=== PATIENT | female | born 1955 | race Caucasian/White ===

== ENCOUNTER 2020-07-16 08:19 | Emergency (ER) | payer MEDICARE, SELFPAY ==
--- NOTE | ~2020-07-16 | US_ITS ---
EXAMINATION: US DIAGNOSTIC ULTRASOUND BREAST, LEFT CLINICAL INFORMATION: 65-year-old female presents to ER with firm mass left breast. No recent breast imaging, last mammogram suspected over 10 years ago. COMPARISON: None. TECHNIQUE: Ultrasound of the left breast is targeted to the area of clinical concern. Patient is able to point to the area of concern at time of imaging. Exam performed at the hospital and reviewed remotely on PACS. Grayscale imaging and color Doppler are performed. FINDINGS: There is a heterogeneous irregular and macrolobulated mass 8:00 position 7 cm from nipple measuring approximately 5.0 x 4.0 x 4.5 cm. There is scattered internal color flow. There is no posterior increased or decreased through transmission of sound. There are several satellite hypoechoic lesions in this quadrant, largest 1.3 x 1.0 cm. These also shows scattered internal color flow vascularity. There is likely skin thickening, 5.5 mm in diameter. Results called and discussed with Ada Anthony NP in the emergency department at 12:17 hours. US/US breast LT limited IMPRESSION: Large irregular mass with scattered internal color flow vascularity 8:00 position 7 cm from nipple measuring 5 x 4 cm. Several adjacent smaller satellite foci, largest 1.3 cm. Differential considerations include malignancy as well as abscess. ASSESSMENT: BI-RADS 4: Suspicious RECOMMENDATION: 1. Surgical Consult. 2. Diagnostic mammography.
[2020-07-16 08:29] VITALS: BP 176/86; PULSE 100; RESP 16; TEMP 36.2; O2SAT 97; BMI 40.2
--- NOTE | 2020-07-16 08:40 | ED_ITS ---
HPI - Skin/Abscess/Foreign Bdy General Chief complaint: Skin/Abscess/Foreign Body Stated complaint: left breast pain Time Seen by Provider: 07/16/20 08:31 Source: patient Mode of arrival: ambulatory Limitations: no limitations History of Present Illness HPI narrative: 65-year-old female with a past medical history of cerebral aneurysm status post repair here with complaints of left breast lump x1 month. Patient tells me she noticed a bump underneath her left breast about 1 month ago but over the last 2 weeks he has had increasing redness, swelling and pain to the left breast. No fevers, chills. Patient tells me she delayed coming and due to not having insurance or a primary care doctor. She was also worried about her COVID-19 exposure and so delayed care further. Last mammogram >10 yrs ago. MD complaint: abscess/boil Related Data Previous Rx's Medication Instructions Recorded doxycycline monohydrate 100 mg PO BID #14 cap 07/16/20 Allergies Allergy/AdvReac Type Severity Reaction Status Date / Time codeine [CODEINE] Allergy Unknown STOMACH Verified 07/16/20 08:44 UPSET Review of Systems Review of Systems: Yes all other systems are reviewed and are negative Constitutional: Constitutional: Reports no additional constitutional complaints, Denies body ache(s), Denies chills, Denies fever(s), Denies headache(s) and Denies weakness Eyes: Eyes: Reports no additional eye complaints and Denies change in vision ENT: Reports system reviewed and no additional complaints, except as documented, Denies dizziness, Denies headache(s), Denies nasal congestion, Denies nasal discharge and Denies neck pain Cardiovascular: Cardiovascular: Reports no additional cardiovascular complaints, Denies chest pain, Denies leg edema and Denies dyspnea Respiratory: Respiratory: Reports no additional respiratory complaints, Denies cough and Denies dyspnea Gastrointestinal: Gastrointestinal: Reports no additional gastrointestinal complaints, Denies abdominal pain, Denies diarrhea, Denies nausea and Denies vomiting Genitourinary: Genitourinary: Reports no additional female genitourinary complaints and Denies urinary incontinence Musculoskeletal: Musculoskeletal: Reports no additional musculoskeletal complaints, Denies back pain, Denies arthralgias, Denies joint swelling, Denies neck pain, Denies numbness and Denies tingling Integumentary/Breasts: Skin/Breast: Reports system reviewed and no additional complaints, except as docu, Reports swelling, Reports erythema and Denies rash Neurologic: Reports system reviewed and no additional complaints, except as documented, Denies Abnormal speech present, Denies dizziness, Denies headache(s), Denies numbness, Denies tingling and Denies weakness PMFSH Past Medical History Attestation statement: The following information was validated with the patient. Source: old records reviewed and nursing notes reviewed Medical History (Updated 07/16/20 @ 13:04 by Ada Anthony NP) Cerebral aneurysm Pneumonia Social History Social History Alcohol intake: current Alcohol intake frequency: a few times a week Smoking Status: Current every day smoker Physical Exam Vital Signs: Vital Signs: Last Vital Signs Temp 97.2 F 07/16/20 08:29 Pulse 92 07/16/20 13:49 Resp 14 07/16/20 13:49 BP 172/82 H 07/16/20 13:49 Pulse Ox 94 07/16/20 09:39 Body Mass Index 40.2 Const: General: cooperative, healthy appearing, comfortable and no acute distress Orientation/consciousness: patient oriented x3 Limitations: no limitations HENMT: Head: Yes normal to inspection Ears: hearing grossly normal bilaterally General nose exam: Normal external nose present Face and sinus: Yes normal facial exam Mouth: Normal oral and palatal mucosa present Throat: Yes posterior oropharynx normal Eyes: General: appearance normal, both eyes and all related structures Pupils: Equal, round and reactive pupils present Neck: Neck: Yes normal visual inspection Chest: Chest palpation & inspection: normal inspection of the chest Resp: Effort & Inspection: normal respiratory effort Auscultation: clear to auscultation bilaterally Cardio: Rate: regular rate Rhythm: regular rhythm Peripheral pulses: Peripheral pulses 2+ throughout GI: Inspection: Yes normal to inspection Palpation (GI): Soft to palpation and nontender Auscultation: normal bowel sounds Back/Spine/Pelvis: Thoracic/Lumbar Spine: thoracic and lumbar spine normal to inspection Skin: Other: There is a firm indurated area underneath the skin length approximately 9 cm x 5 centimetres. There is erythema which extends across the breast with swelling and tenderness. No nipple discharge Neuro: General: patient oriented x3, no focal motor deficits and normal sensation to monofilament Cranial nerves: Yes Equal, round and reactive pupils present Cognition (Neuro): normal cognition Speech: No Abnormal speech present Gait exam (Neuro): Normal gait present Motor exam (neuro): 5/5 motor strength present throughout Extrem: General: Yes normal to inspection, Yes no pedal edema and Yes no calf tenderness Course Course Course Narrative: 65yo female here with left breast swelling, erythema, bump x 1 month, worsening in last 2 weeks. Will need labs including blood cultures, lactic acid, US to eval, COVID screen. At this time is infection is suspected. Antibiotics ordered. 1205-Delay in US report. Call out to radiology to discuss. 1220-Spoke to Dr Nagy from radiology. 5cm mass malignancy vs abscess. Call out to surgery to discuss. 1300-discussed patient with Dr. Javed. The patient will need a biopsy to further evaluate underlying cause. Discussed with radiology team. This will not be able to be scheduled today. Discussed again with Dr. Javed and he is willing to see the patient outpatient in order this as an outpatient test. Spent 20 minutes with the patient and her daughter discussing the results of the ultrasound. We discussed that at this time we do not know if it is infection or underlying malignancy. We discussed that the patient will need further test to evaluate this. It was recommended that she call Dr. Javed office today to schedule an appointment to have a biopsy done. She does not have insurance. Our employment evaluator/case manager Bessie was involved. The patient was provided with information to establish health insurance as well as contact information for our financial team. She plans to meet with them today. As we are unclear if this is an abscess or malignancy we will treat with oral antibiotics for presumed infection until cleared by surgery. Reviewed worrisome signs and symptoms and when to return to the emergency department. Comfortable discharge home. MDM - Skin/Abscess/Foreign Bdy MDM Narrative Medical decision making narrative: abscess, cellulitis, malignancy Medical Records Attestation: I reviewed the patient's medical records. Lab Data Attestation: I reviewed the patient's lab results. Result diagrams: 07/16/20 08:56 07/16/20 08:56 Labs: Lab Results 07/16/20 07/16/20 07/16/20 Range/Units 08:56 08:56 08:56 WBC 5.2 (4.8-10.8) X10*3/uL RBC 4.69 (4.20-5.50) X10*6/uL Hgb 16.1 H (12.0-16.0) g/dl Hct 48.7 H (37-47) % MCV 103.8 H (80-98) fL MCH 34.3 H (27.0-33.0) pg MCHC 33.1 (31.0-35.0) g/dl RDW 12.3 (11.0-16.0) % Plt Count 157 L (160-400) X10*3/uL MPV 10.2 (9.4-12.3) fL Immature Gran % (Auto) 0.2 (0.0-0.4) % Neut % (Auto) 51.1 (45-73) % Lymph % (Auto) 33.8 (20-40) % Woodruff % (Auto) 11.8 H (2-11) % Eos % (Auto) 2.5 (0-4) % Baso % (Auto) 0.6 (0-2) % Lymph # (Auto) 1.7 (1.2-4.9) X10*3/uL Woodruff # (Auto) 0.6 (0.1-1.2) X10*3/uL Eos # (Auto) 0.1 (0.0-0.4) X10*3/uL Baso # (Auto) 0.0 (0.0-0.2) X10*3/uL Abs Immat Gran (auto) 0.01 (0.00-0.03) X10*3/uL Absolute Neuts (auto) 2.6 (2.0-8.3) X10*3/uL Absolute Nucleated RBC 0.000 (0.0-0.012) X10*3/uL Nucleated RBC % (auto) 0.0 (0.0-0.2) /100WBC Hold Blue Top SEE NOTE Sodium 144 (135-145) mmol/L Potassium 4.2 (3.3-5.1) mmol/L Chloride 107 (96-108) mmol/L Carbon Dioxide 26 (22-29) mmol/L Anion Gap 15 (12-20) BUN 11 (9-16) mg/dL Creatinine 0.74 (0.5-1.4) mg/dL Estim Creat Clear Calc 86.9 Estimated GFR > 60 Random Glucose 133 H (60-115) mg/dL Lactic Acid (0.5-2.0) mmol/L Calcium 9.1 (8.4-10.2) mg/dL COVID-19 (MICHAEL) (Negative) COVID-19 Clin Com 07/16/20 07/16/20 Range/Units 08:56 08:56 WBC (4.8-10.8) X10*3/uL RBC (4.20-5.50) X10*6/uL Hgb (12.0-16.0) g/dl Hct (37-47) % MCV (80-98) fL MCH (27.0-33.0) pg MCHC (31.0-35.0) g/dl RDW (11.0-16.0) % Plt Count (160-400) X10*3/uL MPV (9.4-12.3) fL Immature Gran % (Auto) (0.0-0.4) % Neut % (Auto) (45-73) % Lymph % (Auto) (20-40) % Woodruff % (Auto) (2-11) % Eos % (Auto) (0-4) % Baso % (Auto) (0-2) % Lymph # (Auto) (1.2-4.9) X10*3/uL Woodruff # (Auto) (0.1-1.2) X10*3/uL Eos # (Auto) (0.0-0.4) X10*3/uL Baso # (Auto) (0.0-0.2) X10*3/uL Abs Immat Gran (auto) (0.00-0.03) X10*3/uL Absolute Neuts (auto) (2.0-8.3) X10*3/uL Absolute Nucleated RBC (0.0-0.012) X10*3/uL Nucleated RBC % (auto) (0.0-0.2) /100WBC Hold Blue Top Sodium (135-145) mmol/L Potassium (3.3-5.1) mmol/L Chloride (96-108) mmol/L Carbon Dioxide (22-29) mmol/L Anion Gap (12-20) BUN (9-16) mg/dL Creatinine (0.5-1.4) mg/dL Estim Creat Clear Calc Estimated GFR Random Glucose (60-115) mg/dL Lactic Acid 1.9 (0.5-2.0) mmol/L Calcium (8.4-10.2) mg/dL COVID-19 (MICHAEL) Negative (Negative) COVID-19 Clin Com See Note Imaging Data Breast US: Attestation: I personally reviewed and interpreted this imaging study as follows: Radiologist's impression: IMPRESSION: Large irregular mass with scattered internal color flow vascularity 8:00 position 7 cm from nipple measuring 5 x 4 cm. Several adjacent smaller satellite foci, largest 1.3 cm. Differential considerations include malignancy as well as abscess. Discharge Plan Discharge Clinical Impression: Abnormal ultrasound, Breast pain, left Patient Disposition: Home, Self-Care Instructions: Breast Mass (ED) Additional Instructions: Your ultrasound shows a large mass in the left breast. We are unsure if this is a collection of fluid called an abscess or if this is underlying malignancy. I have spoken to our surgeon here. He recommended that you follow-up with him in the office for a biopsy of this. Call his office today to make an magnus ointment. Continue antibiotics. Warm compresses. Prescriptions: New doxycycline monohydrate 100 mg capsule 100 mg PO BID Qty: 14 RF: 0 Referrals: Rosales Javed MD [Physician] - 2 days Interventions: ED Discharge Assessment Last Done: 07/16/20 13:49 Discharge Date/Time: 07/16/20 13:40
[2020-07-16 09:05] LABS: MANUAL DIFF FLAG NO
[2020-07-16 09:16] LABS: Basophils Percent Auto 0.6 % (0-2); Eosinophils Absolute Auto 0.1 X10*3/uL (0.0-0.4); Eosinophils Percent Auto 2.5 % (0-4); Hematocrit 48.7 % (37-47); Hemoglobin 16.1 g/dl (12.0-16.0); Imm Gran Abs Auto 0.01 X10*3/uL (0.00-0.03); Imm Gran Pct Auto 0.2 % (0.0-0.4); Lymphocytes Absolute Auto 1.7 X10*3/uL (1.2-4.9); Lymphocytes Percent Auto 33.8 % (20-40); Mean Corpuscular HGB Conc 33.1 g/dl (31.0-35.0); Mean Corpuscular Hemoglobin 34.3 pg (27.0-33.0); Mean Corpuscular Volume 103.8 fL (80-98); Mean Platelet Volume 10.2 fL (9.4-12.3); Monocytes Absolute Auto 0.6 X10*3/uL (0.1-1.2); Monocytes Percent Auto 11.8 % (2-11); Neutrophils Absolute Auto 2.6 X10*3/uL (2.0-8.3); Neutrophils Percent Auto 51.1 % (45-73); Platelet Count 157 X10*3/uL (160-400); Red Blood Count 4.69 X10*6/uL (4.20-5.50); Red Cell Distribution Width 12.3 % (11.0-16.0); White Blood Count 5.2 X10*3/uL (4.8-10.8)
[2020-07-16 09:25] LABS: COVID-19 Test Negative (Negative)
[2020-07-16 09:26] LABS: Lactic Acid 1.9 mmol/L (0.5-2.0)
[2020-07-16 09:29] LABS: Anion Gap 15 (12-20); Blood Urea Nitrogen 11 mg/dL (9-16); Calcium 9.1 mg/dL (8.4-10.2); Carbon Dioxide 26 mmol/L (22-29); Chloride 107 mmol/L (96-108); Creatinine Clr Calc Pharmacy 86.9; Estimated Glomerular Filt Rate > 60; Glucose Random 133 mg/dL (60-115); Potassium 4.2 mmol/L (3.3-5.1); Sodium 144 mmol/L (135-145)
[2020-07-16] MEDS: Piperacillin Sodium/Tazobactam 3.375 GM in 0.9 % Sodium Chloride 50 ML IV (09:34)
[2020-07-16 09:39] VITALS: BP 156/75; PULSE 93; RESP 16; O2SAT 94
--- NOTE | 2020-07-16 09:54 | PC.NURSE ---
bedside ultra sound being done at this time. abx infusing at this time.
--- NOTE | 2020-07-16 10:04 | MHC.CM.ED ---
Received notification from [facility] in Registration that patient is requesting a HCP. Met with patient. HCP completed,signed and witnessed.Original given to patient. Copy placed in chart. Patient is listed as self pay. Patient states she has no insurance. Info on financial counseling provided to patient. No additional needs anticipated at this time. Continue to monitor for d/c needs.
[2020-07-16 13:49] VITALS: BP 172/82; PULSE 92; RESP 14
== END 2020-07-16 13:40 | disposition home or self-care (01) ==
PROVIDERS: Nurse Practitioner Family; Emergency Provider Emergency Medicine
DX: N64.4 Mastodynia (principal); R92.8 Other abnormal and inconclusive findings on diagnostic imaging of breast; Z20.822 Contact with and (suspected) exposure to COVID-19; F17.200 Nicotine dependence, unspecified, uncomplicated; Z71.6 Tobacco abuse counseling
CPT/HCPCS: 36415; 76642; 80048; 83605; 85025; 87040; 87635; 96360; 96365; 96375; 99284; J2543

== ENCOUNTER → 2020-07-23 08:59 | Outpatient (BNVA) | payer MEDICARE, MEDICAID, SELFPAY | PROVIDERS: Visit Provider Surgery | DX: N63.20 Unspecified lump in the left breast, unspecified quadrant (principal) | CPT/HCPCS: 99202 ==

== ENCOUNTER 2020-07-25 09:42 | Outpatient (REF) | payer MEDICARE, MEDICAID, SELFPAY ==
--- NOTE | ~2020-07-25 | MM_ITS ---
PROCEDURE: US GUIDED BREAST BIOPSY, LEFT CLINICAL INFORMATION: Lump COMPARISON: Ultrasound of July 16, 2020 PROCEDURAL DETAILS: The details of the procedure, as well as the risks, benefits, and alternatives to the procedure were explained to the patient in detail and all of her questions were answered, after which written informed consent was obtained. Site and side were confirmed. Prior to the procedure, sonography revealed a solid suspicious vascular mass measuring approximately 4.9 x 4.0 x 4.5 cm in size. There is skin thickening present and question appearance of inflammatory breast cancer.. A time-out was performed, the lesion intended for biopsy was targeted, and the skin of the left breast was then prepped and draped in the usual sterile fashion. Using sonographic guidance, sterile technique, and 1% lidocaine without epinephrine for local anesthesia, multiple automated core biopsies were obtained through the targeted area with a 14G spring loaded Achieve core biopsy device. There was real-time confirmation of appropriate needle passage. Sampling was documented. At the completion of tissue sampling, a single butterfly metallic clip was deposited at the biopsy site. There was no evidence of immediate complication. SPECIMEN: An appropriate sample was obtained. DIGITAL POST-PROCEDURE MAMMOGRAPHY: Breast density: The tissue contains scattered areas of fibroglandular density. BI-RADS version 5, category B. There is an approximately 4.9 x 4.8 cm mass about the deep inferior medial aspect of the left breast. There are some calcifications noted within the mass. There are also noted to be 2 ill-defined densities more anterior to the larger mass as well as numerous calcifications about the inferior medial aspect of the left breast. Marking clip is seen to lie within the main targeted mass. There is skin thickening present. The postprocedure 2-view direct digital mammogram reveals satisfactory positioning of the biopsy clip. The patient tolerated the procedure well and, after assuring adequate hemostasis, was discharged in good condition after reviewing postbiopsy breast care instructions. Final pathology results are pending. MM/MM diagnostic mammo unilat LT IMPRESSION: 1. No immediate complication from ultrasound-guided percutaneous biopsy left breast. 2. Ultrasound was used to localize and guide marker clip placement. 3. The 2-view direct digital postprocedure mammogram reveals satisfactory positioning of the biopsy clip. 4. Final pathology results are pending. A separate report with final recommendations will be issued once these results are made available.
== END 2020-07-25 09:43 | disposition home or self-care (01) ==
LOC: HO.MAMMO 09:42
PROVIDERS: Visit Provider Surgery
DX: N63.24 Unspecified lump in the left breast, lower inner quadrant (principal)
CPT/HCPCS: 19083; 77065; 88305; 88342; 88360

== ENCOUNTER → 2020-07-30 09:45 | Outpatient (BNVA) | payer MEDICARE, MEDICAID, SELFPAY | PROVIDERS: Visit Provider Surgery | DX: C50.312 Malignant neoplasm of lower-inner quadrant of left female breast (principal) | CPT/HCPCS: 99212 ==

== ENCOUNTER → 2020-08-05 10:14 | Outpatient (BNV) | payer MEDICARE, MEDICAID, SELFPAY | PROVIDERS: Referring Provider Surgery; Visit Provider Internal Medicine Medical Oncology | DX: C50.912 Malignant neoplasm of unspecified site of left female breast (principal) | CPT/HCPCS: 99204; 99213; 99214 ==

== ENCOUNTER 2020-08-13 10:05 | Outpatient (REF) | payer MEDICARE, MEDICAID, SELFPAY ==
--- NOTE | ~2020-08-13 | PE_ITS ---
EXAMINATION: WHOLE BODY PET/CT IMAGING CLINICAL INFORMATION: Breast cancer staging. COMPARISON: No pertinent studies to compare. TECHNIQUE: 19 mCi F-18 deoxyglucose. Imaging from the base of the skull to the thighs. Dedicated coincidence imaging. FINDINGS: In the neck, there is uptake in the left arch of C1, 6.6 g/mL. There is bony lucency here. Otherwise, the neck uptake is unremarkable. In the thoracic inlet, intense uptake in the left thyroid gland which is enlarged. Limited resolution on the CT portion of the exam. This could represent a lymph node in the region but this may well represent fibroid, 6.8 SUVmax. There is an enlarged left axillary node, uptake 5.9 SUVmax. Although there is some preservation of fatty hilum, a malignant deposit needs to be considered. Other smaller nonpathologic nodes more medial show some minimal uptake of uncertain etiology. Imaging in the lung urrutia does not demonstrate a suspicious focus of activity. Activity in the medial right breast, which is the assumed breast tumor, 12.7 SUVmax. In the abdomen and pelvis, normal low-level activity within the liver and spleen. Normal low-level activity within the visualized bowel. Normal renal and bladder activity is seen. PET/PET CT fusion skull to thigh IMPRESSION: Intense activity in the medial left breast lesion assumed to be the primary tumor. There is also an enlarged left axillary node showing increased activity and metastatic disease needs to be suspected though this could be reactive. Otherwise, uptake in the region of the left thyroid gland, which is enlarged. This could represent uptake within a thyroid nodule and, therefore ultrasound would be recommended as malignancy cannot be excluded. Differential would be abnormal uptake in an enlarged node in the region. As described in the left axillary region, more proximally toward the region of the thoracic inlet, some mild uptake in nonpathologically enlarged nodes. These may be reactive but certainly early metastatic disease cannot be excluded. There is also uptake within the region of C1 anterior to the left of midline. There is lucency in the bone here. A metastatic deposit cannot be excluded. Consider MR.
== END 2020-08-13 10:06 | disposition home or self-care (01) ==
LOC: HO.PET 10:05
PROVIDERS: Visit Provider Internal Medicine Medical Oncology
DX: Z13.89 Encounter for screening for other disorder (principal)

== ENCOUNTER → 2020-08-16 12:49 | Outpatient (REF) | payer MEDICARE, MEDICAID, SELFPAY ==
--- NOTE | 2020-08-16 12:52 | CA_ITS ---
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 The visually estimated ejection fraction is between 60-65%. Findings Left Ventricle Normal left ventricular cavity size. There is moderately increased left ventricular wall thickness. The left ventricular systolic function is normal. The visually estimated ejection fraction is between 60-65%. There is no evidence of regional wall motion abnormalities. E/E prime ratio is >15, consistent with elevated filling pressures. Evidence suggests grade I (mild) diastolic dysfunction. Right Ventricle Mildly increased right ventricular cavity size. There is normal right ventricular systolic function. Mitral Valve There is moderate mitral annular calcification. Tricuspid Valve There is mild tricuspid valve regurgitation. The right ventricular systolic pressure is 40 mmHg. Mild pulmonary hypertension is present. Venous The inferior vena cava is mildly dilated and collapses greater than 50% with inspiration. Pericardium/Pleural There is a trivial pericardial effusion. Prior Study Comparison No prior study available for comparison. Measurements 2D Linear Measurements IVSd: 1.31 0.6-0.9/0.6-1.0 cm LVIDd: 3.69 3.9-5.3/4.2-5.9 cm LVIDd Index: 1.85 2.4-3.2/2.2-3.1 cm/m2 LVIDs: 2.45 2.0-3.6 cm LVPWd: 1.31 0.7-1.1 cm LV Mass: 209.04 67-162/88-224 g LV Mass Index: 105.04 43-95/49-115 g/m2 2D Systolic Function EF 4C: 57.80 >55% EF 2C: 53.50 >55% EF BiP: 55.10 >55% Mitral Valve MV Pk E: 1.14 MV PK A: 1.53 MV Decel Time: 243.00 E/A: 0.70 E'Lateral: 9.38 E'Medial: 6.19 E/E' Med: 18.40 E/E' Lat: 12.20 PHT: 71.00 MVA PHT: 3.10 Decel Hudspeth: 4.71 Diastolic Function MV Pk E: 1.14 MV Pk A: 1.53 E/A: 0.70 E'Medial: 6.19 E/E' Med: 18.40 E' Laterial: 9.38 E/E' Lat: 12.20 Tricuspid Valve TR Pk Cristino: 2.83 TR Pk Grad: 32.00 RA Press: 8.00 RVSP: 40.00 Updated in Other Vendor System with Status of Final Castillo Abreu MD electronically signed on 08/18/2020 2:01:46 PM with status of Final
== END ==
LOC: HO.CARD 12:49
PROVIDERS: Visit Provider Internal Medicine Medical Oncology
DX: Z01.818 Encounter for other preprocedural examination (principal); C50.912 Malignant neoplasm of unspecified site of left female breast
CPT/HCPCS: 93308

== ENCOUNTER 2020-08-20 09:18 | Outpatient (REF) | payer MEDICARE, MEDICAID, SELFPAY ==
--- NOTE | ~2020-08-20 | MR_ITS ---
MR CERVICAL SPINE WITHOUT AND WITH CONTRAST CLINICAL INFORMATION: Lytic lesion, C1, see PET scan. COMPARISON: PET/CT 08/13/2020. TECHNIQUE: MRI of the cervical spine was obtained using routine sequences with and without contrast. Intravenous contrast: Gadavist 10 mL. FINDINGS: Slight retrosubluxation of C5 on C6 and C6 on C7. Mild anterior subluxation of C7 on T1. A 1.5 cm enhancing intraosseous lytic lesion within the left lateral mass of C1 exhibited FDG uptake on the 08/13/2020 PET/CT, most concerning for a metastatic focus on this MRI. No additional enhancing intraosseous lesions within the cervical spine. No pathologic intrathecal enhancement. No acute fractures. Modic type I endplate signal changes at C4-C5. The cervical arterial flow voids are maintained. No significant extraspinal soft tissue findings. C2-C3: Posterior disc contour normal. Bilateral facet arthropathy. No central canal stenosis and no foraminal stenosis. C3-C4: Right-sided uncovertebral joint spurring and facet arthropathy result in mild right foraminal encroachment. No central canal and no left foraminal stenosis. C4-C5: Disc osteophyte and ligamentum flavum thickening result in severe central canal stenosis and mass effect on the cord. Advanced uncovertebral joint hypertrophy and hypertrophic facet arthropathy result in severe bilateral foraminal stenosis. C5-C6: Disc osteophyte and ligamentum flavum thickening result in severe central canal stenosis and mass effect on the cord. Advanced uncovertebral joint hypertrophy and hypertrophic facet arthropathy result in severe bilateral foraminal stenosis. Intramedullary T2 signal changes within the cord at this level. C6-C7: Disc osteophyte mildly narrows the central canal. Uncovertebral joint hypertrophy and hypertrophic facet arthropathy result in moderate left and mild right foraminal stenosis. C7-T1: A disc contour normal. Mild anterior subluxation the setting of bilateral facet arthropathy resulting in mild bilateral foraminal encroachment. MR/MR cervical spine wo/w con IMPRESSION: - A 1.5 cm enhancing intraosseous lytic lesion within the left lateral mass of C1 exhibited FDG uptake on the 08/13/2020 PET/CT, most concerning for a metastatic focus on this MRI. No additional osseous metastatic disease is appreciated within the cervical spine. No enhancing epidural lesions. - Advanced cervical spondylosis, greatest at C4-C5 and C5-C6 with advanced spondylitic changes resulting in severe central canal stenosis and compression of the cervical cord at both of these levels. Intramedullary T2 signal changes within the cord at C5-C6 of indeterminate age that can be correlated for clinical signs of acute myelopathy. There is severe bilateral foraminal stenosis at C4-C5 and C5-C6 as well.
[2020-08-20 11:17] LABS: MANUAL DIFF FLAG NO
[2020-08-20 11:28] LABS: Basophils Percent Auto 0.4 % (0-2); Eosinophils Absolute Auto 0.1 X10*3/uL (0.0-0.4); Eosinophils Percent Auto 0.8 % (0-4); Hematocrit 48.4 % (37-47); Hemoglobin 15.8 g/dl (12.0-16.0); Imm Gran Abs Auto 0.03 X10*3/uL (0.00-0.03); Imm Gran Pct Auto 0.4 % (0.0-0.4); Lymphocytes Absolute Auto 1.6 X10*3/uL (1.2-4.9); Lymphocytes Percent Auto 22.5 % (20-40); Mean Corpuscular HGB Conc 32.6 g/dl (31.0-35.0); Mean Corpuscular Hemoglobin 34.1 pg (27.0-33.0); Mean Corpuscular Volume 104.5 fL (80-98); Mean Platelet Volume 10.4 fL (9.4-12.3); Monocytes Absolute Auto 0.6 X10*3/uL (0.1-1.2); Monocytes Percent Auto 8.1 % (2-11); Neutrophils Absolute Auto 4.9 X10*3/uL (2.0-8.3); Neutrophils Percent Auto 67.8 % (45-73); Platelet Count 154 X10*3/uL (160-400); Red Blood Count 4.63 X10*6/uL (4.20-5.50); Red Cell Distribution Width 12.5 % (11.0-16.0); White Blood Count 7.2 X10*3/uL (4.8-10.8)
[2020-08-20 12:02] LABS: Alanine Aminotransferase 47 U/L (0-31); Albumin Level 4.1 g/dL (3.5-5.0); Alkaline Phosphatase 91 U/L (39-117); Anion Gap 12 (12-20); Aspartate Amino Transferase 72 U/L (5-31); Bilirubin Total 1.1 mg/dL (0.0-1.0); Blood Urea Nitrogen 9 mg/dL (9-16); Calcium 8.8 mg/dL (8.4-10.2); Carbon Dioxide 28 mmol/L (22-29); Chloride 106 mmol/L (96-108); Cholesterol 261 mg/dL; Estimated Glomerular Filt Rate > 60; Glucose Fasting 114 mg/dL (60-99); HDL Cholesterol 58 mg/dL; LDL Cholesterol Calculated 182 mg/dl; Potassium 4.4 mmol/L (3.3-5.1); Sodium 142 mmol/L (135-145); Total Protein 6.8 g/dL (6.5-8.0); Triglycerides 109 mg/dL
[2020-08-20 12:03] LABS: Thyroid Stimulating Hormone 1.04 uIU/mL (0.32-4.0)
== END 2020-08-20 09:19 | disposition home or self-care (01) ==
LOC: HO.MRI 09:18
PROVIDERS: Internal Medicine; Visit Provider Internal Medicine Medical Oncology
DX: Z00.00 Encounter for general adult medical examination without abnormal findings (principal); C50.912 Malignant neoplasm of unspecified site of left female breast; E03.9 Hypothyroidism, unspecified; E11.9 Type 2 diabetes mellitus without complications
CPT/HCPCS: 36415; 72156; 80053; 80061; 84443; 85025; A9585

== ENCOUNTER 2020-08-22 08:47 | Day surgery (SDC) | payer MEDICARE, MEDICAID, SELFPAY ==
--- NOTE | ~2020-08-22 | IR_ITS ---
CLINICAL HISTORY: The patient is a 65-year-old woman with breast cancer requiring chemotherapy, who presents to interventional radiology for placement of a right chest port as requested. PROCEDURES: 1. Real-time ultrasound-guided access into the right internal jugular vein after documentation of selected vessel patency, and permanent imaging storing in the patient records. 2. Placement of 6.6 [place] port catheter. FLUOROSCOPY TIME: 1.7 minutes PROCEDURE NOTE: Informed consent was obtained from the patient prior to the procedure. During this process, the procedure and potential alternatives were explained along with the intended outcome and benefits. The risks of the procedure, including the possibility of an unsuccessful procedure, as well as the risk of not doing the procedure, were discussed. The patient was given the opportunity to ask questions regarding the procedure and appeared competent to make decisions. A signed consent form documenting this discussion was placed in the medical record. A time-out procedure was performed. The patient was placed supine on the fluoroscopy table. The right neck and chest were prepped and draped in usual sterile fashion. ?All elements of maximal sterile barrier technique followed including use of cap, mask, sterile gown, sterile gloves, a sterile full body drape and hand hygiene. Also followed skin preparation with 2% chlorhexidine for cutaneous antisepsis, and sterile ultrasound preparation with sterile gel and probe cover when applicable.? Venous access was achieved into the right IJ vein using ultrasound and fluoroscopic guidance with a 5 F Micropuncture set. A small skin marcia was made at the access site. The 0.018 wire was exchanged for a 0.035 in J wire, which was advanced to the IVC to maintain access during dissection of the pocket and the tunneling process. Attention was then directed to the chest for port pocket placement. Approximately 3 cm long incision was made a few centimeters below the clavicle. The pocket was dissected to the size of the port and then a subcutaneous tunnel was made to connect to the venotomy site.The catheter was pulled through the tunnel the micropuncture set sheath in the IJ was exchanged over the wire for a peel-away sheath. The inner dilator and J wire were removed and the catheter was advanced through the peel away sheath. The peel away sheath was subsequently removed. The catheter was then pulled back until its tip was in the region of the caval atrial junction. The catheter was then trimmed to size and attached to the port which was sutured in place with 2 3-0 monofilament sutures. The port was flushed with normal saline and then instilled with Hep-Lock solution of 100 units of heparin per milliliter. The incision site was sutured using 4.0 Polysorb for the subcuticular layer. Tissue adhesive was then used to close the skin site at the port pocket as well as at the right internal jugular puncture site. IR/IR cvc insert tunnel w prt/world designer IMPRESSION: Successful and uncomplicated placement of right internal jugular port catheter as described.
--- NOTE | ~2020-08-22 | IR_ITS ---
CLINICAL HISTORY: The patient is a 65-year-old woman with breast cancer requiring chemotherapy, who presents to interventional radiology for placement of a right chest port as requested. PROCEDURES: 1. Real-time ultrasound-guided access into the right internal jugular vein after documentation of selected vessel patency, and permanent imaging storing in the patient records. 2. Placement of 6.6 Swedish port catheter. FLUOROSCOPY TIME: 1.7 minutes PROCEDURE NOTE: Informed consent was obtained from the patient prior to the procedure. During this process, the procedure and potential alternatives were explained along with the intended outcome and benefits. The risks of the procedure, including the possibility of an unsuccessful procedure, as well as the risk of not doing the procedure, were discussed. The patient was given the opportunity to ask questions regarding the procedure and appeared competent to make decisions. A signed consent form documenting this discussion was placed in the medical record. A time-out procedure was performed. The patient was placed supine on the fluoroscopy table. The right neck and chest were prepped and draped in usual sterile fashion. ?All elements of maximal sterile barrier technique followed including use of cap, mask, sterile gown, sterile gloves, a sterile full body drape and hand hygiene. Also followed skin preparation with 2% chlorhexidine for cutaneous antisepsis, and sterile ultrasound preparation with sterile gel and probe cover when applicable.? Venous access was achieved into the right IJ vein using ultrasound and fluoroscopic guidance with a 5 F Micropuncture set. A small skin marcia was made at the access site. The 0.018 wire was exchanged for a 0.035 in J wire, which was advanced to the IVC to maintain access during dissection of the pocket and the tunneling process. Attention was then directed to the chest for port pocket placement. Approximately 3 cm long incision was made a few centimeters below the clavicle. The pocket was dissected to the size of the port and then a subcutaneous tunnel was made to connect to the venotomy site.The catheter was pulled through the tunnelthe micropuncture set sheath in the IJ was exchanged over the wire for a peel-away sheath. The inner dilator and J wire were removed and the catheter was advanced through the peel away sheath. The peel away sheath was subsequently removed. The catheter was then pulled back until its tip was in the region of the caval atrial junction. The catheter was then trimmed to size and attached to the port which was sutured in place with 2 3-0 monofilament sutures. The port was flushed with normal saline and then instilled with Hep-Lock solution of 100 units of heparin per milliliter. The incision site was sutured using 4.0 Polysorb for the subcuticular layer. Tissue adhesive was then used to close the skin site at the port pocket as well as at the right internal jugular puncture site. IR/IR us guide venous access IMPRESSION: Successful and uncomplicated placement of right internal jugular port catheter as described.
[2020-08-22 09:06] VITALS: BMI 38.9
[2020-08-22 09:26] LABS: MANUAL DIFF FLAG NO
[2020-08-22 09:34] LABS: Basophils Percent Auto 0.3 % (0-2); Eosinophils Absolute Auto 0.1 X10*3/uL (0.0-0.4); Eosinophils Percent Auto 1.5 % (0-4); Hematocrit 48.2 % (37-47); Hemoglobin 15.9 g/dl (12.0-16.0); Imm Gran Abs Auto 0.04 X10*3/uL (0.00-0.03); Imm Gran Pct Auto 0.5 % (0.0-0.4); Lymphocytes Absolute Auto 1.7 X10*3/uL (1.2-4.9); Lymphocytes Percent Auto 22.9 % (20-40); Mean Corpuscular Hemoglobin 34.6 pg (27.0-33.0); Mean Corpuscular Volume 104.8 fL (80-98); Mean Platelet Volume 10.4 fL (9.4-12.3); Monocytes Absolute Auto 0.6 X10*3/uL (0.1-1.2); Monocytes Percent Auto 8.6 % (2-11); Neutrophils Absolute Auto 4.8 X10*3/uL (2.0-8.3); Neutrophils Percent Auto 66.2 % (45-73); Platelet Count 162 X10*3/uL (160-400); Red Cell Distribution Width 12.5 % (11.0-16.0); White Blood Count 7.3 X10*3/uL (4.8-10.8)
[2020-08-22 09:35] LABS: INTERNATIONAL NORM RATIO 0.9 (0.9-1.1); Prothrombin Time 10.6 SEC (10.8-13.0)
[2020-08-22 09:37] LABS: Partial Thromboplastin Time 33.1 SEC (24.1-38.0)
[2020-08-22 14:15] VITALS: BP 166/62; PULSE 79; RESP 18; TEMP 36.9; O2SAT 93
[2020-08-22 14:51] VITALS: BP 156/61; PULSE 82; RESP 18; O2SAT 93
== END 2020-08-22 15:09 | disposition home or self-care (01) ==
PROVIDERS: Radiology Diagnostic Radiology; Visit Provider Radiology Diagnostic Radiology
DX: C50.912 Malignant neoplasm of unspecified site of left female breast (principal); Z17.1 Estrogen receptor negative status [ER-]; Z88.8 Allergy status to other drugs, medicaments and biological substances; F17.210 Nicotine dependence, cigarettes, uncomplicated
CPT/HCPCS: 36415; 36561; 76937; 85025; 85610; 85730; 99152; 99153; C1769; C1788; J0690; J1642; J2250; J3010

== ENCOUNTER 2020-09-05 16:14 | Outpatient (REF) | payer MEDICARE, MEDICAID, SELFPAY ==
--- NOTE | ~2020-09-05 | US_ITS ---
EXAMINATION: US THYROID CLINICAL INFORMATION: Enlarged gland. COMPARISON: Previous PET/CT scan 08/13/2020 TECHNIQUE: Linear transducer grayscale and color Doppler examination with attention to the region of the thyroid. FINDINGS: SIZE: Measurements of the thyroid lobes and nodules are given in sagittal, anteroposterior and transverse dimensions respectively. Right Thyroid Lobe: 4.6 x 2.0 x 1.9 cm, volume 8.7 mL. Parenchyma: The gland echotexture is heterogeneous. Thyroid vascularity is normal. Left Thyroid Lobe: 4.7 x 2.9 x 3.2 cm, volume 22.8 mL. Parenchyma: The gland echotexture is heterogeneous. Thyroid vascularity is normal. Isthmus: 0.8 cm in maximum AP dimension. Estimated total number of nodules greater than or equal to 1 cm: 2. [employer] nodules are described as follows: 1. Location: Right upper pole. Size: 0.8 x 0.5 x 0.7 cm, volume 0.1 mL. Nodule characteristics: Composition: Spongiform (0). Echogenicity: 0 Shape: 0 Margins: 0 Echogenic Foci: 0 ACR TI-RADS total points: 0 ACR TI-RADS category: 1 2. Location: Right mid pole. Size: 1.1 x 0.7 x 1.0 cm, volume 0.4 mL. Nodule characteristics: Composition: Mixed cystic and solid (1). Echogenicity: Hyperechoic (1). Shape: Not taller than wide (0). Margins: Smooth (0). Echogenic Foci: None (0). ACR TI-RADS total points: 2 ACR TI-RADS category: 2 3. Location: Left mid pole. Size: 3.4 x 2.5 x 2.5 cm, volume 11.1 mL. Nodule characteristics: Composition: Solid (2). Echogenicity: Hyperechoic (1). Shape: Not taller than wide (0). Margins: Ill-defined (0). Echogenic Foci: None (0). ACR TI-RADS total points: 3 ACR TI-RADS category: 3 This demonstrated increased uptake on PET CT scan. NODES: No lymphadenopathy is seen in the tissue surrounding the thyroid gland. US/US thyroid IMPRESSION: Heterogeneous thyroid gland. The left lobe is enlarged. Bilateral thyroid nodules. Fine needle aspiration of the largest nodule in the left lobe recommended. ACR TI-RADS RECOMMENDATION REFERENCE: Ultrasound-guided fine-needle aspiration, followup ultrasound, no further follow up. * TR1 (0 point) and TR 2 (2 points): No FNA or follow up * TR3 (3 points): FNA if more than or equal to 2.5 cm in maximum dimension, followup ultrasound in 1, 3 and 5 years if 1.5 to 2.4 cm in maximum dimension. * TR4 (4-6 points): FNA if more than or equal to 1.5 cm in maximum dimension, followup ultrasound in 1, 2, 3 and 5 years if 1 to 1.4 cm in maximum dimension. * TR5 (more than or equal to 7 points): FNA if more than or equal to 1 cm in maximum dimension, followup ultrasound every year for 5 years if 0.5 to 0.9 cm in maximum dimension. * TR3, TR4 or TR5 nodules that are below the size threshold for follow up receive no follow up.
== END 2020-09-05 16:15 | disposition home or self-care (01) ==
LOC: HO.US 16:14
PROVIDERS: Visit Provider Internal Medicine Medical Oncology
DX: E04.1 Nontoxic single thyroid nodule (principal)
CPT/HCPCS: 76536

== ENCOUNTER 2020-09-30 08:39 | Outpatient (REF) | payer MEDICARE, MEDICAID, SELFPAY ==
--- NOTE | ~2020-09-30 | US_ITS ---
EXAMINATION: ULTRASOUND-GUIDED THYROID FINE-NEEDLE ASPIRATION CLINICAL INFORMATION: Breast cancer. Left thyroid nodule with increased uptake on PET CT. COMPARISON: Previous thyroid ultrasound August 2020 and hand August 2020 TECHNIQUE: Procedure and risks and benefits including bleeding and infection were discussed with the patient and informed was obtained. The left neck was prepped and draped in the usual sterile fashion. The skin and soft tissues were anesthetized percent lidocaine plain. Using ultrasound guidance and a 25-gauge needle, 4 separate 25-gauge FNA specimens were obtained. There is no complication. FINDINGS: There is a 3.5 x 2.5 x 2.5 cm left mid to lower pole thyroid nodule that was targeted for fine-needle aspiration. US/US biopsy thyroid IMPRESSION: Ultrasound-guided left thyroid nodule fine-needle aspiration.
[2020-09-30] MEDS: Lidocaine HCl 1 % MPF 5 ML VIAL SUBCUT (09:59)
== END 2020-09-30 08:40 | disposition home or self-care (01) ==
LOC: HO.US 08:39
PROVIDERS: Visit Provider Internal Medicine Medical Oncology
DX: E04.1 Nontoxic single thyroid nodule (principal)
CPT/HCPCS: 10005; 88172; 88173; 88177; 88305

== ENCOUNTER → 2020-11-26 10:10 | Outpatient (REF) | payer MEDICARE, MEDICAID, SELFPAY ==
--- NOTE | 2020-11-26 10:54 | CA_ITS ---
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 FOLLOW-UP ON THE EJECTION FRACTION Study Quality: Fair ECG Rhythm: Sinus Conclusions: - The left ventricular systolic function is normal. The visually estimated ejection fraction is between 65-70%. Findings Procedure Information The patient receives contrast. Left Ventricle Normal left ventricular cavity size. The left ventricular systolic function is normal. The visually estimated ejection fraction is between 65-70%. There is no evidence of regional wall motion abnormalities. E/E prime ratio is >15, consistent with elevated filling pressures. Evidence suggests grade I (mild) diastolic dysfunction. Prior Study Comparison No significant change compared to prior study dated: 08/16/2020. Measurements 2D Linear Measurements LVIDd: 4.36 3.9-5.3/4.2-5.9 cm LVIDd Index: 2.17 2.4-3.2/2.2-3.1 cm/m2 LVIDs: 2.83 2.0-3.6 cm LVPWd: 0.79 0.7-1.1 cm 2D Systolic Function EF 4C: 69.70 >55% EF 2C: 51.60 >55% EF BiP: 61.30 >55% Mitral Valve MV Pk E: 1.07 MV PK A: 1.32 MV Decel Time: 373.00 E/A: 0.80 E'Lateral: 5.22 E'Medial: 5.55 E/E' Med: 19.30 E/E' Lat: 20.50 Diastolic Function MV Pk E: 1.07 MV Pk A: 1.32 E/A: 0.80 E'Medial: 5.55 E/E' Med: 19.30 E' Laterial: 5.22 E/E' Lat: 20.50 Updated in Other Vendor System with Status of Final Castillo Abreu MD electronically signed on 11/27/2020 4:12:06 PM with status of Final
== END ==
LOC: HO.CARD 10:10
PROVIDERS: Visit Provider Internal Medicine Medical Oncology
DX: C50.912 Malignant neoplasm of unspecified site of left female breast (principal)
CPT/HCPCS: 93308; Q9957

== ENCOUNTER 2021-02-18 07:50 | Outpatient (REF) | payer MEDICARE, MEDICAID, SELFPAY ==
--- NOTE | ~2021-02-18 | MR_ITS ---
EXAMINATION: MR BREAST WITHOUT AND WITH CONTRAST, BILATERAL CLINICAL INFORMATION: 65-year-old with diagnosis of invasive ductal carcinoma left breast status post neoadjuvant chemotherapy. COMPARISON: Correlation to mammogram and ultrasound of 07/16/2020 and 07/25/2020. TECHNIQUE: Imaging was performed with a dedicated breast coil. Prior to the administration of contrast, bilateral axial T1 and bilateral axial T2 weighted sequences were obtained. After the uneventful administration of?10 mL of Gadavist, dynamic contrast-enhanced VIBRANT series through the breasts in the axial plane were performed. Subtracted images were performed and reviewed. A delayed sagittal sequence through both breasts was acquired. Additionally, CAD post-processing, including maximum intensity projections, 3-D reconstructions and kinetic analysis, were performed an independent workstation and reviewed by the interpreting radiologist is a portion of this exam. There is apparent lack of contrast within the subtracted images. This may be due to the timing of the contrast injection as well as the the positioning of the patient within the breast coil and her size. The patient will be contacted to return for repeat contrast sequences.
== END 2021-02-18 07:51 | disposition home or self-care (01) ==
LOC: HO.MRI 07:50
PROVIDERS: PCP Internal Medicine; Visit Provider Internal Medicine Medical Oncology
DX: C50.912 Malignant neoplasm of unspecified site of left female breast (principal)
CPT/HCPCS: 77049; A9585

== ENCOUNTER → 2021-02-21 11:08 | Outpatient (BNVA) | payer MEDICARE, MEDICAID, SELFPAY | PROVIDERS: PCP Internal Medicine; Referring Provider Internal Medicine; Visit Provider Surgery | DX: C50.912 Malignant neoplasm of unspecified site of left female breast (principal) | CPT/HCPCS: 99212 ==

== ENCOUNTER 2021-02-26 08:36 | Outpatient (REF) | payer MEDICARE, MEDICAID, SELFPAY | END 2021-02-26 08:37 | disposition home or self-care (01) | LOC: HO.MRI 08:36 | PROVIDERS: Visit Provider Internal Medicine Medical Oncology | DX: Z53.9 Procedure and treatment not carried out, unspecified reason (principal) | CPT/HCPCS: A9585 ==

== ENCOUNTER → 2021-03-03 07:34 | Outpatient (REF) | payer MEDICARE, MEDICAID, SELFPAY ==
--- NOTE | 2021-03-03 07:38 | CA_ITS ---
Transthoracic Echocardiogram Patient (Last, First, Middle): Marcia Mcintosh Ann Gender: Female Date of : 1955 Age: 65 Procedure Date: 03/03/2021 Procedure Type: Transthoracic Echocardiogram Location: OP Height: 160.02 cm Weight: 99.79 kg BSA: 2.01 m2 Heart Rate: bpm BP: 124 / 80 mmHg [place] Tier: Referring MD: Ronal Peña MD Electricians Top Helper: Wale Cantu MD Symptoms: To assess cardiac function on chemotherapy Study Quality: Fair ECG Rhythm: Sinus Conclusions: - Normal LV systolic function with LVEF of 60-65% with impaired relaxation filling pattern Findings Left Ventricle Normal left ventricular size and systolic function. The visually estimated ejection fraction is between 60-65%. Spectral Doppler is indicative of an impaired relaxation filling pattern. Pericardium/Pleural There is no evidence of pericardial effusion. Prior Study Comparison No significant change compared to prior study dated: 11/26/2020. Measurements 2D Linear Measurements IVSd: 1.15 0.6-0.9/0.6-1.0 cm LVIDd: 4.29 3.9-5.3/4.2-5.9 cm LVIDd Index: 2.13 2.4-3.2/2.2-3.1 cm/m2 LVIDs: 2.96 2.0-3.6 cm LVPWd: 1.04 0.7-1.1 cm LV Mass: 200.87 67-162/88-224 g LV Mass Index: 99.94 43-95/49-115 g/m2 2D Systolic Function EF 4C: 72.30 >55% EF 2C: 57.30 >55% EF BiP: 65.90 >55% Mitral Valve MV Pk E: 1.12 MV PK A: 1.32 MV Decel Time: 301.00 E/A: 0.80 E'Lateral: 6.85 E'Medial: 5.66 E/E' Med: 19.80 E/E' Lat: 16.40 PHT: 88.00 MVA PHT: 2.50 Decel [place]: 3.73 Diastolic Function MV Pk E: 1.12 MV Pk A: 1.32 E/A: 0.80 E'Medial: 5.66 E/E' Med: 19.80 E' Laterial: 6.85 E/E' Lat: 16.40 Updated in Other Vendor System with Status of Final Wale Cantu MD electronically signed on 03/03/2021 4:35:21 PM with status of Final
== END ==
LOC: HO.CARD 07:34
PROVIDERS: PCP Internal Medicine; Visit Provider Internal Medicine Medical Oncology
DX: C50.912 Malignant neoplasm of unspecified site of left female breast (principal); Z92.21 Personal history of antineoplastic chemotherapy
CPT/HCPCS: 93308

== ENCOUNTER → 2021-03-04 10:31 | Outpatient (REF) | payer MEDICARE, MEDICAID, SELFPAY ==
--- NOTE | ~2021-03-04 | NM_ITS ---
EXAMINATION: NM BONE SCAN OF THE WHOLE BODY CLINICAL INFORMATION: Left breast cancer. Back pain. COMPARISON: None TECHNIQUE: Multiple gamma scintillation camera images of the whole body were performed 2 1/4 hours following the intravenous administration of 34 mCi Tc-99m MDP. FINDINGS: In the head, there is mild increased activity seen in the nasal cavity. No abnormal activity seen in the calvarium. In the thoracic cage and upper extremities, there is mild focal increased activity seen in right T7 costovertebral junction. Mild activity seen right T10 and T11 facet joints. In the spine, no abnormal activity seen in spine., In the pelvis, unremarkable In the lower extremities, unremarkable No other definite bony abnormalities are noted. The urinary bladder and faint visualization of both kidneys are noted. NM/NM bone scan whole body IMPRESSION: No abnormal bone activity seen to suspect any metastatic bone disease. There is mild degenerative changes right T7 costovertebral junction and right T11 and T12 facet joints.
== END ==
LOC: HO.NUCMED 10:31
PROVIDERS: PCP Internal Medicine; Visit Provider Internal Medicine Medical Oncology
DX: C50.912 Malignant neoplasm of unspecified site of left female breast (principal)
CPT/HCPCS: 78306; A9503

== ENCOUNTER → 2021-03-11 09:59 | Outpatient (BNVA) | payer MEDICARE, MEDICAID, SELFPAY | PROVIDERS: PCP Internal Medicine; Referring Provider Internal Medicine; Visit Provider Surgery | DX: C50.312 Malignant neoplasm of lower-inner quadrant of left female breast (principal); Z17.1 Estrogen receptor negative status [ER-]; Z92.21 Personal history of antineoplastic chemotherapy; Z79.899 Other long term (current) drug therapy | CPT/HCPCS: 99212 ==

== ENCOUNTER 2021-04-30 11:43 | Inpatient (IN) | payer MEDICARE, MEDICAID, SELFPAY ==
[2021-04-21 13:01] VITALS: BP 152/70; PULSE 66; RESP 20; O2SAT 95; BMI 39.9
--- NOTE | 2021-04-21 13:30 | ECG_ITS ---
Test Reason : preop Blood Pressure : / mmHG Vent. Rate : 065 BPM Atrial Rate : 065 BPM P-R Int : 152 ms QRS Dur : 078 ms QT Int : 408 ms P-R-T Axes : 050 007 054 degrees QTc Int : 424 ms Normal sinus rhythm Possible Left atrial enlargement Borderline ECG When compared with ECG of 13-MAR-2002 03:47, No significant change was found Referred By: Edouard Caceres Electronically Signed By:AMBROSE COYNE
--- NOTE | 2021-04-29 10:17 | P.CONAN_ITS ---
Documented by User: Reshma Bower NP 04/29/21 10:24 HPI - Anesthesia Eval Consult details Narrative: 66yo F for Left Mastectomy Modified Radical Port a cath in situ - R chest PMFSH Active Problems Active Problems: All Active Problems (Updated 04/21/21 @ 13:18 by Jennifer Aparicio RN) Left breast mass (Acute) Carcinoma of left breast (Acute) Hypertension (Acute) Morbid obesity (Acute) Past Medical History Medical History (Updated 04/29/21 @ 10:21 by Reshma Bower NP) Arthritis Bone cancer Breast cancer Cerebral aneurysm Chronic back pain Morbid obesity Neuropathy Pneumonia Port-A-Cath in place Family History Family History Family/Other Breast cancer Brother Colon cancer Surgical History Surgical History H/O tubal ligation Social History Social History Housing: Apartment Are you a primary child caregiver to a significant other at home: No Do you presently have visiting nurse or other home services: No Alcohol intake: current Alcohol intake frequency: a few times a month Alcohol type: wine Patient Tobacco Use Status: Current everyday Tobacco user Tobacco use type: Cigarette Cigarettes Per Day: 6 Years Smoked: 50 Smoked in Last 30 Days: Yes e-Cigarette/Vaping Use: Never Used Patient Interested in Nicotine Replacement: No Patient Given Instructions on How to Stop Smoking: No Second Hand Smoke Exposure: Yes (daughter) Use of substances other than those prescribed or required for medical reasons: No Have you been hit, kicked, punched, or otherwise hurt by someone within the past year? If so, by whom?: No Are you DNR?: Yes Advance Directives: Yes Advance Directives Information Provided: No Advance Directives on File: Yes Advance Directives Date on File: 08/22/20 Recently lost weight without trying: No Eating poorly because of decreased appetite: No Nutrition Risks: No Nutritional Risk Patient : No service: No Current occupational status: unemployed Meds Allergies Allergy/AdvReac Type Severity Reaction Status Date / Time codeine [CODEINE] Allergy Unknown STOMACH Verified 04/21/21 12:57 UPSET Home Medications Medication Instructions Recorded Confirmed Last Taken Type melatonin 10 mg tablet 10 mg PO BEDTIME 04/21/21 04/21/21 Unknown History Exam Exam Date and Time: April 29, 2021 1017 Height,Weight and Vital Signs: Height 5 ft 2 in Weight 98.883 kg Last Vital Signs Pulse 66 04/21/21 13:01 Resp 20 04/21/21 13:01 BP 152/70 H 04/21/21 13:01 Pulse Ox 95 04/21/21 13:01 Pertinent Lab Results Pertinent Lab Results: Laboratory Tests 04/21/21 14:10 Blood Type O Positive Antibody Screen NEGATIVE Laboratory Tests 04/16/21 04/16/21 09:07 09:07 WBC 6.3 Hgb 14.7 Hct 43.7 Plt Count 193 Sodium 140 Potassium 3.3 Chloride 101 Carbon Dioxide 31 H BUN 16 Creatinine 0.81 Narrative Narrative: ECHO 02/2021 Conclusions: - Normal LV systolic function with LVEF of 60-65% with impaired? relaxation filling pattern ? ?? EKG 04/2021 Vent. Rate : 065 BPM ? ? Atrial Rate : 065 BPM ?? P-R Int : 152 ms? QRS Dur : 078 ms ? ? QT Int : 408 ms ? ? ? P-R-T Axes : 050 007 054 degrees ?? QTc Int : 424 ms ? Normal sinus rhythm Possible Left atrial enlargement Borderline ECG When compared with ECG of 13-MAR-2002 03:47, No significant change was found Assessment and Plan Assessment Anesthesia Assessment: Chart Reviewed Documented by User: Tulio Brizuela 04/30/21 18:40 [facility] Past Medical History Medical History (Updated 04/29/21 @ 10:21 by Reshma Bower NP) Arthritis Bone cancer Breast cancer Cerebral aneurysm Chronic back pain Morbid obesity Neuropathy Pneumonia Port-A-Cath in place Functional capacity: independent ambulation Family History Family History Family/Other Breast cancer Brother Colon cancer Family history of problems with anesthesia: No Surgical History Surgical History H/O tubal ligation History of Problems with Anesthesia: No Social History Social History Housing: Apartment Are you a primary child caregiver to a significant other at home: No Do you presently have visiting nurse or other home services: No Alcohol intake: current Alcohol intake frequency: a few times a month Alcohol type: wine Patient Tobacco Use Status: Current everyday Tobacco user Tobacco use type: Cigarette Cigarettes Per Day: 6 Years Smoked: 50 Smoked in Last 30 Days: Yes e-Cigarette/Vaping Use: Never Used Patient Interested in Nicotine Replacement: No Patient Given Instructions on How to Stop Smoking: No Second Hand Smoke Exposure: Yes (daughter) Use of substances other than those prescribed or required for medical reasons: No Have you been hit, kicked, punched, or otherwise hurt by someone within the past year? If so, by whom?: No Are you DNR?: Yes Advance Directives: Yes Advance Directives Information Provided: No Advance Directives on File: Yes Advance Directives Date on File: 08/22/20 Recently lost weight without trying: No Eating poorly because of decreased appetite: No Nutrition Risks: No Nutritional Risk Patient : No service: No Current occupational status: unemployed Meds Allergies Allergy/AdvReac Type Severity Reaction Status Date / Time codeine [CODEINE] Allergy Unknown STOMACH Verified 04/21/21 12:57 UPSET Home Medications Medication Instructions Recorded Confirmed Last Taken Type melatonin 10 mg tablet 10 mg PO BEDTIME 04/21/21 04/21/21 Unknown History Exam Airway Mallampati Class: III TM Dist: >3cm Neck ROM: Full Denture: Upper Loose/Missing/Broken Teeth: Yes (Chipped ) Heart: rrr Lungs: bl breath sounds Assessment and Plan Final Anesthetic Review Family History of Problems with Anesthesia: No History of Problems with Anesthesia: No NPO: Yes ASA Class: III Final Preanesthetic Review: Anes Risks/Benef Reviewed Patient Risk: Intermediate Procedure Risk: Intermediate Anesthetic Plan Anesthetic Plan: GA Disposition: Standard PACU
[2021-04-30] VITALS (18 sets, daily range): BP systolic 116–175; BP diastolic 50–84; PULSE 53–75; RESP 16–20; TEMP 36.3–37.1; O2SAT 96–98
[2021-04-30] MEDS: Lactated Ringers 1,000 ML 100 ML IVCONT (08:34)
--- NOTE | 2021-04-30 08:37 | MHC.SHP ---
Pre-Procedural Eval Section A Date of Service: 04/30/21 The patient is an INPATIENT: No Changes since office visit: Yes Patient answered all questions; No Cold of Flu in the past 2 weeks, No New Medical Problems and No Changes in Medication The History & Physical has been completed within 30 days and I have reviewed it.: No Section B Chief Complaint: Carcinoma of left breast Details of Present Illness: Palpable mass in the left breast at the lower inner quadrant, s/p neoadjuvant chemotherapy, presenting today for modified radical mastectomy Relevant Family History (Specify if Yes): No Relevant Social History: Tobacco Use Present Medications: see Short Stay Collaborative assessment Medical History: Significant History History of Previous Operations: No relevant previous surgery Allergies: Allergies Allergy/AdvReac Type Severity Reaction Status Date / Time codeine [CODEINE] Allergy Unknown STOMACH Verified 04/21/21 12:57 UPSET Review of Systems Sugical H&P ROS: Negative: Constitution, Cardiovascular, Respiratory, Neurological, Psychiatric, Hem-Onc, Allergic/Immunologic, Gastrointestinal, Genitourinary, Musculoskeletal, Integumentary, Endocrine and Eyes/Ears/Nose/Throat Exam Surgical H&P Exam: Normal: HEENT, Normal: Heart, Normal: Lungs, Normal: Extremities, Normal: Abdomen, Normal: Skin and Normal: Neurological Plan Diagnosis/Plan: Unchanged I have reviewed the history and physical and performed a pertinent physical examination on my patient. No changes have occurred unless specified.
[2021-04-30 08:39] LABS: COVID-19 Test Negative (Negative); IDNOW Serial# 9DD0AD1C
--- NOTE | 2021-04-30 11:44 | W.PM.OPN ---
Operative Note Operative Note Date of Service: 04/30/21 Narrative: Preoperative diagnosis: Invasive ductal carcinoma left breast Postoperative diagnosis: Same Procedure: Left modified radical mastectomy Surgeon: Rosales Javed MD Database Development Project Manager: Allegra Mcintosh PA-C Anesthesia: General endotracheal Indications for procedure: 66-year-old female patient found to have a palpable mass in the left breast at the lower inner quadrant self examination. Subsequent mammogram and ultrasound confirmed a suspicious mass which was subsequently biopsied and determined to be a locally advanced invasive ductal carcinoma ER/[place] negative, HER2 Stephy positive. She underwent neoadjuvant chemotherapy under the direction of Dr. Peña and returns today for modified radical mastectomy. Operative findings: Palpable fullness noted in the lower inner quadrant of the left breast. The rating of breast tissue is normal. No abnormally enlarged lymph nodes were identified. Specimen: Left breast and axilla Estimated blood loss: 50 mL Complications: None Procedure details: Patient was brought to the OR placed in a supine position. After administering general anesthesia the patient's left breast and axilla were prepped with ChloraPrep and draped in a sterile fashion. A surgical time-out was called the consent confirmed. Patient received preoperative antibiotics and Venodyne boots were in place. Local anesthesia consisting of 0.5% Sensorcaine was infiltrated circumferentially around the breast. A curvilinear incision was made in elliptical fashion around the nipple beginning in the lower portion of the lower inner breast at approximately the inframammary line. This was continued tangentially toward the axilla. Incision was carried out through subcutaneous tissue up to the outer breast capsule. Electrocautery was then used to create superior and inferior skin flaps extending up to approximately the clavicle superiorly and the costal margin inferiorly. The breast was then dissected off the chest wall using electrocautery. The pectoralis capsule was included in the specimen and a small portion of pectoralis muscle was included in the specimen in the region of the tumor. Dissection was continued over the pectoralis muscle from medial to lateral around the pect major onto packed minor including Aviva's nodes. Dissection was continued along the latter will surface of the breast up to the latissimus Platt muscle. The axillary vein was identified and lymphatic tissue surrounding this preserved. The long thoracic and thoracodorsal nerves were identified and lymphatic tissue in level 1 and 2 noted in the specimen. Hemostasis was assured using either electrocautery or free ties of 3-0 Polysorb. The specimen was completely removed and sent to pathology for further examination. A long tie was placed on the axillary portion of the specimen. Wounds were then irrigated with saline solution for hemostasis. Two large Angel-Kraus drain placed through separate stab incisions and 1 placed in the superior skin flap and the 2nd placed in the axilla. These were connected to bulb suction and secured to the skin using a silk suture. A plasty of the lateral skin was performed to remove redundant skin laterally in the axilla. Skin edges were loosely approximated using skin scooby. Dermis was then reapproximated using interrupted 3-0 Polysorb sutures. Skin was closed using skin scooby. Sterile dressings were then applied followed by breast binder. The patient tolerated the procedure well. Sponge, instrument, and needle counts reported as correct. The patient was transferred to PACU in stable condition. Breast Axillary Dissection Resection was performed within the boundaries of the axillary vein, chest wall (serratus anterior), and latissimus dorsi: Yes The long thoracic and thoracodorsal nerves were spared during dissection: Yes Attempts were made to spare the intercostobrachial nerves during dissection if possible: Yes If one or more level III nodes is/are removed, then document why: n/a General Surg. - Synoptic Notes Breast Axillary Dissection Resection was performed within the boundaries of the axillary vein, chest wall (serratus anterior), and latissimus dorsi: Yes The long thoracic and thoracodorsal nerves were spared during dissection: Yes Attempts were made to spare the intercostobrachial nerves during dissection if possible: Yes If one or more level III nodes is/are removed, then document why: n/a
[2021-04-30] MEDS: oxyCODONE HCl Immed Release 5 MG TABLET PO ×2 (12:39→22:02)
[2021-04-30] MEDS: fentaNYL citrate/PF 100 MCG/2 ML VIAL 25 MCG IVPUSH (12:46)
[2021-04-30] MEDS: Dextrose 5 % and Lactated Ring 1,000 ML 125 ML IVCONT ×2 (12:48→22:14)
[2021-04-30] MEDS: Gabapentin 100 MG CAPSULE PO ×2 (16:59→21:53)
[2021-04-30] MEDS: HYDROmorphone HCl 1 MG/ML SYRINGE 0.5 MG IVPUSH (17:10)
[2021-04-30] MEDS: atenoloL 50 MG TABLET PO (21:51)
[2021-04-30] MEDS: Melatonin 3 MG TABLET 9 MG PO (21:54)
[2021-05-01] VITALS (11 sets, daily range): BP systolic 104–122; BP diastolic 43–58; PULSE 57–66; RESP 14–18; TEMP 35.9–37.2; O2SAT 93–98
[2021-05-01] MEDS: HYDROmorphone HCl 1 MG/ML SYRINGE 0.5 MG IVPUSH ×2 (02:13→08:37)
[2021-05-01 04:32] LABS: MANUAL DIFF FLAG NO
[2021-05-01 04:36] LABS: Basophils Percent Auto 0.2 % (0-2); Eosinophils Percent Auto 0.1 % (0-4); Hematocrit 37.8 % (37.0-47.0); Hemoglobin 12.2 g/dl (12.0-16.0); Imm Gran Abs Auto 0.05 X10*3/uL (0.00-0.03); Imm Gran Pct Auto 0.4 % (0.0-0.4); Lymphocytes Absolute Auto 1.6 X10*3/uL (1.2-4.9); Lymphocytes Percent Auto 13.6 % (20-40); Mean Corpuscular HGB Conc 32.3 g/dl (31.0-35.0); Mean Corpuscular Hemoglobin 31.4 pg (27.0-33.0); Mean Corpuscular Volume 97.4 fL (80.0-98.0); Mean Platelet Volume 10.2 fL (9.4-12.3); Monocytes Absolute Auto 0.9 X10*3/uL (0.1-1.2); Neutrophils Percent Auto 77.7 % (45-73); Platelet Count 173 X10*3/uL (160-400); Red Blood Count 3.88 X10*6/uL (4.20-5.50); Red Cell Distribution Width 12.4 % (11.0-16.0); White Blood Count 11.6 X10*3/uL (4.8-10.8)
[2021-05-01 05:02] LABS: Anion Gap 9 (12-20); Blood Urea Nitrogen 12 mg/dL (9-16); Calcium 8.7 mg/dL (8.4-10.2); Carbon Dioxide 34 mmol/L (22-29); Chloride 101 mmol/L (96-108); Creatinine Clr Calc Pharmacy 75.1; Estimated Glomerular Filt Rate > 60; Glucose Random 149 mg/dL (60-115); Potassium 4.3 mmol/L (3.3-5.1); Sodium 140 mmol/L (135-145)
[2021-05-01] MEDS: Dextrose 5 % and Lactated Ring 1,000 ML 125 ML IVCONT (07:07)
[2021-05-01] MEDS: Omeprazole 20 MG CAPSULE.DR PO (07:12)
--- NOTE | 2021-05-01 07:36 | PC.NURSE ---
Bfast tray delivered
[2021-05-01] MEDS: oxyCODONE HCl Immed Release 5 MG TABLET PO ×3 (08:35→21:11)
--- NOTE | 2021-05-01 08:42 | PC.NURSE ---
Report to Keyla Sosa RN
[2021-05-01] MEDS: atenoloL 50 MG TABLET PO ×2 (08:49→21:11)
[2021-05-01] MEDS: hydroCHLOROthiazide 25 MG TABLET PO (08:49)
[2021-05-01] MEDS: Gabapentin 100 MG CAPSULE PO ×3 (08:50→21:11)
--- NOTE | 2021-05-01 10:23 | P.PNGS_ITS ---
Subjective Subjective Date of Service: 05/01/21 <Allegra Mcintosh PA-C - Last Filed: 05/01/21 10:30> 05/01/21 <Rosales Javed MD - Last Filed: 05/01/21 12:14> Interval history: Feels sore this morning. Reports pain at incision site and axilla. Comfortable with analgesics-still requiring IV dilaudid. Has been OOB to bathroom. Tolerating diet. <Allegra Mcintosh PA-C - Last Filed: 05/01/21 10:30> Physical Exam Vital Signs: Vital Signs: Last Vital Signs Temp 98.2 F 05/01/21 05:34 Pulse 66 05/01/21 08:51 Resp 16 05/01/21 08:51 BP 106/43 L 05/01/21 08:51 Pulse Ox 97 05/01/21 08:51 BMI result Body Mass Index 39.9 <Allegra Mcintosh PA-C - Last Filed: 05/01/21 10:30> Const: General: comfortable, no acute distress and alert <Allegra Mcintosh PA-C - Last Filed: 05/01/21 10:30> Orientation/consciousness: patient oriented x3 <JIMMY Vanegas Last Filed: 05/01/21 10:30> Chest: Other: dressing c/d/i, tender at lateral aspect of incision and into a xilla both MALOU drains with serosanguineous output <Allegra Mcintosh PA-C - Last Filed: 05/01/21 10:30> Resp: Effort & Inspection: normal respiratory effort <Allegra Mcintosh PA-C - Last Filed: 05/01/21 10:30> Cardio: Rate: regular rate <JIMMY Vanegas Last Filed: 05/01/21 10:30> Skin: General skin exam: no rashes or lesions noted <JIMMY Vanegas Last Filed: 05/01/21 10:30> Neuro: General: patient oriented x3 <JIMMY Vanegas Last Filed: 05/01/21 10:30> Objective Data Active Medications Atenolol (Atenolol 50 Mg Tablet) 50 mg PO BID [facility]; Protocol Last Admin: 05/01/21 08:49 Dose: 50 mg Documented by: TESSA Gabapentin (Gabapentin 100 Mg Capsule) 100 mg PO TID [facility] Last Admin: 05/01/21 08:50 Dose: 100 mg Documented by: TESSA Hydrochlorothiazide (Hydrochlorothiazide 25 Mg Tablet) 25 mg PO DAILY [facility]; Protocol Last Admin: 05/01/21 08:49 Dose: 25 mg Documented by: TESSA Hydromorphone HCl (Hydromorphone Hcl 1 Mg/Ml Syringe) 0.5 mg IVPUSH Q3H PRN; Protocol PRN Reason: Pain, Severe (Pain Scale 7-10) Last Admin: 05/01/21 08:37 Dose: 0.5 mg Documented by: TESSA Acetaminophen (Ofirmev) 1,000 mg in 100 mls @ 400 mls/hr IV Q6H [facility] Last Admin: 05/01/21 08:37 Dose: 400 mls/hr Documented by: TESSA Dextrose/Lactated Ringer's (D5lr) 1,000 mls @ 125 mls/hr IVCONT .Q8H [facility] Last Admin: 05/01/21 07:07 Dose: 125 mls/hr Documented by: DAIANA Lorazepam (Lorazepam 0.5 Mg Tablet) 0.5 mg PO BID PRN PRN Reason: Anxiety Meclizine HCl (Meclizine Hcl 25 Mg Tablet) 25 mg PO TID PRN PRN Reason: Dizziness Or Vertigo Melatonin (Melatonin 3 Mg Tablet) 9 mg PO BEDTIME [facility] Last Admin: 04/30/21 21:54 Dose: 9 mg Documented by: PACAdolph Omeprazole (Omeprazole 20 Mg Capsule.Dr) 20 mg PO DAILY@0630 [facility] Last Admin: 05/01/21 07:12 Dose: 20 mg Documented by: DAIANA Ondansetron HCl (Ondansetron Hcl 4 Mg/2 Ml Vial) 4 mg IVPUSH QID PRN PRN Reason: Nausea Oxycodone HCl (Oxycodone Hcl Immed Release 5 Mg Tablet) 5 mg PO Q6H PRN PRN Reason: Pain, Moderate (Pain Scale 4-6 Last Admin: 05/01/21 08:35 Dose: 5 mg Documented by: TESSA Pharmacy Consult (Consult Rx Perform Med Rec) 1 each MISCELLANE ONCE PRN PRN Reason: Consult order Sodium Chloride (0.9 % Sodium Chloride Flush 3 Ml Syringe) 3 ml IVFLUSH QSHIFT [facility] <Allegra Mcintosh PA-C - Last Filed: 05/01/21 10:30> Labs CBC & Chem 7: : 05/01/21 04:18 05/01/21 04:18 <Allegra Mcintosh PA-C - Last Filed: 05/01/21 10:30> Labs: Laboratory Results - last 24 hr 05/01/21 05/01/21 04:18 04:18 MCV 97.4 MCH 31.4 MCHC 32.3 RDW 12.4 Plt Count 173 MPV 10.2 Immature Gran % (Auto) 0.4 Neut % (Auto) 77.7 H Lymph % (Auto) 13.6 L [place] % (Auto) 8.0 Eos % (Auto) 0.1 Baso % (Auto) 0.2 Lymph # (Auto) 1.6 [place] # (Auto) 0.9 Eos # (Auto) 0.0 Baso # (Auto) 0.0 Abs Immat Gran (auto) 0.05 H Absolute Neuts (auto) 9.0 H Absolute Nucleated RBC 0.000 Nucleated RBC % (auto) 0.0 Anion Gap 9 L Estim Creat Clear Calc 75.1 Estimated GFR > 60 Random Glucose 149 H Calcium 8.7 D <Allegra Mcintosh PA-C - Last Filed: 05/01/21 10:30> Procedures Date of Service Date of Service: 05/01/21 <Allegra Mcintosh PA-C - Last Filed: 05/01/21 10:30> Progress Note: A&P Assessment and plan (1) Carcinoma of left breast: Status: Acute <JIMMY Vanegas Last Filed: 05/01/21 10:30> (2) S/P mastectomy: Status: Acute <JIMMY Vanegas Last Filed: 05/01/21 10:30> Assessment and Plan: 66 year old female admitted with carcinoma of left breast s/p left modified radical mastectomy. She is doing fairly well post but still requiring IV analgesics for pain control. VSS. Dressing c/d/i, appropriate incisional/axillary tenderness. MALOU drains with serosanguineous drainage. Continue pain control. Keep MALOU drains in place. Encouraged OOB/ambulation once in room. Patient comfortable with plan. Will continue IVF for now given soft BP. <Allegra Mcintosh PA-C - Last Filed: 05/01/21 10:30> Fall Risk Details Current Medications: Current Medications Atenolol (Atenolol 50 Mg Tablet) 50 mg PO BID [facility]; Protocol Last Admin: 05/01/21 08:49 Dose: 50 mg Documented by: Gabapentin (Gabapentin 100 Mg Capsule) 100 mg PO TID [facility] Last Admin: 05/01/21 08:50 Dose: 100 mg Documented by: Hydrochlorothiazide (Hydrochlorothiazide 25 Mg Tablet) 25 mg PO DAILY [facility]; Protocol Last Admin: 05/01/21 08:49 Dose: 25 mg Documented by: Hydromorphone HCl (Hydromorphone Hcl 1 Mg/Ml Syringe) 0.5 mg IVPUSH Q3H PRN; Protocol PRN Reason: Pain, Severe (Pain Scale 7-10) Last Admin: 05/01/21 08:37 Dose: 0.5 mg Documented by: Acetaminophen (Ofirmev) 1,000 mg in 100 mls @ 400 mls/hr IV Q6H [facility] Last Admin: 05/01/21 08:37 Dose: 400 mls/hr Documented by: Dextrose/Lactated Ringer's (D5lr) 1,000 mls @ 125 mls/hr IVCONT .Q8H [facility] Last Admin: 05/01/21 07:07 Dose: 125 mls/hr Documented by: Lorazepam (Lorazepam 0.5 Mg Tablet) 0.5 mg PO BID PRN PRN Reason: Anxiety Meclizine HCl (Meclizine Hcl 25 Mg Tablet) 25 mg PO TID PRN PRN Reason: Dizziness Or Vertigo Melatonin (Melatonin 3 Mg Tablet) 9 mg PO BEDTIME [facility] Last Admin: 04/30/21 21:54 Dose: 9 mg Documented by: Omeprazole (Omeprazole 20 Mg ) 20 mg PO DAILY@0630 [facility] Last Admin: 05/01/21 07:12 Dose: 20 mg Documented by: Ondansetron HCl (Ondansetron Hcl 4 Mg/2 Ml Vial) 4 mg IVPUSH QID PRN PRN Reason: Nausea Oxycodone HCl (Oxycodone Hcl Immed Release 5 Mg Tablet) 5 mg PO Q6H PRN PRN Reason: Pain, Moderate (Pain Scale 4-6 Last Admin: 05/01/21 08:35 Dose: 5 mg Documented by: Pharmacy Consult (Consult Rx Perform Med Rec) 1 each MISCELLANE ONCE PRN PRN Reason: Consult order Sodium Chloride (0.9 % Sodium Chloride Flush 3 Ml Syringe) 3 ml IVFLUSH [facility] <Allegra Mcintosh PA-C - Last Filed: 05/01/21 10:30> Time Spent With Patient Time: Total time spent is greater than 50% in coordination of care (as documented) at patient's floor/unit and/or counseling patient: <Allegra Mcintosh PA-C - Last Filed: 05/01/21 10:30> Time with patient: 15 - 24 minutes <Allegra Mcintosh PA-C - Last Filed: 05/01/21 10:30> Quality Stroke Does the patient have a stroke diagnosis?: No <Allegra Mcintosh PA-C - Last Filed: 05/01/21 10:30> VTE Prior VTE?: No <Allegra Mcintosh PA-C - Last Filed: 05/01/21 10:30> VTE Risk Level:: Surgical - high <JIMMY Vanegas Last Filed: 05/01/21 10:30> VTE Device Contraindication: N/A - Device Ordered <Allegra Mcintosh PA-C - Last Filed: 05/01/21 10:30> VTE Drug Contraindication: Treatment Not Indicated <JIMMY Vanegas Last Filed: 05/01/21 10:30>
--- NOTE | 2021-05-01 14:13 | HO.POSTANES ---
Post Anesthesia Evaluation Post Anesthesia Evaluation Vital Signs: Vital Signs Temp Pulse Resp BP Pulse Ox 05/01/21 12:00 98.2 F 58 18 105/50 L 98 05/01/21 11:01 98.2 F 59 17 113/54 L 98 05/01/21 10:36 60 16 116/58 L 96 05/01/21 08:51 66 16 106/43 L 97 05/01/21 05:34 98.2 F 66 14 104/50 L 98 05/01/21 02:40 66 14 122/58 L 98 Anesthesia: General Mental Status: Awake Pain Control: Satisfactory Nausea/Vomiting: None Hydration: Adequate Anesthesia-Related Issues: No Anes. Related Issues
[2021-05-01] MEDS: LORazepam 0.5 MG TABLET PO (21:11)
[2021-05-01] MEDS: Melatonin 3 MG TABLET 9 MG PO (21:11)
[2021-05-01] MEDS: 0.9 % Sodium Chloride Flush 3 ML SYRINGE IVFLUSH (21:12)
[2021-05-02] MEDS: Dextrose 5 % and Lactated Ring 1,000 ML 125 ML IVCONT (02:00)
[2021-05-02] MEDS: oxyCODONE HCl Immed Release 5 MG TABLET PO (02:17)
[2021-05-02] MEDS: Throat Lozenge, Medicated LOZENGE 1 LOZENGE MUCOUS MEM ×2 (02:23→05:56)
[2021-05-02 03:15] VITALS: BP 120/60; PULSE 70; RESP 16; TEMP 36.6; O2SAT 95
[2021-05-02] MEDS: Omeprazole 20 MG CAPSULE.DR PO (05:53)
[2021-05-02] MEDS: HYDROmorphone HCl 1 MG/ML SYRINGE 0.5 MG IVPUSH ×2 (05:56→17:20)
[2021-05-02 07:22] VITALS: BP 125/60; PULSE 61; RESP 18; TEMP 37.3; O2SAT 94
[2021-05-02] MEDS: atenoloL 50 MG TABLET PO ×2 (08:18→21:04)
[2021-05-02] MEDS: Gabapentin 100 MG CAPSULE PO ×3 (08:18→21:05)
[2021-05-02] MEDS: hydroCHLOROthiazide 25 MG TABLET PO (08:18)
--- NOTE | 2021-05-02 08:46 | P.PNGS_ITS ---
Subjective Subjective Date of Service: 05/02/21 Interval history: Eating breakfast. Feels like she got hit with a [employer] truck today. C/o pain at entire incision and axilla. Difficulty moving arm due to pain. Requiring IV and PO analgesics. Patient strongly expressing desire to stay another night for pain control. Reports sister is a nurse and daughter is a [employer] and they will care for drains at home. Physical Exam Vital Signs: Vital Signs: Last Vital Signs Temp 99.2 F 05/02/21 07:22 Pulse 61 05/02/21 07:22 Resp 18 05/02/21 07:22 BP 125/60 05/02/21 07:22 Pulse Ox 94 05/02/21 07:22 BMI result Body Mass Index 39.9 Const: General: no acute distress, alert and other (uncomfortable appearing) Chest: Other: binder & dressing in place JPs with serosanguineous output Chest palpation & inspection: tenderness (left mastectomy site & axilla) Resp: Effort & Inspection: normal respiratory effort Skin: General skin exam: no rashes or lesions noted Extrem: General: Yes no clubbing, cyanosis or edema Objective Data Active Medications Atenolol (Atenolol 50 Mg Tablet) 50 mg PO BID [facility]; Protocol Last Admin: 05/02/21 08:18 Dose: 50 mg Documented by: OMKAR Benzocaine (Throat Lozenge, Medicated Lozenge) 1 lozenge MUCOUS MEM Q2H PRN PRN Reason: Sore Throat Last Admin: 05/02/21 05:56 Dose: 1 lozenge Documented by: PARADISE Gabapentin (Gabapentin 100 Mg Capsule) 100 mg PO TID [facility] Last Admin: 05/02/21 08:18 Dose: 100 mg Documented by: OMKAR Hydrochlorothiazide (Hydrochlorothiazide 25 Mg Tablet) 25 mg PO DAILY [facility]; Protocol Last Admin: 05/02/21 08:18 Dose: 25 mg Documented by: OMKAR Hydromorphone HCl (Hydromorphone Hcl 1 Mg/Ml Syringe) 0.5 mg IVPUSH Q3H PRN; Protocol PRN Reason: Pain, Severe (Pain Scale 7-10) Last Admin: 05/02/21 05:56 Dose: 0.5 mg Documented by: PARADISE Dextrose/Lactated Ringer's (D5lr) 1,000 mls @ 125 mls/hr IVCONT .Q8H [facility] Last Admin: 05/02/21 02:00 Dose: 125 mls/hr Documented by: PARADISE Acetaminophen (Ofirmev) 1,000 mg in 100 mls @ 400 mls/hr IV Q6H [facility] Last Admin: 05/02/21 08:16 Dose: 400 mls/hr Documented by: OMKAR Lorazepam (Lorazepam 0.5 Mg Tablet) 0.5 mg PO BID PRN PRN Reason: Anxiety Last Admin: 05/01/21 21:11 Dose: 0.5 mg Documented by: PARADISE Meclizine HCl (Meclizine Hcl 25 Mg Tablet) 25 mg PO TID PRN PRN Reason: Dizziness Or Vertigo Melatonin (Melatonin 3 Mg Tablet) 9 mg PO BEDTIME [facility] Last Admin: 05/01/21 21:11 Dose: 9 mg Documented by: PARADISE Omeprazole (Omeprazole 20 Mg Capsule.Dr) 20 mg PO DAILY@0630 [facility] Last Admin: 05/02/21 05:53 Dose: 20 mg Documented by: PARADISE Ondansetron HCl (Ondansetron Hcl 4 Mg/2 Ml Vial) 4 mg IVPUSH QID PRN PRN Reason: Nausea Oxycodone HCl (Oxycodone Hcl Immed Release 5 Mg Tablet) 5 mg PO Q6H PRN PRN Reason: Pain, Moderate (Pain Scale 4-6 Last Admin: 05/02/21 02:17 Dose: 5 mg Documented by: PARADISE Pharmacy Consult (Consult Rx Perform Med Rec) 1 each MISCELLANE ONCE PRN PRN Reason: Consult order Sodium Chloride (0.9 % Sodium Chloride Flush 3 Ml Syringe) 3 ml IVFLUSH QSHIFT [facility] Last Admin: 05/02/21 08:20 Dose: Not Given Documented by: OMKAR Non-Admin Reason: IV Running Labs CBC & Chem 7: 05/01/21 04:18 05/01/21 04:18 Procedures Date of Service Date of Service: 05/02/21 Progress Note: A&P Assessment and plan (1) S/P mastectomy: Status: Acute (2) Carcinoma of left breast: Status: Acute Assessment and Plan: 66 year old female admitted with carcinoma of left breast now POD #2 s/p left modified radical mastectomy. C/o severe pain this morning. VSS. Incision/axilla with appropriate post op tenderness. Will return for dressing change. MALOU drains with serosanguineous drainage. Continue pain control- will add motrin scheduled and oxycodone 10mg PO. Will reassess later today in hopes that she is more comfortable with additon of PO analgesics for potential discharge to home today. Keep MALOU drains in place. Patient comfortable with plan. States she does not need VNA upon discharge. Has f/u appt with Dr. Javed scheduled. Fall Risk Details Current Medications: Current Medications Atenolol (Atenolol 50 Mg Tablet) 50 mg PO BID [facility]; Protocol Last Admin: 05/02/21 08:18 Dose: 50 mg Documented by: Benzocaine (Throat Lozenge, Medicated Lozenge) 1 lozenge MUCOUS MEM Q2H PRN PRN Reason: Sore Throat Last Admin: 05/02/21 05:56 Dose: 1 lozenge Documented by: Gabapentin (Gabapentin 100 Mg Capsule) 100 mg PO TID [facility] Last Admin: 05/02/21 08:18 Dose: 100 mg Documented by: Hydrochlorothiazide (Hydrochlorothiazide 25 Mg Tablet) 25 mg PO DAILY [facility]; Protocol Last Admin: 05/02/21 08:18 Dose: 25 mg Documented by: Hydromorphone HCl (Hydromorphone Hcl 1 Mg/Ml Syringe) 0.5 mg IVPUSH Q3H PRN; Protocol PRN Reason: Pain, Severe (Pain Scale 7-10) Last Admin: 05/02/21 05:56 Dose: 0.5 mg Documented by: Dextrose/Lactated Ringer's (D5lr) 1,000 mls @ 125 mls/hr IVCONT .Q8H [facility] Last Admin: 05/02/21 02:00 Dose: 125 mls/hr Documented by: Acetaminophen (Ofirmev) 1,000 mg in 100 mls @ 400 mls/hr IV Q6H [facility] Last Admin: 05/02/21 08:16 Dose: 400 mls/hr Documented by: Lorazepam (Lorazepam 0.5 Mg Tablet) 0.5 mg PO BID PRN PRN Reason: Anxiety Last Admin: 05/01/21 21:11 Dose: 0.5 mg Documented by: Meclizine HCl (Meclizine Hcl 25 Mg Tablet) 25 mg PO TID PRN PRN Reason: Dizziness Or Vertigo Melatonin (Melatonin 3 Mg Tablet) 9 mg PO BEDTIME [facility] Last Admin: 05/01/21 21:11 Dose: 9 mg Documented by: Omeprazole (Omeprazole 20 Mg Capsule.Dr) 20 mg PO DAILY@0630 [facility] Last Admin: 05/02/21 05:53 Dose: 20 mg Documented by: Ondansetron HCl (Ondansetron Hcl 4 Mg/2 Ml Vial) 4 mg IVPUSH QID PRN PRN Reason: Nausea Oxycodone HCl (Oxycodone Hcl Immed Release 5 Mg Tablet) 5 mg PO Q6H PRN PRN Reason: Pain, Moderate (Pain Scale 4-6 Last Admin: 05/02/21 02:17 Dose: 5 mg Documented by: Pharmacy Consult (Consult Rx Perform Med Rec) 1 each MISCELLANE ONCE PRN PRN Reason: Consult order Sodium Chloride (0.9 % Sodium Chloride Flush 3 Ml Syringe) 3 ml IVFLUSH QSHIFT [facility] Last Admin: 05/02/21 08:20 Dose: Not Given Documented by: Time Spent With Patient Time: Total time spent is greater than 50% in coordination of care (as documented) at patient's floor/unit and/or counseling patient: Time with patient: 15 - 24 minutes Quality Stroke Does the patient have a stroke diagnosis?: No VTE Prior VTE?: No VTE Risk Level:: Surgical - high VTE Device Contraindication: N/A - Device Ordered VTE Drug Contraindication: Treatment Not Indicated
[2021-05-02] MEDS: Ibuprofen 600 MG TABLET PO ×2 (09:38→17:20)
[2021-05-02] MEDS: oxyCODONE HCl Immed Release 5 MG TABLET 10 MG PO ×3 (09:39→21:04)
[2021-05-02 10:36] VITALS: PULSE 63; RESP 18; TEMP 36.6; O2SAT 93
--- NOTE | 2021-05-02 11:24 | P.DS_ITS ---
DS: Providers Provider Date of Service: 05/04/21 Date of admission: 04/30/21 11:43 Primary care physician: Stanley Granados MD Attending physician on admission: Rosales Javed DS: Diagnosis Discharge Diagnosis (1) S/P mastectomy: Status: Acute (2) Carcinoma of left breast: Status: Acute DS: Summary Hospital Course Hospital Course: BRIEF HPI: 66-year-old female patient found to have a palpable mass in the left breast at the lower inner quadrant self examination.? 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 She underwent neoadjuvant chemotherapy under the direction of Dr. Peña and returns today for modified radical mastectomy. HOSPITAL COURSE: oN 04/30/21, a left modified radical mastectomy was performed by Dr. Rosales Javed without complication. The patient tolerated the procedure well and was admitted post operatively. The patient had an uncomplicated recovery course. She remained inpatient 4 days post operatively for pain control. On the day of discharge, she had good pain control on PO analgesics, was tolerating a solid diet and ambulating without difficulty. Her incision was clean and MALOU drains had serosanguineous drainage and were left in place. She was educated on how to empty MALOU drains and record output. She was discharged to home on 05/03/21 in stable condition. She was discharged to home without services- her sister and daughter will care for drains. She is to follow up with Dr. Javed in office in 1 week. Status at Discharge Functional status at discharge: independent ambulation Overall status at discharge: patient is progressing back to baseline Time Spent with Patient Time attestation: Total time spent providing and/or coordinating discharge services: Discharge coordination time: Greater than 30 minutes Quality: Stroke Does the patient have a stroke diagnosis?: No Physical Exam Vital Signs: Vital Signs: Last Vital Signs Temp 97.8 F 05/02/21 10:36 Pulse 63 05/02/21 10:36 Resp 18 05/02/21 10:36 BP 125/60 05/02/21 07:22 Pulse Ox 93 05/02/21 10:36 BMI result Body Mass Index 39.9 Const: General: comfortable, well developed and alert Orientation/cons ciousness: patient oriented x3 Chest: Other: left mastectomy incision clean, tender, no erythema or drainage noted MALOU drains with serosanguineous drainage Resp: Effort & Inspection: normal respiratory effort Skin: General skin exam: no rashes or lesions noted Neuro: General: patient oriented x3 DS: Data Data Completed and Pending Pending studies at discharge: Pending at discharge 04/30/21 10:58 Surgical [PTH] Routine Discharge Plan Discharge Anticipated Discharge Date/Time: 05/04/21 13:12 Patient Disposition: Home, Self-Care Discharge Diagnosis: s/p left modified radical mastectomy Referrals: Stanley Granados MD [Primary Care Provider] - 1 Week Rosales Javed MD [Physician] - 05/09/21 Discharge Medications: New oxycodone 5 mg tablet 5 mg PO Q4H PRN (Reason: pain (scale score 7-10)) Qty: 30 RF: 0 docusate sodium [Colace] 100 mg capsule 100 mg PO BID PRN (Reason: constipation) Qty: 30 RF: 0 Continued atenolol 50 mg tablet 50 mg PO BID Qty: 60 RF: 8 lorazepam 0.5 mg tablet 0.5 mg PO BID PRN (Reason: Anxiety) Qty: 60 RF: 5 meclizine 25 mg Tablet 25 mg PO TID PRN (Reason: Dizziness Or Vertigo) Qty: 30 RF: 4 triamcinolone acetonide 0.025 % Cream 1 appl TOPICAL BID Qty: 35 RF: 3 omeprazole 20 mg Tablet,Delayed Release (Dr/Ec) 20 mg PO DAILY Qty: 90 RF: 3 gabapentin [Neurontin] 100 mg Capsule 100 mg PO TID Qty: 90 RF: 4 melatonin 10 mg Tablet 10 mg PO BEDTIME RF: 0 hydrochlorothiazide 25 mg tablet 25 mg PO DAILY Qty: 90 RF: 8 Discharge Orders: Discharge Order (Routine); Ordered 05/04/21 Ordered By: Merle Sheriff Diet: advance to usual diet Activity on Discharge: No heavy lifting Stand Alone Forms: Patient Portal Discharge page Activity Restrictions/Additional Instructions: If the incision area is tender, you may apply an ice pack for short intervals (No more than 20 minutes on, followed by at least 20 minutes off). Do not apply heat. Do not use creams, lotions, or topical antibiotics unless instructed to do so by your surgeon. These can cause infection or allergic reaction. Ok to shower. You have scooby closing your incision and these will be removed approximately 10-14 days after surgery. NO HEAVY LIFTING (>10lbs) with your left arm. MALOU drain care- empty drain BID and as needed. Record output. Bring record to follow up appointment. Follow up in office with Dr. Javed on 05/09/21. ([phone]) Call Your Doctor If: ? ? -Your temperature exceeds 101.5? F? ? ? -You experience excessive pain or swelling ? ? -You have an unexpected reaction to medication ? ? -You have excessive bleeding ? ? -You experience continued vomiting/nausea ? ? -Your incision begins to separate ?? ? -Your incision shows signs of infection such as increased redness, swelling, excessive pain, drainage (light blood or clear fluid is normal) or heat Care Plan Goals: Return to baseline health and gradual return to activity following recovery period. Health Concerns: carcinoma of left breast Plan of Treatment: s/p left modified radical mastectomy Discharge to home with services. MALOU drain care F/u in office Assessment: Doing well post op. Discharge Date/Time: 05/04/21 15:34
--- NOTE | 2021-05-02 13:07 | MHC.CM.PN ---
IMM 05/02/21, EMR REVIEWED, PT ADMITTED S/P LEFT RADICAL MASTECTOMY, CM MET W/PT WHO IS A&OX4, PT REPORTS SHE LIVES W/HER DTR AND HER SISTER IS AN RN AND IS OFF THIS W/E SO SHE WILL ALSO BE AROUND TO ASSIST PT IF NEEDED, PT DECLINES VNA SERVICES, PT VERIFIES PCP SULTANA HAWK AND HCP HER SISTER, COPY REQUESTED. PT REPORTS [place]COLOG[place] [facility] [place] PT HAS PORT[place] AND IS CURRENTLY RECEIVING CHEMO INFUSIONS Q 3 WKS. D/C PLAN: ANTIC HOME WEDNESDAY W/NO SERVICES W/FAMILY FOR TRANSPORT
[2021-05-02 13:53] VITALS: BMI 39.9
[2021-05-02 15:13] VITALS: BP 130/60; PULSE 60; RESP 17; TEMP 36.1; O2SAT 92
[2021-05-02 18:58] VITALS: BP 105/53; PULSE 57; RESP 18; TEMP 36.8; O2SAT 95
[2021-05-02] MEDS: Melatonin 3 MG TABLET 9 MG PO (21:04)
[2021-05-02 23:25] VITALS: BP 139/64; PULSE 56; RESP 18; TEMP 36.2; O2SAT 90
[2021-05-03] MEDS: Ibuprofen 600 MG TABLET PO ×3 (02:13→17:54)
[2021-05-03 03:49] VITALS: BP 154/73; PULSE 61; RESP 18; TEMP 37.2; O2SAT 92
[2021-05-03] MEDS: HYDROmorphone HCl 1 MG/ML SYRINGE 0.5 MG IVPUSH ×3 (04:00→21:24)
[2021-05-03 08:00] VITALS: BP 142/66; PULSE 60; RESP 18; TEMP 36.1; O2SAT 93
[2021-05-03] MEDS: Gabapentin 100 MG CAPSULE PO ×3 (08:24→21:24)
[2021-05-03] MEDS: atenoloL 50 MG TABLET PO ×2 (08:24→21:24)
[2021-05-03] MEDS: Omeprazole 20 MG CAPSULE.DR PO (08:24)
[2021-05-03] MEDS: hydroCHLOROthiazide 25 MG TABLET PO (08:25)
[2021-05-03] MEDS: oxyCODONE HCl Immed Release 5 MG TABLET PO (08:26)
[2021-05-03 11:59] VITALS: BP 122/54; PULSE 59; RESP 20; TEMP 36.6; O2SAT 94
[2021-05-03] MEDS: Docusate Sodium 100 MG CAPSULE PO ×2 (13:41→21:24)
[2021-05-03] MEDS: Milk of Magnesia 30 ML ORAL.SUSP 15 ML PO (13:41)
--- NOTE | 2021-05-03 13:41 | PM.PNGS ---
Subjective Subjective Date of Service: 05/03/21 Interval history: feeling better but still with pain in left armpit and chest area - says she still needs iv pain meds moving better Physical Exam Vital Signs: Vital Signs: Last Vital Signs Temp 97.9 F 05/03/21 11:59 Pulse 59 05/03/21 11:59 Resp 20 05/03/21 11:59 BP 122/54 L 05/03/21 11:59 Pulse Ox 94 05/03/21 11:59 BMI result Body Mass Index 39.9 Chest: Other: incision looks great - good healthy viable flaps kym drains with some serosanguinous drainage but looks like volume decreasing Objective Data Active Medications Acetaminophen (Acetaminophen 325 Mg Tablet) 650 mg PO Q6H PRN PRN Reason: Headache Atenolol (Atenolol 50 Mg Tablet) 50 mg PO BID [facility]; Protocol Last Admin: 05/03/21 08:24 Dose: 50 mg Documented by: YOUSUF Benzocaine (Throat Lozenge, Medicated Lozenge) 1 lozenge MUCOUS MEM Q2H PRN PRN Reason: Sore Throat Last Admin: 05/02/21 05:56 Dose: 1 lozenge Documented by: PARADISE Docusate Sodium (Docusate Sodium 100 Mg Capsule) 100 mg PO BID [facility] Gabapentin (Gabapentin 100 Mg Capsule) 100 mg PO TID [facility] Last Admin: 05/03/21 08:24 Dose: 100 mg Documented by: YOUSUF Hydrochlorothiazide (Hydrochlorothiazide 25 Mg Tablet) 25 mg PO DAILY [facility]; Protocol Last Admin: 05/03/21 08:25 Dose: 25 mg Documented by: YOUSUF Hydromorphone HCl (Hydromorphone Hcl 1 Mg/Ml Syringe) 0.5 mg IVPUSH Q3H PRN; Protocol PRN Reason: Pain, Severe (Pain Scale 7-10) Last Admin: 05/03/21 04:00 Dose: 0.5 mg Documented by: LINDA Ibuprofen (Ibuprofen 600 Mg Tablet) 600 mg PO Q8H [facility] Last Admin: 05/03/21 08:25 Dose: 600 mg Documented by: YOUSUF Lorazepam (Lorazepam 0.5 Mg Tablet) 0.5 mg PO BID PRN PRN Reason: Anxiety Last Admin: 05/01/21 21:11 Dose: 0.5 mg Documented by: PARADISE Meclizine HCl (Meclizine Hcl 25 Mg Tablet) 25 mg PO TID PRN PRN Reason: Dizziness Or Vertigo Melatonin (Melatonin 3 Mg Tablet) 9 mg PO BEDTIME [facility] Last Admin: 05/02/21 21:04 Dose: 9 mg Documented by: LINDA Omeprazole (Omeprazole 20 Mg Capsule.Dr) 20 mg PO DAILY@0630 [facility] Last Admin: 05/03/21 08:24 Dose: 20 mg Documented by: YOUSUF Ondansetron HCl (Ondansetron Hcl 4 Mg/2 Ml Vial) 4 mg IVPUSH QID PRN PRN Reason: Nausea Oxycodone HCl (Oxycodone Hcl Immed Release 5 Mg Tablet) 5 mg PO Q6H PRN PRN Reason: Pain, Moderate (Pain Scale 4-6 Last Admin: 05/03/21 08:26 Dose: 5 mg Documented by: YOUSUF Oxycodone HCl (Oxycodone Hcl Immed Release 5 Mg Tablet) 10 mg PO Q4H PRN PRN Reason: Pain, Severe (Pain Scale 7-10) Last Admin: 05/02/21 21:04 Dose: 10 mg Documented by: LINDA Pharmacy Consult (Consult Rx Perform Med Rec) 1 each MISCELLANE ONCE PRN PRN Reason: Consult order Labs CBC & Chem 7: 05/01/21 04:18 05/01/21 04:18 Procedures Date of Service Date of Service: 05/03/21 Progress Note: A&P Assessment and plan (1) S/P mastectomy: Status: Acute Assessment and Plan: 66 year old female s/p left mastectomy doing well - kym drain outputs decreasing and chest tissue looks great. still with some pain med need via iv and no bowel movement plan to cont with kym drain - on gabapentin, tylenol, dilaudid and percocet and ativan -baseline meds and pain meds add stool softenera dn bowel regimen she says she cant go home today but will have help tomorrow- plan to have her go home by lunch time an get her on just po pain meds. Fall Risk Details Current Medications: Current Medications Acetaminophen (Acetaminophen 325 Mg Tablet) 650 mg PO Q6H PRN PRN Reason: Headache Atenolol (Atenolol 50 Mg Tablet) 50 mg PO BID [facility]; Protocol Last Admin: 05/03/21 08:24 Dose: 50 mg Documented by: Benzocaine (Throat Lozenge, Medicated Lozenge) 1 lozenge MUCOUS MEM Q2H PRN PRN Reason: Sore Throat Last Admin: 05/02/21 05:56 Dose: 1 lozenge Documented by: Docusate Sodium (Docusate Sodium 100 Mg Capsule) 100 mg PO BID [facility] Gabapentin (Gabapentin 100 Mg Capsule) 100 mg PO TID [facility] Last Admin: 05/03/21 08:24 Dose: 100 mg Documented by: Hydrochlorothiazide (Hydrochlorothiazide 25 Mg Tablet) 25 mg PO DAILY [facility]; Protocol Last Admin: 05/03/21 08:25 Dose: 25 mg Documented by: Hydromorphone HCl (Hydromorphone Hcl 1 Mg/Ml Syringe) 0.5 mg IVPUSH Q3H PRN; Protocol PRN Reason: Pain, Severe (Pain Scale 7-10) Last Admin: 05/03/21 04:00 Dose: 0.5 mg Documented by: Ibuprofen (Ibuprofen 600 Mg Tablet) 600 mg PO Q8H [facility] Last Admin: 05/03/21 08:25 Dose: 600 mg Documented by: Lorazepam (Lorazepam 0.5 Mg Tablet) 0.5 mg PO BID PRN PRN Reason: Anxiety Last Admin: 05/01/21 21:11 Dose: 0.5 mg Documented by: Meclizine HCl (Meclizine Hcl 25 Mg Tablet) 25 mg PO TID PRN PRN Reason: Dizziness Or Vertigo Melatonin (Melatonin 3 Mg Tablet) 9 mg PO BEDTIME [facility] Last Admin: 05/02/21 21:04 Dose: 9 mg Documented by: Omeprazole (Omeprazole 20 Mg Capsule.Dr) 20 mg PO DAILY@0630 [facility] Last Admin: 05/03/21 08:24 Dose: 20 mg Documented by: Ondansetron HCl (Ondansetron Hcl 4 Mg/2 Ml Vial) 4 mg IVPUSH QID PRN PRN Reason: Nausea Oxycodone HCl (Oxycodone Hcl Immed Release 5 Mg Tablet) 5 mg PO Q6H PRN PRN Reason: Pain, Moderate (Pain Scale 4-6 Last Admin: 05/03/21 08:26 Dose: 5 mg Documented by: Oxycodone HCl (Oxycodone Hcl Immed Release 5 Mg Tablet) 10 mg PO Q4H PRN PRN Reason: Pain, Severe (Pain Scale 7-10) Last Admin: 05/02/21 21:04 Dose: 10 mg Documented by: Pharmacy Consult (Consult Rx Perform Med Rec) 1 each MISCELLANE ONCE PRN PRN Reason: Consult order Time Spent With Patient Time: Total time spent is greater than 50% in coordination of care (as documented) at patient's floor/unit and/or counseling patient: Time with patient: 15 - 24 minutes Quality Stroke Does the patient have a stroke diagnosis?: No VTE Prior VTE?: No VTE Risk Level:: Surgical - high VTE Device Contraindication: N/A - Device Ordered VTE Drug Contraindication: Treatment Not Indicated
[2021-05-03 15:52] VITALS: BP 113/59; PULSE 64; RESP 18; TEMP 36.2; O2SAT 93
[2021-05-03] MEDS: oxyCODONE HCl Immed Release 5 MG TABLET 10 MG PO (19:54)
[2021-05-03 20:00] VITALS: BP 108/56; PULSE 64; RESP 18; TEMP 36.9; O2SAT 94
[2021-05-03] MEDS: Melatonin 3 MG TABLET 9 MG PO (21:23)
[2021-05-03 23:16] VITALS: BP 110/55; PULSE 59; RESP 18; TEMP 36.1; O2SAT 92
[2021-05-04 03:06] VITALS: BP 137/75; PULSE 67; RESP 20; TEMP 36; O2SAT 91
[2021-05-04] MEDS: Ibuprofen 600 MG TABLET PO ×2 (03:10→08:25)
[2021-05-04] MEDS: HYDROmorphone HCl 1 MG/ML SYRINGE 0.5 MG IVPUSH (03:13)
[2021-05-04] MEDS: Omeprazole 20 MG CAPSULE.DR PO (05:27)
[2021-05-04 08:00] VITALS: BP 117/59; PULSE 58; RESP 20; TEMP 36.1; O2SAT 92
[2021-05-04] MEDS: atenoloL 50 MG TABLET PO (08:28)
[2021-05-04] MEDS: Gabapentin 100 MG CAPSULE PO (08:28)
[2021-05-04] MEDS: hydroCHLOROthiazide 25 MG TABLET PO (08:29)
[2021-05-04] MEDS: Docusate Sodium 100 MG CAPSULE PO (08:29)
[2021-05-04] MEDS: oxyCODONE HCl Immed Release 5 MG TABLET PO (08:32)
[2021-05-04 11:58] VITALS: BP 118/56; PULSE 58; RESP 20; TEMP 37.7; O2SAT 92
--- NOTE | 2021-05-04 13:27 | MHC.CM.PN ---
PT CLEARED TO DC HOME TODAY WITH NO SERVICES FAMILY TO TRANSPORT
== END 2021-05-04 15:34 | disposition home or self-care (01) | DRG 583 ==
LOC: HO.SSSA 11:48 → HO.S3 05-01 09:27
PROVIDERS: Admitting Provider Surgery; PCP Internal Medicine; Visit Provider Surgery
PROC: 0HTU0ZZ Resection of Left Breast, Open Approach (ICD-10-PCS; CPT 19307; principal; 2021-04-30 09:10)
DX: C50.312 Malignant neoplasm of lower-inner quadrant of left female breast (principal); Z20.822 Contact with and (suspected) exposure to COVID-19; F17.210 Nicotine dependence, cigarettes, uncomplicated; Z71.6 Tobacco abuse counseling; Z88.5 Allergy status to narcotic agent; Z79.899 Other long term (current) drug therapy
CPT/HCPCS: 36415; 80048; 85025; 86850; 86900; 86901; 87635; 88309; 93005; 99024; J0131; J0690; J1100; J1170; J2250; J2405; J2550; J3010

== ENCOUNTER 2021-05-08 12:23 | Outpatient (REF) | payer MEDICARE, MEDICAID, SELFPAY ==
--- NOTE | ~2021-05-08 | FL_ITS ---
EXAMINATION: FL PORT INJECTION WITH RADIOLOGICAL SUPERVISION AND INTERPRETATION CLINICAL INFORMATION: Port check. Unable to aspirate. COMPARISON: 08/22/2020 TECHNIQUE: Injection of indwelling right internal jugular port catheter FINDINGS: Informed consent was obtained from the patient prior to the procedure. During this process, the procedure and potential alternatives were explained, along with the intended outcome and benefits. The risks of the procedure, as well as the risk of not doing the procedure, were discussed. The patient was given the opportunity to ask questions regarding the procedure and appeared competent to make medical decisions. A signed consent form which documents this discussion was placed in the medical record. Using sterile technique the indwelling needle was aspirated with no return of blood flow. Intravenous contrast was then injected demonstrating good positioning of the needle within the port reservoir as well as flow within the catheter. There is noted to be a fibrin sheath at the end of the catheter. IMAGES: 5 FLUOROSCOPY TIME: 0.4 minutes FL/FL cva device check w fluoro IMPRESSION: Needle in place within the port reservoir. Fibrin sheath at tip of port catheter. Catheter does flush smoothly but blood cannot be aspirated.
[2021-05-08] MEDS: iohexoL 300 MG/ML 50 ML INFUS..BTL IV (13:48)
[2021-05-08] MEDS: Heparin Sodium,Porcine Flush 500 UNIT/5 ML SYRINGE IVFLUSH (13:52)
== END 2021-05-08 12:24 | disposition home or self-care (01) ==
LOC: HO.XRAY 12:23
PROVIDERS: PCP Internal Medicine; Visit Provider Internal Medicine Medical Oncology
DX: Z45.2 Encounter for adjustment and management of vascular access device (principal)
CPT/HCPCS: 36598; J1642; Q9967

== ENCOUNTER → 2021-05-09 10:42 | Outpatient (BNVA) | payer MEDICARE, MEDICAID, SELFPAY | PROVIDERS: PCP Internal Medicine; Referring Provider Internal Medicine; Visit Provider Surgery | DX: Z48.3 Aftercare following surgery for neoplasm (principal); C50.912 Malignant neoplasm of unspecified site of left female breast; Z90.12 Acquired absence of left breast and nipple | CPT/HCPCS: 99212 ==

== ENCOUNTER → 2021-05-28 07:20 | Outpatient (REF) | payer MEDICARE, MEDICAID, SELFPAY ==
--- NOTE | 2021-05-28 07:24 | CA_ITS ---
Transthoracic Echocardiogram Patient (Last, First, Middle): Marcia Mcintosh Ann Gender: Female Date of : 1955 Age: 66 Procedure Date: 05/28/2021 Procedure Type: Transthoracic Echocardiogram Location: OP Height: 160.02 cm Weight: 99.79 kg BSA: 2.01 m2 Heart Rate: bpm BP: 118 / 60 mmHg [place] Dried Salt: Referring MD: Ronal Peña MD Spout Liner: Wale Cantu MD Symptoms: Assess ejection fraction on chemo Study Quality: Fair ECG Rhythm: Sinus Conclusions: - 1. Normal LV systolic function with mild LVH with impaired relaxation filling pattern 2. Moderate mitral calcification with normal cardiac valvular Doppler 3. Normal RV systolic pressure 4. No gross pericardial effusion Findings Left Ventricle Normal left ventricular size and systolic function. There is mildly increased left ventricular wall thickness. The visually estimated ejection fraction is between 60-65%. Spectral Doppler is indicative of an impaired relaxation filling pattern. E/E prime ratio is between 8 and 15 consistent with indeterminate filling pressures. Right Ventricle Normal right ventricular cavity size and systolic function. Atria The left atrium is likely dilated. Interatrial shunt cannot be excluded. The right atrium is normal in size. Aortic Valve There is mild calcification of the aortic valve. There is no aortic valve stenosis. There is no aortic valve regurgitation. Mitral Valve There is mild anterior and severe posterior mitral leaflet thickening. There is moderate mitral annular calcification. There is trace mitral valve regurgitation. There is no mitral valve stenosis. Pulmonic Valve The pulmonic valve was not well visualized. Tricuspid Valve Likely normal tricuspid valve structure and function. There is trace tricuspid valve regurgitation. The right ventricular systolic pressure is normal. The right ventricular systolic pressure is 16 mmHg. There is no evidence of pulmonary hypertension. Great Vessels All visible segments of the aorta are normal in size. The pulmonary artery was not well visualized. Venous The inferior vena cava is normal in size and collapses greater than 50% with inspiration. Pericardium/Pleural There is no evidence of pericardial effusion. Measurements 2D Linear Measurements IVSd: 1.20 0.6-0.9/0.6-1.0 cm LVIDd: 4.35 3.9-5.3/4.2-5.9 cm LVIDd Index: 2.16 2.4-3.2/2.2-3.1 cm/m2 LVIDs: 2.95 2.0-3.6 cm LVPWd: 1.23 0.7-1.1 cm LV Mass: 238.53 67-162/88-224 g LV Mass Index: 118.67 43-95/49-115 g/m2 2D Systolic Function EF 4C: 56.50 >55% EF 2C: 60.80 >55% Mitral Valve MV Pk E: 0.88 MV PK A: 1.07 MV Decel Time: 408.00 E/A: 0.80 E'Lateral: 4.46 E'Medial: 7.40 E/E' Med: 11.90 E/E' Lat: 19.70 PHT: 120.00 MVA PHT: 1.83 Decel [place]: 2.15 Diastolic Function MV Pk E: 0.88 MV Pk A: 1.07 E/A: 0.80 E'Medial: 7.40 E/E' Med: 11.90 E' Laterial: 4.46 E/E' Lat: 19.70 Tricuspid Valve TR Pk Cristino: 1.83 TR Pk Grad: 13.00 RA Press: 3.00 RVSP: 16.00 Updated in Other Vendor System with Status of Final Wale Cantu MD electronically signed on 05/28/2021 10:30:12 AM with status of Final
== END ==
LOC: HO.CARD 07:20
PROVIDERS: PCP Internal Medicine; Visit Provider Internal Medicine Medical Oncology
DX: C50.919 Malignant neoplasm of unspecified site of unspecified female breast (principal)
CPT/HCPCS: 93308

== ENCOUNTER → 2021-06-17 14:59 | Outpatient (BNVA) | payer MEDICARE, MEDICAID, SELFPAY | PROVIDERS: PCP Internal Medicine; Referring Provider Internal Medicine; Visit Provider Surgery | DX: N64.4 Mastodynia (principal); C50.312 Malignant neoplasm of lower-inner quadrant of left female breast; F17.210 Nicotine dependence, cigarettes, uncomplicated; Z17.1 Estrogen receptor negative status [ER-]; Z90.12 Acquired absence of left breast and nipple; Z88.6 Allergy status to analgesic agent; Z79.899 Other long term (current) drug therapy | CPT/HCPCS: 99212 ==

== ENCOUNTER → 2021-08-19 15:35 | Outpatient (REF) | payer MEDICARE, MEDICAID, SELFPAY ==
--- NOTE | 2021-08-19 15:39 | CA_ITS ---
Transthoracic Echocardiogram Patient (Last, First, Middle): Marcia Mcintosh Ann Gender: Female Date of : 1955 Age: 66 Procedure Date: 08/19/2021 Procedure Type: Transthoracic Echocardiogram Location: OP Height: 160.02 cm Weight: 99.79 kg BSA: 2.01 m2 Heart Rate: bpm BP: 136 / 68 mmHg Button Inspector: NATHANIEL Referring MD: Ronal Peña MD Sheet Cutter: Wale Cantu MD Symptoms: Check ejection fraction on Herceptin Study Quality: Fair ECG Rhythm: Sinus Conclusions: - Normal LV systolic function with impaired relaxation filling pattern with mild LVH Findings Left Ventricle Normal left ventricular cavity size. There is mildly increased left ventricular wall thickness. The left ventricular systolic function is normal. The visually estimated ejection fraction is between 60-65%. Regional wall motion abnormalities can not be excluded due to suboptimal endocardial definition. Spectral Doppler is indicative of an impaired relaxation filling pattern. Pericardium/Pleural There is no evidence of pericardial effusion. Prior Study Comparison No significant change compared to prior study dated: 05/28/2021. Recommendations, Care & Conclusions Recommend contrast in the future to improve endocardial definition. Measurements 2D Linear Measurements IVSd: 1.20 0.6-0.9/0.6-1.0 cm LVIDd: 3.71 3.9-5.3/4.2-5.9 cm LVIDd Index: 1.85 2.4-3.2/2.2-3.1 cm/m2 LVIDs: 1.97 2.0-3.6 cm LVPWd: 1.17 0.7-1.1 cm LA Diam: 4.30 2.7-3.8/3.0-4.0 cm LAIDs Index: 2.14 1.5-2.3 cm/m2 LV Mass: 180.64 67-162/88-224 g LV Mass Index: 89.87 43-95/49-115 g/m2 2D Systolic Function EF 4C: 65.10 >55% EF 2C: 62.50 >55% EF BiP: 63.10 >55% Mitral Valve MV Pk E: 1.10 MV PK A: 1.29 MV Decel Time: 338.00 E/A: 0.90 E'Lateral: 7.51 E'Medial: 5.22 E/E' Med: 21.10 E/E' Lat: 14.60 PHT: 99.00 MVA PHT: 2.22 Decel Labette: 3.26 Diastolic Function MV Pk E: 1.10 MV Pk A: 1.29 E/A: 0.90 E'Medial: 5.22 E/E' Med: 21.10 E' Laterial: 7.51 E/E' Lat: 14.60 Updated in Other Vendor System with Status of Final Wale Cantu MD electronically signed on 08/20/2021 1:49:48 PM with status of Final
== END ==
LOC: HO.CARD 15:35
PROVIDERS: Visit Provider Internal Medicine Medical Oncology
DX: C50.919 Malignant neoplasm of unspecified site of unspecified female breast (principal)
CPT/HCPCS: 93308

== ENCOUNTER → 2021-09-19 09:55 | Outpatient (BNVA) | payer MEDICARE, MEDICAID, SELFPAY | PROVIDERS: PCP Internal Medicine; Visit Provider Surgery | DX: C50.312 Malignant neoplasm of lower-inner quadrant of left female breast (principal); Z17.1 Estrogen receptor negative status [ER-]; Z90.12 Acquired absence of left breast and nipple | CPT/HCPCS: 99212 ==

== ENCOUNTER → 2021-11-20 10:58 | Outpatient (REF) | payer MEDICARE, MEDICAID, SELFPAY ==
--- NOTE | ~2021-11-20 | NM_ITS ---
EXAMINATION: NM BONE SCAN OF THE WHOLE BODY CLINICAL INFORMATION: Malignant neoplasm of left breast COMPARISON: The previous bone scan dated 03/04/2021 is available for comparison. TECHNIQUE: Multiple gamma scintillation camera images of the whole body were performed 2.5 hours following the intravenous administration of 32 mCi Tc-99m MDP. FINDINGS: In the head, a focus of moderately increased activity approximately 2 cm in length is present in the right side of the mandible. No other foci of abnormal activity are present in the skull. In the thoracic cage and upper extremities, there is minimally increased activity in the acromioclavicular and sternoclavicular joints bilaterally. Some residual radiopharmaceutical at the injection site in the right hand is noted. In the spine, there is a small focus of mildly increased activity in the right costovertebral junction of T6. In the pelvis, no significant abnormalities are present. In the lower extremities, there is minimally increased activity in the patellar compartments of both knees and in mild foci in the mid feet bilaterally and the proximal right foot. No other definite bony abnormalities are noted. The urinary bladder and faint visualization of both kidneys are noted. Compared to the prior bone scan dated 03/04/2021, the abnormality in the right side of the mandible on the current study was not definitely present on the prior study. Very subtle, equivocally increased activity at this site may have been present on that prior study, but on the current study this is much more intense. The abnormalities in the knees and feet are slightly more prominent on the current study. The remainder the bone scan is unchanged. The PET CT scan dated 08/13/2020 shows a small focus of sclerosis on the CT images which is nonspecific, but corresponds to the abnormality described above on this bone scan in the right side of the mandible.. NM/NM bone scan whole body IMPRESSION: 1. A nonspecific abnormality in the right side of the mandible has developed since the prior 03/04/2021 bone scan and this is nonspecific. While this may represent a focus of osteonecrosis, a solitary metastasis at this site cannot be entirely ruled out. Correlation with MRI performed without and with intravenous contrast is recommended to better characterize this abnormality, if clinically indicated. 2. A few additional stable mild nonspecific abnormalities are noted as described above and these are all likely arthritic or traumatic in etiology. None of these abnormalities is strongly suspicious for metastatic disease.
== END ==
LOC: HO.NUCMED 10:58
PROVIDERS: Visit Provider Internal Medicine Medical Oncology
DX: C50.912 Malignant neoplasm of unspecified site of left female breast (principal); R93.0 Abnormal findings on diagnostic imaging of skull and head, not elsewhere classified; R93.7 Abnormal findings on diagnostic imaging of other parts of musculoskeletal system
CPT/HCPCS: 78306; A9503

== ENCOUNTER 2021-11-27 09:35 | Outpatient (REF) | payer MEDICARE, MEDICAID, SELFPAY ==
--- NOTE | ~2021-11-27 | MR_ITS ---
EXAMINATION: MR CERVICAL SPINE WITHOUT AND WITH CONTRAST CLINICAL INFORMATION: Metastatic disease of C1. Breast cancer. COMPARISON: Nuclear medicine bone scan from 03/01/2022. Cervical spine MRI from 08/20/2020. PET/CT from 08/13/2020. TECHNIQUE: MRI of the cervical spine was obtained using routine sequences without and following the administration of 10 mL of Gadavist intravenous contrast. FINDINGS: Straightening of the normal cervical lordosis. Mild degenerative retrolisthesis of C5 on C6. Mild degenerative anterolisthesis of C7 on T1. Otherwise, normal anatomic alignment. The previously demonstrated T2 hyperintense lesion within the left lateral mass of C1 no longer demonstrates significant T2 hyperintensity or enhancing characteristics. There is advanced degenerative disc disease from C4-C7. Mild to moderate degenerative disc disease at all additional cervical levels. Associated mixed Modic type discogenic endplate changes including mild Modic type I discogenic edema from C4-C7. No additional suspicious marrow edema. The vertebral body heights are well-maintained. No demonstrated spinal cord signal abnormalities mildly increased T2 signal within the dorsal spinal cord at the level of C5-C6, unchanged. No new spinal cord signal abnormalities. No new abnormal contrast enhancement. Limited evaluation of the soft tissues of the neck without demonstrated abnormalities. The flow voids of the major cervical vessels are maintained. Normal appearance of the cervicomedullary junction and visualized posterior fossa. SPINAL LEVELS: C2-C3: Normal annular contour. There is no uncovertebral joint arthropathy. There is severe left and moderate right facet joint arthropathy. There is no neural foraminal stenosis. There is no spinal canal stenosis. C3-C4: Mild disc-osteophyte complex. There is moderate right and mild left uncovertebral joint arthropathy. There is severe left and moderate right facet joint arthropathy. There is moderate left and mild right neural foraminal stenosis. There is no spinal canal stenosis. C4-C5: Moderate disc-osteophyte complex. There is moderate to severe bilateral uncovertebral joint arthropathy. There is moderate left and mild right facet joint arthropathy. There is severe left and moderate right neural foraminal stenosis. There is mild spinal canal stenosis. C5-C6: Moderate disc-osteophyte complex eccentric to the left. There is severe left and moderate right uncovertebral joint arthropathy. There is moderate left and mild right facet joint arthropathy. There is severe left and moderate right neural foraminal stenosis. There is moderate to severe spinal canal stenosis. C6-C7: Mild disc-osteophyte complex. There is moderate left and mild right uncovertebral joint arthropathy. There is mild bilateral facet joint arthropathy. There is moderate left and mild right neural foraminal stenosis. There is mild spinal canal stenosis. C7-T1: Mild disc-osteophyte complex. There is no uncovertebral joint arthropathy. There is mild bilateral facet joint arthropathy. There is no neural foraminal stenosis. There is no spinal canal stenosis. MR/MR cervical spine wo/w con IMPRESSION: 1. The previously demonstrated lesion within the left lateral mass of C1 no longer demonstrates significant T2 hyperintensity or enhancing characteristics. Findings are suggestive of posttreatment change. No demonstrated new suspicious osseous lesions. 2. Otherwise, moderate multilevel degenerative spondyloarthropathy of the cervical spine as described in detail above. Most notably, there is moderate to severe spinal canal stenosis at C5-C6. Mild spinal canal stenoses at C4-C5 and C6-C7. Moderate to severe neural foraminal stenoses from C3-C7. Stable mild myelomalacia within the dorsal columns at C5-C6. No new spinal cord signal abnormalities. Overall, degenerative changes appear similar to prior exam.
== END 2021-11-27 09:36 | disposition home or self-care (01) ==
LOC: HO.MRI 09:35
PROVIDERS: Visit Provider Internal Medicine Medical Oncology
DX: C50.919 Malignant neoplasm of unspecified site of unspecified female breast (principal)
CPT/HCPCS: 72156; A9585

== ENCOUNTER 2021-12-08 10:23 | Outpatient (REF) | payer MEDICARE, MEDICAID, SELFPAY ==
--- NOTE | ~2021-12-08 | XR_ITS ---
EXAMINATION: XR MANDIBLE CLINICAL INFORMATION: Nonspecific abnormality seen on mandible on bone scan COMPARISON: Bone scan 11/20/2021 TECHNIQUE: PA, Roberto's, lateral, and both oblique views of the mandible were obtained. FINDINGS: There is a defect in the superior aspect of the right posterior mandibular body with ill-defined margins and a broad zone of transition. No fracture seen. Partially imaged right-sided central venous catheter. XR/XR mandible <4V IMPRESSION: Nonspecific abnormality in the right posterior mandibular body likely corresponds to the abnormality on prior bone scan. The appearance is nonspecific and could be infectious, inflammatory. Posttreatment changes including osteonecrosis are possible but malignancy remains a consideration. As recommended on the prior bone scan, MRI with and without contrast may be helpful for further characterization.
--- NOTE | ~2021-12-08 | XR_ITS ---
EXAMINATION: XR HAND, LEFT CLINICAL INFORMATION: Left hand and wrist pain. COMPARISON: None TECHNIQUE: PA, lateral, and oblique views of the left hand. FINDINGS: No fracture or dislocation. Mild first carpal metacarpal joint space narrowing. There is triscaphe joint space narrowing and sclerosis. Metacarpophalangeal and interphalangeal joint spaces are maintained. XR/XR hand LT min 3V IMPRESSION: No acute osseous abnormality of the left wrist. Degenerative changes as described above.
== END 2021-12-08 10:24 | disposition home or self-care (01) ==
LOC: HO.XRAY 10:23
PROVIDERS: PCP Internal Medicine; Visit Provider Internal Medicine Medical Oncology
DX: C50.912 Malignant neoplasm of unspecified site of left female breast (principal); R94.8 Abnormal results of function studies of other organs and systems
CPT/HCPCS: 70100; 73130

== ENCOUNTER 2021-12-10 10:52 | Outpatient (REF) | payer MEDICARE, MEDICAID, SELFPAY ==
--- NOTE | ~2021-12-10 | CT_ITS ---
EXAMINATION: CT MAXILLOFACIAL WITHOUT CONTRAST CLINICAL INFORMATION: Malignant neoplasm of the mandible. History of breast cancer. COMPARISON: PET/CT from 08/13/2020. Nuclear medicine bone scan from 11/20/2021. TECHNIQUE: Multidetector helical imaging was performed in the axial plane with generation of coronal and sagittal reformatted images. This CT examination was performed using dose optimization techniques as appropriate, variously including the following: *Automated exposure control *Adjustment of mA and/or kV according to patient size (this includes techniques or standardized protocols for targeted exams where dose is matched to indication/reason for exam; i.e. extremities or head) *Use of iterative reconstruction technique DLP: 339 mGy-cm FINDINGS: FRONTAL SINUSES AND DRAINAGE PATHWAYS: The frontal sinuses are hypoplastic. Otherwise, the frontal sinuses are clear. The frontoethmoidal recesses are patent. MAXILLARY SINUSES AND DRAINAGE PATHWAYS: Mild mucosal thickening of the maxillary sinuses. The maxillary ostia and infundibula are patent. ETHMOID SINUSES: Mild mucosal thickening of the ethmoid air cells. The ethmoid roofs appear symmetric and intact. SPHENOID SINUS AND DRAINAGE PATHWAYS: The sphenoid sinus is clear. The sphenoethmoidal recesses are patent. The carotid canals are normally covered by bone. NASAL PASSAGE: Mild mucosal thickening of the nasal passage. The osseous nasal septum remains midline. ORBITS: Normal appearance of the osseous orbits. The lamina papyracea are intact. No significant preseptal or retrobulbar edema. Normal appearance of the globes. Normal symmetric appearance of the extraocular musculature. No abnormalities of the intraconal or extraconal adipose tissue. Normal appearance of the optic nerve sheaths. Normal appearance of the lacrimal glands. No orbital fluid collections. No abnormalities of the orbital apices. MANDIBLE: Multifocal odontogenic enamel erosions and periapical lucencies associated with the residual mandibular teeth. Chronic irregular sclerotic focus within the medullary cavity of the right mandibular body. Irregular erosive changes of a 2 cm segment of the right alveolar process of the mandible there is new compared to exam from 2020. No additional suspicious lytic or sclerotic osseous lesions of the mandible. The temporomandibular joints remain well aligned. Normal appearance of the temporomandibular joints. ADDITIONAL RELEVANT FINDINGS: No evidence of maxillofacial bone fractures. The zygomatic arches remain intact. No nasal bone fracture. No evidence of maxillary fracture. Moderate right-sided mastoid effusion, similar to exam from 202. Neoplasm of the left-sided mastoid air cells remain well aerated. Limited evaluation of the intracranial structures without significant abnormalities. There is a region of sclerosis within the left lateral mass of C1 at the site of there is no demonstrated lytic lesion. Congenital nonunion of the posterior arch of C1. No additional suspicious lytic or sclerotic osseous lesions demonstrated. The premaxillary, retromaxillary, pterygopalatine fossa, temporal fossa, and parapharyngeal adipose tissue is maintained. No demonstrated soft tissue abnormalities within the intrinsic tissues of the tongue. CT/CT facial bones wo IV con IMPRESSION: 1. Correlating with findings on recent bone scan, there is irregular erosive change of a 2 cm segment of the right alveolar process of the mandible, new compared to exam from 2020. No demonstrated overt extraosseous soft tissue abnormality surrounding this region. 2. There is a region of sclerosis within the left lateral mass of C1 at the site of previously demonstrated lytic lesion. 3. No additional focal lytic or cirrhotic osseous lesions demonstrated. 4. Moderate mandibular odontogenic disease.
== END 2021-12-10 10:53 | disposition home or self-care (01) ==
LOC: HO.CT 10:52
PROVIDERS: PCP Internal Medicine; Visit Provider Internal Medicine Medical Oncology
DX: C41.1 Malignant neoplasm of mandible (principal)
CPT/HCPCS: 70486

== ENCOUNTER → 2021-12-16 10:05 | Outpatient (BNVA) | payer MEDICARE, MEDICAID, SELFPAY | PROVIDERS: PCP Internal Medicine; Visit Provider Surgery | DX: C50.312 Malignant neoplasm of lower-inner quadrant of left female breast (principal); Z90.12 Acquired absence of left breast and nipple | CPT/HCPCS: 99212 ==

== ENCOUNTER 2021-12-31 09:31 | Outpatient (REF) | payer MEDICARE, MEDICAID, SELFPAY ==
--- NOTE | ~2021-12-31 | MM_ITS ---
EXAMINATION: MM SCREENING DIGITAL BREAST TOMOSYNTHESIS, RIGHT CLINICAL INFORMATION: Due for yearly. Prior contralateral left mastectomy for invasive ductal carcinoma, 2020. COMPARISON: MR breasts 02/18/2021. TECHNIQUE: Digital breast tomosynthesis is performed in both the craniocaudal and mediolateral oblique views along with computer-aided detection (CAD). Synthesized 2D images are generated from the tomosynthesis. FINDINGS: There are scattered areas of fibroglandular density (ACR BI-RADS breast composition Category b). Breast tissue composition borders on predominantly fatty. Background stromal markings are normal. There is no architectural abnormality or abnormal calcifications. There is a small incidental intramammary node mid upper outer right breast. The port partially overlying the posterior right axilla. The skin contours are smooth. MM/MM tomosynthesis screening RT IMPRESSION: No mammographic evidence of malignancy. ASSESSMENT: BI-RADS 2: Benign RECOMMENDATION: Routine annual mammography screening. This patient's information was entered into a reminder system with a target due date for their next mammogram.
== END 2021-12-31 09:32 | disposition home or self-care (01) ==
LOC: HO.MAMMO 09:31
PROVIDERS: PCP Internal Medicine; Visit Provider Surgery
DX: Z12.31 Encounter for screening mammogram for malignant neoplasm of breast (principal)
CPT/HCPCS: 77063; 77067

== ENCOUNTER → 2022-04-21 10:13 | Outpatient (BNVA) | payer MEDICARE, MEDICAID, SELFPAY | PROVIDERS: PCP Internal Medicine; Visit Provider Surgery | DX: C50.912 Malignant neoplasm of unspecified site of left female breast (principal); Z17.1 Estrogen receptor negative status [ER-]; Z92.21 Personal history of antineoplastic chemotherapy; Z90.12 Acquired absence of left breast and nipple | CPT/HCPCS: 99212 ==

== ENCOUNTER → 2022-05-25 09:56 | Outpatient (REF) | payer MEDICARE, MEDICAID, SELFPAY ==
--- NOTE | ~2022-05-25 | NM_ITS ---
EXAMINATION: NM BONE SCAN OF THE WHOLE BODY CLINICAL INFORMATION: Follow-up on bone metastases. Left breast cancer. COMPARISON: The previous bone scan dated 03/01/2022 is available for comparison. CT scan of the facial bones dated 12/10/2021 is available for comparison. Radiographs of the left hand and mandible dated 12/08/2021 are the most recent radiographs available for comparison. MRI the cervical spine dated 11/27/2021 is available for comparison. TECHNIQUE: Multiple gamma scintillation camera images of the whole body were performed 3 hours following the intravenous administration of 37.0 mCi Tc-99m MDP. FINDINGS: In the head, there is a focus of moderately to markedly increased activity present in the anterior right side of the mandible In the thoracic cage and upper extremities, there is mildly increased activity in the acromioclavicular joints bilaterally and very faintly in the right sternoclavicular joint. There is also minimally increased activity in the sternomanubrial articulation. Some residual radiopharmaceutical at the injection site in the right antecubital fossa is noted. In the spine, there is a focus of mildly increased activity in the right posterior elements of T6 and much less intensely in the left posterior elements of T6. In the pelvis, no significant abnormalities are present. In the lower extremities, there is mildly increased activity in the patellar compartments of both knees and very mildly in the greater femoral trochanters bilaterally, and in small mild foci in the proximal feet bilaterally. No other definite bony abnormalities are noted. The urinary bladder and faint visualization of both kidneys are noted. Compared to the previous bone scan dated 11/20/2021, this scan appearance is not significantly changed. The CT scan dated 12/10/2021 showed an irregular erosive 2 cm segment of the right alveolar process of the mandible corresponding to the bone scan abnormality noted on the current and prior bone scan. The CT scan also shows a sclerotic focus in the previously lytic lesion in the left lateral mass of C1, but no corresponding bone scan abnormality is present on the current study. NM/NM bone scan whole body IMPRESSION: 1. Persistent abnormalities strongly suspicious for a metastasis in the right anterior aspect of the mandible is noted and this does not appear significantly changed from the prior 11/20/2021 bone scan. 2. A few additional mild nonspecific abnormalities are noted as described above and these are all likely arthritic or traumatic in etiology. None of these abnormalities is strongly suspicious for metastatic disease.
== END ==
LOC: HO.NUCMED 09:56
PROVIDERS: PCP Internal Medicine; Visit Provider Internal Medicine Medical Oncology
DX: C50.912 Malignant neoplasm of unspecified site of left female breast (principal)
CPT/HCPCS: 78306; A9503

== ENCOUNTER → 2022-07-17 08:57 | Outpatient (BNVA) | payer MEDICARE, MEDICAID, SELFPAY | PROVIDERS: PCP Internal Medicine; Visit Provider Surgery | DX: C50.912 Malignant neoplasm of unspecified site of left female breast (principal); Z90.12 Acquired absence of left breast and nipple | CPT/HCPCS: 99212 ==

== ENCOUNTER 2022-07-21 09:06 | Outpatient (REF) | payer MEDICARE, MEDICAID, SELFPAY ==
--- NOTE | ~2022-07-21 | PE_ITS ---
EXAMINATION: Fluorine-18 FDG PET/CT Scan CLINICAL INDICATION: Subsequent treatment management. Known of breast cancer with bone metastases. For follow-up. PROCEDURE: 60 minutes following the intravenous administration of 17.3 mCi of fluorine 18 FDG, images from the base of the skull to the mid thighs were obtained using a combined PET/CT scanner with CT scan based attenuation correction. No intravenous contrast was administered. Transverse, coronal, sagittal, and volume reconstruction projections were obtained. The patient's blood glucose as determined by a finger stick, was 103 mg/dl immediately prior to injection. The radiotracer was injected intravenously through right antecubital superficial vein, without any complications. Total CT exam dose-length product 1118.96 mGy-cm * These CT images were obtained using dose optimization techniques as appropriate, variously including the following: Automated exposure control * Adjustment of mA and/or kV according to patient size (this includes techniques or standardized protocols for targeted exams where dose is matched to indication/reason for exam; i.e. extremities or head) * Use of iterative reconstruction technique COMPARISON: Whole-body bone scan done on 05/25/2022 and most recent prior PET CT study done on 08/13/2020 FINDINGS: (Slice numbers described in this report are numbered superior to inferior with slice #1 in the head). NECK AND VISUALIZED HEAD: Asymmetric increased FDG avidity is noted within the abnormal enlarged heterogeneous left lobe of the thyroid gland with SUV max of 6.2 (55/267). Mild asymmetric FDG avidity within the right-sided vocal cord is also noted with SUV max of 6.9 (46/267). THORAX: No FDG avid lung parenchymal or mediastinal, hilar or pleural or pericardial disease. Postsurgical changes of interval left-sided mastectomy is noted. Previously documented left axillary lymph nodes are no longer reproduced. Interval placement of a right-sided Port-A-Cath present, appear in good position. ABDOMEN AND PELVIS: No suspicious FDG avid focal disease within the liver, spleen or adrenal glands. The gallbladder, pancreas appear unremarkable. Moderate FDG avidity in the region of the anal canal, possibly physiologic, appear more pronounced since the prior study with SUV max of 9.8 (230/267). MUSCULOSKELETAL: Mild FDG avidity is noted within the right-sided mid part of the mandible, may represent changes secondary to odontogenic disease. There are no other FDG avid osseous abnormality identified. VASCULAR: Atherosclerotic calcific disease of the aorta and its branches including coronary artery calcifications. No evidence of aneurysm. SUV max OF MEDIASTINAL BLOOD POOL: 3.7 SUV max OF LIVER: 4.5 PET/PET CT fusion skull to thigh IMPRESSION: 1. The left lobe of the thyroid gland is asymmetrically enlarged, shows underlying heterogeneous nodule associated with moderate FDG avidity. 30-40% of PET positive lesions are found to be thyroid cancer. [place] thyroid Association guidelines recommend biopsy of all PET positive nodules greater than 1 cm that are not definitely benign on the diagnostic thyroid ultrasound. 2. Mild FDG avidity within the right-sided vocal cord, for which direct visualization may be considered, if clinically appropriate. 3. Mild FDG avidity is noted within the right-sided mid part of the base of the mandible may represent changes secondary to odontogenic disease 4. Interval left-sided mastectomy and nonvisualized previously documented FDG avid left-sided axillary lymph node. No evidence of any local disease recurrence. 5. No suspicious FDG avid disease to suspect metastasis.
== END 2022-07-21 09:07 | disposition home or self-care (01) ==
LOC: HO.PET 09:06
PROVIDERS: PCP Internal Medicine; Visit Provider Internal Medicine Medical Oncology
DX: Z13.89 Encounter for screening for other disorder (principal)

== ENCOUNTER → 2022-07-21 11:05 | Outpatient (REF) | payer MEDICARE, MEDICAID, SELFPAY ==
--- NOTE | 2022-07-21 11:09 | CA_ITS ---
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 FOR CARDIAC ASSESSMENT. Study Quality: Fair, contrast ECG Rhythm: Sinus Conclusions: - Normal LV systolic function with mild LVH with impaired relaxation filling pattern and elevated filling pressures Findings Procedure Information Contrast agent, definity, is being given per protocol without apparent complications. Left Ventricle Normal left ventricular size and systolic function. There is mildly increased left ventricular wall thickness. The visually estimated ejection fraction is between 65-70%. Spectral Doppler is indicative of an impaired relaxation filling pattern. E/E prime ratio is >15, consistent with elevated filling pressures. Prior Study Comparison No significant change compared to prior study dated: 08/19/2021. Measurements 2D Linear Measurements IVSd: 1.19 0.6-0.9/0.6-1.0 cm LVIDd: 4.02 3.9-5.3/4.2-5.9 cm LVIDd Index: 2.02 2.4-3.2/2.2-3.1 cm/m2 LVIDs: 2.54 2.0-3.6 cm LVPWd: 1.17 0.7-1.1 cm LV Mass: 202.52 67-162/88-224 g LV Mass Index: 101.77 43-95/49-115 g/m2 LVOT Diam: 1.90 3.0+(-)1.3 cm 2D Systolic Function EF 4C: 71.00 >55% EF 2C: 65.20 >55% EF BiP: 66.50 >55% Mitral Valve MV Pk E: 1.11 MV PK A: 1.50 MV Decel Time: 390.00 E/A: 0.70 E'Lateral: 6.53 E'Medial: 5.44 E/E' Med: 20.40 E/E' Lat: 17.00 PHT: 114.00 MVA PHT: 1.93 Decel Hand: 2.85 LVOT LVOT Pk Cristino: 1.79 LVOT Mn Cristino: 1.19 LVOT VTI: 0.41 LVOT Pk Grad: 13.00 LVOT Mn Grad: 7.00 LVOT Diam: 1.90 LVOT Area: 2.84 Diastolic Function MV Pk E: 1.11 MV Pk A: 1.50 E/A: 0.70 E'Medial: 5.44 E/E' Med: 20.40 E' Laterial: 6.53 E/E' Lat: 17.00 Updated in Other Vendor System with Status of Final Wale Cantu MD electronically signed on 07/22/2022 8:29:48 AM with status of Final
== END ==
LOC: HO.CARD 11:05
PROVIDERS: PCP Internal Medicine; Visit Provider Internal Medicine Medical Oncology
DX: C50.912 Malignant neoplasm of unspecified site of left female breast (principal)
CPT/HCPCS: 93308; Q9957

== ENCOUNTER → 2022-08-10 15:19 | Outpatient (BNVA) | payer MEDICARE, MEDICAID, SELFPAY | PROVIDERS: PCP Internal Medicine; Visit Provider Internal Medicine | DX: E04.9 Nontoxic goiter, unspecified (principal) | CPT/HCPCS: 99202 ==

== ENCOUNTER 2022-08-31 08:48 | Outpatient (REF) | payer MEDICARE, MEDICAID, SELFPAY ==
--- NOTE | ~2022-08-31 | US_ITS ---
EXAMINATION: US THYROID CLINICAL INFORMATION: Nontoxic goiter, unspecified. COMPARISON: Ultrasound soft tissue head/neck thyroid dated 09/05/2020. TECHNIQUE: Linear transducer grayscale and color Doppler examination with attention to the region of the thyroid. FINDINGS: SIZE: Measurements of the thyroid lobes and nodules are given in sagittal, anteroposterior and transverse dimensions respectively. Right Thyroid Lobe: 4.9 x 1.8 x 1.4 cm, volume 6.5 mL. Previously 4.6 x 2.0 x 1.9 cm, volume 8.7 mL. Parenchyma: The gland echotexture is heterogeneous. Thyroid vascularity is normal. Left Thyroid Lobe: 5.5 x 3.2 x 3.1 cm, volume 28.5 mL. Previously 4.7 x 2.9 x 3.2 cm, volume 22.8 mL. Parenchyma: The gland echotexture is heterogeneous. Thyroid vascularity is normal. Isthmus: 0.7 cm in maximum AP dimension. Previously point cm. Estimated total number of nodules greater than or equal to 1 cm: 1. [employer] nodules are described as follows: 1. Location: Right superior. Size: 0.4 x 0.6 x 0.7 cm, volume 0.1 mL. Previously: 0.8 x 0.5 x 0.7 cm, volume 0.1 mL. Nodule characteristics: Composition: Spongiform (0). Echogenicity: Anechoic (0). Shape: Not taller than wide (0). Margins: Smooth (0). Echogenic Foci: None (0). ACR TI-RADS total points: 0 Previous: 0 ACR TI-RADS category: 1 Previous: 1 Significant change in size (>/= 20% in 2 dimensions and minimal increase of 2 mm or 50% or greater increase in volume): No Change in features: No Change in ACR TI-RADS risk category: No 2. Location: Right mid. Size: 0.6 x 0.8 x 0.8 cm, volume 0.2 mL. Previously: 1.1 x 0.7 x 1.0 cm, volume 0.4 mL. Nodule characteristics: Composition: Solid/almost completely solid (2). Echogenicity: Isoechoic (1). Shape: Not taller than wide (0). Margins: Smooth (0). Echogenic Foci: None (0). ACR TI-RADS total points: 3 Previous: 2 ACR TI-RADS category: 3 Previous: 2 Significant change in size (>/= 20% in 2 dimensions and minimal increase of 2 mm or 50% or greater increase in volume): No Change in features: Yes Change in ACR TI-RADS risk category: Yes 3. Location: Left mid. Size: 3.0 x 2.3 x 2.9 cm, volume 10.1 mL. Previously: 3.4 x 2.5 x 2.5 cm, volume 11.1 mL. Nodule characteristics: Composition: Mixed cystic and solid (1). Echogenicity: Hypoechoic (2). Shape: Not taller than wide (0). Margins: Smooth (0). Echogenic Foci: None (0). ACR TI-RADS total points: 3 Previous: 3 ACR TI-RADS category: 3 Previous: 3 Significant change in size (>/= 20% in 2 dimensions and minimal increase of 2 mm or 50% or greater increase in volume): No Change in features: No Change in ACR TI-RADS risk category: No NODES: No lymphadenopathy is seen in the tissue surrounding the thyroid gland. US/US thyroid IMPRESSION: 1. Bilateral thyroid nodules are redemonstrated, as detailed. 2. There is heterogeneous thyroid echotexture, can't be associated with thyroiditis. 3. There is an asymmetric goiter, left lobe greater than right. ACR TI-RADS RECOMMENDATION REFERENCE: Ultrasound-guided fine-needle aspiration, followup ultrasound, no further follow up. * TR1 (0 point) and TR2 (2 points): No FNA or follow up * TR3 (3 points): FNA if more than or equal to 2.5 cm in maximum dimension, followup ultrasound in 1, 3 and 5 years if 1.5 to 2.4 cm in maximum dimension. * TR4 (4-6 points): FNA if more than or equal to 1.5 cm in maximum dimension, followup ultrasound in 1, 2, 3 and 5 years if 1 to 1.4 cm in maximum dimension. * TR5 (more than or equal to 7 points): FNA if more than or equal to 1 cm in maximum dimension, followup ultrasound every year for 5 years if 0.5 to 0.9 cm in maximum dimension. * TR3, TR4 or TR5 nodules that are below the size threshold for follow up receive no follow up.
== END 2022-08-31 08:49 | disposition home or self-care (01) ==
LOC: HO.US 08:48
PROVIDERS: PCP Internal Medicine; Visit Provider Internal Medicine
DX: E04.9 Nontoxic goiter, unspecified (principal)
CPT/HCPCS: 76536

== ENCOUNTER 2022-09-24 10:02 | Outpatient (REF) | payer MEDICARE, MEDICAID, SELFPAY ==
--- NOTE | ~2022-09-24 | XR_ITS ---
EXAMINATION: XR LUMBOSACRAL SPINE CLINICAL INFORMATION: Dorsalgia. COMPARISON: PET/CT 07/21/2022 TECHNIQUE: Three views of the lumbosacral spine. FINDINGS: Some mild spondylitic endplate changes are seen. There is mild disc space narrowing at L4-L5. Degenerative changes are seen in the lower thoracic spine. Facet joints not optimally seen but there appear to be sclerotic changes at the L4-L5 and L5-S1 facet joints. No bony destructive lesions are seen. No fractures. Mild degenerative changes are seen in both hips. Incidental note made of aortoiliac calcification and fallopian tube occlusion rings. XR/XR lumbar spine 2-3V IMPRESSION: Degenerative changes in the spine as described above with mild disc space narrowing at L4-L5.
== END 2022-09-24 10:03 | disposition home or self-care (01) ==
LOC: HO.XRAY 10:02
PROVIDERS: PCP Internal Medicine; Visit Provider Internal Medicine
DX: M54.9 Dorsalgia, unspecified (principal)
CPT/HCPCS: 72100

== ENCOUNTER 2022-10-05 15:46 | Outpatient (REF) | payer MEDICARE, MEDICAID, SELFPAY ==
--- NOTE | ~2022-10-05 | CT_ITS ---
EXAMINATION: CT head/brain wo IV con CLINICAL INFORMATION: Hemiplegia, unspecified affecting unspecified side COMPARISON: CT head 06/15/2017 and PET/CT 07/21/2022 TECHNIQUE: Contiguous axial imaging was performed from the skull base to vertex without intravenous contrast. Sagittal and coronal reformatted images were obtained. This CT examination was performed using dose optimization techniques as appropriate, variously including the following: * Automated exposure control * Adjustment of mA and/or kV according to patient size (this includes techniques or standardized protocols for targeted exams where dose is matched to indication/reason for exam; i.e. extremities or head) Use of iterative reconstruction technique DLP: 777 mGy-cm FINDINGS: There is a new 1.7 cm hyperdense mass with central punctate calcification in the right centrum semiovale/flores radiata with extensive surrounding vasogenic edema extending inferiorly into the right gangliocapsular structures. Findings may reflect an intracranial metastasis given the provided clinical history versus other hypercellular mass and further characterization with contrast-enhanced MRI is advised. Associated regional mass effect with effacement of the overlying sulci and partial effacement of the body of the right lateral ventricle. No midline shift or downward herniation. 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 No acute territorial edematous infarct. Increased mild generalized parenchymal volume loss. The orbits are grossly normal. Paranasal sinuses are well aerated. Underpneumatized and partially opacified right greater than left mastoid air cells on the basis of chronic mastoiditis. 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 CT/CT head/brain wo IV con IMPRESSION: New 1.7 cm hyperdense mass in the right centrum semiovale/flores radiata with extensive surrounding vasogenic edema and regional mass effect but no midline shift or downward herniation. Findings may reflect an intracranial metastasis given the provided clinical history versus other hypercellular mass and further characterization with contrast-enhanced MRI is advised. This result was discussed with Shelby Baker RN at 2:00 PM on 10/08/2022 and it was ascertained that the content and urgency of the report was understood at the time of direct communication. New but chronic right TRAFFIC [employer]OL TECHNICIAN territory infarct. Progressive mild volume loss.
== END 2022-10-05 15:47 | disposition home or self-care (01) ==
LOC: HO.CT 15:46
PROVIDERS: PCP Internal Medicine; Visit Provider Internal Medicine
DX: I63.9 Cerebral infarction, unspecified (principal)
CPT/HCPCS: 70450

== ENCOUNTER → 2022-10-07 11:26 | Outpatient (BNVA) | payer MEDICARE, MEDICAID, SELFPAY | PROVIDERS: PCP Internal Medicine; Visit Provider Internal Medicine | DX: E04.2 Nontoxic multinodular goiter (principal); Z85.3 Personal history of malignant neoplasm of breast; Z85.830 Personal history of malignant neoplasm of bone | CPT/HCPCS: Q3014 ==

== ENCOUNTER 2022-11-05 09:00 | Outpatient (RCR) | payer MEDICARE, MEDICAID, SELFPAY ==
[2020-08-05 10:18] VITALS: BP 197/102; PULSE 102; RESP 14; TEMP 36.8; O2SAT 94; BMI 41.3
--- NOTE | 2020-08-05 10:31 | P.CNHO_ITS ---
Subjective - Subjective Chief complaint: Consult for: Inflammatory breast carcinoma. Patient: new to practice Consult date: 08/05/20 Requesting Physician: jose. 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 HPI - Consult Narrative Reason for consult: Consult for: Inflammatory breast cancer of left breast Narrative: Marcia Strong is a pleasant 65 year old lady, who tells me that about 3 months ago she noted, what she felt was, a pimple underneath her left breast. It would occasionally get itchy and then dry. Then it became harder around the edges. It was fixed, not movable. Due to the pandemic she did not leave the home. About a month ago she woke up one morning and she felt her left breast was heavy and huge. It was quite red and warm to touch. The nipple appeared magnetic healer. She decided to go to the emergency room. This was on 07/16. Ultrasound of the breast revealed: Large irregular mass with scattered internal color flow vascularity 8:00 position 7 cm from nipple measuring 5 x 4 cm. Several adjacent smaller satellite foci, largest 1.3 cm. Differential considerations include malignancy as well as abscess. ASSESSMENT: BI-RADS 4: Suspicious RECOMMENDATION: 1. Surgical Consult. 2. Diagnostic mammography. She underwent an ultrasound-guided biopsy at 08:00 o'clock position on 07/25. Pathology revealed: Invasive ductal carcinoma, MSBR grade 2. ER negative/MA negative/HER2 Stephy positive 3+. She has been seen by Dr. Javed. She has been referred here for question if she should have neoadjuvant chemotherapy. 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 Menopause in her early 50s. No HRT. She is . She has 4 children. Family history: A paternal cousin had breast cancer in her mid 60s. 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 She is . Has 4 children. She smokes half a pack a day. She likes her wine. ROS: She does feel rather fatigued. No fever nor chills. She has pain in her left breast. Appetite is good. She has gained weight. HEENT: No headache no dizziness. No chest pain nor trouble breathing. Denies any abdominal pain nausea vomiting heartburn indigestion. Bowels are working without any gross blood in it. She had a colonoscopy in her 50s at [facility]. Denies any urinary complaints. She has pain in her back on the right side. Denies any focal weakness. She denies depression however she had history of anxiety and needed medications for a while. Denies skin rashes nor pruritus. Review of Systems - Constitutional Reports system reviewed and no additional complaints, except as documented, Reports lack of energy, Reports weight gain - Eyes Reports system reviewed and no additional complaints, except as documented - ENT Reports system reviewed and no additional complaints, except as documented - Cardiovascular Reports system reviewed and no additional complaints, except as documented - Respiratory Reports no additional respiratory complaints - Gastrointestinal Reports system reviewed and no additional complaints, except as documented - Genitourinary Reports no additional female genitourinary complaints - Musculoskeletal Reports system reviewed and no additional complaints, except as documented, Reports back pain - Integumentary/Breasts Skin/Breast: Reports no additional skin complaints, Reports breast swelling, Reports breast pain, Reports breast lump, Reports change in breast shape, Reports redness - Neurologic Reports system reviewed and no additional complaints, except as documented - Psychiatric Reports system reviewed and no additional complaints, except as documented - Endocrine Reports no additional endocrine complaints - Hematologic/Lymphatic Reports system reviewed and no additional complaints, except as documented - Allergic/Immunologic Reports system reviewed and no additional complaints, except as documented Oncology Screenings - ECOG Performance Status ECOG Performance Status: 0 [facility] Medical History: Medical History (Last Reviewed 08/05/20 @ 10:22 by Anne-Marie Florentino) Cerebral aneurysm Pneumonia Functional capacity: independent ambulation Patient : No Family History: Family History (Last Reviewed 08/05/20 @ 10:22 by Anne-Marie Florentino) Family/Other Breast cancer Brother Colon cancer Surgical History: Surgical History (Last Reviewed 08/05/20 @ 10:22 by Anne-Marie Florentino) H/O tubal ligation Social History: Social History (Last Updated 08/05/20 @ 10:22 by Anne-Marie Florentino) Alcohol History: Alcohol intake: current Alcohol History Details: Alcohol intake frequency: a few times a week Alcohol type: wine Tobacco History: Smoking Status: Current every day smoker Smoking status: Current every day smoker Home Medications and Allergies Allergies Allergy/AdvReac Type Severity Reaction Status Date / Time codeine [CODEINE] Allergy Unknown STOMACH Verified 07/16/20 08:44 UPSET Physical Exam Vital signs: Vital Signs Temp 98.2 F 04/26/21 10:18 Pulse 102 H 08/05/20 10:18 Resp 14 08/05/20 10:18 BP 197/102 H 08/05/20 10:18 Pulse Ox 94 08/05/20 10:18 Intake & Output 08/04/20 08/05/20 08/05/20 18:59 06:59 18:59 Other: Weight 102.5 kg [place] Weight in Grams [id number] Weight 102.5 kg - Constitutional Present: moderate distress - Routine HEENT Exam Head: Present: normal inspection ENT: Present: mucous membranes moist - Routine Neck Exam Present: supple - Routine Respiratory Exam Present: CTAB - Routine Cardiovascular Exam Cardiovascular: Present: RRR, S1, S2 - Routine Abdominal Exam Present: soft, nontender - Routine Rectal Exam Patient deferred: digital exam - Routine Extremities Exam Present: nontender - Routine Back/Spine/Pelvis Exam Back/Spine: Absent: CVA tenderness - Routine Skin Exam Present: intact - Routine Neurological Exam Present: alert, oriented X3 - Detailed Neurological Exam: Coma Scale Eye Opening: Spontaneous (4) Verbal Response: Oriented (5) Motor Response: Obeys commands (6) [place] Coma Scale Total: 15 - Routine Psychiatric Exam Present: normal affect Hem/Onc Consult Result - Labs CBC & Chem 7: 08/05/20 11:27 08/05/20 11:27 Assessment and Plan (1) Carcinoma of left breast Status: Acute This is a pleasant 65-year-old lady with a recent diagnosis of inflammatory breast carcinoma the left breast. It is ERPR negative and HER2 Stephy positive. On ultrasound the Tumor appears to be about 6 cm in size. Ca 27.29:44. She would be a candidate for neoadjuvant chemotherapy, in view of the large size of the tumor and the inflammatory component. She is HER2 positive. I would recommend treating her with dose dense AC X4, followed by Taxol and Herceptin. And reassess for surgical resection, based upon her response. PLAN: I will obtain baseline PET scan, for initial staging. Will get an echocardiogram, prior to anthracycline. Will get genetic testing. Will schedule her for a Port-A-Cath placement. She will return in 1 week for a follow up visit. All her questions were answered to her satisfaction. Thank you, CC: Dr. Javed.
[2020-08-05 11:29] LABS: MANUAL DIFF FLAG NO
[2020-08-05 11:39] LABS: Basophils Percent Auto 0.5 % (0-2); Eosinophils Absolute Auto 0.1 X10*3/uL (0.0-0.4); Eosinophils Percent Auto 1.4 % (0-4); Hematocrit 48.1 % (37-47); Hemoglobin 15.8 g/dl (12.0-16.0); Imm Gran Abs Auto 0.02 X10*3/uL (0.00-0.03); Imm Gran Pct Auto 0.3 % (0.0-0.4); Lymphocytes Absolute Auto 1.7 X10*3/uL (1.2-4.9); Lymphocytes Percent Auto 29.5 % (20-40); Mean Corpuscular HGB Conc 32.8 g/dl (31.0-35.0); Mean Corpuscular Hemoglobin 34.1 pg (27.0-33.0); Mean Corpuscular Volume 103.9 fL (80-98); Mean Platelet Volume 10.3 fL (9.4-12.3); Monocytes Absolute Auto 0.5 X10*3/uL (0.1-1.2); Monocytes Percent Auto 8.1 % (2-11); Neutrophils Absolute Auto 3.6 X10*3/uL (2.0-8.3); Neutrophils Percent Auto 60.2 % (45-73); Platelet Count 164 X10*3/uL (160-400); Red Blood Count 4.63 X10*6/uL (4.20-5.50); Red Cell Distribution Width 12.1 % (11.0-16.0); White Blood Count 5.9 X10*3/uL (4.8-10.8)
--- NOTE | 2020-08-05 11:44 | MHC.HEMONCMA ---
Addendum entered by Anne-Marie Florentino 08/05/20 14:59: Pt referred for PET scan. It has been faxed to lamin. Original Note: Pt presents for consult for left breast cancer. History reviewed and labs were drawn.
[2020-08-05 12:00] LABS: Alanine Aminotransferase 46 U/L (0-31); Albumin Level 4.1 g/dL (3.5-5.0); Alkaline Phosphatase 112 U/L (39-117); Anion Gap 11 (12-20); Aspartate Amino Transferase 67 U/L (5-31); Bilirubin Total 0.7 mg/dL (0.0-1.0); Blood Urea Nitrogen 9 mg/dL (9-16); Calcium 9.2 mg/dL (8.4-10.2); Carbon Dioxide 30 mmol/L (22-29); Chloride 106 mmol/L (96-108); Creatinine Clr Calc Pharmacy 83.8; Estimated Glomerular Filt Rate > 60; Glucose Random 112 mg/dL (60-115); Potassium 4.7 mmol/L (3.3-5.1); Sodium 142 mmol/L (135-145); Total Protein 6.8 g/dL (6.5-8.0)
--- NOTE | 2020-08-05 14:52 | HO.HEMONCPA ---
Pet Scan no auth needed.
--- NOTE | 2020-08-05 15:02 | MHC.HEMONCSW ---
PATIENT IS A 65 YEAR OLD FEMALE. RESIDES ALONE, INDEPENDENT AND ABLE TO MAKE HER NEEDS KNOWN. SEEN TODAY IN CONSULT DUE TO DIAGNOSIS OF BREAST CANCER. HER SISTER IN LAW ACCOMPANIED HER FOR SUPPORT. INITIALLY PATIENT WAS CRYING, ANXIOUS, NERVOUS BUT AFTER APPOINTMENT SHE REPORTED FEELING MORE AT EASE. DENIED PAST/PRESENT SUBSTANCE ABUSE ADDICTIONS AND MENTAL ILLNESS. REPORTS HAVING A COUPLE GLASSES OF WINE TWICE PER WEEK RETIRED, JUST GOT HER MEDICARE AND SOCIAL SECURITY SNF. REPORTS NOT ELIGIBLE FOR [employer] DUE TO SAVINGS HAS MET WITH SCOTTIE/FINANCIAL COUNSELOR ALREADY. PLAN IS A PET SCAN FOR STAGING, CHEMOTHERAPY AND POSSIBLY FUTURE SURGERY DEPENDING ON CHEMO RESPONSE. REASSURANCE, GUIDANCE, EDUCATION AND SUPPORT PROVIDED. DOES NOT WANT A COUNSELING REFERRAL, STATES SHE HAS A GOOD SUPPORT SYSTEM AND ADULT CHILDREN. SHE IS AWARE OF MY ROLE AND MY AVAILABILITY.
--- NOTE | 2020-08-05 15:14 | MHC.HEMONCSW ---
MEDICARE # [id number]
--- NOTE | 2020-08-05 15:43 | HO.HEMONCPA ---
medicare# [id number]
--- NOTE | 2020-08-06 09:03 | MHC.HEMONCSW ---
FOUND PATIENT A PCP....DR. HAWK, 1ST APPOINTMENT IS 08/19/20 2:30PM. LEFT PATIENT A MESSAGE.
[2020-08-06 10:52] LABS: CA 27.29 44 U/mL (<38)
--- NOTE | 2020-08-12 13:41 | MHC.HEMONCMA ---
Pt scheduled for PET scan on 08/13/20 @ 10:15 am.
--- NOTE | 2020-08-16 09:02 | MHC.HEMONCMA ---
Pt notified of port placement on 08/22/20 @ 10:30 am arrival time 9 am and nothing to eat 6 hrs prior.
--- NOTE | 2020-08-19 14:01 | MHC.HEMONCSW ---
MEDICARE INSURANCE PRIMARY, NO PA NEEDED FOR CHEMO AND CHEMO RELATED MEDICATIONS.
[2020-08-19 15:05] VITALS: BP 180/86; PULSE 98; RESP 14; TEMP 36.8; O2SAT 97; BMI 41.8
--- NOTE | 2020-08-19 15:18 | PM.HEMONCPN ---
Medical Summary - Medical Summary Date of Service: 08/19/20 Chief complaint: Follow-up for: Breast cancer. 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 Interval History Interval history: Marcia Strong is a pleasant 65 year old lady, here for a follow-up visit. She tells me she has ongoing pain in her left breast. It got really bad over the weekend. ROS: She does feel rather fatigued. No fever nor chills. She has pain in her left breast. Appetite is good. She has gained weight. HEENT: No headache no dizziness. No chest pain nor trouble breathing. Denies any abdominal pain nausea vomiting heartburn indigestion. Bowels are working without any gross blood in it. She had a colonoscopy in her 50s at [facility]. Denies any urinary complaints. She has pain in her back on the right side. Denies any focal weakness. She denies depression however she had history of anxiety and needed medications for a while. Denies skin rashes nor pruritus. Previous history: She tells me that about 3 months ago she noted, what she felt was, a pimple underneath her left breast. It would occasionally get itchy and then dry. Then it became harder around the edges. It was fixed, not movable. Due to the pandemic she did not leave the home. About a month ago she woke up one morning and she felt her left breast was heavy and huge. It was quite red and warm to touch. 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 She decided to go to the emergency room. This was on 07/16. Ultrasound of the breast revealed: Large irregular mass with scattered internal color flow vascularity 8:00 position 7 cm from nipple measuring 5 x 4 cm. Several adjacent smaller satellite foci, largest 1.3 cm. Differential considerations include malignancy as well as abscess. ASSESSMENT: BI-RADS 4: Suspicious RECOMMENDATION: 1. Surgical Consult. 2. Diagnostic mammography. She underwent an ultrasound-guided biopsy at 08:00 o'clock position on 07/25. Pathology revealed: Invasive ductal carcinoma, MSBR grade 2. ER negative/FL negative/HER2 Stephy positive 3+. She has been seen by Dr. Javed. She has been referred here for question if she should have neoadjuvant chemotherapy. Uniform Designer history: Menarche: Age 12. Menopause in her early 50s. No HRT. She is . She has 4 children. Family history: A paternal cousin had breast cancer in her mid 60s. 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 She is . Has 4 children. She smokes half a pack a day. She likes her wine. Review of Systems - Constitutional Reports system reviewed and no additional complaints, except as documented - Eyes Reports system reviewed and no additional complaints, except as documented - ENT Reports system reviewed and no additional complaints, except as documented - Cardiovascular Reports system reviewed and no additional complaints, except as documented - Respiratory Reports no additional respiratory complaints - Gastrointestinal Reports system reviewed and no additional complaints, except as documented - Genitourinary Reports no additional female genitourinary complaints - Musculoskeletal Reports system reviewed and no additional complaints, except as documented - Integumentary/Breasts Skin/Breast: Reports no additional skin complaints - Neurologic Reports system reviewed and no additional complaints, except as documented - Psychiatric Reports system reviewed and no additional complaints, except as documented - Endocrine Reports no additional endocrine complaints - Hematologic/Lymphatic Reports system reviewed and no additional complaints, except as documented - Allergic/Immunologic Reports system reviewed and no additional complaints, except as documented PMF Medical History: Medical History (Last Reviewed 08/19/20 @ 15:09 by Anne-Marie Florentino) Cerebral aneurysm Pneumonia Functional capacity: independent ambulation Patient : No Family History: Family History (Last Reviewed 08/28/20 @ 10:42 by CINTHIA Garcia) Family/Other Breast cancer Brother Colon cancer Surgical History: Surgical History (Last Reviewed 08/28/20 @ 10:42 by CINTHIA Garcia) H/O tubal ligation Social History: Social History (Last Reviewed 08/28/20 @ 10:42 by CINTHIA Garcia) Alcohol History: Alcohol intake: current Alcohol History Details: Alcohol intake frequency: a few times a week Alcohol type: wine Advance Directives: Advance Directives Date on File: 08/22/20 Smoking status: Current every day smoker Oncology Screenings - ECOG Performance Status ECOG Performance Status: 0 Home Medications and Allergies Allergies Allergy/AdvReac Type Severity Reaction Status Date / Time codeine [CODEINE] Allergy Unknown STOMACH Verified 08/28/20 10:41 UPSET Exam Vital signs: Vital Signs Temp 98.2 F 08/19/20 15:05 Pulse 98 08/19/20 15:05 Resp 14 08/19/20 15:05 BP 180/86 H 08/19/20 15:05 Pulse Ox 97 08/19/20 15:05 Intake & Output 08/18/20 08/19/20 08/19/20 18:59 06:59 18:59 Other: Weight 103.8 kg Weight in Grams [id number] Weight 103.8 kg Body Mass Index 41.8 - Constitutional Present: moderate distress - Routine HEENT Exam Head: Present: normal inspection Eye: Present: normal appearance ENT: Present: mucous membranes moist - Routine Neck Exam Present: full ROM - Routine Respiratory Exam Present: CTAB - Routine Cardiovascular Exam Cardiovascular: Present: RRR, S1, S2 - Routine Abdominal Exam Present: soft, nontender - Routine Rectal Exam Patient deferred: digital exam - Routine Extremities Exam Present: nontender - Routine Back/Spine/Pelvis Exam Back/Spine: Absent: CVA tenderness - Routine Skin Exam Present: intact - Routine Neurological Exam Present: alert, oriented X3 - Detailed Neurological Exam: Coma Scale Eye Opening: Spontaneous (4) - Routine Psychiatric Exam Present: normal affect Data - Labs CBC & Chem 7: 09/05/20 11:20 09/05/20 11:20 Labs: 08/05/20 11:27 CA 27.29 Routine Complete Blood Count Auto Diff Routine Comprehensive Met. Panel Routine Laboratory Last Values WBC 5.9 X10*3/uL (4.8-10.8) 08/05/20 11:27 RBC 4.63 X10*6/uL (4.20-5.50) 08/05/20 11:27 Hgb 15.8 g/dl (12.0-16.0) 08/05/20 11:27 Hct 48.1 % (37-47) H 08/05/20 11:27 MCV 103.9 fL (80-98) H 08/05/20 11:27 MCH 34.1 pg (27.0-33.0) H 08/05/20 11:27 MCHC 32.8 g/dl (31.0-35.0) 08/05/20 11:27 RDW 12.1 % (11.0-16.0) 08/05/20 11:27 Plt Count 164 X10*3/uL (160-400) 08/05/20 11:27 MPV 10.3 fL (9.4-12.3) 08/05/20 11: Immature Gran % (Auto) 0.3 % (0.0-0.4) 08/05/20 11: Neut % (Auto) 60.2 % (45-73) 08/05/20 11: Lymph % (Auto) 29.5 % (20-40) 08/05/20 11: Bulloch % (Auto) 8.1 % (2-11) 08/05/20 11:27 Eos % (Auto) 1.4 % (0-4) 08/05/20 11:27 Baso % (Auto) 0.5 % (0-2) 08/05/20 11: Lymph # (Auto) 1.7 X10*3/uL (1.2-4.9) 08/05/20 11: Bulloch # (Auto) 0.5 X10*3/uL (0.1-1.2) 08/05/20 11: Eos # (Auto) 0.1 X10*3/uL (0.0-0.4) 08/05/20 11:27 Baso # (Auto) 0.0 X10*3/uL (0.0-0.2) 08/05/20 11: Abs Immat Gran (auto) 0.02 X10*3/uL (0.00-0.03) 08/05/20 11: Absolute Neuts (auto) 3.6 X10*3/uL (2.0-8.3) 08/05/20 11: Absolute Nucleated RBC 0.000 X10*3/uL (0.0-0.012) 08/05/20 11: Nucleated RBC % (auto) 0.0 /100WBC (0.0-0.2) 08/05/20 11:27 Sodium 142 mmol/L (135-145) 08/05/20 11: Potassium 4.7 mmol/L (3.3-5.1) 08/05/20 11: Chloride 106 mmol/L (96-108) 08/05/20 11: Carbon Dioxide 30 mmol/L (22-29) H 08/05/20 11:27 Anion Gap 11 (12-20) L 08/05/20 11:27 BUN 9 mg/dL (9-16) 08/05/20 11:27 Creatinine 0.75 mg/dL (0.5-1.4) 08/05/20 11:27 Estim Creat Clear Calc 83.8 08/05/20 11:27 Estimated GFR > 60 08/05/20 11:27 Random Glucose 112 mg/dL (60-115) 08/05/20 11:27 Calcium 9.2 mg/dL (8.4-10.2) 08/05/20 11:27 Total Bilirubin 0.7 mg/dL (0.0-1.0) 08/05/20 11:27 AST 67 U/L (5-31) H 08/05/20 11: ALT 46 U/L (0-31) H 08/05/20 11:27 Alkaline Phosphatase 112 U/L (39-117) 08/05/20 11:27 Total Protein 6.8 g/dL (6.5-8.0) 08/05/20 11: Albumin 4.1 g/dL (3.5-5.0) 08/05/20 11:27 CA 27-29 44 U/mL (<38) H 08/05/20 11:27 Progress Note: A/P (1) Carcinoma of left breast Status: Acute Assessment and plan: Status: Acute This is a pleasant 65-year-old lady with a recent diagnosis of inflammatory breast carcinoma the left breast. It is ERPR negative and HER2 Stephy positive. On ultrasound the tumor appears to be about 6 cm in size. Ca 27.29:44. She would be a candidate for neoadjuvant chemotherapy, in view of the large size of the tumor and the inflammatory component. She is HER2 positive. I would recommend treating her with dose dense AC X4, followed by Taxol and Herceptin. And reassess for surgical resection, based upon her response. I proceeded with a baseline PET scan, for initial staging. This revealed: Intense activity in the medial left breast lesion assumed to be the primary tumor. There is also an enlarged left axillary node showing increased activity and metastatic disease needs to be suspected though this could be reactive. Otherwise, uptake in the region of the left thyroid gland, which is enlarged. This could represent uptake within a thyroid nodule and, therefore ultrasound would be recommended as malignancy cannot be excluded. Differential would be abnormal uptake in an enlarged node in the region. As described in the left axillary region, more proximally toward the region of the thoracic inlet, some mild uptake in nonpathologically enlarged nodes. These may be reactive but certainly early metastatic disease cannot be excluded. There is also uptake within the region of C1 anterior to the left of midline. There is lucency in the bone here. A metastatic deposit cannot be excluded. Consider MR. She had an echocardiogram, prior to anthracycline. This came back normal with EF of 60-65%. PLAN: Will get genetic testing. Will schedule her for a Port-A-Cath placement. This is scheduled for 08/22. She will undergo chemotherapy teaching today. She will return next week on , to get started on the treatment. All her questions were answered to her satisfaction. Thank you, CC: Dr. Javed. - Time Spent With Patient Total time spent is greater than 50% in coordination of care (as documented) at patient's floor/unit and/or counseling patient: 25 - 35 minutes
--- NOTE | 2020-08-19 15:57 | MHC.HEMONCMA ---
Pt presents to f/u on breast cancer. History reviewed and no labs drawn today.
--- NOTE | 2020-08-19 16:53 | MHC.HEMONC ---
pt here with her [id number] to see Dr Peña. I then reviewed plan for chemo and reviewed side effects and ways to manage them. She was given written info and will start chemo next . She is scheduled for port later this week. She has thyroid ultrasound pending. She will be scheduled for genetic testing. Pt signed consent at end of teaching and will need reinforcement.
--- NOTE | 2020-08-23 13:28 | MHC.HEMONCSW ---
HERE FOR CHEMO TEACH REPORTS COPING WELL. DENIES DISTRESS.
[2020-08-29 08:57] VITALS: BP 178/82; PULSE 66; RESP 18; TEMP 36.6; O2SAT 98; BMI 41.4
[2020-08-29 09:44] LABS: MANUAL DIFF FLAG NO
[2020-08-29 09:47] LABS: Basophils Percent Auto 0.6 % (0-2); Eosinophils Absolute Auto 0.1 X10*3/uL (0.0-0.4); Eosinophils Percent Auto 1.8 % (0-4); Hematocrit 45.4 % (37-47); Hemoglobin 15.2 g/dl (12.0-16.0); Imm Gran Abs Auto 0.02 X10*3/uL (0.00-0.03); Imm Gran Pct Auto 0.3 % (0.0-0.4); Lymphocytes Absolute Auto 1.8 X10*3/uL (1.2-4.9); Lymphocytes Percent Auto 28.3 % (20-40); Mean Corpuscular HGB Conc 33.5 g/dl (31.0-35.0); Mean Corpuscular Hemoglobin 34.6 pg (27.0-33.0); Mean Corpuscular Volume 103.4 fL (80-98); Mean Platelet Volume 10.5 fL (9.4-12.3); Monocytes Absolute Auto 0.6 X10*3/uL (0.1-1.2); Monocytes Percent Auto 9.1 % (2-11); Neutrophils Absolute Auto 3.7 X10*3/uL (2.0-8.3); Neutrophils Percent Auto 59.9 % (45-73); Platelet Count 168 X10*3/uL (160-400); Red Blood Count 4.39 X10*6/uL (4.20-5.50); Red Cell Distribution Width 12.1 % (11.0-16.0); White Blood Count 6.2 X10*3/uL (4.8-10.8)
[2020-08-29 10:13] LABS: Alanine Aminotransferase 49 U/L (0-31); Albumin Level 3.8 g/dL (3.5-5.0); Alkaline Phosphatase 77 U/L (39-117); Anion Gap 10 (12-20); Aspartate Amino Transferase 54 U/L (5-31); Bilirubin Total 0.7 mg/dL (0.0-1.0); Blood Urea Nitrogen 13 mg/dL (9-16); Calcium 9.4 mg/dL (8.4-10.2); Carbon Dioxide 29 mmol/L (22-29); Chloride 105 mmol/L (96-108); Creatinine Clr Calc Pharmacy 91.2; Estimated Glomerular Filt Rate > 60; Glucose Random 117 mg/dL (60-115); Potassium 4.2 mmol/L (3.3-5.1); Sodium 140 mmol/L (135-145); Total Protein 6.3 g/dL (6.5-8.0)
[2020-08-29] MEDS: ondansetron HCL/NS 16 MG/50 ML PIGGYBACK 200 MG IV (10:27)
[2020-08-29 10:40] LABS: HBsAGNum1 0.23 S/CO (0.00-0.99); Hepatitis B Surface Antigen Negative (Negative)
[2020-08-29 10:42] LABS: HBS Num1 0.12 mIU/mL (0-7.99); HBc Num1 0.06 S/CO (0.00-0.79); Hepatitis B Core Antibody Nonreactive (Nonreactive); ~Hepatitis B Surface Antibody NONREACTIVE (Nonreactive)
[2020-08-29] MEDS: Fosaprepitant Dimeglumine 150 MG in 0.9 % Sodium Chloride 145 ML 300 MG IV (10:51)
[2020-08-29] MEDS: dexAMETHasone sod phosphate 4 MG/ML VIAL 8 MG IV (11:38)
[2020-08-29] MEDS: Pegfilgrastim Onpro 6 MG/0.6 ML SYR.W..INJ SUBCUT (14:05)
[2020-08-29] MEDS: Heparin Sodium,Porcine Flush 500 UNIT/5 ML SYRINGE IVFLUSH (14:05)
--- NOTE | 2020-08-29 14:40 | PM.HEMONCPN ---
Medical Summary - Medical Summary Date of Service: 08/29/20 Chief complaint: Follow-up for: Stage IV breast cancer. 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 CURRENT THERAPY: Here to start AC x4. Interval History Interval history: Marcia Strong is a pleasant 65 year old lady, here for a follow-up visit. She tells me she has ongoing pain in her left breast. The lump appears to have enlarged. ROS: She does feel rather fatigued. No fever nor chills. She has pain in her left breast. Appetite is good. She has gained weight. HEENT: No headache no dizziness. No chest pain nor trouble breathing. Denies any abdominal pain nausea vomiting heartburn indigestion. Bowels are working without any gross blood in it. She had a colonoscopy in her 50s at [facility]. Denies any urinary complaints. She has pain in her back on the right side. Denies any focal weakness. She denies depression however she had history of anxiety and needed medications for a while. Denies skin rashes nor pruritus. Previous history: She tells me that about 3 months ago she noted, what she felt was, a pimple underneath her left breast. It would occasionally get itchy and then dry. Then it became harder around the edges. It was fixed, not movable. Due to the pandemic she did not leave the home. About a month ago she woke up one morning and she felt her left breast was heavy and huge. It was quite red and warm to touch. The nipple appeared ev[employer] head of [employer]. She decided to go to the emergency room. This was on 07/16. Ultrasound of the breast revealed: Large irregular mass with scattered internal color flow vascularity 8:00 position 7 cm from nipple measuring 5 x 4 cm. Several adjacent smaller satellite foci, largest 1.3 cm. Differential considerations include malignancy as well as abscess. ASSESSMENT: BI-RADS 4: Suspicious RECOMMENDATION: 1. Surgical Consult. 2. Diagnostic mammography. She underwent an ultrasound-guided biopsy at 08:00 o'clock position on 07/25. Pathology revealed: Invasive ductal carcinoma, MSBR grade 2. ER negative/NM negative/HER2 Stephy positive 3+. She has been seen by Dr. Javed. She has been referred here for question if she should have neoadjuvant chemotherapy. Medical Administrator history: Menarche: Age 12. Menopause in her early 50s. No HRT. She is . She has 4 children. Family history: A paternal cousin had breast cancer in her mid 60s. 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 She is . Has 4 children. She smokes half a pack a day. She likes her wine. Review of Systems - Constitutional Reports system reviewed and no additional complaints, except as documented - Eyes Reports system reviewed and no additional complaints, except as documented - ENT Reports system reviewed and no additional complaints, except as documented - Cardiovascular Reports system reviewed and no additional complaints, except as documented - Respiratory Reports no additional respiratory complaints - Gastrointestinal Reports system reviewed and no additional complaints, except as documented - Genitourinary Reports no additional female genitourinary complaints - Musculoskeletal Reports system reviewed and no additional complaints, except as documented - Integumentary/Breasts Skin/Breast: Reports no additional skin complaints - Neurologic Reports system reviewed and no additional complaints, except as documented - Psychiatric Reports system reviewed and no additional complaints, except as documented - Endocrine Reports no additional endocrine complaints - Hematologic/Lymphatic Reports system reviewed and no additional complaints, except as documented - Allergic/Immunologic Reports system reviewed and no additional complaints, except as documented PMFSH Medical History: Medical History (Last Reviewed 08/19/20 @ 15:09 by Anne-Marie Florentino) Cerebral aneurysm Pneumonia Functional capacity: independent ambulation Patient : No Family History: Family History (Last Reviewed 08/28/20 @ 10:42 by CINTHIA Garcia) Family/Other Breast cancer Brother Colon cancer Surgical History: Surgical History (Last Reviewed 08/28/20 @ 10:42 by CINTHIA Garcia) H/O tubal ligation Social History: Social History (Last Reviewed 08/28/20 @ 10:42 by CINTHIA Garcia) Alcohol History: Alcohol intake: current Alcohol History Details: Alcohol intake frequency: a few times a week Alcohol type: wine Advance Directives: Advance Directives Date on File: 08/22/20 Smoking status: Current every day smoker Home Medications and Allergies Current Medications: Current Medications Generic Name Dose Route Start Last Admin Trade Name Freq PRN Reason Stop Dose Admin Heparin Sodium (Porcine) 500 unit 08/29/20 00:00 08/29/20 14:05 Heparin Sodium,Porcine Flush 500 Unit/5 Ml Syringe IVFLUSH 08/29/20 23:59 500 unit ONCE YOUSIF Administration Ondansetron HCl 16 mg in 50 mls @ 200 mls/hr 08/29/20 00:00 08/29/20 10:42 Zofran IV 08/29/20 23:59 Infused ONCE YOUSIF Infusion Fosaprepitant 150 mg/ Sodium 150 mls @ 300 mls/hr 08/29/20 00:00 08/29/20 11:28 Chloride IV 08/29/20 23:59 Infused ONCE YOUSIF Infusion Cyclophosphamide 1,000 mg/ 256.25 mls @ 256.25 mls/hr 08/29/20 00:00 08/29/20 13:45 Cyclophosphamide 250 mg/ IV 08/29/20 23:59 Infused Sodium Chloride ONCE YOUSIF Infusion Doxorubicin HCl 126 mg/ IV 63 mls @ 0 mls/hr 08/29/20 00:00 08/29/20 12:38 Miscellaneous Supplies IV 08/29/20 23:59 Infused ONCE YOUSIF Infusion As Directed Pegfilgrastim 6 mg 08/29/20 00:00 08/29/20 14:05 Pegfilgrastim Onpro 6 Mg/0.6 Ml Syr.W..Inj SUBCUT 08/29/20 23:59 6 mg ONCE YOUSIF Administration Allergies Allergy/AdvReac Type Severity Reaction Status Date / Time codeine [CODEINE] Allergy Unknown STOMACH Verified 08/28/20 10:41 UPSET Exam Vital signs: Vital Signs Temp 97.8 F 08/29/20 08:57 Pulse 66 08/29/20 08:57 Resp 18 08/29/20 08:57 BP 178/82 H 08/29/20 08:57 Pulse Ox 98 08/29/20 08:57 Intake & Output 08/28/20 08/29/20 08/29/20 18:59 06:59 18:59 Intake Total 519.25 / 519.25 Balance 519.25 / 519.25 Intake: Intake, IV Amount 519.25 / 519.25 Cyclophosphamide 1,000 mg 256.25 / 256.25 Cyclophosphamide 250 mg In 0.9 % Sodium Chloride 250 ml @ 256. 25 mls/hr IV ONCE YOUSIF Rx#: [id number] DOXOrubicin HCl 126 mg In 63 / 63 Container,Empty 0 ml @ As Directed IV ONCE YOUSIF Rx#: [id number] Fosaprepitant Dimeglumine 150 150 / 150 mg In 0.9 % Sodium Chloride 145 ml @ 300 mls/hr IV ONCE YOUSIF Rx #:[id number] ondansetron HCL/NS 16 mg In 50 50 / 50 ml @ 200 mls/hr IV ONCE YOUSIF Rx# :[id number] Other: Weight 102.7 kg [place] Weight in Grams [id number] Weight 102.7 kg Body Mass Index 41.4 - Constitutional Present: moderate distress - Routine HEENT Exam Head: Present: normal inspection Eye: Present: normal appearance ENT: Present: mucous membranes moist - Routine Neck Exam Present: full ROM - Routine Respiratory Exam Present: CTAB - Routine Cardiovascular Exam Cardiovascular: Present: RRR, S1, S2 - Routine Abdominal Exam Present: soft, nontender - Routine Rectal Exam Patient deferred: digital exam - Routine Extremities Exam Present: nontender - Routine Back/Spine/Pelvis Exam Back/Spine: Absent: CVA tenderness - Routine Skin Exam Present: intact - Routine Neurological Exam Present: alert, oriented X3 - Detailed Neurological Exam: Coma Scale Eye Opening: Spontaneous (4) - Routine Psychiatric Exam Present: normal affect Data - Labs CBC & Chem 7: 09/05/20 11:20 09/05/20 11:20 Labs: 08/05/20 11:27 CA 27.29 Routine Complete Blood Count Auto Diff Routine Comprehensive Met. Panel Routine Laboratory Last Values WBC 5.9 X10*3/uL (4.8-10.8) 08/05/20 11:27 RBC 4.63 X10*6/uL (4.20-5.50) 08/05/20 11:27 Hgb 15.8 g/dl (12.0-16.0) 08/05/20 11:27 Hct 48.1 % (37-47) H 08/05/20 11:27 MCV 103.9 fL (80-98) H 08/05/20 11:27 MCH 34.1 pg (27.0-33.0) H 08/05/20 11:27 MCHC 32.8 g/dl (31.0-35.0) 08/05/20 11:27 RDW 12.1 % (11.0-16.0) 08/05/20 11:27 Plt Count 164 X10*3/uL (160-400) 08/05/20 11:27 MPV 10.3 fL (9.4-12.3) 08/05/20 11: Immature Gran % (Auto) 0.3 % (0.0-0.4) 08/05/20 11: Neut % (Auto) 60.2 % (45-73) 08/05/20 11: Lymph % (Auto) 29.5 % (20-40) 08/05/20 11: [place] % (Auto) 8.1 % (2-11) 08/05/20 11:27 Eos % (Auto) 1.4 % (0-4) 08/05/20 11: Baso % (Auto) 0.5 % (0-2) 08/05/20 11: Lymph # (Auto) 1.7 X10*3/uL (1.2-4.9) 08/05/20 11: [place] # (Auto) 0.5 X10*3/uL (0.1-1.2) 08/05/20 11: Eos # (Auto) 0.1 X10*3/uL (0.0-0.4) 08/05/20 11:27 Baso # (Auto) 0.0 X10*3/uL (0.0-0.2) 08/05/20 11: Abs Immat Gran (auto) 0.02 X10*3/uL (0.00-0.03) 08/05/20 11: Absolute Neuts (auto) 3.6 X10*3/uL (2.0-8.3) 08/05/20 11: Absolute Nucleated RBC 0.000 X10*3/uL (0.0-0.012) 08/05/20 11: Nucleated RBC % (auto) 0.0 /100WBC (0.0-0.2) 08/05/20 11:27 Sodium 142 mmol/L (135-145) 08/05/20 11: Potassium 4.7 mmol/L (3.3-5.1) 08/05/20 11: Chloride 106 mmol/L (96-108) 08/05/20 11: Carbon Dioxide 30 mmol/L (22-29) H 08/05/20 11:27 Anion Gap 11 (12-20) L 08/05/20 11:27 BUN 9 mg/dL (9-16) 08/05/20 11:27 Creatinine 0.75 mg/dL (0.5-1.4) 08/05/20 11:27 Estim Creat Clear Calc 83.8 08/05/20 11:27 Estimated GFR > 60 08/05/20 11:27 Random Glucose 112 mg/dL (60-115) 08/05/20 11:27 Calcium 9.2 mg/dL (8.4-10.2) 08/05/20 11:27 Total Bilirubin 0.7 mg/dL (0.0-1.0) 08/05/20 11:27 AST 67 U/L (5-31) H 08/05/20 11: ALT 46 U/L (0-31) H 08/05/20 11:27 Alkaline Phosphatase 112 U/L (39-117) 08/05/20 11:27 Total Protein 6.8 g/dL (6.5-8.0) 08/05/20 11: Albumin 4.1 g/dL (3.5-5.0) 08/05/20 11:27 CA 27-29 44 U/mL (<38) H 08/05/20 11:27 Progress Note: A/P (1) Carcinoma of left breast Status: Acute Assessment and plan: Status: Acute This is a pleasant 65-year-old lady with a recent diagnosis of inflammatory breast carcinoma the left breast. It is ERPR negative and HER2 Stephy positive. On ultrasound the tumor appears to be about 6 cm in size. Ca 27.29: 44. She would be a candidate for neoadjuvant chemotherapy, in view of the large size of the tumor and the inflammatory component. She is HER2 positive. I would recommend treating her with dose dense AC X4, followed by Taxol and Herceptin. And reassess for surgical resection, based upon her response. I proceeded with a baseline PET scan, for initial staging. This revealed: Intense activity in the medial left breast lesion assumed to be the primary tumor. There is also an enlarged left axillary node showing increased activity and metastatic disease needs to be suspected though this could be reactive. Otherwise, uptake in the region of the left thyroid gland, which is enlarged. This could represent uptake within a thyroid nodule and, therefore ultrasound would be recommended as malignancy cannot be excluded. Differential would be abnormal uptake in an enlarged node in the region. As described in the left axillary region, more proximally toward the region of the thoracic inlet, some mild uptake in nonpathologically enlarged nodes. These may be reactive but certainly early metastatic disease cannot be excluded. There is also uptake within the region of C1 anterior to the left of midline. There is lucency in the bone here. A metastatic deposit cannot be excluded. Consider MR. MRI of the C-spine from 08/20: - A 1.5 cm enhancing intraosseous lytic lesion within the left lateral mass of C1 exhibited FDG uptake on the 08/13/2020 PET/CT, most concerning for a metastatic focus on this MRI. No additional osseous metastatic disease is appreciated within the cervical spine. No enhancing epidural lesions. - Advanced cervical spondylosis, greatest at C4-C5 and C5-C6 with advanced spondylitic changes resulting in severe central canal stenosis and compression of the cervical cord at both of these levels. Intramedullary T2 signal changes within the cord at C5-C6 of indeterminate age that can be correlated for clinical signs of acute myelopathy. There is severe bilateral foraminal stenosis at C4-C5 and C5-C6 as well. Upon reviewing the imaging with the neuroradiologist, it appears that biopsy is not feasible. However since the significant abnormalities are present on 2 different modalities, it confirms the metastatic nature of the disease, Since her disease is aggressive with a high tumor burden, I will treated more aggressively with AC x4 with Neulasta support followed by Taxol pertuzumab and Herceptin. She had an echocardiogram, prior to anthracycline. This came back normal with EF of 60-65%. She has had genetic testing done. She has had a Port-A-Cath placed, on 08/22. PLAN: She will start systemic chemotherapy today. She will return next week on , to get her labs checked. Will arrange for denosumab at her next visit, once a prior Auth has been obtained. I discussed the case with Dr. Magallon, to see if radiation to the neck, was indicated. She did not feel it was since the patient did not have any pain or the symptoms. Will continue to monitor. All her questions were answered to her satisfaction. Thank you, CC: Dr. Javed. - Time Spent With Patient Total time spent is greater than 50% in coordination of care (as documented) at patient's floor/unit and/or counseling patient: 25 - 35 minutes
--- NOTE | 2020-08-29 14:43 | MHC.HEMONC ---
Pt here for C1 D1 A/C. States is feeling good today. Port accessed, good blood return. Labs drawn and reviewed. Premeds given as ordered. Pt did take dexamethasone 4mg po at home this morning. Dex 8mg IV given for premed, and was instructed to not take at home on day of next treatment. Chemo treatment completed. Pt states felt slightly lightheaded after treatment. Denies dizziness. Reported to Dr Peña. VSS. Dr Peña in to see pt to discuss results of recent MRI. Pt will start Denosumab with next treatment.
[2020-09-05 11:35] LABS: Basophils Percent Auto 1.1 % (0-2); Eosinophils Absolute Auto 0.1 X10*3/uL (0.0-0.4); Eosinophils Percent Auto 2.7 % (0-4); Hematocrit 42.3 % (37-47); Hemoglobin 14.3 g/dl (12.0-16.0); Imm Gran Abs Auto 0.06 X10*3/uL (0.00-0.03); Imm Gran Pct Auto 3.2 % (0.0-0.4); Lymphocytes Absolute Auto 1.1 X10*3/uL (1.2-4.9); Lymphocytes Percent Auto 61.6 % (20-40); MANUAL DIFF FLAG SCAN; Mean Corpuscular HGB Conc 33.8 g/dl (31.0-35.0); Mean Corpuscular Hemoglobin 34.5 pg (27.0-33.0); Mean Corpuscular Volume 102.2 fL (80-98); Mean Platelet Volume 10.9 fL (9.4-12.3); Monocytes Absolute Auto 0.2 X10*3/uL (0.1-1.2); Monocytes Percent Auto 9.2 % (2-11); Neutrophils Absolute Auto 0.4 X10*3/uL (2.0-8.3); Neutrophils Percent Auto 22.2 % (45-73); Platelet Count 100 X10*3/uL (160-400); Red Blood Count 4.14 X10*6/uL (4.20-5.50); Red Cell Distribution Width 11.8 % (11.0-16.0); SCAN SMEAR FLAG 1
[2020-09-05 11:39] LABS: White Blood Count 1.9 X10*3/uL (4.8-10.8)
[2020-09-05 11:59] LABS: Alanine Aminotransferase 75 U/L (0-31); Albumin Level 3.8 g/dL (3.5-5.0); Alkaline Phosphatase 103 U/L (39-117); Anion Gap 11 (12-20); Aspartate Amino Transferase 67 U/L (5-31); Bilirubin Total 1.2 mg/dL (0.0-1.0); Blood Urea Nitrogen 12 mg/dL (9-16); Carbon Dioxide 31 mmol/L (22-29); Chloride 103 mmol/L (96-108); Creatinine Clr Calc Pharmacy 89.9; Estimated Glomerular Filt Rate > 60; Glucose Random 101 mg/dL (60-115); Potassium 4.9 mmol/L (3.3-5.1); Sodium 140 mmol/L (135-145); Total Protein 6.1 g/dL (6.5-8.0)
[2020-09-05 12:29] LABS: SLIDE REVIEW VERIFIED
--- NOTE | 2020-09-05 16:02 | MHC.HEMONC ---
Labs reviewed. WBC 1.9/ ANC 0.4/ PLTS 100. Left message with patient regarding neutropenic precautions, instructed patient to call with any fevers, chills or symptoms of infection. Patient did receive Neulasta on 08/29/20. Dr. Peña aware of labs.
[2020-09-12 10:11] VITALS: BP 179/79; PULSE 76; RESP 18; TEMP 36.5; O2SAT 98; BMI 41.1
[2020-09-18 12:23] LABS: MANUAL DIFF FLAG NO
[2020-09-18 12:29] LABS: Basophils Absolute Auto 0.1 X10*3/uL (0.0-0.2); Basophils Percent Auto 0.7 % (0-2); Eosinophils Percent Auto 0.2 % (0-4); Hematocrit 43.3 % (37-47); Hemoglobin 14.6 g/dl (12.0-16.0); Imm Gran Abs Auto 0.05 X10*3/uL (0.00-0.03); Imm Gran Pct Auto 0.6 % (0.0-0.4); Lymphocytes Absolute Auto 1.8 X10*3/uL (1.2-4.9); Lymphocytes Percent Auto 20.8 % (20-40); Mean Corpuscular HGB Conc 33.7 g/dl (31.0-35.0); Mean Corpuscular Hemoglobin 34.3 pg (27.0-33.0); Mean Corpuscular Volume 101.6 fL (80-98); Mean Platelet Volume 10.6 fL (9.4-12.3); Monocytes Absolute Auto 0.8 X10*3/uL (0.1-1.2); Monocytes Percent Auto 9.5 % (2-11); Neutrophils Absolute Auto 5.9 X10*3/uL (2.0-8.3); Neutrophils Percent Auto 68.2 % (45-73); Platelet Count 217 X10*3/uL (160-400); Red Blood Count 4.26 X10*6/uL (4.20-5.50); Red Cell Distribution Width 12.1 % (11.0-16.0); White Blood Count 8.7 X10*3/uL (4.8-10.8)
[2020-09-18 12:59] LABS: Alanine Aminotransferase 48 U/L (0-31); Albumin Level 3.7 g/dL (3.5-5.0); Alkaline Phosphatase 87 U/L (39-117); Anion Gap 9 (12-20); Aspartate Amino Transferase 83 U/L (5-31); Bilirubin Total 0.4 mg/dL (0.0-1.0); Blood Urea Nitrogen 10 mg/dL (9-16); Calcium 8.7 mg/dL (8.4-10.2); Carbon Dioxide 25 mmol/L (22-29); Chloride 109 mmol/L (96-108); Creatinine Clr Calc Pharmacy 84.8; Estimated Glomerular Filt Rate > 60; Glucose Random 109 mg/dL (60-115); Potassium 4.4 mmol/L (3.3-5.1); Sodium 139 mmol/L (135-145)
--- NOTE | 2020-09-18 14:18 | MHC.HEMONC ---
Labs reviewed. Chemotherapy scheduled for tomorrow. Left voicemail with patient
[2020-09-19 09:01] VITALS: BP 193/79; PULSE 73; RESP 18; TEMP 36.6; O2SAT 96; BMI 41.2
[2020-09-19] MEDS: ondansetron HCL/NS 16 MG/50 ML PIGGYBACK 200 MG IV (09:36)
[2020-09-19] MEDS: dexAMETHasone sod phosphate/NS 12 MG/50 ML PIGGYBACK 200 MG IV (09:55)
--- NOTE | 2020-09-19 09:57 | PM.HEMONCPN ---
Medical Summary - Medical Summary Date of Service: 09/19/20 Chief complaint: F/U for: Breast Cancer. 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 CURRENT THERAPY: AC with Neulasta support, here for cycle 2. Interval History Interval history: Marcia Strong is a pleasant 65 year old lady, here for a follow-up visit. She has been doing very well. She tolerated the 1st cycle of chemo extremely well. She had a bit of her nausea but the anti emetic helped. She does get tired. Some days she takes a nap. Other days she can manage. Denies fever nor chills. She denies pain in her left breast. HEENT: No headache no dizziness. No chest pain nor trouble breathing. Denies any abdominal pain nausea vomiting heartburn indigestion. Bowels are working without any gross blood in it. She had a colonoscopy in her 50s at [facility]. Appetite is good. She has gained weight. Denies any urinary complaints. Denies any focal weakness. She denies depression however she had history of anxiety and needed medications for a while. Denies skin rashes nor pruritus. Previous history: She tells me that about 3 months ago she noted, what she felt was, a pimple underneath her left breast. It would occasionally get itchy and then dry. Then it became harder around the edges. It was fixed, not movable. Due to the pandemic she did not leave the home. About a month ago she woke up one morning and she felt her left breast was heavy and huge. It was quite red and warm to touch. 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 She decided to go to the emergency room. This was on 07/16. Ultrasound of the breast revealed: Large irregular mass with scattered internal color flow vascularity 8:00 position 7 cm from nipple measuring 5 x 4 cm. Several adjacent smaller satellite foci, largest 1.3 cm. Differential considerations include malignancy as well as abscess. ASSESSMENT: BI-RADS 4: Suspicious RECOMMENDATION: 1. Surgical Consult. 2. Diagnostic mammography. She underwent an ultrasound-guided biopsy at 08:00 o'clock position on 07/25. Pathology revealed: Invasive ductal carcinoma, MSBR grade 2. ER negative/VA negative/HER2 Stephy positive 3+. She was seen by Dr. Javed. She has been referred here for question if she should have neoadjuvant chemotherapy. 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 Menopause in her early 50s. No HRT. She is . She has 4 children. Family history: A paternal cousin had breast cancer in her mid 60s. 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 She is . Has 4 children. She smokes half a pack a day. She likes her wine. Review of Systems - Constitutional Reports system reviewed and no additional complaints, except as documented - Eyes Reports system reviewed and no additional complaints, except as documented - ENT Reports system reviewed and no additional complaints, except as documented - Cardiovascular Reports system reviewed and no additional complaints, except as documented - Respiratory Reports no additional respiratory complaints - Gastrointestinal Reports system reviewed and no additional complaints, except as documented - Genitourinary Reports no additional female genitourinary complaints - Musculoskeletal Reports system reviewed and no additional complaints, except as documented - Integumentary/Breasts Skin/Breast: Reports no additional skin complaints - Neurologic Reports system reviewed and no additional complaints, except as documented - Psychiatric Reports system reviewed and no additional complaints, except as documented - Endocrine Reports no additional endocrine complaints - Hematologic/Lymphatic Reports system reviewed and no additional complaints, except as documented - Allergic/Immunologic Reports system reviewed and no additional complaints, except as documented PMFSH Medical History: Medical History (Last Reviewed 08/19/20 @ 15:09 by Anne-Marie Florentino) Cerebral aneurysm Pneumonia Functional capacity: independent ambulation Patient : No Family History: Family History (Last Reviewed 09/11/20 @ 11:30 by CINTHIA Garcia) Family/Other Breast cancer Brother Colon cancer Surgical History: Surgical History (Last Reviewed 09/11/20 @ 11:30 by CINTHIA Garcia) H/O tubal ligation Social History: Social History (Last Updated 09/11/20 @ 11:31 by CINTHIA Garcia) Alcohol History: Alcohol intake: current Alcohol History Details: Alcohol intake frequency: a few times a week Alcohol type: wine Tobacco History: Patient Tobacco Use Status: Current everyday Tobacco Tobacco use type: Cigarette Cigarettes Per Day: 10 Second Hand Smoke Exposure: Yes Advance Directives: Advance Directives Date on File: 08/22/20 Oncology Screenings - ECOG Performance Status ECOG Performance Status: 0 Home Medications and Allergies Current Medications: Current Medications Generic Name Dose Route Start Last Admin Trade Name Freq PRN Reason Stop Dose Admin Heparin Sodium (Porcine) 500 unit 09/19/20 00:00 Heparin Sodium,Porcine Flush 500 Unit/5 Ml Syringe IVFLUSH 09/19/20 23:59 ONCE YOUSIF Fosaprepitant 150 mg/ Sodium 150 mls @ 300 mls/hr 09/19/20 00:00 Chloride IV 09/19/20 23:59 ONCE YOUSIF Ondansetron HCl 16 mg in 50 mls @ 200 mls/hr 09/19/20 00:00 09/19/20 09:51 Zofran IV 09/19/20 23:59 Infused ONCE YOUSIF Infusion Dexamethasone Sodium Phosphate 12 mg in 50 mls @ 200 mls/hr 09/19/20 00:00 09/19/20 09:55 Decadron IV 09/19/20 23:59 200 mls/hr ONCE YOUSIF Administration Cyclophosphamide 1,000 mg/ 256.25 mls @ 256.25 mls/hr 09/19/20 00:00 Cyclophosphamide 250 mg/ IV 09/19/20 23:59 Sodium Chloride ONCE YOUSIF Doxorubicin HCl 126 mg/ IV 63 mls @ 0 mls/hr 09/19/20 00:00 Miscellaneous Supplies IV 09/19/20 23:59 ONCE YOUSIF As Directed Allergies Allergy/AdvReac Type Severity Reaction Status Date / Time codeine [CODEINE] Allergy Unknown STOMACH Verified 09/11/20 11:28 UPSET Exam Vital signs: Vital Signs Temp 97.8 F 09/19/20 09:01 Pulse 73 09/19/20 09:01 Resp 18 09/19/20 09:01 BP 193/79 H 09/19/20 09:01 Pulse Ox 96 09/19/20 09:01 Intake & Output 09/18/20 09/19/20 09/19/20 18:59 06:59 18:59 Intake Total 50 / 50 Balance 50 / 50 Intake: Intake, IV Amount 50 / 50 ondansetron HCL/NS 16 mg In 50 50 / 50 ml @ 200 mls/hr IV ONCE YOUSIF Rx# :[id number] Other: Weight 102.3 kg [place] Weight in Grams [id number] Weight 102.3 kg Body Mass Index 41.2 - Constitutional Present: moderate distress - Routine HEENT Exam Head: Present: normal inspection Eye: Present: normal appearance ENT: Present: mucous membranes moist - Routine Neck Exam Present: full ROM - Routine Respiratory Exam Present: CTAB - Routine Cardiovascular Exam Cardiovascular: Present: RRR, S1, S2 - Routine Abdominal Exam Present: soft, nontender - Routine Rectal Exam Patient deferred: digital exam - Routine Extremities Exam Present: nontender - Routine Back/Spine/Pelvis Exam Back/Spine: Absent: CVA tenderness - Routine Skin Exam Present: intact - Routine Neurological Exam Present: alert, oriented X3 - Detailed Neurological Exam: Coma Scale Eye Opening: Spontaneous (4) - Routine Psychiatric Exam Present: normal affect Data - Labs CBC & Chem 7: 09/18/20 12:07 09/18/20 12:07 Labs: 08/05/20 11:27 CA 27.29 Routine Complete Blood Count Auto Diff Routine Comprehensive Met. Panel Routine Laboratory Last Values WBC 5.9 X10*3/uL (4.8-10.8) 08/05/20 11:27 RBC 4.63 X10*6/uL (4.20-5.50) 08/05/20 11:27 Hgb 15.8 g/dl (12.0-16.0) 08/05/20 11:27 Hct 48.1 % (37-47) H 08/05/20 11:27 MCV 103.9 fL (80-98) H 08/05/20 11:27 MCH 34.1 pg (27.0-33.0) H 08/05/20 11:27 MCHC 32.8 g/dl (31.0-35.0) 08/05/20 11:27 RDW 12.1 % (11.0-16.0) 08/05/20 11:27 Plt Count 164 X10*3/uL (160-400) 08/05/20 11:27 MPV 10.3 fL (9.4-12.3) 08/05/20 11:27 Immature Gran % (Auto) 0.3 % (0.0-0.4) 08/05/20 11:27 Neut % (Auto) 60.2 % (45-73) 08/05/20 11:27 Lymph % (Auto) 29.5 % (20-40) 08/05/20 11:27 Wirt % (Auto) 8.1 % (2-11) 08/05/20 11:27 Eos % (Auto) 1.4 % (0-4) 08/05/20 11: Baso % (Auto) 0.5 % (0-2) 08/05/20 11: Lymph # (Auto) 1.7 X10*3/uL (1.2-4.9) 08/05/20 11: Wirt # (Auto) 0.5 X10*3/uL (0.1-1.2) 08/05/20 11: Eos # (Auto) 0.1 X10*3/uL (0.0-0.4) 08/05/20 11: Baso # (Auto) 0.0 X10*3/uL (0.0-0.2) 08/05/20 11: Abs Immat Gran (auto) 0.02 X10*3/uL (0.00-0.03) 08/05/20 11: Absolute Neuts (auto) 3.6 X10*3/uL (2.0-8.3) 08/05/20 11: Absolute Nucleated RBC 0.000 X10*3/uL (0.0-0.012) 08/05/20 11: Nucleated RBC % (auto) 0.0 /100WBC (0.0-0.2) 08/05/20 11:27 Sodium 142 mmol/L (135-145) 08/05/20 11: Potassium 4.7 mmol/L (3.3-5.1) 08/05/20 11: Chloride 106 mmol/L (96-108) 08/05/20 11: Carbon Dioxide 30 mmol/L (22-29) H 08/05/20 11:27 Anion Gap 11 (12-20) L 08/05/20 11:27 BUN 9 mg/dL (9-16) 08/05/20 11:27 Creatinine 0.75 mg/dL (0.5-1.4) 08/05/20 11:27 Estim Creat Clear Calc 83.8 08/05/20 11:27 Estimated GFR > 60 08/05/20 11:27 Random Glucose 112 mg/dL (60-115) 08/05/20 11:27 Calcium 9.2 mg/dL (8.4-10.2) 04/26/21 11:27 Total Bilirubin 0.7 mg/dL (0.0-1.0) 08/05/20 11:27 AST 67 U/L (5-31) H 08/05/20 11:27 ALT 46 U/L (0-31) H 08/05/20 11:27 Alkaline Phosphatase 112 U/L (39-117) 08/05/20 11:27 Total Protein 6.8 g/dL (6.5-8.0) 08/05/20 11: Albumin 4.1 g/dL (3.5-5.0) 08/05/20 11:27 CA 27-29 44 U/mL (<38) H 08/05/20 11:27 Progress Note: A/P (1) Carcinoma of left breast Status: Acute Assessment and plan: Status: Acute This is a pleasant 65-year-old lady with a recent diagnosis of inflammatory breast carcinoma the left breast. It is ERPR negative and HER2 Stephy positive. On ultrasound the tumor appears to be about 6 cm in size. Ca 27.29:44. She would be a candidate for neoadjuvant chemotherapy, in view of the large size of the tumor and the inflammatory component. She is HER2 positive. I would recommend treating her with dose dense AC X4, followed by Taxol and Herceptin. And reassess for surgical resection, based upon her response. I proceeded with a baseline PET scan, for initial staging. This revealed: Intense activity in the medial left breast lesion assumed to be the primary tumor. There is also an enlarged left axillary node showing increased activity and metastatic disease needs to be suspected though this could be reactive. Otherwise, uptake in the region of the left thyroid gland, which is enlarged. This could represent uptake within a thyroid nodule and, therefore ultrasound would be recommended as malignancy cannot be excluded. Differential would be abnormal uptake in an enlarged node in the region. As described in the left axillary region, more proximally toward the region of the thoracic inlet, some mild uptake in nonpathologically enlarged nodes. These may be reactive but certainly early metastatic disease cannot be excluded. There is also uptake within the region of C1 anterior to the left of midline. There is lucency in the bone here. A metastatic deposit cannot be excluded. Consider MR. Harmon discussed with IR, neuro-radiology. They felt the biopsy would be risky to do. However since the lesion is apparent on 2 different imaging modalities, it is likely to be real. Hence the plan is to proceed with treatment. Since she has aggressive progressive disease, will treat her with an active regimen, to expedite her response. She had an echocardiogram, prior to anthracycline. This came back normal with EF of 60-65%. She had genetic testing done. This came back negative. She had a Port-A-Cath placement. This was placed on 08/22. She started dose dense AC chemotherapy with Neulasta support. She tolerated the 1st cycle very well. She is here for cycle 2. Thyroid ultrasound revealed: Heterogeneous thyroid gland. The left lobe is enlarged. Bilateral thyroid nodules. Fine needle aspiration of the largest nodule in the left lobe recommended. PLAN: l checked with Radiology, will proceed with the thyroid biopsy. Hopefully she will respond well. She will receive Neulasta Onpro today. She will return in a couple of weeks for her 3rd cycle. Hopefully she will have a complete response. All her questions were answered to her satisfaction. Thank you, CC: Dr. Javed. - Time Spent With Patient Total time spent is greater than 50% in coordination of care (as documented) at patient's floor/unit and/or counseling patient: 25 - 35 minutes
[2020-09-19] MEDS: Fosaprepitant Dimeglumine 150 MG in 0.9 % Sodium Chloride 145 ML 300 MG IV (10:23)
[2020-09-19] MEDS: Acetaminophen 325 MG TABLET 650 MG PO (12:23)
[2020-09-19] MEDS: Heparin Sodium,Porcine Flush 500 UNIT/5 ML SYRINGE IVFLUSH (12:44)
[2020-09-19] MEDS: Pegfilgrastim Onpro 6 MG/0.6 ML SYR.W..INJ SUBCUT (12:45)
[2020-09-19 12:59] VITALS: BP 125/59
--- NOTE | 2020-09-19 15:57 | MHC.HEMONC ---
Pt here for C2 D1 of treatment. Pt states she felt good after last treatment. Her only complaint is being tired. Labs done 09/18 were reviewed. Premeds done as ordered. Treatment done and pt tolerated well. Bp on arrival today 193/79, with repeat 125/59. Pt also c/o headache, which she states she had prior to treatment. Tylenol 650mg po given. Neulasta onpro placed on right upper arm and pt discharged home. She is scheduled for next treatment in 3 weeks.
[2020-09-20 12:42] LABS: CA 27.29 42 U/mL (<38)
--- NOTE | 2020-09-23 13:39 | MHC.HEMONCMA ---
Patient is scheduled for 09/30/2020 at 9am with an 8:45am arrival for her thyroid biopsy done via ultrasound. Patient must be NPO 4 hours before biopsy. Spoke with patient, she understands the date/time, where to go and that she needs to be NPO 4 hours before procedure. All questions and concerns were answered.
--- NOTE | 2020-10-04 13:05 | MHC.HEMONC ---
pt called with report on thyroid bx. Per Dr Peña - no cancer. Pt was relieved.
[2020-10-09 11:25] LABS: MANUAL DIFF FLAG NO
[2020-10-09 11:30] LABS: Basophils Absolute Auto 0.1 X10*3/uL (0.0-0.2); Basophils Percent Auto 0.7 % (0-2); Eosinophils Percent Auto 0.2 % (0-4); Hematocrit 40.6 % (37-47); Hemoglobin 13.7 g/dl (12.0-16.0); Imm Gran Abs Auto 0.08 X10*3/uL (0.00-0.03); Imm Gran Pct Auto 0.8 % (0.0-0.4); Lymphocytes Absolute Auto 1.8 X10*3/uL (1.2-4.9); Mean Corpuscular HGB Conc 33.7 g/dl (31.0-35.0); Mean Corpuscular Hemoglobin 34.1 pg (27.0-33.0); Monocytes Percent Auto 10.6 % (2-11); Neutrophils Absolute Auto 6.5 X10*3/uL (2.0-8.3); Neutrophils Percent Auto 68.7 % (45-73); Platelet Count 213 X10*3/uL (160-400); Red Blood Count 4.02 X10*6/uL (4.20-5.50); Red Cell Distribution Width 12.5 % (11.0-16.0); White Blood Count 9.4 X10*3/uL (4.8-10.8)
[2020-10-09 11:56] LABS: Alanine Aminotransferase 29 U/L (0-31); Albumin Level 3.8 g/dL (3.5-5.0); Alkaline Phosphatase 98 U/L (39-117); Anion Gap 10 (12-20); Aspartate Amino Transferase 33 U/L (5-31); Bilirubin Total 0.4 mg/dL (0.0-1.0); Blood Urea Nitrogen 10 mg/dL (9-16); Calcium 9.2 mg/dL (8.4-10.2); Carbon Dioxide 27 mmol/L (22-29); Chloride 107 mmol/L (96-108); Estimated Glomerular Filt Rate > 60; Glucose Random 109 mg/dL (60-115); Potassium 4.7 mmol/L (3.3-5.1); Sodium 139 mmol/L (135-145); Total Protein 6.3 g/dL (6.5-8.0)
--- NOTE | 2020-10-09 11:58 | MHC.HEMONC ---
pre-chemo labs WNL. Pt called and voicemail left that labs were good for treatment tomorrow.
[2020-10-10 08:55] VITALS: BP 161/70; PULSE 74; RESP 18; TEMP 36.2; O2SAT 97; BMI 41.0
[2020-10-10] MEDS: ondansetron HCL/NS 16 MG/50 ML PIGGYBACK 200 MG IV (10:04)
[2020-10-10] MEDS: 0.9 % Sodium Chloride 1,000 ML 500 ML IVCONT (10:05)
[2020-10-10] MEDS: dexAMETHasone sod phosphate/NS 12 MG/50 ML PIGGYBACK 200 MG IV (10:36)
[2020-10-10] MEDS: Fosaprepitant Dimeglumine 150 MG in 0.9 % Sodium Chloride 145 ML 300 MG IV (11:13)
[2020-10-10] MEDS: Mag&Al/Sim/Diphenhyd/Lidocaine 10 ML ORAL.SUSP PO (14:16)
[2020-10-10] MEDS: Heparin Sodium,Porcine Flush 500 UNIT/5 ML SYRINGE IVFLUSH (14:34)
[2020-10-10] MEDS: Pegfilgrastim Onpro 6 MG/0.6 ML SYR.W..INJ SUBCUT (14:37)
[2020-10-10] MEDS: Meclizine HCl 12.5 MG TABLET 25 MG PO (14:58)
--- NOTE | 2020-10-10 15:02 | PM.HEMONCPN ---
Medical Summary - Medical Summary Date of Service: 10/10/20 Chief complaint: Follow-up for: HER2 positive breast cancer. 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 CURRENT THERAPY: AC with Neulasta support, here for cycle 3. Interval History Interval history: Marcia Strong is a pleasant 65 year old lady, here for a follow-up visit. She has been doing very well. She tolerated the 1st cycle of chemo extremely well. She had a bit of her nausea but the anti emetic helped. She does get tired. Some days she takes a nap. Other days she can manage. Denies fever nor chills. She denies pain in her left breast. HEENT: No headache no dizziness. No chest pain nor trouble breathing. Denies any abdominal pain nausea vomiting heartburn indigestion. Bowels are working without any gross blood in it. She had a colonoscopy in her 50s at [facility]. Appetite is good. She has gained weight. Denies any urinary complaints. Denies any focal weakness. She denies depression however she had history of anxiety and needed medications for a while. Denies skin rashes nor pruritus. Previous history: She tells me that about 3 months ago she noted, what she felt was, a pimple underneath her left breast. It would occasionally get itchy and then dry. Then it became harder around the edges. It was fixed, not movable. Due to the pandemic she did not leave the home. About a month ago she woke up one morning and she felt her left breast was heavy and huge. It was quite red and warm to touch. 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 She decided to go to the emergency room. This was on 07/16. Ultrasound of the breast revealed: Large irregular mass with scattered internal color flow vascularity 8:00 position 7 cm from nipple measuring 5 x 4 cm. Several adjacent smaller satellite foci, largest 1.3 cm. Differential considerations include malignancy as well as abscess. ASSESSMENT: BI-RADS 4: Suspicious RECOMMENDATION: 1. Surgical Consult. 2. Diagnostic mammography. She underwent an ultrasound-guided biopsy at 08:00 o'clock position on 07/25. Pathology revealed: Invasive ductal carcinoma, MSBR grade 2. ER negative/AZ negative/HER2 Stephy positive 3+. She was seen by Dr. Javed. She has been referred here for question if she should have neoadjuvant chemotherapy. 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 Menopause in her early 50s. No HRT. She is . She has 4 children. Family history: A paternal cousin had breast cancer in her mid 60s. 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 She is . Has 4 children. She smokes half a pack a day. She likes her wine. Review of Systems - Constitutional Reports system reviewed and no additional complaints, except as documented - Eyes Reports system reviewed and no additional complaints, except as documented - ENT Reports system reviewed and no additional complaints, except as documented - Cardiovascular Reports system reviewed and no additional complaints, except as documented - Respiratory Reports no additional respiratory complaints - Gastrointestinal Reports system reviewed and no additional complaints, except as documented - Genitourinary Reports no additional female genitourinary complaints - Musculoskeletal Reports system reviewed and no additional complaints, except as documented - Integumentary/Breasts Skin/Breast: Reports no additional skin complaints - Neurologic Reports system reviewed and no additional complaints, except as documented - Psychiatric Reports system reviewed and no additional complaints, except as documented - Endocrine Reports no additional endocrine complaints - Hematologic/Lymphatic Reports system reviewed and no additional complaints, except as documented - Allergic/Immunologic Reports system reviewed and no additional complaints, except as documented PMFSH Medical History: Medical History (Last Reviewed 08/19/20 @ 15:09 by Anne-Marie Florentino) Cerebral aneurysm Pneumonia Functional capacity: independent ambulation Patient : No Family History: Family History (Last Reviewed 09/11/20 @ 11:30 by CINTHIA Garcia) Family/Other Breast cancer Brother Colon cancer Surgical History: Surgical History (Last Reviewed 09/11/20 @ 11:30 by CINTHIA Garcia) H/O tubal ligation Social History: Social History (Last Updated 09/11/20 @ 11:31 by CINTHIA Garcia) Alcohol History: Alcohol intake: current Alcohol History Details: Alcohol intake frequency: a few times a week Alcohol type: wine Tobacco History: Patient Tobacco Use Status: Current everyday Tobacco Tobacco use type: Cigarette Second Hand Smoke Exposure: Yes Substance Use History: Use of substances other than those prescribed or required for medical reasons: No Advance Directives: Advance Directives Date on File: 08/22/20 Nutrition Assessment: Patient : No Oncology Screenings - ECOG Performance Status ECOG Performance Status: 0 Home Medications and Allergies Current Medications: Current Medications Generic Name Dose Route Start Last Admin Trade Name Freq PRN Reason Stop Dose Admin Heparin Sodium (Porcine) 500 unit 10/10/20 00:00 10/10/20 14:34 Heparin Sodium,Porcine Flush 500 Unit/5 Ml Syringe IVFLUSH 10/10/20 23:59 500 unit ONCE YOUSIF Administration Fosaprepitant 150 mg/ Sodium 150 mls @ 300 mls/hr 10/10/20 00:00 10/10/20 11:43 Chloride IV 10/10/20 23:59 Infused ONCE YOUSIF Infusion Ondansetron HCl 16 mg in 50 mls @ 200 mls/hr 10/10/20 00:00 10/10/20 10:19 Zofran IV 10/10/20 23:59 Infused ONCE YOUSIF Infusion Dexamethasone Sodium Phosphate 12 mg in 50 mls @ 200 mls/hr 10/10/20 00:00 10/10/20 10:51 Decadron IV 10/10/20 23:59 Infused ONCE YOUSIF Infusion Sodium Chloride 1,000 mls @ 500 mls/hr 10/10/20 00:00 10/10/20 12:05 Ns IVCONT 10/10/20 23:59 Infused .Q2H YOUSIF Infusion Cyclophosphamide 1,000 mg/ 256.25 mls @ 256.25 mls/hr 10/10/20 00:00 10/10/20 13:53 Cyclophosphamide 250 mg/ IV 10/10/20 23:59 Infused Sodium Chloride ONCE YOUSIF Infusion Doxorubicin HCl 128 mg/ IV 64 mls @ 0 mls/hr 10/10/20 00:00 10/10/20 12:46 Miscellaneous Supplies IV 10/10/20 23:59 Infused ONCE YOUSIF Infusion As Directed Lidocaine/Diphenhydr/Alum/Mg/Simeth 10 ml 10/10/20 10:16 Mag&Al/Sim/Diphenhyd/Lidocaine 10 Ml Oral.Susp PO Q6H PRN Mouth Sore Pain Protocol Allergies Allergy/AdvReac Type Severity Reaction Status Date / Time codeine [CODEINE] Allergy Unknown STOMACH Verified 09/11/20 11:28 UPSET Exam Vital signs: Vital Signs Temp 97.1 F 10/10/20 08:55 Pulse 74 10/10/20 08:55 Resp 18 10/10/20 08:55 BP 161/70 H 10/10/20 08:55 Pulse Ox 97 10/10/20 08:55 Intake & Output 10/09/20 10/10/20 10/10/20 18:59 06:59 18:59 Intake Total 1570.25 / 1570.25 Balance 1570.25 / 1570.25 Intake: Intake, IV Amount 1570.25 / 1570.25 Cyclophosphamide 1,000 mg 256.25 / 256.25 Cyclophosphamide 250 mg In 0.9 % Sodium Chloride 250 ml @ 256. 25 mls/hr IV ONCE YOUSIF Rx#: [id number] DOXOrubicin HCl 128 mg In 64 / 64 Container,Empty 0 ml @ As Directed IV ONCE YOUSIF Rx#: [id number] Fosaprepitant Dimeglumine 150 150 / 150 mg In 0.9 % Sodium Chloride 145 ml @ 300 mls/hr IV ONCE YOUSIF Rx #:[id number] dexAMETHasone sod phosphate/NS 50 / 50 12 mg In 50 ml @ 200 mls/hr IV ONCE YOUSIF Rx#:[id number] ondansetron HCL/NS 16 mg In 50 50 / 50 ml @ 200 mls/hr IV ONCE YOUSIF Rx# :[id number] 0.9 % Sodium Chloride 1,000 ml 1000 / 1000 @ 500 mls/hr IVCONT .Q2H YOUSIF Rx #:[id number] Other: Weight 101.8 kg [place] Weight in Grams [id number] Weight 101.8 kg Body Mass Index 41.0 - Constitutional Present: moderate distress - Routine HEENT Exam Head: Present: normal inspection Eye: Present: normal appearance ENT: Present: mucous membranes moist - Routine Neck Exam Present: full ROM - Routine Respiratory Exam Present: CTAB - Routine Cardiovascular Exam Cardiovascular: Present: RRR, S1, S2 - Routine Abdominal Exam Present: soft, nontender - Routine Rectal Exam Patient deferred: digital exam - Routine Extremities Exam Present: nontender - Routine Back/Spine/Pelvis Exam Back/Spine: Absent: CVA tenderness - Routine Skin Exam Present: intact - Routine Neurological Exam Present: alert, oriented X3 - Detailed Neurological Exam: Coma Scale Eye Opening: Spontaneous (4) - Routine Psychiatric Exam Present: normal affect Data - Labs CBC & Chem 7: 10/09/20 11:09 10/09/20 11:09 Labs: 08/05/20 11:27 CA 27.29 Routine Complete Blood Count Auto Diff Routine Comprehensive Met. Panel Routine Laboratory Last Values WBC 5.9 X10*3/uL (4.8-10.8) 08/05/20 11: RBC 4.63 X10*6/uL (4.20-5.50) 08/05/20 11:27 Hgb 15.8 g/dl (12.0-16.0) 08/05/20 11:27 Hct 48.1 % (37-47) H 08/05/20 11:27 MCV 103.9 fL (80-98) H 08/05/20 11:27 MCH 34.1 pg (27.0-33.0) H 08/05/20 11: MCHC 32.8 g/dl (31.0-35.0) 08/05/20 11: RDW 12.1 % (11.0-16.0) 08/05/20 11:27 Plt Count 164 X10*3/uL (160-400) 08/05/20 11: MPV 10.3 fL (9.4-12.3) 08/05/20 11: Immature Gran % (Auto) 0.3 % (0.0-0.4) 08/05/20 11: Neut % (Auto) 60.2 % (45-73) 08/05/20 11:27 Lymph % (Auto) 29.5 % (20-40) 08/05/20 11:27 [place] % (Auto) 8.1 % (2-11) 08/05/20 11:27 Eos % (Auto) 1.4 % (0-4) 08/05/20 11:27 Baso % (Auto) 0.5 % (0-2) 08/05/20 11:27 Lymph # (Auto) 1.7 X10*3/uL (1.2-4.9) 08/05/20 11:27 [place] # (Auto) 0.5 X10*3/uL (0.1-1.2) 08/05/20 11:27 Eos # (Auto) 0.1 X10*3/uL (0.0-0.4) 08/05/20 11:27 Baso # (Auto) 0.0 X10*3/uL (0.0-0.2) 08/05/20 11:27 Abs Immat Gran (auto) 0.02 X10*3/uL (0.00-0.03) 08/05/20 11:27 Absolute Neuts (auto) 3.6 X10*3/uL (2.0-8.3) 08/05/20 11:27 Absolute Nucleated RBC 0.000 X10*3/uL (0.0-0.012) 08/05/20 11:27 Nucleated RBC % (auto) 0.0 /100WBC (0.0-0.2) 08/05/20 11:27 Sodium 142 mmol/L (135-145) 08/05/20 11:27 Potassium 4.7 mmol/L (3.3-5.1) 08/05/20 11:27 Chloride 106 mmol/L (96-108) 08/05/20 11:27 Carbon Dioxide 30 mmol/L (22-29) H 08/05/20 11:27 Anion Gap 11 (12-20) L 08/05/20 11:27 BUN 9 mg/dL (9-16) 08/05/20 11:27 Creatinine 0.75 mg/dL (0.5-1.4) 08/05/20 11:27 Estim Creat Clear Calc 83.8 08/05/20 11:27 Estimated GFR > 60 08/05/20 11:27 Random Glucose 112 mg/dL (60-115) 08/05/20 11:27 Calcium 9.2 mg/dL (8.4-10.2) 08/05/20 11:27 Total Bilirubin 0.7 mg/dL (0.0-1.0) 08/05/20 11:27 AST 67 U/L (5-31) H 08/05/20 11:27 ALT 46 U/L (0-31) H 08/05/20 11:27 Alkaline Phosphatase 112 U/L (39-117) 08/05/20 11:27 Total Protein 6.8 g/dL (6.5-8.0) 08/05/20 11:27 Albumin 4.1 g/dL (3.5-5.0) 08/05/20 11:27 CA 27-29 44 U/mL (<38) H 08/05/20 11:27 Progress Note: A/P (1) Carcinoma of left breast Status: Acute Assessment and plan: Status: Acute This is a pleasant 65-year-old lady with a recent diagnosis of inflammatory breast carcinoma the left breast. It is ERPR negative and HER2 Stephy positive. On ultrasound the tumor appears to be about 6 cm in size. Ca 27.29:44. She would be a candidate for neoadjuvant chemotherapy, in view of the large size of the tumor and the inflammatory component. She is HER2 positive. I would recommend treating her with dose dense AC X4, followed by Taxol and Herceptin. And reassess for surgical resection, based upon her response. I proceeded with a baseline PET scan, for initial staging. This revealed: Intense activity in the medial left breast lesion assumed to be the primary tumor. There is also an enlarged left axillary node showing increased activity and metastatic disease needs to be suspected though this could be reactive. Otherwise, uptake in the region of the left thyroid gland, which is enlarged. This could represent uptake within a thyroid nodule and, therefore ultrasound would be recommended as malignancy cannot be excluded. Differential would be abnormal uptake in an enlarged node in the region. As described in the left axillary region, more proximally toward the region of the thoracic inlet, some mild uptake in nonpathologically enlarged nodes. These may be reactive but certainly early metastatic disease cannot be excluded. There is also uptake within the region of C1 anterior to the left of midline. There is lucency in the bone here. A metastatic deposit cannot be excluded. Consider MR. Harmon discussed with IR, neuro-radiology. They felt the biopsy would be risky to do. However since the lesion is apparent on 2 different imaging modalities, it is likely to be real. Hence the plan is to proceed with treatment. Since she has aggressive progressive disease, will treat her with an active regimen, to expedite her response. She had an echocardiogram, prior to anthracycline. This came back normal with EF of 60-65%. She had genetic testing done. This came back negative. She had a Port-A-Cath placement. This was placed on 08/22. She started dose dense AC chemotherapy with Neulasta support. She tolerated the 1st cycle very well. She is here for cycle 2. Thyroid ultrasound revealed: Heterogeneous thyroid gland. The left lobe is enlarged. Bilateral thyroid nodules. Fine needle aspiration of the largest nodule in the left lobe recommended. PLAN: l checked with Radiology, will proceed with the thyroid biopsy. (this revealed benign findings.) Hopefully she will respond well. She will receive Neulasta Onpro today. She will return in a couple of weeks for her 3rd cycle. Hopefully she will have a complete response. All her questions were answered to her satisfaction. Thank you, CC: Dr. Javed. - Time Spent With Patient 25 - 35 minutes Time Spent with Patient (in minutes): 30
--- NOTE | 2020-10-10 15:27 | MHC.HEMONC ---
Pt here for C3 D1 of treatment. Labs done 10/09 reviewed. States feels good, except she had some mouth sores after last treatment. Used salt water gargle. Dr Peña aware, and prescription sent for magic mouthwash. Port accessed, good blood return noted. Premeds given as ordered. Treatment done. After treatment, pt states felt very dizzy. Dr Peña in to see pt. Meclizine ordered and given. Pt discharged home with neulasta onpro in place. Scheduled for next treatment in 3 weeks.
[2020-10-30 10:56] LABS: MANUAL DIFF FLAG NO
[2020-10-30 11:02] LABS: Basophils Percent Auto 0.3 % (0-2); Eosinophils Percent Auto 0.1 % (0-4); Hematocrit 38.4 % (37-47); Hemoglobin 12.7 g/dl (12.0-16.0); Imm Gran Abs Auto 0.07 X10*3/uL (0.00-0.03); Imm Gran Pct Auto 0.8 % (0.0-0.4); Lymphocytes Absolute Auto 1.5 X10*3/uL (1.2-4.9); Lymphocytes Percent Auto 16.8 % (20-40); Mean Corpuscular HGB Conc 33.1 g/dl (31.0-35.0); Mean Corpuscular Hemoglobin 33.9 pg (27.0-33.0); Mean Corpuscular Volume 102.4 fL (80-98); Mean Platelet Volume 9.8 fL (9.4-12.3); Monocytes Absolute Auto 1.1 X10*3/uL (0.1-1.2); Monocytes Percent Auto 12.5 % (2-11); Neutrophils Absolute Auto 6.3 X10*3/uL (2.0-8.3); Neutrophils Percent Auto 69.5 % (45-73); Platelet Count 205 X10*3/uL (160-400); Red Blood Count 3.75 X10*6/uL (4.20-5.50)
[2020-10-30 11:34] LABS: Alanine Aminotransferase 17 U/L (0-31); Albumin Level 3.8 g/dL (3.5-5.0); Alkaline Phosphatase 82 U/L (39-117); Anion Gap 11 (12-20); Aspartate Amino Transferase 30 U/L (5-31); Bilirubin Total 0.7 mg/dL (0.0-1.0); Blood Urea Nitrogen 9 mg/dL (9-16); Calcium 8.6 mg/dL (8.4-10.2); Carbon Dioxide 27 mmol/L (22-29); Chloride 108 mmol/L (96-108); Creatinine Clr Calc Pharmacy 83.6; Estimated Glomerular Filt Rate > 60; Glucose Random 111 mg/dL (60-115); Potassium 4.5 mmol/L (3.3-5.1); Sodium 141 mmol/L (135-145); Total Protein 6.3 g/dL (6.5-8.0)
[2020-10-31 09:00] VITALS: BP 178/80; PULSE 74; RESP 18; TEMP 36.1; O2SAT 98; BMI 40.9
[2020-10-31] MEDS: ondansetron HCL/NS 16 MG/50 ML PIGGYBACK 200 MG IV (09:33)
[2020-10-31] MEDS: dexAMETHasone sod phosphate/NS 12 MG/50 ML PIGGYBACK 200 MG IV (09:54)
[2020-10-31] MEDS: Fosaprepitant Dimeglumine 150 MG in 0.9 % Sodium Chloride 145 ML 300 MG IV (10:23)
[2020-10-31] MEDS: Alteplase Cath Clear 2 MG VIAL INTRACATH (11:11)
[2020-10-31] MEDS: Heparin Sodium,Porcine Flush 500 UNIT/5 ML SYRINGE IVFLUSH (13:52)
[2020-10-31] MEDS: Pegfilgrastim Onpro 6 MG/0.6 ML SYR.W..INJ SUBCUT (13:52)
--- NOTE | 2020-10-31 14:07 | MHC.HEMONC ---
Pt here for C4 D1 of AC. Labs done 10/30 reviewed. Port accessed, initial blood return, then no further blood return. Dr Peña aware, cathflo ordered. Blood return noted after 1 hour. States felt good after last treatment except for being tired. Premeds given as ordered. Treatment done and tolerated well. Dr Peña in to see pt. Pt to start new plan in 3 weeks. Information given on new meds.
[2020-10-31 14:22] VITALS: BP 168/69; PULSE 83
--- NOTE | 2020-10-31 16:28 | P.PNHO_ITS ---
Medical Summary - Medical Summary Date of Service: 10/31/20 Chief complaint: Follow-up for: Breast cancer. 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 CURRENT THERAPY: AC with Neulasta support, here for cycle 4. Interval History Interval history: Marcia Strong is a pleasant 65 year old lady, here for a follow-up visit. She has been doing very well. She tolerated the 1st3 cycles of chemo extremely well. She had a bit of her nausea but the anti emetic helped. She does get tired. Some days she takes a nap. Other days she can manage. Couple of weeks ago she had a bad dream in fell out of bed. Denies fever nor chills. She denies pain in her left breast. The lump has gotten much smaller. HEENT: No headache no dizziness. No chest pain nor trouble breathing. Denies any abdominal pain nausea vomiting heartburn indigestion. Bowels are working without any gross blood in it. She had a colonoscopy in her 50s at [facility]. Appetite is good. She has gained weight. Denies any urinary complaints. Denies any focal weakness. She denies depression however she had history of anxiety. Denies skin rashes nor pruritus. Previous history: She tells me that about 3 months ago she noted, what she felt was, a pimple underneath her left breast. It would occasionally get itchy and then dry. Then it became harder around the edges. It was fixed, not movable. Due to the pandemic she did not leave the home. About a month ago she woke up one morning and she felt her left breast was heavy and huge. It was quite red and warm to touch. 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 She decided to go to the emergency room. This was on 07/16. Ultrasound of the breast revealed: Large irregular mass with scattered internal color flow vascularity 8:00 position 7 cm from nipple measuring 5 x 4 cm. Several adjacent smaller satellite foci, largest 1.3 cm. Differential considerations include malignancy as well as abscess. ASSESSMENT: BI-RADS 4: Suspicious RECOMMENDATION: 1. Surgical Consult. 2. Diagnostic mammography. She underwent an ultrasound-guided biopsy at 08:00 o'clock position on 07/25. Pathology revealed: Invasive ductal carcinoma, MSBR grade 2. ER negative/UT negative/HER2 Stephy positive 3+. She was seen by Dr. Javed. She has been referred here for question if she should have neoadjuvant ch emotherapy. Director Ambulatory history: Menarche: Age 12. Menopause in her early 50s. No HRT. She is . She has 4 children. Family history: A paternal cousin had breast cancer in her mid 60s. 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 She is . Has 4 children. She smokes half a pack a day. She likes her wine. Review of Systems - Constitutional Reports no additional constitutional complaints, Reports fatigue, Denies fever(s ), Reports lack of energy, Reports malaise, Denies poor appetite, Reports weight gain - Eyes Reports no additional eye complaints - ENT Reports no additional ear, nose, mouth, and throat complaints - Cardiovascular Reports no additional cardiovascular complaints - Respiratory Reports no additional respiratory complaints - Gastrointestinal Reports no additional gastrointestinal complaints - Genitourinary Reports no additional female genitourinary complaints - Musculoskeletal Reports no additional musculoskeletal complaints - Integumentary/Breasts Skin/Breast: Reports no additional skin complaints - Neurologic Reports no additional neurologic complaints - Psychiatric Reports no additional psychiatric complaints - Endocrine Reports no additional endocrine complaints - Hematologic/Lymphatic Reports no additional hematologic/lymphatic complaints - Allergic/Immunologic Reports no additional allergic/immunologic complaints [facility] Medical History: Medical History (Last Reviewed 08/19/20 @ 15:09 by Anne-Marie Florentino) Cerebral aneurysm Pneumonia Functional capacity: independent ambulation Patient : No Family History: Family History (Last Reviewed 09/11/20 @ 11:30 by CINTHIA Garcia) Family/Other Breast cancer Brother Colon cancer Surgical History: Surgical History (Last Reviewed 09/11/20 @ 11:30 by CINTHIA Garcia) H/O tubal ligation Social History: Social History (Last Updated 09/11/20 @ 11:31 by CINTHIA Garcia) Alcohol History: Alcohol intake: current Alcohol History Details: Alcohol intake frequency: a few times a week Alcohol type: wine Tobacco History: Patient Tobacco Use Status: Current everyday Tobacco Tobacco use type: Cigarette Second Hand Smoke Exposure: Yes Substance Use History: Use of substances other than those prescribed or required for medical reasons : No Advance Directives: Advance Directives Date on File: 08/22/20 Nutrition Assessment: Patient : No Oncology Screenings - ECOG Performance Status ECOG Performance Status: 0 Home Medications and Allergies Current Medications: Current Medications Generic Name Dose Route Start Last Admin Trade Name Manuela PRN Reason Stop Dose Admin Heparin Sodium (Porcine) 500 unit 10/31/20 00:00 10/31/20 13:52 Heparin Sodium,Porcine Flush 500 Unit/5 Ml Syringe IVFLUSH 10/31/20 23:59 500 unit ONCE YOUSIF Administration Fosaprepitant 150 mg/ Sodium 150 mls @ 300 mls/hr 10/31/20 00:00 10/31/20 10:53 Chloride IV 10/31/20 23:59 Infused ONCE YOUSIF Infusion Ondansetron HCl 16 mg in 50 mls @ 200 mls/hr 10/31/20 00:00 10/31/20 09:50 Zofran IV 10/31/20 23:59 Infused ONCE YOUSIF Infusion Dexamethasone Sodium Phosphate 12 mg in 50 mls @ 200 mls/hr 10/31/20 00:00 10/31/20 10:10 Decadron IV 10/31/20 23:59 Infused ONCE YOUSIF Infusion Cyclophosphamide 1,000 mg/ 256.25 mls @ 256.25 mls/hr 10/31/20 00:00 10/31/20 13:48 Cyclophosphamide 250 mg/ IV 10/31/20 23:59 Infused Sodium Chloride ONCE YOUSIF Infusion Doxorubicin HCl 126 mg/ IV 63 mls @ 0 mls/hr 10/31/20 00:00 10/31/20 12:44 Miscellaneous Supplies IV 10/31/20 23:59 Infused ONCE YOUSIF Infusion As Directed Lidocaine/Diphenhydr/Alum/Mg/Simeth 10 ml 10/10/20 10:16 Mag&Al/Sim/Diphenhyd/Lidocaine 10 Ml Oral.Susp PO Q6H PRN Mouth Sore Pain Protocol Pegfilgrastim 6 mg 10/31/20 00:00 10/31/20 13:52 Pegfilgrastim Onpro 6 Mg/0.6 Ml Syr.W..Inj SUBCUT 10/31/20 23:59 6 mg ONCE YOUSIF Administration Allergies Allergy/AdvReac Type Severity Reaction Status Date / Time codeine [CODEINE] Allergy Unknown STOMACH Verified 09/11/20 11:28 UPSET Exam Vital signs: Vital Signs Temp 97.0 F 10/31/20 09:00 Pulse 83 10/31/20 14:22 Resp 18 10/31/20 09:00 BP 168/69 H 10/31/20 14:22 Pulse Ox 98 10/31/20 09:00 Intake & Output 10/30/20 10/31/20 10/31/20 18:59 06:59 18:59 Intake Total 569.25 / 569.25 Balance 569.25 / 569.25 Intake: Intake, IV Amount 569.25 / 569.25 Cyclophosphamide 1,000 mg 256.25 / 256.25 Cyclophosphamide 250 mg In 0.9 % Sodium Chloride 250 ml @ 256. 25 mls/hr IV ONCE YOUSIF Rx#: [id number] DOXOrubicin HCl 126 mg In 63 / 63 Container,Empty 0 ml @ As Directed IV ONCE YOUSIF Rx#: [id number] Fosaprepitant Dimeglumine 150 150 / 150 mg In 0.9 % Sodium Chloride 145 ml @ 300 mls/hr IV ONCE YOUSIF Rx #:[id number] dexAMETHasone sod phosphate/NS 50 / 50 12 mg In 50 ml @ 200 mls/hr IV ONCE YOUSIF Rx#:[id number] ondansetron HCL/NS 16 mg In 50 50 / 50 ml @ 200 mls/hr IV ONCE YOUSIF Rx# :[id number] Other: Weight 101.6 kg Weight in Grams [id number] Weight 101.6 kg Body Mass Index 40.9 - Constitutional Present: moderate distress - Routine HEENT Exam Head: Present: normal inspection Eye: Present: normal appearance ENT: Present: mucous membranes moist - Routine Neck Exam Present: full ROM - Routine Respiratory Exam Present: CTAB - Routine Cardiovascular Exam Cardiovascular: Present: RRR, S1, S2 - Routine Abdominal Exam Present: soft, nontender - Routine Rectal Exam Patient deferred: digital exam - Routine Extremities Exam Present: nontender - Routine Back/Spine/Pelvis Exam Back/Spine: Absent: CVA tenderness - Routine Skin Exam Present: intact - Routine Neurological Exam Present: alert, oriented X3 - Detailed Neurological Exam: Coma Scale Eye Opening: Spontaneous (4) - Routine Psychiatric Exam Present: normal affect Data - Labs CBC & Chem 7: 10/30/20 10:45 10/30/20 10:45 Labs: 08/05/20 11:27 CA 27.29 Routine Complete Blood Count Auto Diff Routine Comprehensive Met. Panel Routine Laboratory Last Values WBC 5.9 X10*3/uL (4.8-10.8) 08/05/20 11: RBC 4.63 X10*6/uL (4.20-5.50) 08/05/20 11: Hgb 15.8 g/dl (12.0-16.0) 08/05/20 11: Hct 48.1 % (37-47) H 08/05/20 11: MCV 103.9 fL (80-98) H 08/05/20 11:27 MCH 34.1 pg (27.0-33.0) H 08/05/20 11: MCHC 32.8 g/dl (31.0-35.0) 08/05/20 11: RDW 12.1 % (11.0-16.0) 08/05/20 11: Plt Count 164 X10*3/uL (160-400) 08/05/20 11: MPV 10.3 fL (9.4-12.3) 08/05/20 11: Immature Gran % (Auto) 0.3 % (0.0-0.4) 08/05/20 11: Neut % (Auto) 60.2 % (45-73) 08/05/20 11: Lymph % (Auto) 29.5 % (20-40) 08/05/20 11:27 [place] % (Auto) 8.1 % (2-11) 08/05/20 11: Eos % (Auto) 1.4 % (0-4) 08/05/20 11: Baso % (Auto) 0.5 % (0-2) 08/05/20 11:27 Lymph # (Auto) 1.7 X10*3/uL (1.2-4.9) 08/05/20 11:27 [place] # (Auto) 0.5 X10*3/uL (0.1-1.2) 08/05/20 11: Eos # (Auto) 0.1 X10*3/uL (0.0-0.4) 08/05/20 11:27 Baso # (Auto) 0.0 X10*3/uL (0.0-0.2) 08/05/20 11:27 Abs Immat Gran (auto) 0.02 X10*3/uL (0.00-0.03) 08/05/20 11:27 Absolute Neuts (auto) 3.6 X10*3/uL (2.0-8.3) 08/05/20 11:27 Absolute Nucleated RBC 0.000 X10*3/uL (0.0-0.012) 08/05/20 11:27 Nucleated RBC % (auto) 0.0 /100WBC (0.0-0.2) 08/05/20 11:27 Sodium 142 mmol/L (135-145) 08/05/20 11:27 Potassium 4.7 mmol/L (3.3-5.1) 08/05/20 11:27 Chloride 106 mmol/L (96-108) 08/05/20 11:27 Carbon Dioxide 30 mmol/L (22-29) H 08/05/20 11:27 Anion Gap 11 (12-20) L 08/05/20 11:27 BUN 9 mg/dL (9-16) 08/05/20 11:27 Creatinine 0.75 mg/dL (0.5-1.4) 08/05/20 11:27 Estim Creat Clear Calc 83.8 08/05/20 11:27 Estimated GFR > 60 08/05/20 11:27 Random Glucose 112 mg/dL (60-115) 08/05/20 11:27 Calcium 9.2 mg/dL (8.4-10.2) 08/05/20 11:27 Total Bilirubin 0.7 mg/dL (0.0-1.0) 08/05/20 11:27 AST 67 U/L (5-31) H 08/05/20 11:27 ALT 46 U/L (0-31) H 08/05/20 11:27 Alkaline Phosphatase 112 U/L (39-117) 08/05/20 11:27 Total Protein 6.8 g/dL (6.5-8.0) 08/05/20 11:27 Albumin 4.1 g/dL (3.5-5.0) 08/05/20 11:27 CA 27-29 44 U/mL (<38) H 08/05/20 11:27 Progress Note: A/P (1) Carcinoma of left breast Status: Acute Assessment and plan: Status: Acute This is a pleasant 65-year-old lady with a recent diagnosis of inflammatory breast carcinoma the left breast. It is ERPR negative and HER2 Stephy positive. On ultrasound the tumor appears to be about 6 cm in size. Ca 27.29:44. She would be a candidate for neoadjuvant chemotherapy, in view of the large size of the tumor and the inflammatory component. She is HER2 positive. I would recommend treating her with dose dense AC X4, followed by Taxol and Herceptin. And reassess for surgical resection, based upon her response. I proceeded with a baseline PET scan, for initial staging. This revealed: Intense activity in the medial left breast lesion assumed to be the primary tumor. There is also an enlarged left axillary node showing increased activity and metastatic disease needs to be suspected though this could be reactive. Otherwise, uptake in the region of the left thyroid gland, which is enlarged. This could represent uptake within a thyroid nodule and, therefore ultrasound would be recommended as malignancy cannot be excluded. Differential would be abnormal uptake in an enlarged node in the region. As described in the left axillary region, more proximally toward the region of the thoracic inlet, some mild uptake in nonpathologically enlarged nodes. These may be reactive but certainly early metastatic disease cannot be excluded. There is also uptake within the region of C1 anterior to the left of midline. There is lucency in the bone here. A metastatic deposit cannot be excluded. Consider MR. Harmon discussed with IR, neuro-radiology. They felt the biopsy would be risky to do. However since the lesion is apparent on 2 different imaging modalities, it is likely to be real. Hence the plan is to proceed with treatment. Since she has aggressive progressive disease, will treat her with an active regimen, to expedite her response. She had an echocardiogram, prior to anthracycline. This came back normal with EF of 60-65%. She had genetic testing done. This came back negative. She had a Port-A-Cath placement. This was placed on 08/22. She started dose dense AC chemotherapy with Neulasta support. She tolerated the 1st cycle very well. She is here for cycle 2. Thyroid ultrasound revealed: Heterogeneous thyroid gland. The left lobe is enlarged. Bilateral thyroid nodules. Fine needle aspiration of the largest nodule in the left lobe recommended. l checked with Radiology, proceeded with the thyroid biopsy. (this revealed benign findings.) PLAN: She is here for cycle 4 of AC. She has tolerated it really well.. Hopefully she will have a complete remission. She will receive Neulasta Onpro today. She will return in 3 weeks to start the next phase of treatment with herceptin, pertuzumab and Taxol. Will set up MRI for imaging after completion of the Taxol. Will send a prescription for the Magic mouthwash just in case. All her questions were answered to her satisfaction. Thank you, CC: Dr. Javed. - Time Spent With Patient Time Spent with Patient (in minutes): 30
--- NOTE | 2020-11-01 17:07 | HO.HEMONCPA ---
NO PA REQUIRED FOR PERTUZUMAB,TAXOL, AND HERCEPTIN. DRUGS ARE COVERED UNDER [employer] MEDICAL BENEFITS
[2020-11-20 10:15] LABS: MANUAL DIFF FLAG NO
[2020-11-20 10:20] LABS: Basophils Percent Auto 0.4 % (0-2); Eosinophils Percent Auto 0.3 % (0-4); Hematocrit 35.8 % (37-47); Hemoglobin 11.7 g/dl (12.0-16.0); Imm Gran Abs Auto 0.05 X10*3/uL (0.00-0.03); Imm Gran Pct Auto 0.7 % (0.0-0.4); Lymphocytes Absolute Auto 1.3 X10*3/uL (1.2-4.9); Lymphocytes Percent Auto 17.1 % (20-40); Mean Corpuscular HGB Conc 32.7 g/dl (31.0-35.0); Mean Corpuscular Hemoglobin 33.8 pg (27.0-33.0); Mean Corpuscular Volume 103.5 fL (80-98); Mean Platelet Volume 9.3 fL (9.4-12.3); Monocytes Absolute Auto 0.8 X10*3/uL (0.1-1.2); Monocytes Percent Auto 10.3 % (2-11); Neutrophils Absolute Auto 5.4 X10*3/uL (2.0-8.3); Neutrophils Percent Auto 71.2 % (45-73); Platelet Count 179 X10*3/uL (160-400); Red Blood Count 3.46 X10*6/uL (4.20-5.50); Red Cell Distribution Width 13.7 % (11.0-16.0); White Blood Count 7.6 X10*3/uL (4.8-10.8)
[2020-11-20 11:27] LABS: Alanine Aminotransferase 14 U/L (0-31); Albumin Level 3.8 g/dL (3.5-5.0); Alkaline Phosphatase 83 U/L (39-117); Anion Gap 11 (12-20); Aspartate Amino Transferase 20 U/L (5-31); Bilirubin Total 0.6 mg/dL (0.0-1.0); Blood Urea Nitrogen 10 mg/dL (9-16); Calcium 8.6 mg/dL (8.4-10.2); Carbon Dioxide 28 mmol/L (22-29); Chloride 104 mmol/L (96-108); Creatinine Clr Calc Pharmacy 77.3; Estimated Glomerular Filt Rate > 60; Glucose Random 171 mg/dL (60-115); Potassium 4.1 mmol/L (3.3-5.1); Sodium 139 mmol/L (135-145); Total Protein 6.3 g/dL (6.5-8.0)
--- NOTE | 2020-11-20 13:48 | MHC.HEMONC ---
pt labs WNL for chemo tomorrow. Pt spoke to Nurse, Shelby and expressed some nervousness for new treatment tomorrow.
[2020-11-21 09:06] VITALS: BP 159/71; PULSE 71; RESP 18; TEMP 36.8; O2SAT 97; BMI 40.8
[2020-11-21] MEDS: dexAMETHasone sod phosphate/NS 12 MG/50 ML PIGGYBACK 200 MG IV (10:18)
[2020-11-21] MEDS: Acetaminophen 325 MG TABLET 650 MG PO (10:31)
[2020-11-21] MEDS: Famotidine/PF 20 MG/2 ML VIAL IVPUSH (10:33)
[2020-11-21] MEDS: diphenhydrAMINE HCL 50 MG/ML VIAL 25 MG IVPUSH (11:04)
[2020-11-21 15:50] VITALS: BP 165/75; PULSE 78; RESP 20; TEMP 36.5; O2SAT 94
[2020-11-21] MEDS: Heparin Sodium,Porcine Flush 500 UNIT/5 ML SYRINGE IVFLUSH (15:54)
[2020-11-21 16:05] VITALS: BP 175/85; PULSE 80; O2SAT 95
[2020-11-21 16:10] VITALS: BP 171/80; PULSE 76; O2SAT 95
[2020-11-21] MEDS: Meclizine HCl 25 MG TABLET PO (16:22)
--- NOTE | 2020-11-21 16:37 | MHC.HEMONC ---
Patient arrived for chemotherapy infusions, her friend Gillian was present. R chest port accessed, positive blood return present. Patient tolerated infusions well, positive blood return present after each infusion. R chest port de-accessed post infusions. Patient attempted to get up from chair at conclusion of visit and reported vertigo and lightheadedness. Vital signs WNL (see flow sheet). Dr Peña present. One dose of Meclizine administered. Patient reported that symptoms were resolving approximately 15 minutes post Meclizine. Patient then exited the unit via wheelchair with NADEEM Ryan and her friend Gillian.
[2020-11-26 10:35] LABS: Glucose Urine UA NEG (NEG); Leukocyte Esterase Urine NEG (NEG); Nitrite Urine NEG (NEG); Specific Gravity - Urine <= 1.005 (1.005-1.025); Urine Blood NEG (NEG); Urine Ketones NEG (NEG); Urine Protein NEG (NEG-TRACE)
[2020-11-26 10:43] LABS: Appearance Urine CLEAR; Color Urine YELLOW
--- NOTE | 2020-11-26 16:22 | MHC.HEMONC ---
Pt came in c/o s/s uti. Urine sent to lab. Results negative. Called and left message with pt.
[2020-11-27 10:07] LABS: MANUAL DIFF FLAG NO
[2020-11-27 10:17] LABS: Basophils Percent Auto 0.3 % (0-2); Eosinophils Absolute Auto 0.1 X10*3/uL (0.0-0.4); Eosinophils Percent Auto 1.2 % (0-4); Hematocrit 35.4 % (37-47); Hemoglobin 11.8 g/dl (12.0-16.0); Imm Gran Abs Auto 0.03 X10*3/uL (0.00-0.03); Imm Gran Pct Auto 0.5 % (0.0-0.4); Lymphocytes Absolute Auto 0.5 X10*3/uL (1.2-4.9); Mean Corpuscular HGB Conc 33.3 g/dl (31.0-35.0); Mean Corpuscular Hemoglobin 34.1 pg (27.0-33.0); Mean Corpuscular Volume 102.3 fL (80-98); Mean Platelet Volume 9.8 fL (9.4-12.3); Monocytes Absolute Auto 0.4 X10*3/uL (0.1-1.2); Monocytes Percent Auto 6.4 % (2-11); Neutrophils Absolute Auto 4.9 X10*3/uL (2.0-8.3); Neutrophils Percent Auto 82.6 % (45-73); Platelet Count 178 X10*3/uL (160-400); Red Blood Count 3.46 X10*6/uL (4.20-5.50); Red Cell Distribution Width 13.4 % (11.0-16.0)
[2020-11-27 11:21] LABS: Alanine Aminotransferase 20 U/L (0-31); Alkaline Phosphatase 78 U/L (39-117); Anion Gap 14 (12-20); Aspartate Amino Transferase 27 U/L (5-31); Bilirubin Total 0.6 mg/dL (0.0-1.0); Blood Urea Nitrogen 8 mg/dL (9-16); Calcium 8.4 mg/dL (8.4-10.2); Carbon Dioxide 23 mmol/L (22-29); Chloride 107 mmol/L (96-108); Creatinine Clr Calc Pharmacy 83.3; Estimated Glomerular Filt Rate > 60; Glucose Random 132 mg/dL (60-115); Potassium 4.2 mmol/L (3.3-5.1); Sodium 140 mmol/L (135-145); Total Protein 6.5 g/dL (6.5-8.0)
[2020-11-28 08:59] VITALS: BP 145/76; PULSE 89; RESP 18; TEMP 36.7; O2SAT 97; BMI 41.4
[2020-11-28] MEDS: Acetaminophen 325 MG TABLET 650 MG PO (09:40)
[2020-11-28] MEDS: Famotidine/PF 20 MG/2 ML VIAL IVPUSH (09:51)
[2020-11-28] MEDS: dexAMETHasone sod phosphate/NS 12 MG/50 ML PIGGYBACK 200 MG IV (10:17)
[2020-11-28] MEDS: diphenhydrAMINE HCL 50 MG/ML VIAL 25 MG IVPUSH (10:33)
[2020-11-28] MEDS: Heparin Sodium,Porcine Flush 500 UNIT/5 ML SYRINGE IVFLUSH (12:15)
--- NOTE | 2020-11-28 14:48 | MHC.HEMONC ---
Addendum entered by Park Roland RN 11/28/20 15:07: Marcia arrived for chemotherapy infusion, her friend Jennifer was present. Right chest port accessed with positive blood return. Pre-medications administered and infusion initiated after positive blood return was confirmed. Patient tolerated infusion well. Positive blood return was present post infusion. Right chest port de-accessed. Next infusion scheduled for 12/05/20. Patient departed via wheelchair at the conclusion of the visit. Addendum entered by Park Roland RN 11/28/20 15:07: Marcia arrived for chemotherapy infusion, her friend Jennifer was present. Right chest port accessed with positive blood return. Pre-medications administered and infusion initiated after positive blood return was confirmed. Patient tolerated infusion well. Positive blood return was present post infusion. Right chest port de-accessed. Next infusion scheduled for 12/05/20. Patient departed via wheec Original Note: Marcia arrived for chemotherapy infusion, her friend Jennifer was present. Right chest port accessed with positive blood return. Pre-medications administered and infusion initiated after positive blood return was confirmed. Patient tolerated infusion well. Positive blood return was present post infusion. Right chest port de-accessed. Next infusion scheduled for 12/05/20. Dayami
[2020-12-04 10:00] LABS: MANUAL DIFF FLAG NO
[2020-12-04 10:03] LABS: Basophils Percent Auto 0.4 % (0-2); Eosinophils Absolute Auto 0.1 X10*3/uL (0.0-0.4); Eosinophils Percent Auto 1.5 % (0-4); Hematocrit 34.8 % (37-47); Hemoglobin 11.7 g/dl (12.0-16.0); Imm Gran Abs Auto 0.01 X10*3/uL (0.00-0.03); Imm Gran Pct Auto 0.2 % (0.0-0.4); Lymphocytes Absolute Auto 0.9 X10*3/uL (1.2-4.9); Lymphocytes Percent Auto 18.9 % (20-40); Mean Corpuscular HGB Conc 33.6 g/dl (31.0-35.0); Mean Corpuscular Hemoglobin 33.9 pg (27.0-33.0); Mean Corpuscular Volume 100.9 fL (80-98); Mean Platelet Volume 9.4 fL (9.4-12.3); Monocytes Absolute Auto 0.3 X10*3/uL (0.1-1.2); Monocytes Percent Auto 6.9 % (2-11); Neutrophils Absolute Auto 3.4 X10*3/uL (2.0-8.3); Neutrophils Percent Auto 72.1 % (45-73); Platelet Count 172 X10*3/uL (160-400); Red Blood Count 3.45 X10*6/uL (4.20-5.50); Red Cell Distribution Width 13.3 % (11.0-16.0); White Blood Count 4.8 X10*3/uL (4.8-10.8)
[2020-12-04 11:01] LABS: Alanine Aminotransferase 19 U/L (0-31); Albumin Level 3.9 g/dL (3.5-5.0); Alkaline Phosphatase 73 U/L (39-117); Anion Gap 11 (12-20); Aspartate Amino Transferase 22 U/L (5-31); Bilirubin Total 0.9 mg/dL (0.0-1.0); Blood Urea Nitrogen 10 mg/dL (9-16); Carbon Dioxide 27 mmol/L (22-29); Chloride 107 mmol/L (96-108); Creatinine Clr Calc Pharmacy 87.5; Estimated Glomerular Filt Rate > 60; Glucose Random 121 mg/dL (60-115); Potassium 3.8 mmol/L (3.3-5.1); Sodium 141 mmol/L (135-145); Total Protein 6.4 g/dL (6.5-8.0)
[2020-12-05 08:56] VITALS: BP 179/80; PULSE 91; RESP 18; TEMP 36.4; O2SAT 96; BMI 41.1
[2020-12-05] MEDS: Famotidine/PF 20 MG/2 ML VIAL IVPUSH (09:35)
[2020-12-05] MEDS: Acetaminophen 325 MG TABLET 650 MG PO (09:37)
[2020-12-05] MEDS: dexAMETHasone sod phosphate/NS 12 MG/50 ML PIGGYBACK 200 MG IV (09:56)
[2020-12-05] MEDS: diphenhydrAMINE HCL 50 MG/ML VIAL 25 MG IVPUSH (10:19)
[2020-12-05] MEDS: Heparin Sodium,Porcine Flush 500 UNIT/5 ML SYRINGE IVFLUSH (12:00)
[2020-12-05 12:31] VITALS: BP 140/84
--- NOTE | 2020-12-05 12:32 | MHC.HEMONC ---
Pt here for C1 D15 Paclitaxel. Labs done 12/04 reviewed. Port accessed, good blood return noted. States feels good after last treatment. Only c/o being tired. Premeds given as ordered. Paclitaxel infused. Pt became dizzy when getting up after treatment. Assisted to BR to void, and did feel better. Bp repeated, 140/84. Denosumab given as ordered. Brought to car in wheelchair. Scheduled to return in 1 week for next cycle.
[2020-12-11 10:53] LABS: MANUAL DIFF FLAG NO
[2020-12-11 10:58] LABS: Basophils Percent Auto 0.6 % (0-2); Eosinophils Percent Auto 0.9 % (0-4); Hematocrit 35.8 % (37-47); Hemoglobin 11.8 g/dl (12.0-16.0); Imm Gran Abs Auto 0.03 X10*3/uL (0.00-0.03); Imm Gran Pct Auto 0.6 % (0.0-0.4); Lymphocytes Absolute Auto 0.9 X10*3/uL (1.2-4.9); Lymphocytes Percent Auto 18.6 % (20-40); Mean Corpuscular Hemoglobin 33.4 pg (27.0-33.0); Mean Corpuscular Volume 101.4 fL (80-98); Mean Platelet Volume 9.8 fL (9.4-12.3); Monocytes Absolute Auto 0.3 X10*3/uL (0.1-1.2); Monocytes Percent Auto 7.1 % (2-11); Neutrophils Absolute Auto 3.4 X10*3/uL (2.0-8.3); Neutrophils Percent Auto 72.2 % (45-73); Platelet Count 174 X10*3/uL (160-400); Red Blood Count 3.53 X10*6/uL (4.20-5.50); White Blood Count 4.7 X10*3/uL (4.8-10.8)
[2020-12-11 11:35] LABS: Alanine Aminotransferase 20 U/L (0-31); Albumin Level 3.9 g/dL (3.5-5.0); Alkaline Phosphatase 69 U/L (39-117); Anion Gap 10 (12-20); Aspartate Amino Transferase 25 U/L (5-31); Bilirubin Total 0.9 mg/dL (0.0-1.0); Blood Urea Nitrogen 7 mg/dL (9-16); Carbon Dioxide 28 mmol/L (22-29); Chloride 106 mmol/L (96-108); Creatinine Clr Calc Pharmacy 93.7; Estimated Glomerular Filt Rate > 60; Glucose Random 118 mg/dL (60-115); Sodium 140 mmol/L (135-145); Total Protein 6.4 g/dL (6.5-8.0)
[2020-12-12 09:00] VITALS: BP 176/77; PULSE 84; RESP 18; TEMP 36.4; O2SAT 98; BMI 41.5
[2020-12-12] MEDS: Famotidine/PF 20 MG/2 ML VIAL IVPUSH (09:45)
[2020-12-12] MEDS: Acetaminophen 325 MG TABLET 650 MG PO (09:49)
[2020-12-12] MEDS: diphenhydrAMINE HCL 50 MG/ML VIAL 25 MG IVPUSH (10:08)
[2020-12-12] MEDS: dexAMETHasone sod phosphate/NS 12 MG/50 ML PIGGYBACK 200 MG IV (10:36)
[2020-12-12] MEDS: Meclizine HCl 25 MG TABLET PO (12:46)
[2020-12-12] MEDS: Heparin Sodium,Porcine Flush 500 UNIT/5 ML SYRINGE IVFLUSH (13:58)
--- NOTE | 2020-12-12 14:26 | MHC.HEMONC ---
Pt here for C6 D1 of treatment. She states she did well after last treatment. Port accessed, good blood return noted. Labs drawn, results reviewed. Premeds given as ordered. Treatment done and tolerated well. Scheduled to return in 1 week for next treatment. Pt was given meclizine as ordered for dizziness.
[2020-12-18 08:55] LABS: MANUAL DIFF FLAG NO
[2020-12-18 09:02] LABS: Basophils Percent Auto 0.4 % (0-2); Eosinophils Percent Auto 0.4 % (0-4); Hematocrit 35.1 % (37-47); Hemoglobin 11.7 g/dl (12.0-16.0); Imm Gran Abs Auto 0.02 X10*3/uL (0.00-0.03); Imm Gran Pct Auto 0.4 % (0.0-0.4); Mean Corpuscular HGB Conc 33.3 g/dl (31.0-35.0); Mean Corpuscular Hemoglobin 33.4 pg (27.0-33.0); Mean Corpuscular Volume 100.3 fL (80-98); Monocytes Absolute Auto 0.3 X10*3/uL (0.1-1.2); Neutrophils Absolute Auto 3.2 X10*3/uL (2.0-8.3); Neutrophils Percent Auto 71.8 % (45-73); Platelet Count 175 X10*3/uL (160-400); Red Cell Distribution Width 12.9 % (11.0-16.0); White Blood Count 4.5 X10*3/uL (4.8-10.8)
[2020-12-18 09:26] LABS: Alanine Aminotransferase 18 U/L (0-31); Albumin Level 3.8 g/dL (3.5-5.0); Alkaline Phosphatase 66 U/L (39-117); Anion Gap 7 (12-20); Aspartate Amino Transferase 17 U/L (5-31); Bilirubin Total 1.1 mg/dL (0.0-1.0); Blood Urea Nitrogen 8 mg/dL (9-16); Calcium 9.1 mg/dL (8.4-10.2); Carbon Dioxide 29 mmol/L (22-29); Chloride 109 mmol/L (96-108); Creatinine Clr Calc Pharmacy 91.4; Estimated Glomerular Filt Rate > 60; Glucose Random 118 mg/dL (60-115); Potassium 4.3 mmol/L (3.3-5.1); Sodium 141 mmol/L (135-145); Total Protein 6.2 g/dL (6.5-8.0)
[2020-12-19 09:06] VITALS: BP 189/86; PULSE 88; RESP 20; TEMP 36.6; O2SAT 97; BMI 41.2
[2020-12-19] MEDS: Famotidine/PF 20 MG/2 ML VIAL IVPUSH (09:25)
[2020-12-19] MEDS: Acetaminophen 325 MG TABLET 650 MG PO (09:29)
[2020-12-19] MEDS: dexAMETHasone sod phosphate/NS 12 MG/50 ML PIGGYBACK 200 MG IV (09:50)
[2020-12-19] MEDS: diphenhydrAMINE HCL 50 MG/ML VIAL 25 MG IVPUSH (10:13)
[2020-12-19] MEDS: Heparin Sodium,Porcine Flush 500 UNIT/5 ML SYRINGE IVFLUSH (11:48)
--- NOTE | 2020-12-19 13:17 | MHC.HEMONC ---
Pt here for C6 D8 Paclitaxel. Port accessed, good blood return noted. States had a lot of nausea this week, but no vomiting. Also had some diarrhea this morning. Labs done 12/18 reviewed. Premeds given as ordered. Paclitaxel infused and tolerated well. Scheduled for next treatment in 1 week, with follow up with Dr Peña in 1 week.
[2020-12-25 08:47] LABS: MANUAL DIFF FLAG NO
[2020-12-25 09:06] LABS: Basophils Percent Auto 0.4 % (0-2); Eosinophils Percent Auto 0.4 % (0-4); Hematocrit 37.1 % (37-47); Hemoglobin 12.3 g/dl (12.0-16.0); Imm Gran Abs Auto 0.02 X10*3/uL (0.00-0.03); Imm Gran Pct Auto 0.4 % (0.0-0.4); Lymphocytes Absolute Auto 1.2 X10*3/uL (1.2-4.9); Lymphocytes Percent Auto 25.1 % (20-40); Mean Corpuscular HGB Conc 33.2 g/dl (31.0-35.0); Mean Corpuscular Hemoglobin 33.4 pg (27.0-33.0); Mean Corpuscular Volume 100.8 fL (80-98); Mean Platelet Volume 9.6 fL (9.4-12.3); Monocytes Absolute Auto 0.4 X10*3/uL (0.1-1.2); Monocytes Percent Auto 7.4 % (2-11); Neutrophils Absolute Auto 3.2 X10*3/uL (2.0-8.3); Neutrophils Percent Auto 66.3 % (45-73); Platelet Count 206 X10*3/uL (160-400); Red Blood Count 3.68 X10*6/uL (4.20-5.50); Red Cell Distribution Width 12.9 % (11.0-16.0); White Blood Count 4.8 X10*3/uL (4.8-10.8)
[2020-12-25 09:27] LABS: Alanine Aminotransferase 20 U/L (0-31); Alkaline Phosphatase 82 U/L (39-117); Anion Gap 10 (12-20); Aspartate Amino Transferase 22 U/L (5-31); Bilirubin Total 0.6 mg/dL (0.0-1.0); Blood Urea Nitrogen 10 mg/dL (9-16); Calcium 9.3 mg/dL (8.4-10.2); Carbon Dioxide 30 mmol/L (22-29); Chloride 107 mmol/L (96-108); Creatinine Clr Calc Pharmacy 84.9; Estimated Glomerular Filt Rate > 60; Glucose Random 114 mg/dL (60-115); Potassium 4.6 mmol/L (3.3-5.1); Sodium 142 mmol/L (135-145); Total Protein 6.2 g/dL (6.5-8.0)
[2020-12-26 09:04] VITALS: BP 177/84; PULSE 88; RESP 18; TEMP 36.6; O2SAT 96; BMI 41.3
--- NOTE | 2020-12-26 09:23 | PM.HEMONCPN ---
Medical Summary - Medical Summary Date of Service: 12/26/20 Chief complaint: Follow-up for: Breast cancer. 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 CURRENT THERAPY: AC with Neulasta support, completed 4 cycles. Currently on Taxol, here for cycle 6 day 15. Interval History Interval history: Marcia Strong is a pleasant 65 year old lady, here for a follow-up visit. She has not been doing too well. For the past weeks she has had loose bowels. Initially she would go even 10 times a day in small amounts. It would be watery with a little bit of substance to it. It would be proceeded by cramping. She had nausea but no vomiting. She has been drinking all the time. She denies having eaten anything out of the house. She does feel dizzy during her chemotherapy treatment, likely related to the Benadryl. The meclizine helps. She tolerated the chemotherapy extremely well. She had a bit of her nausea but the anti emetic helped. She does get tired. Some days she takes a nap. Other days she can manage. Denies fever nor chills. She denies pain in her left breast. The lump has gone away. HEENT: No headache no dizziness. No chest pain nor trouble breathing. Denies any abdominal pain nausea vomiting heartburn indigestion. Today her bowels are working without any gross blood in it. No more diarrhea. She had a colonoscopy in her 50s at [facility]. Appetite is good. She has gained weight. Denies any urinary complaints. Denies any focal weakness. She denies depression however she had history of anxiety. Denies skin rashes nor pruritus. Previous history: She tells me that about 3 months ago she noted, what she felt was, a pimple underneath her left breast. It would occasionally get itchy and then dry. Then it became harder around the edges. It was fixed, not movable. Due to the pandemic she did not leave the home. About a month ago she woke up one morning and she felt her left breast was heavy and huge. It was quite red and warm to touch. 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 She decided to go to the emergency room. This was on 07/16. Ultrasound of the breast revealed: Large irregular mass with scattered internal color flow vascularity 8:00 position 7 cm from nipple measuring 5 x 4 cm. Several adjacent smaller satellite foci, largest 1.3 cm. Differential considerations include malignancy as well as abscess. ASSESSMENT: BI-RADS 4: Suspicious RECOMMENDATION: 1. Surgical Consult. 2. Diagnostic mammography. She underwent an ultrasound-guided biopsy at 08:00 o'clock position on 07/25. Pathology revealed: Invasive ductal carcinoma, MSBR grade 2. ER negative/GA negative/HER2 Stephy positive 3+. She was seen by Dr. Javed. She has been referred here for question if she should have neoadjuvant chemotherapy. 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 Menopause in her early 50s. No HRT. She is . She has 4 children. Family history: A paternal cousin had breast cancer in her mid 60s. 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 She is . Has 4 children. She smokes half a pack a day. She likes her wine. Review of Systems - Constitutional Reports system reviewed and no additional complaints, except as documented - Eyes Reports system reviewed and no additional complaints, except as documented - ENT Reports system reviewed and no additional complaints, except as documented - Cardiovascular Reports system reviewed and no additional complaints, except as documented - Respiratory Reports no additional respiratory complaints - Gastrointestinal Reports system reviewed and no additional complaints, except as documented - Genitourinary Reports no additional female genitourinary complaints - Musculoskeletal Reports system reviewed and no additional complaints, except as documented - Integumentary/Breasts Skin/Breast: Reports no additional skin complaints, Denies breast pain, Denies breast lump Comments: Breast lump has subsided. - Neurologic Reports system reviewed and no additional complaints, except as documented - Psychiatric Reports system reviewed and no additional complaints, except as documented - Endocrine Reports no additional endocrine complaints - Hematologic/Lymphatic Reports system reviewed and no additional complaints, except as documented - Allergic/Immunologic Reports system reviewed and no additional complaints, except as documented PMFSH Medical History: Medical History (Last Updated 11/11/20 @ 09:53 by Stanley Granados MD) Cerebral aneurysm Morbid obesity Pneumonia Functional capacity: independent ambulation Patient : No Family History: Family History (Last Updated 11/11/20 @ 09:27 by CINTHIA Garcia) Family/Other Breast cancer Brother Colon cancer Surgical History: Surgical History (Last Reviewed 11/11/20 @ 09:26 by CINTHIA Garcia) H/O tubal ligation Social History: Social History (Last Reviewed 11/11/20 @ 09:27 by CINTHIA Garcia) Living Situation History: Housing: Apartment Alcohol History: Alcohol intake: current Alcohol History Details: Alcohol intake frequency: a few times a week Alcohol type: wine Tobacco History: Patient Tobacco Use Status: Current everyday Tobacco Tobacco use type: Cigarette Second Hand Smoke Exposure: Yes Substance Use History: Use of substances other than those prescribed or required for medical reasons: No Advance Directives: Advance Directives Date on File: 08/22/20 Nutrition Assessment: Patient : No Occupation Assessmet: service: No Current occupational status: unemployed Oncology Screenings - ECOG Performance Status ECOG Performance Status: 0 Home Medications and Allergies Current Medications: Current Medications Generic Name Dose Route Start Last Admin Trade Name Freq PRN Reason Stop Dose Admin Acetaminophen 650 mg 12/26/20 00:00 Acetaminophen 325 Mg Tablet PO 12/26/20 23:59 ONCE [facility] Diphenhydramine HCl 25 mg 12/26/20 00:00 Diphenhydramine Hcl 50 Mg/Ml Vial IVPUSH 12/26/20 23:59 ONCE [facility] Famotidine 20 mg 12/26/20 00:00 Famotidine/Pf 20 Mg/2 Ml Vial IVPUSH 12/26/20 23:59 ONCE [facility] Heparin Sodium (Porcine) 500 unit 12/26/20 00:00 Heparin Sodium,Porcine Flush 500 Unit/5 Ml Syringe IVFLUSH 12/26/20 23:59 ONCE [facility] Dexamethasone Sodium Phosphate 12 mg in 50 mls @ 200 mls/hr 12/26/20 00:00 Decadron IV 12/26/20 23:59 ONCE [facility] Ondansetron HCl 16 mg in 50 mls @ 200 mls/hr 12/26/20 00:00 Zofran IV 12/26/20 23:59 ONCE [facility] Paclitaxel 168 mg/ Sodium 278 mls @ 278 mls/hr 12/26/20 00:00 Chloride IV 12/26/20 23:59 ONCE [facility] Allergies Allergy/AdvReac Type Severity Reaction Status Date / Time codeine [CODEINE] Allergy Unknown STOMACH Verified 11/11/20 09:33 UPSET Exam Vital signs: Vital Signs Temp 97.8 F 12/26/20 09:04 Pulse 88 12/26/20 09:04 Resp 18 12/26/20 09:04 BP 177/84 H 12/26/20 09:04 Pulse Ox 96 12/26/20 09:04 Intake & Output 12/25/20 12/26/20 12/26/20 18:59 06:59 18:59 Other: Weight 102.4 kg Weight in Grams [id number] Weight 102.4 kg Body Mass Index 41.3 - Constitutional Present: moderate distress - Routine HEENT Exam Head: Present: normal inspection Eye: Present: normal appearance ENT: Present: mucous membranes moist - Routine Neck Exam Present: full ROM - Routine Chest/Breast/Axilla Exam Breast: Present: Normal Exam. Absent: tenderness, induration, mass, swelling, rashes - Routine Respiratory Exam Present: CTAB - Routine Cardiovascular Exam Cardiovascular: Present: RRR, S1, S2 - Routine Abdominal Exam Present: soft, nontender - Routine Rectal Exam Patient deferred: digital exam - Routine Extremities Exam Present: nontender - Routine Back/Spine/Pelvis Exam Back/Spine: Absent: CVA tenderness - Routine Skin Exam Present: intact - Routine Neurological Exam Present: alert, oriented X3 - Detailed Neurological Exam: Coma Scale Eye Opening: Spontaneous (4) - Routine Psychiatric Exam Present: normal affect Data - Labs CBC & Chem 7: 12/25/20 08:45 12/25/20 08:45 Labs: 08/05/20 11:27 CA 27.29 Routine Complete Blood Count Auto Diff Routine Comprehensive Met. Panel Routine Laboratory Last Values WBC 5.9 X10*3/uL (4.8-10.8) 08/05/20 11:27 RBC 4.63 X10*6/uL (4.20-5.50) 08/05/20 11:27 Hgb 15.8 g/dl (12.0-16.0) 08/05/20 11:27 Hct 48.1 % (37-47) H 08/05/20 11:27 MCV 103.9 fL (80-98) H 08/05/20 11:27 MCH 34.1 pg (27.0-33.0) H 08/05/20 11:27 MCHC 32.8 g/dl (31.0-35.0) 08/05/20 11:27 RDW 12.1 % (11.0-16.0) 08/05/20 11: Plt Count 164 X10*3/uL (160-400) 08/05/20 11: MPV 10.3 fL (9.4-12.3) 08/05/20 11:27 Immature Gran % (Auto) 0.3 % (0.0-0.4) 08/05/20 11: Neut % (Auto) 60.2 % (45-73) 08/05/20 11: Lymph % (Auto) 29.5 % (20-40) 08/05/20 11:27 [place] % (Auto) 8.1 % (2-11) 08/05/20 11: Eos % (Auto) 1.4 % (0-4) 08/05/20 11: Baso % (Auto) 0.5 % (0-2) 08/05/20 11: Lymph # (Auto) 1.7 X10*3/uL (1.2-4.9) 08/05/20 11: [place] # (Auto) 0.5 X10*3/uL (0.1-1.2) 08/05/20 11: Eos # (Auto) 0.1 X10*3/uL (0.0-0.4) 08/05/20 11: Baso # (Auto) 0.0 X10*3/uL (0.0-0.2) 08/05/20 11: Abs Immat Gran (auto) 0.02 X10*3/uL (0.00-0.03) 08/05/20 11: Absolute Neuts (auto) 3.6 X10*3/uL (2.0-8.3) 08/05/20 11: Absolute Nucleated RBC 0.000 X10*3/uL (0.0-0.012) 08/05/20 11: Nucleated RBC % (auto) 0.0 /100WBC (0.0-0.2) 08/05/20 11: Sodium 142 mmol/L (135-145) 08/05/20 11: Potassium 4.7 mmol/L (3.3-5.1) 08/05/20 11: Chloride 106 mmol/L (96-108) 08/05/20 11:27 Carbon Dioxide 30 mmol/L (22-29) H 08/05/20 11:27 Anion Gap 11 (12-20) L 08/05/20 11:27 BUN 9 mg/dL (9-16) 08/05/20 11:27 Creatinine 0.75 mg/dL (0.5-1.4) 08/05/20 11:27 Estim Creat Clear Calc 83.8 08/05/20 11:27 Estimated GFR > 60 08/05/20 11:27 Random Glucose 112 mg/dL (60-115) 08/05/20 11:27 Calcium 9.2 mg/dL (8.4-10.2) 08/05/20 11:27 Total Bilirubin 0.7 mg/dL (0.0-1.0) 08/05/20 11:27 AST 67 U/L (5-31) H 08/05/20 11:27 ALT 46 U/L (0-31) H 08/05/20 11:27 Alkaline Phosphatase 112 U/L (39-117) 08/05/20 11:27 Total Protein 6.8 g/dL (6.5-8.0) 08/05/20 11:27 Albumin 4.1 g/dL (3.5-5.0) 08/05/20 11:27 CA 27-29 44 U/mL (<38) H 08/05/20 11:27 Assessment and Plan Patient Active problem list reviewed?: Yes (1) Carcinoma of left breast Status: Acute Assessment and plan: Status: Acute This is a pleasant 65-year-old lady with a recent diagnosis of inflammatory breast carcinoma the left breast. It is ERPR negative and HER2 Stephy positive. On ultrasound the tumor appears to be about 6 cm in size. Ca 27.29:44. She would be a candidate for neoadjuvant chemotherapy, in view of the large size of the tumor and the inflammatory component. She is HER2 positive. I would recommend treating her with dose dense AC X4, followed by Taxol and Herceptin. And reassess for surgical resection, based upon her response. I proceeded with a baseline PET scan, for initial staging. This revealed: Intense activity in the medial left breast lesion assumed to be the primary tumor. There is also an enlarged left axillary node showing increased activity and metastatic disease needs to be suspected though this could be reactive. Otherwise, uptake in the region of the left thyroid gland, which is enlarged. This could represent uptake within a thyroid nodule and, therefore ultrasound would be recommended as malignancy cannot be excluded. Differential would be abnormal uptake in an enlarged node in the region. As described in the left axillary region, more proximally toward the region of the thoracic inlet, some mild uptake in nonpathologically enlarged nodes. These may be reactive but certainly early metastatic disease cannot be excluded. There is also uptake within the region of C1 anterior to the left of midline. There is lucency in the bone here. A metastatic deposit cannot be excluded. Consider MR. Harmon discussed with IR, neuro-radiology. They felt the biopsy would be risky to do. However since the lesion is apparent on 2 different imaging modalities, it is likely to be real. Hence the plan is to proceed with treatment. Since she has aggressive progressive disease, will treat her with an active regimen, to expedite her response. She had an echocardiogram, prior to anthracycline. This came back normal with EF of 60-65%. She had genetic testing done. This came back negative. She had a Port-A-Cath placement. This was placed on 08/22. She started dose dense AC chemotherapy with Neulasta support. She tolerated the 1st cycle very well. She is here for cycle 2. Thyroid ultrasound revealed: Heterogeneous thyroid gland. The left lobe is enlarged. Bilateral thyroid nodules. Fine needle aspiration of the largest nodule in the left lobe recommended. l checked with Radiology, proceeded with the thyroid biopsy. (this revealed benign findings.) She completed 4 cycles of AC. She has tolerated it really well. Encouraging thing is that her breast mass has almost disappeared. PLAN: She is currently on weekly Taxol, Herceptin and pertuzumab, here for week 6. Will follow her tumor marker: CA 27.29. Will set up MRI for imaging after completion of the Taxol. Will set up a follow-up appointment with Dr. Javed. Hopefully she will have a complete remission. Her diarrhea has resolved now however if it recurs will get stool studies. All her questions were answered to her satisfaction. Thank you, CC: Dr. Javed. - Time Spent With Patient Time Spent with Patient (in minutes): 35
[2020-12-26] MEDS: Famotidine/PF 20 MG/2 ML VIAL IVPUSH (09:49)
[2020-12-26] MEDS: Acetaminophen 325 MG TABLET 650 MG PO (09:53)
[2020-12-26] MEDS: dexAMETHasone sod phosphate/NS 12 MG/50 ML PIGGYBACK 200 MG IV (10:15)
[2020-12-26] MEDS: diphenhydrAMINE HCL 50 MG/ML VIAL 25 MG IVPUSH (10:33)
[2020-12-26] MEDS: Heparin Sodium,Porcine Flush 500 UNIT/5 ML SYRINGE IVFLUSH (12:14)
[2020-12-26 12:25] VITALS: BP 176/83
--- NOTE | 2020-12-26 12:30 | MHC.HEMONC ---
Pt here for C6 D15 Paclitaxel. States since last treatment had a lot of diarrhea, at least 10 times/day. States it started on Wednesday after last chemo treatment and lasted through yesterday. Took immodium daily but it didn't help. Pt encouraged to take after every bout of diarrhea. Port accessed with good blood return noted. Labs done 12/25 reviewed. Premeds given as ordered. Paclitaxel infused and tolerated well. Pt did feel slightly dizzy, but only lasted few minutes and was able to walk without any problems. Dr Peña in to see pt in follow up. All of pts questions answered.
[2020-12-28 14:06] LABS: CA 27.29 50 U/mL (<38)
[2021-01-01 09:09] LABS: MANUAL DIFF FLAG NO
[2021-01-01 09:11] LABS: Basophils Percent Auto 0.4 % (0-2); Eosinophils Percent Auto 0.6 % (0-4); Hematocrit 38.2 % (37-47); Hemoglobin 12.5 g/dl (12.0-16.0); Imm Gran Abs Auto 0.03 X10*3/uL (0.00-0.03); Imm Gran Pct Auto 0.6 % (0.0-0.4); Lymphocytes Absolute Auto 1.1 X10*3/uL (1.2-4.9); Lymphocytes Percent Auto 23.1 % (20-40); Mean Corpuscular HGB Conc 32.7 g/dl (31.0-35.0); Mean Corpuscular Hemoglobin 33.3 pg (27.0-33.0); Mean Corpuscular Volume 101.9 fL (80-98); Mean Platelet Volume 10.3 fL (9.4-12.3); Monocytes Absolute Auto 0.4 X10*3/uL (0.1-1.2); Monocytes Percent Auto 7.5 % (2-11); Neutrophils Absolute Auto 3.1 X10*3/uL (2.0-8.3); Neutrophils Percent Auto 67.8 % (45-73); Platelet Count 201 X10*3/uL (160-400); Red Blood Count 3.75 X10*6/uL (4.20-5.50); Red Cell Distribution Width 12.8 % (11.0-16.0); White Blood Count 4.6 X10*3/uL (4.8-10.8)
[2021-01-01 09:32] LABS: Alanine Aminotransferase 18 U/L (0-31); Albumin Level 3.9 g/dL (3.5-5.0); Alkaline Phosphatase 73 U/L (39-117); Anion Gap 10 (12-20); Aspartate Amino Transferase 19 U/L (5-31); Bilirubin Total 0.5 mg/dL (0.0-1.0); Blood Urea Nitrogen 9 mg/dL (9-16); Calcium 9.2 mg/dL (8.4-10.2); Carbon Dioxide 29 mmol/L (22-29); Chloride 106 mmol/L (96-108); Creatinine Clr Calc Pharmacy 84.9; Estimated Glomerular Filt Rate > 60; Glucose Random 132 mg/dL (60-115); Potassium 4.6 mmol/L (3.3-5.1); Sodium 140 mmol/L (135-145); Total Protein 6.2 g/dL (6.5-8.0)
[2021-01-02 09:10] VITALS: BMI 41.2
[2021-01-02 09:11] VITALS: BP 178/79; PULSE 78; RESP 20; TEMP 36.6; O2SAT 97
[2021-01-02] MEDS: Acetaminophen 325 MG TABLET 650 MG PO (09:44)
[2021-01-02] MEDS: diphenhydrAMINE HCL 50 MG/ML VIAL 25 MG IVPUSH (10:01)
[2021-01-02] MEDS: Famotidine/PF 20 MG/2 ML VIAL IVPUSH (10:45)
[2021-01-02] MEDS: dexAMETHasone sod phosphate/NS 12 MG/50 ML PIGGYBACK 200 MG IV (10:50)
[2021-01-02] MEDS: Heparin Sodium,Porcine Flush 500 UNIT/5 ML SYRINGE IVFLUSH (14:10)
--- NOTE | 2021-01-02 16:00 | MHC.HEMONC ---
Pt here for C7 D1 of treatment. States had a good week. Labs done 01/01 reviewed. Port accessed with good blood return noted. Premeds given as ordered. Treatment done and tolerated well. Scheduled to return in 1 week for next treatment.
[2021-01-08 08:32] LABS: MANUAL DIFF FLAG NO
[2021-01-08 08:37] LABS: Basophils Percent Auto 0.6 % (0-2); Eosinophils Percent Auto 0.4 % (0-4); Hematocrit 38.5 % (37-47); Hemoglobin 12.7 g/dl (12.0-16.0); Imm Gran Abs Auto 0.03 X10*3/uL (0.00-0.03); Imm Gran Pct Auto 0.6 % (0.0-0.4); Lymphocytes Absolute Auto 1.2 X10*3/uL (1.2-4.9); Lymphocytes Percent Auto 22.9 % (20-40); Mean Corpuscular Hemoglobin 33.2 pg (27.0-33.0); Mean Corpuscular Volume 100.8 fL (80-98); Mean Platelet Volume 9.7 fL (9.4-12.3); Monocytes Absolute Auto 0.3 X10*3/uL (0.1-1.2); Monocytes Percent Auto 5.5 % (2-11); Neutrophils Absolute Auto 3.7 X10*3/uL (2.0-8.3); Platelet Count 176 X10*3/uL (160-400); Red Blood Count 3.82 X10*6/uL (4.20-5.50); White Blood Count 5.3 X10*3/uL (4.8-10.8)
[2021-01-08 09:10] LABS: Alanine Aminotransferase 16 U/L (0-31); Albumin Level 3.8 g/dL (3.5-5.0); Alkaline Phosphatase 72 U/L (39-117); Anion Gap 11 (12-20); Aspartate Amino Transferase 18 U/L (5-31); Bilirubin Total 0.4 mg/dL (0.0-1.0); Blood Urea Nitrogen 10 mg/dL (9-16); Calcium 7.9 mg/dL (8.4-10.2); Carbon Dioxide 24 mmol/L (22-29); Chloride 109 mmol/L (96-108); Creatinine Clr Calc Pharmacy 87.2; Estimated Glomerular Filt Rate > 60; Glucose Random 117 mg/dL (60-115); Potassium 3.9 mmol/L (3.3-5.1); Sodium 140 mmol/L (135-145); Total Protein 6.2 g/dL (6.5-8.0)
[2021-01-09] MEDS: Famotidine/PF 20 MG/2 ML VIAL IVPUSH (09:50)
[2021-01-09] MEDS: Acetaminophen 325 MG TABLET 650 MG PO (09:54)
[2021-01-09] MEDS: dexAMETHasone sod phosphate/NS 12 MG/50 ML PIGGYBACK 200 MG IV (10:12)
[2021-01-09] MEDS: diphenhydrAMINE HCL 50 MG/ML VIAL 25 MG IVPUSH (10:36)
[2021-01-09] MEDS: Heparin Sodium,Porcine Flush 500 UNIT/5 ML SYRINGE IVFLUSH (12:06)
[2021-01-09 12:12] VITALS: BP 186/86; PULSE 88; RESP 18; TEMP 36.1; O2SAT 97; BMI 39.0
--- NOTE | 2021-01-09 12:26 | MHC.HEMONC ---
Pt here for C7 D8 Paclitaxel. Labs done 01/08 reviewed. States feeling good after last treatment. Port accessed with good blood return noted. Premeds given as ordered. Treatment done and tolerated well. Next treatment scheduled for 1 week.
[2021-01-15 08:42] LABS: MANUAL DIFF FLAG NO
[2021-01-15 08:45] LABS: Basophils Percent Auto 0.5 % (0-2); Eosinophils Percent Auto 0.3 % (0-4); Hematocrit 40.6 % (37-47); Hemoglobin 13.4 g/dl (12.0-16.0); Imm Gran Abs Auto 0.04 X10*3/uL (0.00-0.03); Imm Gran Pct Auto 0.6 % (0.0-0.4); Lymphocytes Absolute Auto 1.2 X10*3/uL (1.2-4.9); Lymphocytes Percent Auto 18.8 % (20-40); Mean Corpuscular Hemoglobin 32.8 pg (27.0-33.0); Mean Corpuscular Volume 99.3 fL (80-98); Mean Platelet Volume 10.5 fL (9.4-12.3); Monocytes Absolute Auto 0.5 X10*3/uL (0.1-1.2); Monocytes Percent Auto 7.8 % (2-11); Neutrophils Absolute Auto 4.6 X10*3/uL (2.0-8.3); Platelet Count 218 X10*3/uL (160-400); Red Blood Count 4.09 X10*6/uL (4.20-5.50); Red Cell Distribution Width 12.9 % (11.0-16.0); White Blood Count 6.4 X10*3/uL (4.8-10.8)
[2021-01-15 09:04] LABS: Alanine Aminotransferase 20 U/L (0-31); Albumin Level 4.1 g/dL (3.5-5.0); Alkaline Phosphatase 77 U/L (39-117); Anion Gap 11 (12-20); Aspartate Amino Transferase 23 U/L (5-31); Bilirubin Total 0.6 mg/dL (0.0-1.0); Blood Urea Nitrogen 17 mg/dL (9-16); Calcium 9.6 mg/dL (8.4-10.2); Carbon Dioxide 31 mmol/L (22-29); Chloride 99 mmol/L (96-108); Creatinine Clr Calc Pharmacy 71.7; Estimated Glomerular Filt Rate > 60; Glucose Random 130 mg/dL (60-115); Potassium 4.3 mmol/L (3.3-5.1); Sodium 137 mmol/L (135-145); Total Protein 6.6 g/dL (6.5-8.0)
[2021-01-16 09:00] VITALS: BP 146/66; PULSE 90; RESP 18; TEMP 36.4; O2SAT 99; BMI 41.0
[2021-01-16] MEDS: Famotidine/PF 20 MG/2 ML VIAL IVPUSH (09:34)
[2021-01-16] MEDS: Acetaminophen 325 MG TABLET 650 MG PO (09:41)
[2021-01-16] MEDS: diphenhydrAMINE HCL 50 MG/ML VIAL 25 MG IVPUSH (10:02)
[2021-01-16] MEDS: dexAMETHasone sod phosphate/NS 12 MG/50 ML PIGGYBACK 200 MG IV (10:23)
[2021-01-16] MEDS: Heparin Sodium,Porcine Flush 500 UNIT/5 ML SYRINGE IVFLUSH (12:22)
--- NOTE | 2021-01-16 13:23 | MHC.HEMONC ---
Pt here for C7 D15 Paclitaxel. Port accessed with good blood return noted. Labs done 01/15 reviewed. States tolerated last treatment well. Pt does report rash to hands. Denies itchiness. Dr Peña notified and in to assess. Premeds given as ordered. Paclitaxel infused and tolerated well. Scheduled to return in 1 week for next cycle.
[2021-01-22 08:43] LABS: MANUAL DIFF FLAG NO
[2021-01-22 08:51] LABS: Basophils Percent Auto 0.3 % (0-2); Eosinophils Percent Auto 0.5 % (0-4); Hematocrit 38.9 % (37-47); Hemoglobin 13.1 g/dl (12.0-16.0); Imm Gran Abs Auto 0.03 X10*3/uL (0.00-0.03); Imm Gran Pct Auto 0.5 % (0.0-0.4); Lymphocytes Percent Auto 17.9 % (20-40); Mean Corpuscular HGB Conc 33.7 g/dl (31.0-35.0); Mean Corpuscular Hemoglobin 33.4 pg (27.0-33.0); Mean Corpuscular Volume 99.2 fL (80-98); Mean Platelet Volume 10.3 fL (9.4-12.3); Monocytes Absolute Auto 0.5 X10*3/uL (0.1-1.2); Monocytes Percent Auto 7.8 % (2-11); Neutrophils Absolute Auto 4.2 X10*3/uL (2.0-8.3); Platelet Count 200 X10*3/uL (160-400); Red Blood Count 3.92 X10*6/uL (4.20-5.50); Red Cell Distribution Width 12.9 % (11.0-16.0); White Blood Count 5.8 X10*3/uL (4.8-10.8)
[2021-01-22 09:13] LABS: Alanine Aminotransferase 17 U/L (0-31); Albumin Level 3.9 g/dL (3.5-5.0); Alkaline Phosphatase 64 U/L (39-117); Aspartate Amino Transferase 20 U/L (5-31); Bilirubin Total 0.7 mg/dL (0.0-1.0); Blood Urea Nitrogen 10 mg/dL (9-16); Creatinine Clr Calc Pharmacy 79.3; Estimated Glomerular Filt Rate > 60; Glucose Random 150 mg/dL (60-115); Total Protein 6.2 g/dL (6.5-8.0)
[2021-01-22 09:26] LABS: Anion Gap 11 (12-20); Calcium 8.9 mg/dL (8.4-10.2); Carbon Dioxide 31 mmol/L (22-29); Chloride 99 mmol/L (96-108); Potassium 3.6 mmol/L (3.3-5.1); Sodium 137 mmol/L (135-145)
[2021-01-23 09:07] VITALS: BP 142/62; PULSE 78; RESP 18; TEMP 36.1; O2SAT 97; BMI 41.3
[2021-01-23] MEDS: Acetaminophen 325 MG TABLET 650 MG PO (09:56)
[2021-01-23] MEDS: Ondansetron ODT 8 MG TAB.RAPDIS TRANSLINGU (09:57)
[2021-01-23] MEDS: dexAMETHasone sod phosphate/NS 12 MG/50 ML PIGGYBACK 200 MG IV (09:59)
[2021-01-23] MEDS: Famotidine/PF 20 MG/2 ML VIAL IVPUSH (09:59)
--- NOTE | 2021-01-23 10:22 | MHC.HEMONC ---
Addendum entered by Marylu Rolon RN 01/23/21 14:04: Here for c8d1 taxol, perjeta, herceptin. premeds given as ordered, treatment tolerated well. Original Note: Labs reviewed. Pt c/o numbness and tingling to finger tips. Also has itchy burning rash on hands. Dr. Peña aware, suggested over the counter benadryl and hydrocortisone to hands. Pt aware of next appt.
[2021-01-23] MEDS: diphenhydrAMINE HCL 50 MG/ML VIAL 25 MG IVPUSH (10:28)
[2021-01-23] MEDS: Heparin Sodium,Porcine Flush 500 UNIT/5 ML SYRINGE IVFLUSH (13:35)
[2021-01-29 08:50] LABS: MANUAL DIFF FLAG NO
[2021-01-29 08:57] LABS: Basophils Percent Auto 0.5 % (0-2); Eosinophils Percent Auto 0.7 % (0-4); Hemoglobin 12.7 g/dl (12.0-16.0); Imm Gran Abs Auto 0.04 X10*3/uL (0.00-0.03); Imm Gran Pct Auto 0.7 % (0.0-0.4); Lymphocytes Absolute Auto 1.3 X10*3/uL (1.2-4.9); Lymphocytes Percent Auto 21.7 % (20-40); Mean Corpuscular HGB Conc 33.4 g/dl (31.0-35.0); Mean Corpuscular Hemoglobin 33.2 pg (27.0-33.0); Mean Corpuscular Volume 99.5 fL (80-98); Mean Platelet Volume 10.4 fL (9.4-12.3); Monocytes Absolute Auto 0.3 X10*3/uL (0.1-1.2); Monocytes Percent Auto 5.6 % (2-11); Neutrophils Absolute Auto 4.2 X10*3/uL (2.0-8.3); Neutrophils Percent Auto 70.8 % (45-73); Platelet Count 210 X10*3/uL (160-400); Red Blood Count 3.82 X10*6/uL (4.20-5.50); Red Cell Distribution Width 13.2 % (11.0-16.0); White Blood Count 5.9 X10*3/uL (4.8-10.8)
[2021-01-29 09:22] LABS: Alanine Aminotransferase 17 U/L (0-31); Albumin Level 3.7 g/dL (3.5-5.0); Alkaline Phosphatase 76 U/L (39-117); Anion Gap 12 (12-20); Aspartate Amino Transferase 18 U/L (5-31); Blood Urea Nitrogen 14 mg/dL (9-16); Calcium 9.2 mg/dL (8.4-10.2); Carbon Dioxide 27 mmol/L (22-29); Chloride 105 mmol/L (96-108); Creatinine Clr Calc Pharmacy 78.6; Estimated Glomerular Filt Rate > 60; Glucose Random 164 mg/dL (60-115); Potassium 3.8 mmol/L (3.3-5.1); Sodium 140 mmol/L (135-145)
[2021-01-30 09:13] VITALS: BP 171/74; PULSE 89; RESP 18; TEMP 36.6; O2SAT 97; BMI 41.7
[2021-01-30] MEDS: diphenhydrAMINE HCL 50 MG/ML VIAL 25 MG IVPUSH (09:42)
[2021-01-30] MEDS: Acetaminophen 325 MG TABLET 650 MG PO (09:43)
[2021-01-30] MEDS: Ondansetron ODT 8 MG TAB.RAPDIS TRANSLINGU (09:43)
[2021-01-30] MEDS: Famotidine/PF 20 MG/2 ML VIAL IVPUSH (09:43)
[2021-01-30] MEDS: dexAMETHasone sod phosphate/NS 12 MG/50 ML PIGGYBACK 200 MG IV (09:44)
[2021-01-30] MEDS: Heparin Sodium,Porcine Flush 500 UNIT/5 ML SYRINGE IVFLUSH (11:39)
[2021-01-30 11:46] VITALS: BP 130/77
--- NOTE | 2021-01-30 11:55 | MHC.HEMONC ---
Pt given [place] Study to fill out.
--- NOTE | 2021-01-30 12:37 | MHC.HEMONC ---
Patient present for C4D8, patient sandeep. well f/u in 1 week for day 15. patient has rash to bilateral tops of hands Dr. quiroz made aware triamecelone cream sent to patients pharmacy.
[2021-02-05 08:54] LABS: MANUAL DIFF FLAG NO
[2021-02-05 08:59] LABS: Basophils Percent Auto 0.5 % (0-2); Eosinophils Percent Auto 0.7 % (0-4); Hematocrit 37.3 % (37-47); Hemoglobin 12.5 g/dl (12.0-16.0); Imm Gran Abs Auto 0.03 X10*3/uL (0.00-0.03); Imm Gran Pct Auto 0.5 % (0.0-0.4); Lymphocytes Absolute Auto 1.2 X10*3/uL (1.2-4.9); Lymphocytes Percent Auto 20.2 % (20-40); Mean Corpuscular HGB Conc 33.5 g/dl (31.0-35.0); Mean Corpuscular Hemoglobin 33.2 pg (27.0-33.0); Mean Corpuscular Volume 99.2 fL (80-98); Mean Platelet Volume 10.4 fL (9.4-12.3); Monocytes Absolute Auto 0.4 X10*3/uL (0.1-1.2); Monocytes Percent Auto 6.9 % (2-11); Neutrophils Absolute Auto 4.4 X10*3/uL (2.0-8.3); Neutrophils Percent Auto 71.2 % (45-73); Platelet Count 217 X10*3/uL (160-400); Red Blood Count 3.76 X10*6/uL (4.20-5.50); Red Cell Distribution Width 13.7 % (11.0-16.0); White Blood Count 6.1 X10*3/uL (4.8-10.8)
[2021-02-05 09:14] LABS: Alanine Aminotransferase 14 U/L (0-31); Albumin Level 3.6 g/dL (3.5-5.0); Alkaline Phosphatase 66 U/L (39-117); Anion Gap 13 (12-20); Aspartate Amino Transferase 18 U/L (5-31); Bilirubin Total 0.8 mg/dL (0.0-1.0); Blood Urea Nitrogen 10 mg/dL (9-16); Calcium 9.3 mg/dL (8.4-10.2); Carbon Dioxide 29 mmol/L (22-29); Chloride 98 mmol/L (96-108); Creatinine Clr Calc Pharmacy 79.1; Estimated Glomerular Filt Rate > 60; Glucose Random 150 mg/dL (60-115); Potassium 3.2 mmol/L (3.3-5.1); Sodium 137 mmol/L (135-145)
[2021-02-06 09:10] VITALS: BP 168/73; PULSE 82; RESP 18; TEMP 36.3; O2SAT 98; BMI 42.0
[2021-02-06] MEDS: Famotidine/PF 20 MG/2 ML VIAL IVPUSH (10:28)
[2021-02-06] MEDS: diphenhydrAMINE HCL 50 MG/ML VIAL 25 MG IVPUSH (10:28)
[2021-02-06] MEDS: Ondansetron ODT 8 MG TAB.RAPDIS TRANSLINGU (10:29)
[2021-02-06] MEDS: Acetaminophen 325 MG TABLET 650 MG PO (10:29)
[2021-02-06] MEDS: dexAMETHasone sod phosphate/NS 12 MG/50 ML PIGGYBACK 200 MG IV (10:31)
[2021-02-06] MEDS: Heparin Sodium,Porcine Flush 500 UNIT/5 ML SYRINGE IVFLUSH (11:46)
--- NOTE | 2021-02-06 14:55 | MHC.HEMONC ---
Pt here for C8 D15 Paclitaxel. Labs drawn 02/05 reviewed. Port accessed with good blood return noted. States felt good after last treatment. Only c/o being tired. Premeds given as ordered. Treatment done and tolerated well. Scheduled to return in 1 week for next treatment.
[2021-02-12 08:37] LABS: MANUAL DIFF FLAG NO
[2021-02-12 08:57] LABS: Basophils Percent Auto 0.5 % (0-2); Eosinophils Percent Auto 0.7 % (0-4); Hematocrit 37.8 % (37.0-47.0); Hemoglobin 12.6 g/dl (12.0-16.0); Imm Gran Abs Auto 0.05 X10*3/uL (0.00-0.03); Imm Gran Pct Auto 0.9 % (0.0-0.4); Lymphocytes Absolute Auto 1.2 X10*3/uL (1.2-4.9); Lymphocytes Percent Auto 22.1 % (20-40); Mean Corpuscular HGB Conc 33.3 g/dl (31.0-35.0); Mean Corpuscular Hemoglobin 33.4 pg (27.0-33.0); Mean Corpuscular Volume 100.3 fL (80.0-98.0); Mean Platelet Volume 9.8 fL (9.4-12.3); Monocytes Absolute Auto 0.5 X10*3/uL (0.1-1.2); Monocytes Percent Auto 8.3 % (2-11); Neutrophils Absolute Auto 3.73 x10*3/uL (2.0-8.3); Neutrophils Percent Auto 67.5 % (45-73); Platelet Count 213 X10*3/uL (160-400); Red Blood Count 3.77 X10*6/uL (4.20-5.50); Red Cell Distribution Width 14.4 % (11.0-16.0); White Blood Count 5.5 X10*3/uL (4.8-10.8)
[2021-02-12 09:18] LABS: Alanine Aminotransferase 13 U/L (0-31); Albumin Level 3.6 g/dL (3.5-5.0); Alkaline Phosphatase 64 U/L (39-117); Anion Gap 11 (12-20); Aspartate Amino Transferase 18 U/L (5-31); Bilirubin Total 1.2 mg/dL (0.0-1.0); Blood Urea Nitrogen 13 mg/dL (9-16); Calcium 9.2 mg/dL (8.4-10.2); Carbon Dioxide 32 mmol/L (22-29); Chloride 100 mmol/L (96-108); Creatinine Clr Calc Pharmacy 81.5; Estimated Glomerular Filt Rate > 60; Glucose Random 133 mg/dL (60-115); Potassium 3.6 mmol/L (3.3-5.1); Sodium 139 mmol/L (135-145); Total Protein 5.9 g/dL (6.5-8.0)
[2021-02-13 09:08] VITALS: BP 135/61; PULSE 93; RESP 18; TEMP 36.4; O2SAT 96; BMI 41.8
[2021-02-13] MEDS: Acetaminophen 325 MG TABLET 650 MG PO (09:18)
[2021-02-13] MEDS: Ondansetron ODT 8 MG TAB.RAPDIS TRANSLINGU (09:18)
[2021-02-13] MEDS: diphenhydrAMINE HCL 25 MG TABLET PO (09:18)
[2021-02-13] MEDS: Heparin Sodium,Porcine Flush 500 UNIT/5 ML SYRINGE IVFLUSH (11:46)
--- NOTE | 2021-02-13 13:39 | MHC.HEMONC ---
Pt here for c9d1 pertuzumab, herceptin. Labs drawn yesterday, reviewed. Port accessed and positive blood return obtained. Pertuzumab and herceptin tolerated well. pt aware of next appt.
--- NOTE | 2021-02-13 14:31 | PM.HEMONCPN ---
Medical Summary - Medical Summary Date of Service: 02/13/21 Chief complaint: Follow-up for: Breast cancer. 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 CURRENT THERAPY: AC with Neulasta support, completed 4 cycles. Completed 12 weeks of Taxol. Here to receive pertuzumab and Herceptin maintenance. Interval History Interval history: Marcia Strong is a pleasant 65 year old lady, here for a follow-up visit. She has not been doing too well. For the past 3 weeks or so she has had low back pain. She points to the lumbosacral area, as the site of pain. She denies any radiation down into the legs however her legs are other week. She is unable to stand for too long. She is doing her cooking on the stove sitting down. Sometimes, she feels dizzy, during her chemotherapy treatment, likely related to the Benadryl. The meclizine helps. She tolerated the chemotherapy reasonably well. She developed a rash on the dorsum of her hands which is maculopapular and rather pruritic. She has been using a steroid cream. Hopefully this will resolve now that the treatment is done. She does get tired. Some days she takes a nap. Other days she can manage. Denies fever nor chills. She denies pain in her left breast. The lump has gone away. HEENT: No headache no dizziness. No chest pain nor trouble breathing. Denies any abdominal pain, no further nausea vomiting heartburn indigestion. Her bowels are working without any gross blood in it. No more diarrhea. She had a colonoscopy in her 50s at [facility]. Appetite is good. She has gained weight. Denies any urinary complaints. Denies any focal weakness. She denies depression however she had history of anxiety. Previous history: She tells me that about 3 months ago she noted, what she felt was, a pimple underneath her left breast. It would occasionally get itchy and then dry. Then it became harder around the edges. It was fixed, not movable. Due to the pandemic she did not leave the home. About a month ago she woke up one morning and she felt her left breast was heavy and huge. It was quite red and warm to touch. 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 She decided to go to the emergency room. This was on 07/16. Ultrasound of the breast revealed: Large irregular mass with scattered internal color flow vascularity 8:00 position 7 cm from nipple measuring 5 x 4 cm. Several adjacent smaller satellite foci, largest 1.3 cm. Differential considerations include malignancy as well as abscess. ASSESSMENT: BI-RADS 4: Suspicious RECOMMENDATION: 1. Surgical Consult. 2. Diagnostic mammography. She underwent an ultrasound-guided biopsy at 08:00 o'clock position on 07/25. Pathology revealed: Invasive ductal carcinoma, MSBR grade 2. ER negative/AK negative/HER2 Stephy positive 3+. She was seen by Dr. Javed. She has been referred here for question if she should have neoadjuvant chemotherapy. 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 Menopause in her early 50s. No HRT. She is . She has 4 children. Family history: A paternal cousin had breast cancer in her mid 60s. 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 She is . Has 4 children. She smokes half a pack a day. She likes her wine. Review of Systems - Constitutional Reports no additional constitutional complaints, Denies chills, Denies fever(s), Reports lack of energy, Reports weakness - Eyes Reports no additional eye complaints - ENT Reports no additional ear, nose, mouth, and throat complaints - Cardiovascular Reports no additional cardiovascular complaints - Respiratory Reports no additional respiratory complaints - Gastrointestinal Reports no additional gastrointestinal complaints - Genitourinary Reports no additional female genitourinary complaints - Musculoskeletal Reports no additional musculoskeletal complaints - Integumentary/Breasts Skin/Breast: Reports no additional skin complaints, Reports rash Comments: On the dorsum of hands. - Neurologic Reports no additional neurologic complaints - Psychiatric Reports no additional psychiatric complaints - Endocrine Reports no additional endocrine complaints - Hematologic/Lymphatic Reports no additional hematologic/lymphatic complaints - Allergic/Immunologic Reports no additional allergic/immunologic complaints [facility] Medical History: Medical History (Last Updated 01/10/21 @ 09:23 by Stanley Granados MD) Cerebral aneurysm Morbid obesity Pneumonia Functional capacity: independent ambulation Patient : No Family History: Family History (Last Reviewed 01/24/21 @ 10:46 by Mabel Hong) Family/Other Breast cancer Brother Colon cancer Surgical History: Surgical History (Last Reviewed 01/24/21 @ 10:46 by Mabel Hong) H/O tubal ligation Social History: Social History (Last Reviewed 01/10/21 @ 08:59 by Princess Casey Olivia) Living Situation History: Housing: Apartment Alcohol History: Alcohol intake: current Alcohol History Details: Alcohol intake frequency: a few times a week Alcohol type: wine Tobacco History: Patient Tobacco Use Status: Current everyday Tobacco Tobacco use type: Cigarette Cigarettes Per Day: 10 e-Cigarette/Vaping Use: Never Used Second Hand Smoke Exposure: Yes Substance Use History: Use of substances other than those prescribed or required for medical reasons: No Advance Directives: Advance Directives Date on File: 08/22/20 Nutrition Assessment: Patient : No Occupation Assessmet: service: No Current occupational status: unemployed Oncology Screenings - ECOG Performance Status ECOG Performance Status: 1 Home Medications and Allergies Current Medications: Current Medications Acetaminophen (Acetaminophen 325 Mg Tablet) 650 mg PO ONCE YOUSIF Stop: 02/13/21 23:59 Last Admin: 02/13/21 09:18 Dose: 650 mg Documented by: Diphenhydramine HCl (Diphenhydramine Hcl 25 Mg Tablet) 25 mg PO ONCE YOUSIF Stop: 02/13/21 23:59 Last Admin: 02/13/21 09:18 Dose: 25 mg Documented by: Heparin Sodium (Porcine) (Heparin Sodium,Porcine Flush 500 Unit/5 Ml Syringe) 500 unit IVFLUSH ONCE YOUSIF Stop: 02/13/21 23:59 Last Admin: 02/13/21 11:46 Dose: 500 unit Documented by: Pertuzumab 420 mg/ Sodium (Chloride) 264 mls @ 528 mls/hr IV ONCE YOUSIF Stop: 02/13/21 23:59 Last Infusion: 02/13/21 10:50 Dose: Infused Documented by: Trastuzumab 600 mg/ Sodium (Chloride) 278.6 mls @ 557.2 mls/hr IV ONCE YOUSIF Stop: 02/13/21 23:59 Last Infusion: 02/13/21 11:41 Dose: Infused Documented by: Ondansetron HCl (Ondansetron Odt 8 Mg Tab.Rapdis) 8 mg TRANSLINGU ONCE YOUSIF Stop: 02/13/21 23:59 Last Admin: 02/13/21 09:18 Dose: 8 mg Documented by: Allergies Allergy/AdvReac Type Severity Reaction Status Date / Time codeine [CODEINE] Allergy Unknown STOMACH Verified 01/24/21 10:45 UPSET Exam Vital signs: Vital Signs Temp 97.5 F 02/13/21 09:08 Pulse 93 02/13/21 09:08 Resp 18 02/13/21 09:08 BP 135/61 02/13/21 09:08 Pulse Ox 96 02/13/21 09:08 Intake & Output 02/12/21 02/13/21 02/13/21 18:59 06:59 18:59 Intake Total 542.6 / 542.6 Balance 542.6 / 542.6 Intake: Intake, IV Amount 542.6 / 542.6 Pertuzumab 420 mg In 0.9 % 264 / 264 Sodium Chloride 250 ml @ 528 mls/hr IV ONCE YOUSIF Rx#: [id number] Trastuzumab 600 mg In 0.9 % 278.6 / 278.6 Sodium Chloride 250 ml @ 557.2 mls/hr IV ONCE YOUSIF Rx#: [id number] Other: Weight 103.7 kg [place] Weight in Grams [id number] Weight 103.7 kg Body Mass Index 41.8 - Constitutional Present: moderate distress - Routine HEENT Exam Head: Present: normal inspection Eye: Present: normal appearance ENT: Present: mucous membranes moist - Routine Neck Exam Present: full ROM - Routine Respiratory Exam Present: CTAB - Routine Cardiovascular Exam Cardiovascular: Present: RRR, S1, S2 - Routine Abdominal Exam Present: soft, nontender - Routine Rectal Exam Patient deferred: digital exam - Routine Extremities Exam Present: nontender Comments: Maculopapular rash on the dorsum of her hands - Routine Back/Spine/Pelvis Exam Back/Spine: Absent: CVA tenderness - Routine Skin Exam Present: intact - Routine Neurological Exam Present: alert, oriented X3 - Detailed Neurological Exam: Coma Scale Eye Opening: Spontaneous (4) - Routine Psychiatric Exam Present: normal affect Data - Labs CBC & Chem 7: 02/12/21 08:50 02/12/21 08:50 Labs: 08/05/20 11:27 CA 27.29 Routine Complete Blood Count Auto Diff Routine Comprehensive Met. Panel Routine Laboratory Last Values WBC 5.9 X10*3/uL (4.8-10.8) 08/05/20 11:27 RBC 4.63 X10*6/uL (4.20-5.50) 08/05/20 11:27 Hgb 15.8 g/dl (12.0-16.0) 08/05/20 11:27 Hct 48.1 % (37-47) H 08/05/20 11: MCV 103.9 fL (80-98) H 08/05/20 11:27 MCH 34.1 pg (27.0-33.0) H 08/05/20 11: MCHC 32.8 g/dl (31.0-35.0) 08/05/20 11: RDW 12.1 % (11.0-16.0) 08/05/20 11: Plt Count 164 X10*3/uL (160-400) 08/05/20 11: MPV 10.3 fL (9.4-12.3) 08/05/20 11: Immature Gran % (Auto) 0.3 % (0.0-0.4) 08/05/20 11: Neut % (Auto) 60.2 % (45-73) 08/05/20 11: Lymph % (Auto) 29.5 % (20-40) 08/05/20 11:27 [place] % (Auto) 8.1 % (2-11) 08/05/20 11: Eos % (Auto) 1.4 % (0-4) 08/05/20 11: Baso % (Auto) 0.5 % (0-2) 08/05/20 11: Lymph # (Auto) 1.7 X10*3/uL (1.2-4.9) 08/05/20 11: [place] # (Auto) 0.5 X10*3/uL (0.1-1.2) 08/05/20 11: Eos # (Auto) 0.1 X10*3/uL (0.0-0.4) 08/05/20 11: Baso # (Auto) 0.0 X10*3/uL (0.0-0.2) 08/05/20 11: Abs Immat Gran (auto) 0.02 X10*3/uL (0.00-0.03) 08/05/20 11: Absolute Neuts (auto) 3.6 X10*3/uL (2.0-8.3) 08/05/20 11:27 Absolute Nucleated RBC 0.000 X10*3/uL (0.0-0.012) 08/05/20 11:27 Nucleated RBC % (auto) 0.0 /100WBC (0.0-0.2) 08/05/20 11:27 Sodium 142 mmol/L (135-145) 08/05/20 11:27 Potassium 4.7 mmol/L (3.3-5.1) 08/05/20 11:27 Chloride 106 mmol/L (96-108) 08/05/20 11:27 Carbon Dioxide 30 mmol/L (22-29) H 08/05/20 11:27 Anion Gap 11 (12-20) L 08/05/20 11:27 BUN 9 mg/dL (9-16) 08/05/20 11:27 Creatinine 0.75 mg/dL (0.5-1.4) 08/05/20 11:27 Estim Creat Clear Calc 83.8 08/05/20 11:27 Estimated GFR > 60 08/05/20 11:27 Random Glucose 112 mg/dL (60-115) 08/05/20 11:27 Calcium 9.2 mg/dL (8.4-10.2) 08/05/20 11:27 Total Bilirubin 0.7 mg/dL (0.0-1.0) 08/05/20 11:27 AST 67 U/L (5-31) H 08/05/20 11:27 ALT 46 U/L (0-31) H 08/05/20 11:27 Alkaline Phosphatase 112 U/L (39-117) 08/05/20 11:27 Total Protein 6.8 g/dL (6.5-8.0) 08/05/20 11:27 Albumin 4.1 g/dL (3.5-5.0) 08/05/20 11:27 CA 27-29 44 U/mL (<38) H 08/05/20 11:27 Assessment and Plan Patient Active problem list reviewed?: Yes (1) Carcinoma of left breast Status: Acute Assessment and plan: Status: Acute This is a pleasant 65-year-old lady with a recent diagnosis of inflammatory breast carcinoma the left breast. It is ERPR negative and HER2 Stephy positive. On ultrasound the tumor appears to be about 6 cm in size. Ca 27.29:44. She would be a candidate for neoadjuvant chemotherapy, in view of the large size of the tumor and the inflammatory component. She is HER2 positive. I would recommend treating her with dose dense AC X4, followed by Taxol and Herceptin. And reassess for surgical resection, based upon her response. I proceeded with a baseline PET scan, for initial staging. This revealed: Intense activity in the medial left breast lesion assumed to be the primary tumor. There is also an enlarged left axillary node showing increased activity and metastatic disease needs to be suspected though this could be reactive. Otherwise, uptake in the region of the left thyroid gland, which is enlarged. This could represent uptake within a thyroid nodule and, therefore ultrasound would be recommended as malignancy cannot be excluded. Differential would be abnormal uptake in an enlarged node in the region. As described in the left axillary region, more proximally toward the region of the thoracic inlet, some mild uptake in nonpathologically enlarged nodes. These may be reactive but certainly early metastatic disease cannot be excluded. There is also uptake within the region of C1 anterior to the left of midline. There is lucency in the bone here. A metastatic deposit cannot be excluded. Consider MR. Harmon discussed with IR, neuro-radiology. They felt the biopsy would be risky to do. However since the lesion is apparent on 2 different imaging modalities, it is likely to be real. Hence the plan is to proceed with treatment. Since she has aggressive progressive disease, will treat her with an active regimen, to expedite her response. She had an echocardiogram, prior to anthracycline. This came back normal with EF of 60-65%. She had genetic testing done. This came back negative. She had a Port-A-Cath placement. This was placed on 08/22. She started dose dense AC chemotherapy with Neulasta support. She completed that. She then received 12 weeks of Taxol. . Thyroid ultrasound revealed: Heterogeneous thyroid gland. The left lobe is enlarged. Bilateral thyroid nodules. Fine needle aspiration of the largest nodule in the left lobe recommended. l checked with Radiology, proceeded with the thyroid biopsy. (this revealed benign findings.) She completed 4 cycles of AC. She has now completed 12 weeks of Taxol treatment. She has tolerated it really well. Encouraging thing is that her breast mass has disappeared. PLAN: She does have history of arthritis. However since the symptoms are not improving will proceed with a bone scan to look for any evidence of metastatic disease. She has met to the C-spine. She is currently starting maintenance, Herceptin and pertuzumab. She is scheduled for an MRI of her breast next Wednesday. Hopefully she will have a complete remission. She will then be seen by Dr. Javed. Will follow her tumor marker: CA 27.29. Hopefully the rash will resolve now that she is off the Taxol. If not will refer her to the special delivery messenger. All her questions were answered to her satisfaction. Thank you, CC: Dr. Javed. - Time Spent With Patient Time Spent with Patient (in minutes): 30
--- NOTE | 2021-02-26 09:43 | MHC.HEMONC ---
Bone Scan and Echo order given to Lena Sorensen to enter into OF.
[2021-03-04 10:37] LABS: MANUAL DIFF FLAG NO
[2021-03-04 10:44] LABS: Basophils Percent Auto 0.4 % (0-2); Eosinophils Absolute Auto 0.1 X10*3/uL (0.0-0.4); Eosinophils Percent Auto 1.9 % (0-4); Hematocrit 40.4 % (37.0-47.0); Hemoglobin 13.5 g/dl (12.0-16.0); Imm Gran Abs Auto 0.02 X10*3/uL (0.00-0.03); Imm Gran Pct Auto 0.3 % (0.0-0.4); Lymphocytes Absolute Auto 1.5 X10*3/uL (1.2-4.9); Lymphocytes Percent Auto 22.6 % (20-40); Mean Corpuscular HGB Conc 33.4 g/dl (31.0-35.0); Mean Corpuscular Hemoglobin 33.3 pg (27.0-33.0); Mean Corpuscular Volume 99.8 fL (80.0-98.0); Mean Platelet Volume 10.5 fL (9.4-12.3); Monocytes Absolute Auto 0.6 X10*3/uL (0.1-1.2); Monocytes Percent Auto 8.8 % (2-11); Neutrophils Absolute Auto 4.4 x10*3/uL (2.0-8.3); Platelet Count 213 X10*3/uL (160-400); Red Blood Count 4.05 X10*6/uL (4.20-5.50); Red Cell Distribution Width 13.9 % (11.0-16.0); White Blood Count 6.7 X10*3/uL (4.8-10.8)
[2021-03-04 11:14] LABS: Alanine Aminotransferase 17 U/L (0-31); Albumin Level 3.8 g/dL (3.5-5.0); Alkaline Phosphatase 72 U/L (39-117); Anion Gap 14 (12-20); Aspartate Amino Transferase 21 U/L (5-31); Bilirubin Total 0.6 mg/dL (0.0-1.0); Blood Urea Nitrogen 9 mg/dL (9-16); Calcium 9.4 mg/dL (8.4-10.2); Carbon Dioxide 29 mmol/L (22-29); Chloride 101 mmol/L (96-108); Creatinine Clr Calc Pharmacy 68.3; Estimated Glomerular Filt Rate > 60; Glucose Random 129 mg/dL (60-115); Potassium 4.4 mmol/L (3.3-5.1); Sodium 140 mmol/L (135-145); Total Protein 6.5 g/dL (6.5-8.0)
[2021-03-05 09:30] VITALS: BP 164/64; PULSE 75; RESP 20; TEMP 36.4; O2SAT 96
[2021-03-05 09:46] VITALS: BMI 41.1
[2021-03-05] MEDS: Acetaminophen 325 MG TABLET 650 MG PO (10:18)
[2021-03-05] MEDS: diphenhydrAMINE HCL 50 MG/ML VIAL 25 MG IVPUSH (10:20)
[2021-03-05] MEDS: Heparin Sodium,Porcine Flush 500 UNIT/5 ML SYRINGE IVFLUSH (12:56)
--- NOTE | 2021-03-05 16:08 | MHC.HEMONC ---
Here for C10D1 Pertuzumab/Herceptin. Labs done 03/04 reviewed. States feeling good. Had bone scan done 03/04, and echo done Wednesday morning. Port accessed with good blood return noted. Pre-meds given as ordered. Pt declined pepcid. Treatment done and tolerated well. Scheduled to return in 3 weeks for next treatment. Is scheduled to see Dr Javed on 03/11.
--- NOTE | 2021-03-05 16:19 | MHC.HEMONC ---
Denosumab given as ordered
[2021-03-06 12:21] LABS: CA 27.29 48 U/mL (<38)
[2021-03-26 09:08] LABS: MANUAL DIFF FLAG NO
[2021-03-26 09:12] LABS: Basophils Percent Auto 0.5 % (0-2); Eosinophils Absolute Auto 0.1 X10*3/uL (0.0-0.4); Eosinophils Percent Auto 1.5 % (0-4); Hematocrit 43.6 % (37.0-47.0); Hemoglobin 14.5 g/dl (12.0-16.0); Imm Gran Abs Auto 0.01 X10*3/uL (0.00-0.03); Imm Gran Pct Auto 0.1 % (0.0-0.4); Lymphocytes Absolute Auto 1.7 X10*3/uL (1.2-4.9); Lymphocytes Percent Auto 20.6 % (20-40); Mean Corpuscular HGB Conc 33.3 g/dl (31.0-35.0); Mean Corpuscular Hemoglobin 32.6 pg (27.0-33.0); Monocytes Absolute Auto 0.7 X10*3/uL (0.1-1.2); Monocytes Percent Auto 8.2 % (2-11); Neutrophils Absolute Auto 5.6 x10*3/uL (2.0-8.3); Neutrophils Percent Auto 69.1 % (45-73); Platelet Count 239 X10*3/uL (160-400); Red Blood Count 4.45 X10*6/uL (4.20-5.50); Red Cell Distribution Width 12.7 % (11.0-16.0); White Blood Count 8.1 X10*3/uL (4.8-10.8)
[2021-03-26 09:30] LABS: Alanine Aminotransferase 14 U/L (0-31); Albumin Level 3.9 g/dL (3.5-5.0); Alkaline Phosphatase 68 U/L (39-117); Anion Gap 13 (12-20); Aspartate Amino Transferase 21 U/L (5-31); Blood Urea Nitrogen 16 mg/dL (9-16); Calcium 9.9 mg/dL (8.4-10.2); Carbon Dioxide 30 mmol/L (22-29); Chloride 101 mmol/L (96-108); Creatinine Clr Calc Pharmacy 75.4; Estimated Glomerular Filt Rate > 60; Glucose Random 125 mg/dL (60-115); Potassium 3.7 mmol/L (3.3-5.1); Sodium 140 mmol/L (135-145); Total Protein 6.7 g/dL (6.5-8.0)
[2021-03-27 09:15] VITALS: BP 146/87; PULSE 68; RESP 20; TEMP 37.1; O2SAT 97; BMI 40.0
[2021-03-27] MEDS: diphenhydrAMINE HCL 50 MG/ML VIAL 25 MG IVPUSH (10:21)
[2021-03-27] MEDS: Ondansetron ODT 8 MG TAB.RAPDIS TRANSLINGU (10:22)
[2021-03-27] MEDS: Acetaminophen 325 MG TABLET 650 MG PO (10:22)
[2021-03-27] MEDS: Famotidine 20 MG TABLET PO (10:57)
[2021-03-27] MEDS: Heparin Sodium,Porcine Flush 500 UNIT/5 ML SYRINGE IVFLUSH (12:24)
--- NOTE | 2021-03-27 16:23 | MHC.HEMONC ---
Here for C11D1 Pertuzumab/Trastuzumab. Port accessed with good blood return noted. Labs drawn 03/26 reviewed. States feels good, except after last treatment was very nauseous for several days, and also had heartburn. Does c/o bone pain, stating she feels it all over, but mostly in her back. She also states she has some neuropathy in her first 3 fingers on both hands, and both great toes. Dr Peña aware. Premeds given as ordered. Treatment given and tolerated well. Scheduled for follow up with Dr Peña on 04/02, and next treatment in 3 weeks.
[2021-04-02 08:47] VITALS: BP 132/61; PULSE 74; RESP 16; TEMP 36.3; O2SAT 96; BMI 39.6
[2021-04-02 08:47] LABS: MANUAL DIFF FLAG NO
[2021-04-02 08:50] LABS: Basophils Percent Auto 0.5 % (0-2); Eosinophils Absolute Auto 0.1 X10*3/uL (0.0-0.4); Hematocrit 44.3 % (37.0-47.0); Hemoglobin 14.9 g/dl (12.0-16.0); Imm Gran Abs Auto 0.01 X10*3/uL (0.00-0.03); Imm Gran Pct Auto 0.2 % (0.0-0.4); Lymphocytes Absolute Auto 1.7 X10*3/uL (1.2-4.9); Lymphocytes Percent Auto 31.5 % (20-40); Mean Corpuscular HGB Conc 33.6 g/dl (31.0-35.0); Mean Corpuscular Hemoglobin 32.4 pg (27.0-33.0); Mean Corpuscular Volume 96.3 fL (80.0-98.0); Monocytes Absolute Auto 0.5 X10*3/uL (0.1-1.2); Monocytes Percent Auto 9.8 % (2-11); Neutrophils Absolute Auto 3.1 x10*3/uL (2.0-8.3); Platelet Count 247 X10*3/uL (160-400); Red Cell Distribution Width 12.4 % (11.0-16.0); White Blood Count 5.5 X10*3/uL (4.8-10.8)
[2021-04-02 09:07] LABS: Alanine Aminotransferase 15 U/L (0-31); Alkaline Phosphatase 69 U/L (39-117); Anion Gap 13 (12-20); Aspartate Amino Transferase 21 U/L (5-31); Bilirubin Total 1.1 mg/dL (0.0-1.0); Blood Urea Nitrogen 13 mg/dL (9-16); Calcium 10.3 mg/dL (8.4-10.2); Carbon Dioxide 36 mmol/L (22-29); Chloride 99 mmol/L (96-108); Creatinine Clr Calc Pharmacy 69.6; Estimated Glomerular Filt Rate > 60; Glucose Random 120 mg/dL (60-115); Potassium 3.9 mmol/L (3.3-5.1); Sodium 144 mmol/L (135-145); Total Protein 7.2 g/dL (6.5-8.0)
--- NOTE | 2021-04-02 09:37 | PM.HEMONCPN ---
Medical Summary - Medical Summary Date of Service: 04/02/21 Chief complaint: F/U FOR: BREAST CANCER. 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 CURRENT THERAPY: AC with Neulasta support, completed 4 cycles. Completed 12 weeks of Taxol. On pertuzumab and Herceptin maintenance. Interval History Interval history: Marcia Strong is a pleasant 65 year old lady, here for a follow-up visit. She has not been doing too well. She tells me she is hanging in there. For the past 3 weeks or so she has had low back pain. She points to the lumbosacral area, as the site of pain. She denies any radiation down into the legs however her legs are other week. She is unable to stand for too long. She is doing her cooking on the stove sitting down. She complains of pain in her shoulder knee. It hurts to move. She also complains of neuropathy. Tips of her thumbs hurt. She is dropping things. She tolerated the chemotherapy reasonably well. She does get tired. Some days she takes a nap. Other days she can manage. Denies fever nor chills. She denies pain in her left breast. The lump has gone away. HEENT: No headache no dizziness. No chest pain nor trouble breathing. Denies any abdominal pain, she had some nausea this week. No vomiting heartburn indigestion. Her bowels are working without any gross blood in it. No more diarrhea. She had a colonoscopy in her 50s at [facility]. Appetite is good. She has gained weight. Denies any urinary complaints. Denies any focal weakness. She denies depression however she had history of anxiety. Previous history: She tells me that about 3 months ago she noted, what she felt was, a pimple underneath her left breast. It would occasionally get itchy and then dry. Then it became harder around the edges. It was fixed, not movable. Due to the pandemic she did not leave the home. About a month ago she woke up one morning and she felt her left breast was heavy and huge. It was quite red and warm to touch. The nipple appeared yeast pusher. She decided to go to the emergency room. This was on 07/16. Ultrasound of the breast revealed: Large irregular mass with scattered internal color flow vascularity 8:00 position 7 cm from nipple measuring 5 x 4 cm. Several adjacent smaller satellite foci, largest 1.3 cm. Differential considerations include malignancy as well as abscess. ASSESSMENT: BI-RADS 4: Suspicious RECOMMENDATION: 1. Surgical Consult. 2. Diagnostic mammography. She underwent an ultrasound-guided biopsy at 08:00 o'clock position on 07/25. Pathology revealed: Invasive ductal carcinoma, MSBR grade 2. ER negative/NJ negative/HER2 Stephy positive 3+. She was seen by Dr. Javed. She has been referred here for question if she should have neoadjuvant chemotherapy. Criminal Lawyer history: Menarche: Age 12. Menopause in her early 50s. No HRT. She is . She has 4 children. Family history: A paternal cousin had breast cancer in her mid 60s. 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 She is . Has 4 children. She smokes half a pack a day. She likes her wine. Review of Systems - Constitutional Reports no additional constitutional complaints - Eyes Reports no additional eye complaints - ENT Reports no additional ear, nose, mouth, and throat complaints - Cardiovascular Reports no additional cardiovascular complaints - Respiratory Reports no additional respiratory complaints - Gastrointestinal Reports no additional gastrointestinal complaints - Genitourinary Reports no additional female genitourinary complaints - Musculoskeletal Reports no additional musculoskeletal complaints - Integumentary/Breasts Skin/Breast: Reports no additional skin complaints - Neurologic Reports no additional neurologic complaints, Reports weakness - Psychiatric Reports no additional psychiatric complaints - Endocrine Reports no additional endocrine complaints - Hematologic/Lymphatic Reports no additional hematologic/lymphatic complaints - Allergic/Immunologic Reports no additional allergic/immunologic complaints [facility] Medical History: Medical History (Last Reviewed 04/02/21 @ 08:50 by Lena Solomon) Cerebral aneurysm Morbid obesity Pneumonia Functional capacity: independent ambulation Patient : No Family History: Family History (Last Reviewed 04/02/21 @ 08:50 by Lena Solomon) Family/Other Breast cancer Brother Colon cancer Surgical History: Surgical History (Last Reviewed 04/02/21 @ 08:50 by Lena Solomon) H/O tubal ligation Social History: Social History (Last Reviewed 04/02/21 @ 08:50 by Lena Solomon) Living Situation History: Housing: Apartment Alcohol History: Alcohol intake: current Alcohol History Details: Alcohol intake frequency: a few times a week Alcohol type: wine Tobacco History: Patient Tobacco Use Status: Current everyday Tobacco Tobacco use type: Cigarette e-Cigarette/Vaping Use: Never Used Second Hand Smoke Exposure: Yes Substance Use History: Use of substances other than those prescribed or required for medical reasons: No Advance Directives: Advance Directives Date on File: 08/22/20 Nutrition Assessment: Patient : No Occupation Assessmet: service: No Current occupational status: unemployed Oncology Screenings - ECOG Performance Status ECOG Performance Status: 0 Home Medications and Allergies Allergies Allergy/AdvReac Type Severity Reaction Status Date / Time codeine [CODEINE] Allergy Unknown STOMACH Verified 04/02/21 08:50 UPSET Exam Vital signs: Vital Signs Temp 97.4 F 04/02/21 08:47 Pulse 74 04/02/21 08:47 Resp 16 04/02/21 08:47 BP 132/61 04/02/21 08:47 Pulse Ox 96 04/02/21 08:47 Intake & Output 04/01/21 04/02/21 04/02/21 18:59 06:59 18:59 Other: Weight 98.2 kg Weight in Grams 60319 Weight 98.2 kg BMI result Body Mass Index 39.6 - Constitutional Present: moderate distress - Routine HEENT Exam Head: Present: normal inspection Eye: Present: normal appearance ENT: Present: mucous membranes moist - Routine Neck Exam Present: full ROM - Routine Respiratory Exam Present: CTAB - Routine Cardiovascular Exam Cardiovascular: Present: RRR, S1, S2 - Routine Abdominal Exam Present: soft, nontender - Routine Rectal Exam Patient deferred: digital exam - Routine Extremities Exam Present: nontender - Routine Back/Spine/Pelvis Exam Back/Spine: Absent: CVA tenderness - Routine Skin Exam Present: intact - Routine Neurological Exam Present: alert, oriented X3 - Detailed Neurological Exam: Coma Scale Eye Opening: Spontaneous (4) - Routine Psychiatric Exam Present: normal affect Data - Labs CBC & Chem 7: 04/02/21 08:33 04/02/21 08:33 Assessment and Plan Patient Active problem list reviewed?: Yes (1) Carcinoma of left breast Status: Acute Assessment and plan: Status: Acute This is a pleasant 65-year-old lady with a recent diagnosis of inflammatory breast carcinoma the left breast. It is ERPR negative and HER2 Stephy positive. On ultrasound the tumor appears to be about 6 cm in size. Ca 27.29:44. She would be a candidate for neoadjuvant chemotherapy, in view of the large size of the tumor and the inflammatory component. She is HER2 positive. I would recommend treating her with dose dense AC X4, followed by Taxol and Herceptin. And reassess for surgical resection, based upon her response. I proceeded with a baseline PET scan, for initial staging. This revealed: Intense activity in the medial left breast lesion assumed to be the primary tumor. There is also an enlarged left axillary node showing increased activity and metastatic disease needs to be suspected though this could be reactive. Otherwise, uptake in the region of the left thyroid gland, which is enlarged. This could represent uptake within a thyroid nodule and, therefore ultrasound would be recommended as malignancy cannot be excluded. Differential would be abnormal uptake in an enlarged node in the region. As described in the left axillary region, more proximally toward the region of the thoracic inlet, some mild uptake in nonpathologically enlarged nodes. These may be reactive but certainly early metastatic disease cannot be excluded. There is also uptake within the region of C1 anterior to the left of midline. There is lucency in the bone here. A metastatic deposit cannot be excluded. Consider MR. Harmon discussed with IR, neuro-radiology. They felt the biopsy would be risky to do. However since the lesion is apparent on 2 different imaging modalities, it is likely to be real. Hence the plan is to proceed with treatment. Since she has aggressive progressive disease, will treat her with an active regimen, to expedite her response. She had an echocardiogram, prior to anthracycline. This came back normal with EF of 60-65%. She had genetic testing done. This came back negative. She had a Port-A-Cath placement. This was placed on 08/22. She started dose dense AC chemotherapy with Neulasta support. She completed that. She then received 12 weeks of Taxol. . Thyroid ultrasound revealed: Heterogeneous thyroid gland. The left lobe is enlarged. Bilateral thyroid nodules. Fine needle aspiration of the largest nodule in the left lobe recommended. l checked with Radiology, proceeded with the thyroid biopsy. (this revealed benign findings.) She completed 4 cycles of AC. She has now completed 12 weeks of Taxol treatment. She has tolerated it really well. Encouraging thing is that her breast mass has disappeared. She complains of body aches joint pains. I proceeded with a bone scan. This revealed: No abnormal bone activity seen to suspect any metastatic bone disease. There is mild degenerative changes right T7 costovertebral junction and right T11 and T12 facet joints. She had an MRI of the breast on 02/18: Interval decrease in size of the incident mass in the 8 o'clock position which now measures 1.8 x 3.6 x 2.5 cm. There is no abnormal enhancement at this time which indicates a response to neoadjuvant chemotherapy. There is also a 0.7 cm satellite lesion in the 7 o'clock position, anterior to the primary tumor which also demonstrates no abnormal enhancement. No other findings suspicious of malignancy in either breast. This is reassuring. PLAN: She is currently starting maintenance, Herceptin and pertuzumab. She has been seen by Dr. Javed. He is in the process of setting her for surgery. She opted for mastectomy. She will receive her next dose of targeted agent on April 17 and then will have the surgery done thereafter/ Will follow her tumor marker: CA 27.29. She will return in a couple of weeks for a follow-up. All her questions were answered to her satisfaction. Thank you, CC: Dr. Javed. - Time Spent With Patient Time Spent with Patient (in minutes): 35
[2021-04-04 09:26] LABS: CA 27.29 45 U/mL (<38)
[2021-04-16 09:10] LABS: MANUAL DIFF FLAG NO
[2021-04-16 09:35] LABS: Basophils Percent Auto 0.5 % (0-2); Eosinophils Absolute Auto 0.1 X10*3/uL (0.0-0.4); Hematocrit 43.7 % (37.0-47.0); Hemoglobin 14.7 g/dl (12.0-16.0); Imm Gran Abs Auto 0.01 X10*3/uL (0.00-0.03); Imm Gran Pct Auto 0.2 % (0.0-0.4); Lymphocytes Absolute Auto 1.4 X10*3/uL (1.2-4.9); Lymphocytes Percent Auto 22.1 % (20-40); Mean Corpuscular HGB Conc 33.6 g/dl (31.0-35.0); Mean Corpuscular Hemoglobin 32.4 pg (27.0-33.0); Mean Corpuscular Volume 96.3 fL (80.0-98.0); Mean Platelet Volume 10.2 fL (9.4-12.3); Monocytes Absolute Auto 0.5 X10*3/uL (0.1-1.2); Monocytes Percent Auto 8.2 % (2-11); Neutrophils Absolute Auto 4.3 x10*3/uL (2.0-8.3); Platelet Count 193 X10*3/uL (160-400); Red Blood Count 4.54 X10*6/uL (4.20-5.50); White Blood Count 6.3 X10*3/uL (4.8-10.8)
[2021-04-16 10:00] LABS: Alanine Aminotransferase 18 U/L (0-31); Albumin Level 3.9 g/dL (3.5-5.0); Alkaline Phosphatase 73 U/L (39-117); Anion Gap 11 (12-20); Aspartate Amino Transferase 22 U/L (5-31); Bilirubin Total 0.9 mg/dL (0.0-1.0); Blood Urea Nitrogen 16 mg/dL (9-16); Calcium 9.5 mg/dL (8.4-10.2); Carbon Dioxide 31 mmol/L (22-29); Chloride 101 mmol/L (96-108); Creatinine Clr Calc Pharmacy 74.7; Estimated Glomerular Filt Rate > 60; Glucose Random 126 mg/dL (60-115); Potassium 3.3 mmol/L (3.3-5.1); Sodium 140 mmol/L (135-145); Total Protein 6.8 g/dL (6.5-8.0)
--- NOTE | 2021-04-17 07:04 | HE.PHANOTE ---
ECHO- PATIENT'S LAST ECHO WAS 03/03/21, PLEASE SCHEDULE NEW ECHO IN LATE MAY 2021.
[2021-04-17 09:05] VITALS: BP 160/76; PULSE 68; RESP 18; TEMP -71.7; TEMP -97.1; O2SAT 96; BMI 39.2
[2021-04-17] MEDS: Acetaminophen 325 MG TABLET 650 MG PO (09:33)
[2021-04-17] MEDS: Ondansetron ODT 8 MG TAB.RAPDIS TRANSLINGU (09:34)
[2021-04-17] MEDS: diphenhydrAMINE HCL 50 MG/ML VIAL 25 MG IVPUSH (09:35)
[2021-04-17] MEDS: Heparin Sodium,Porcine Flush 500 UNIT/5 ML SYRINGE IVFLUSH (09:37)
[2021-04-17] MEDS: Famotidine/PF 20 MG/2 ML VIAL IVPUSH (10:00)
--- NOTE | 2021-04-17 15:12 | MHC.HEMONC ---
Pt here for C12D1 Pertuzumab/Herceptin. Port accessed with blood return noted. Labs drawn yesterday reviewed-okay to receive treatment today. Pt states she continues with fatigue, tingling in fingers/ toes and soles of feet. States aches all over from arthritis, dizzy at times-takes meclazine which helps with dizziness, has constipation which she takes medication for-which helps. Pre medicated with zofran, benadryl, pepcid, tylenol. Pertuzumab/Herceptin given as directed-tolerated well. Port flushed with heparin and de accessed. Pt scheduled for total mastectomy later this month. Follow up appointment scheduled. Discharge packet given.
--- NOTE | 2021-04-17 16:40 | P.PNHO_ITS ---
Medical Summary - Medical Summary Date of Service: 04/17/21 Chief complaint: follow-up for HER2 positive breast cancer. 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 CURRENT THERAPY: AC with Neulasta support, completed 4 cycles. Completed 12 weeks of Taxol. On pertuzumab and Herceptin maintenance. Here for a dose.Cycle # 12. Interval History Interval history: Marcia Strong is a pleasant 66 year old lady, here for a follow-up visit. She has not been doing too well. She tells me she has had ongoing symptoms of neuropathy. She has numbness tingling and lack of sensation on her thumb and forefinger. It also involves her toes. Her tips hurt. Sometimes she can not even feel the blanket on her. She feels over tired. Partly because when she has energy she over does it. For the past 6 weeks or so she has had low back pain. She points to the lum bosacral area, as the site of pain. She denies any radiation down into the legs however her legs are other week. She is unable to stand for too long. She is doing her cooking on the stove sitting down. She complains of pain in her shoulder knee. It hurts to move. She also complains of neuropathy. Tips of her thumbs hurt. She is dropping things. She tolerated the chemotherapy reasonably well. She does get tired. Some days she takes a nap. Other days she can manage. Denies fever nor chills. She denies pain in her left breast. The lump has gone away. HEENT: No headache no dizziness. No chest pain nor trouble breathing. Denies any abdominal pain, she had some nausea this week. No vomiting heartburn indigestion. Her bowels are working without any gross blood in it. No more diarrhea. She had a colonoscopy in her 50s at [facility] [place]. Appetite is good. She has gained weight. Denies any urinary complaints. Denies any focal weakness. She denies depression however she had history of anxiety. Recent imaging: MRI of the breast from 02/26: Interval decrease in size of the incident mass in the 8 o'clock position which now measures 1.8 x 3.6 x 2.5 cm. There is no abnormal enhancement at this time which indicates a response to neoadjuvant chemotherapy. There is also a 0.7 cm satellite lesion in the 7 o'clock position, anterior to the primary tumor which also demonstrates no abnormal enhancement. No other findings suspicious of malignancy in either breast. Previous history: She tells me that about 3 months ago she noted, what she felt was, a pimple underneath her left breast. It would occasionally get itchy and then dry. Then it became harder around the edges. It was fixed, not movable. Due to the pandemic she did not leave the home. About a month ago she woke up one morning and she felt her left breast was heavy and huge. It was quite red and warm to touch. The nipple appeared etcher hand. She decided to go to the emergency room. This was on 07/16. Ultrasound of the breast revealed: Large irregular mass with scattered internal color flow vascularity 8:00 position 7 cm from nipple measuring 5 x 4 cm. Several adjacent smaller satellite foci, largest 1.3 cm. Differential considerations include malignancy as well as abscess. ASSESSMENT: BI-RADS 4: Suspicious RECOMMENDATION: 1. Surgical Consult. 2. Diagnostic mammography. She underwent an ultrasound-guided biopsy at 08:00 o'clock position on 07/25. Pathology revealed: Invasive ductal carcinoma, MSBR grade 2. ER negative/CT negative/HER2 Stephy positive 3+. She was seen by Dr. Javed. She has been referred here for question if she should have neoadjuvant chemotherapy. 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 Menopause in her early 50s. No HRT. She is . She has 4 children. Family history: A paternal cousin had breast cancer in her mid 60s. 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 She is . Has 4 children. She smokes half a pack a day. She likes her wine. Review of Systems - Constitutional Reports no additional constitutional complaints, Reports difficulty sleeping, Reports fatigue, Reports lack of energy, Reports weight gain - Eyes Reports no additional eye complaints - ENT Reports no additional ear, nose, mouth, and throat complaints - Cardiovascular Reports no additional cardiovascular complaints - Respiratory Reports no additional respiratory complaints - Gastrointestinal Reports no additional gastrointestinal complaints - Genitourinary Reports no additional female genitourinary complaints - Musculoskeletal Reports no additional musculoskeletal complaints - Integumentary/Breasts Skin/Breast: Reports no additional skin complaints - Neurologic Reports no additional neurologic complaints, Reports numbness, Reports paresthesias, Reports weakness Comments: Tips of fingers and toes. - Psychiatric Reports no additional psychiatric complaints - Endocrine Reports no additional endocrine complaints - Hematologic/Lymphatic Reports no additional hematologic/lymphatic complaints - Allergic/Immunologic Reports no additional allergic/immunologic complaints [facility] Medical History: Medical History (Last Reviewed 04/02/21 @ 08:50 by Lena Solomon) Cerebral aneurysm Morbid obesity Pneumonia Functional capacity: independent ambulation Patient : No Family History: Family History (Last Reviewed 04/02/21 @ 08:50 by Lena Solomon) Family/Other Breast cancer Brother Colon cancer Surgical History: Surgical History (Last Reviewed 04/02/21 @ 08:50 by Lena Solomon) H/O tubal ligation Social History: Social History (Last Reviewed 04/02/21 @ 08:50 by Lena Solomon) Living Situation History: Housing: Apartment Tobacco History: Patient Tobacco Use Status: Current everyday Tobacco Tobacco use type: Cigarette e-Cigarette/Vaping Use: Never Used Second Hand Smoke Exposure: Yes Substance Use History: Use of substances other than those prescribed or required for medical reasons : No Advance Directives: Advance Directives Date on File: 08/22/20 Nutrition Assessment: Patient : No Occupation Assessmet: service: No Current occupational status: unemployed Home Medications and Allergies Current Medications: Current Medications Acetaminophen (Acetaminophen 325 Mg Tablet) 650 mg PO ONCE YOUSIF Stop: 04/17/21 23:59 Last Admin: 04/17/21 09:33 Dose: 650 mg Documented by: Diphenhydramine HCl (Diphenhydramine Hcl 50 Mg/Ml Vial) 25 mg IVPUSH ONCE YOUSIF Stop: 04/17/21 23:59 Last Admin: 04/17/21 09:35 Dose: 25 mg Documented by: Famotidine (Famotidine/Pf 20 Mg/2 Ml Vial) 20 mg IVPUSH ONCE ONE Stop: 04/17/21 23:59 Last Admin: 04/17/21 10:00 Dose: 20 mg Documented by: Heparin Sodium (Porcine) (Heparin Sodium,Porcine Flush 500 Unit/5 Ml Syringe) 500 unit IVFLUSH ONCE YOUSIF Stop: 04/17/21 23:59 Last Admin: 04/17/21 09:37 Dose: 500 unit Documented by: Pertuzumab 420 mg/ Sodium (Chloride) 264 mls @ 528 mls/hr IV ONCE YOUSIF Stop: 04/17/21 23:59 Last Infusion: 04/17/21 10:27 Dose: Infused Documented by: Trastuzumab 588 mg/ Sodium (Chloride) 278.028 mls @ 556.056 mls/hr IV ONCE YOUSIF Stop: 04/17/21 23:59 Last Infusion: 04/17/21 11:49 Dose: Infused Documented by: Ondansetron HCl (Ondansetron Odt 8 Mg Tab.Rapdis) 8 mg TRANSLINGU ONCE YOUSIF Stop: 04/17/21 23:59 Last Admin: 04/17/21 09:34 Dose: 8 mg Documented by: Allergies Allergy/AdvReac Type Severity Reaction Status Date / Time codeine [CODEINE] Allergy Unknown STOMACH Verified 04/17/21 11:23 UPSET Exam Vital signs: Vital Signs Temp -97.1 F L 04/17/21 09:05 Pulse 68 04/17/21 09:05 Resp 18 04/17/21 09:05 BP 160/76 H 04/17/21 09:05 Pulse Ox 96 04/17/21 09:05 Intake & Output 04/16/21 04/17/21 04/17/21 18:59 06:59 18:59 Intake Total 542.028 / 542.028 Balance 542.028 / 542.028 Intake: Intake, IV Amount 542.028 / 542.028 Pertuzumab 420 mg In 0.9 % 264 / 264 Sodium Chloride 250 ml @ 528 mls/hr IV ONCE YOUSIF Rx#: [id number] Trastuzumab 588 mg In 0.9 % 278.028 / 278.028 Sodium Chloride 250 ml @ 556. 056 mls/hr IV ONCE YOUSIF Rx#: [id number] Other: Weight 97.3 kg [place] Weight in Grams 37349 Weight 97.3 kg BMI result Body Mass Index 39.2 - Constitutional Present: moderate distress - Routine HEENT Exam Head: Present: normal inspection Eye: Present: normal appearance ENT: Present: mucous membranes moist - Routine Neck Exam Present: full ROM - Routine Respiratory Exam Present: CTAB - Routine Cardiovascular Exam Cardiovascular: Present: RRR, S1, S2 - Routine Abdominal Exam Present: soft, nontender - Routine Rectal Exam Patient deferred: digital exam - Routine Extremities Exam Present: nontender - Routine Back/Spine/Pelvis Exam Back/Spine: Absent: CVA tenderness - Routine Skin Exam Present: intact - Routine Neurological Exam Present: alert, oriented X3 - Detailed Neurological Exam: Coma Scale Eye Opening: Spontaneous (4) - Routine Psychiatric Exam Present: normal affect Data - Labs CBC & Chem 7: 04/16/21 09:07 04/16/21 09:07 Assessment and Plan Patient Active problem list reviewed?: Yes (1) Carcinoma of left breast Status: Acute Assessment and plan: Status: Acute This is a pleasant 65-year-old lady with a recent diagnosis of inflammatory breast carcinoma the left breast. It is ERPR negative and HER2 Stephy positive. On ultrasound the tumor appears to be about 6 cm in size. Ca 27.29:44. She would be a candidate for neoadjuvant chemotherapy, in view of the large size of the tumor and the inflammatory component. She is HER2 positive. I would recommend treating her with dose dense AC X4, followed by Taxol and Herceptin. And reassess for surgical resection, based upon her response. I proceeded with a baseline PET scan, for initial staging. This revealed: Intense activity in the medial left breast lesion assumed to be the primary tumor. There is also an enlarged left axillary node showing increased activity and metastatic disease needs to be suspected though this could be reactive. Otherwise, uptake in the region of the left thyroid gland, which is enlarged. This could represent uptake within a thyroid nodule and, therefore ultrasound would be recommended as malignancy cannot be excluded. Differential would be abnormal uptake in an enlarged node in the region. As described in the left axillary region, more proximally toward the region of the thoracic inlet, some mild uptake in nonpathologically enlarged nodes. These may be reactive but certainly early metastatic disease cannot be excluded. There is also uptake within the region of C1 anterior to the left of midline. There is lucency in the bone here. A metastatic deposit cannot be excluded. Consider MR. Harmon discussed with IR, neuro-radiology. They felt the biopsy would be risky to do. However since the lesion is apparent on 2 different imaging modalities, it is likely to be real. Hence the plan is to proceed with treatment. Since she has aggressive progressive disease, will treat her with an active regimen, to expedite her response. She had an echocardiogram, prior to anthracycline. This came back normal with EF of 60-65%. She had genetic testing done. This came back negative. She had a Port-A-Cath placement. This was placed on 08/22. She started dose dense AC chemotherapy with Neulasta support. She completed that. She then received 12 weeks of Taxol. . Thyroid ultrasound revealed: Heterogeneous thyroid gland. The left lobe is enlarged. Bilateral thyroid nodules. Fine needle aspiration of the largest nodule in the left lobe recommended. l checked with Radiology, proceeded with the thyroid biopsy. (this revealed benign findings.) She completed 4 cycles of AC. She has now completed 12 weeks of Taxol treatment. She has tolerated it really well. Encouraging thing is that her breast mass has disappeared. She complains of body aches joint pains. I proceeded with a bone scan. This revealed: No abnormal bone activity seen to suspect any metastatic bone disease. There is mild degenerative changes right T7 costovertebral junction and right T11 and T12 facet joints. She had an MRI of the breast on 02/18: Interval decrease in size of the incident mass in the 8 o'clock position which now measures 1.8 x 3.6 x 2.5 cm. There is no abnormal enhancement at this time which indicates a response to neoadjuvant chemotherapy. There is also a 0.7 cm satellite lesion in the 7 o'clock position, anterior to the primary tumor which also demonstrates no abnormal enhancement. No other findings suspicious of malignancy in either breast. She is scheduled for mastectomy, on April 28, by Dr. Javed. This is reassuring. She has had symptoms of neuropathy. This is likely residual from the Taxol. PLAN: I will start her on Neurontin for the neuropathic pain, 100 mg every 8 hours, to start out with. She is currently starting maintenance, Herceptin and pertuzumab. Dr. Javed has set up surgery, April 28. She opted for mastectomy. Will follow her tumor marker: CA 27.29. She will return on May 05 for her next cycle and a follow-up. All her questions were answered to her satisfaction. Thank you, CC: Dr. Javed. - Time Spent With Patient Time Spent with Patient (in minutes): 30
[2021-05-07 08:38] LABS: MANUAL DIFF FLAG NO
[2021-05-07 08:40] LABS: Basophils Percent Auto 0.4 % (0-2); Eosinophils Absolute Auto 0.1 X10*3/uL (0.0-0.4); Hematocrit 43.9 % (37.0-47.0); Hemoglobin 14.4 g/dl (12.0-16.0); Imm Gran Abs Auto 0.02 X10*3/uL (0.00-0.03); Imm Gran Pct Auto 0.3 % (0.0-0.4); Lymphocytes Absolute Auto 1.4 X10*3/uL (1.2-4.9); Lymphocytes Percent Auto 19.5 % (20-40); Mean Corpuscular HGB Conc 32.8 g/dl (31.0-35.0); Mean Corpuscular Hemoglobin 31.4 pg (27.0-33.0); Mean Corpuscular Volume 95.6 fL (80.0-98.0); Mean Platelet Volume 9.8 fL (9.4-12.3); Monocytes Absolute Auto 0.7 X10*3/uL (0.1-1.2); Monocytes Percent Auto 9.5 % (2-11); Neutrophils Absolute Auto 4.8 x10*3/uL (2.0-8.3); Neutrophils Percent Auto 69.3 % (45-73); Platelet Count 226 X10*3/uL (160-400); Red Blood Count 4.59 X10*6/uL (4.20-5.50); Red Cell Distribution Width 12.6 % (11.0-16.0); White Blood Count 6.9 X10*3/uL (4.8-10.8)
[2021-05-07 09:01] LABS: Alanine Aminotransferase 14 U/L (0-31); Albumin Level 3.7 g/dL (3.5-5.0); Alkaline Phosphatase 71 U/L (39-117); Anion Gap 12 (12-20); Aspartate Amino Transferase 18 U/L (5-31); Bilirubin Total 0.7 mg/dL (0.0-1.0); Blood Urea Nitrogen 16 mg/dL (9-16); Calcium 9.4 mg/dL (8.4-10.2); Carbon Dioxide 35 mmol/L (22-29); Chloride 97 mmol/L (96-108); Creatinine Clr Calc Pharmacy 66.2; Estimated Glomerular Filt Rate > 60; Glucose Random 134 mg/dL (60-115); Potassium 4.5 mmol/L (3.3-5.1); Sodium 139 mmol/L (135-145); Total Protein 6.5 g/dL (6.5-8.0)
[2021-05-08 09:12] VITALS: BMI 39.2
[2021-05-08 09:13] VITALS: BP 133/62; PULSE 57; RESP 20; TEMP 36.3; O2SAT 96
--- NOTE | 2021-05-08 10:04 | P.PNHO_ITS ---
Medical Summary - Medical Summary Date of Service: 05/08/21 Chief complaint: FOLLOW-UP FOR: BREAST CANCER. 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 CURRENT THERAPY: AC with Neulasta support, completed 4 cycles. Completed 12 weeks of Taxol. On pertuzumab and Herceptin maintenance. Here for a dose.Cycle # 13. Status post mastectomy, 04/30, by Dr. Javed. Pathology: No residual cancer identified.(ypT0) consistent with complete response to pre- surgical therapy. Dense hyalinized stromal sclerosis with calcifications. Benign ducts with ductal ectasia. Six axillary lymph nodes negative for tumor. Skin and nipple with no evidence of tumor. Interval History Interval history: Marcia Strong is a pleasant 66 year old lady, here for a follow-up visit. She has been doing well. She is still recovering from her mastectomy. She was in house for 3 days. She required IV Dilaudid for pain. She still has the drains in. They are rather annoying and painful. Pain level is 7-8. She takes oxycodone. She has a follow-up appointment with Dr. Javed tomorrow. Hopefully the scooby and drains will come out and she will be more comfortable. She feels somewhat tired. Denies fever nor chills. HEENT: No headache no dizziness. No chest pain nor trouble breathing. Denies any abdominal pain, she had some nausea this week. No vomiting heartburn indigestion. Her bowels are working without any gross blood in it. No more diarrhea. She had a colonoscopy in her 50s [facility]. Appetite is good. She has gained weight. Denies any urinary complaints. Denies any focal weakness. She tells me she has had ongoing symptoms of neuropathy. She has numbness tingling and lack of sensation on her thumb and forefinger. It also involves he r toes. Her tips hurt. Sometimes she can not even feel the blanket on her. She has had a chronic low back pain. She points to the lumbosacral area, as the site of pain. She denies any radiation down into the legs however her legs are other week. She is unable to stand for too long. She is doing her cooking on the stove sitting down. She complains of pain in her shoulder knee. It hurts to move. She also complains of neuropathy. Tips of her thumbs hurt. She is dropping things. She tolerated the chemotherapy reasonably well. She denies depression however she had history of anxiety. Recent imaging: MRI of the breast from 02/26: Interval decrease in size of the incident mass in the 8 o'clock position which now measures 1.8 x 3.6 x 2.5 cm. There is no abnormal enhancement at this time which indicates a response to neoadjuvant chemotherapy. There is also a 0.7 cm satellite lesion in the 7 o'clock position, anterior to the primary tumor which also demonstrates no abnormal enhancement. No other findings suspicious of malignancy in either breast. Previous history: She tells me that about 3 months ago she noted, what she felt was, a pimple underneath her left breast. It would occasionally get itchy and then dry. Then it became harder around the edges. It was fixed, not movable. Due to the pandemic she did not leave the home. About a month ago she woke up one morning and she felt her left breast was heavy and huge. It was quite red and warm to touch. The nipple appeared precipitation equipment tender. She decided to go to the emergency room. This was on 07/16. Ultrasound of the breast revealed: Large irregular mass with scattered internal color flow vascularity 8:00 position 7 cm from nipple measuring 5 x 4 cm. Several adjacent smaller satellite foci, largest 1.3 cm. Differential considerations include malignancy as well as abscess. ASSESSMENT: BI-RADS 4: Suspicious RECOMMENDATION: 1. Surgical Consult. 2. Diagnostic mammography. She underwent an ultrasound-guided biopsy at 08:00 o'clock position on 07/25. Pathology revealed: Invasive ductal carcinoma, MSBR grade 2. ER negative/MS negative/HER2 Stephy positive 3+. She was seen by Dr. Javed. She has been referred here for question if she should have neoadjuvant chemotherapy. Gis Analyst history: Menarche: Age 12. Menopause in her early 50s. No HRT. She is . She has 4 children. Family history: A paternal cousin had breast cancer in her mid 60s. 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 She is . Has 4 children. She smokes half a pack a day. She likes her wine. Review of Systems - Constitutional Reports no additional constitutional complaints - Eyes Reports no additional eye complaints - ENT Reports no additional ear, nose, mouth, and throat complaints - Cardiovascular Reports no additional cardiovascular complaints - Respiratory Reports no additional respiratory complaints - Gastrointestinal Reports no additional gastrointestinal complaints - Genitourinary Reports no additional female genitourinary complaints - Musculoskeletal Reports no additional musculoskeletal complaints - Integumentary/Breasts Skin/Breast: Reports no additional skin complaints - Neurologic Reports no additional neurologic complaints, Reports numbness, Reports paresthesias, Reports weakness - Psychiatric Reports no additional psychiatric complaints - Endocrine Reports no additional endocrine complaints - Hematologic/Lymphatic Reports no additional hematologic/lymphatic complaints - Allergic/Immunologic Reports no additional allergic/immunologic complaints PMFSH Medical History: Medical History (Last Updated 04/29/21 @ 10:21 by Reshma Bower NP) Arthritis Bone cancer Breast cancer Cerebral aneurysm Chronic back pain Morbid obesity Neuropathy Pneumonia Port-A-Cath in place Functional capacity: independent ambulation Patient : No Family History: Family History (Last Reviewed 04/02/21 @ 08:50 by Lena Solomon) Family/Other Breast cancer Brother Colon cancer Surgical History: Surgical History (Last Reviewed 04/02/21 @ 08:50 by Lena Solomon) H/O tubal ligation Social History: Social History (Last Reviewed 04/02/21 @ 08:50 by Lena Solomon) Living Situation History: Housing: Apartment Are you a primary skin care instructor to a significant other at home: No Do you presently have visiting nurse or other home services: No Tobacco History: Patient Tobacco Use Status: Current everyday Tobacco Tobacco use type: Cigarette Years Smoked: 50 e-Cigarette/Vaping Use: Never Used Second Hand Smoke Exposure: Yes Second Hand Smoke Exposure comment: daughter Substance Use History: Use of substances other than those prescribed or required for medical reasons : No Advance Directives: Advance Directives Date on File: 08/22/20 Nutrition Assessment: Patient : No Occupation Assessmet: service: No Current occupational status: unemployed Oncology Screenings - ECOG Performance Status ECOG Performance Status: 0 Home Medications and Allergies Current Medications: Current Medications Acetaminophen (Acetaminophen 325 Mg Tablet) 650 mg PO ONCE YOUSIF Stop: 05/08/21 23:59 Diphenhydramine HCl (Diphenhydramine Hcl 50 Mg/Ml Vial) 25 mg IVPUSH ONCE YOUSIF Stop: 05/08/21 23:59 Heparin Sodium (Porcine) (Heparin Sodium,Porcine Flush 500 Unit/5 Ml Syringe) 500 unit IVFLUSH ONCE YOUSIF Stop: 05/08/21 23:59 Pertuzumab 420 mg/ Sodium (Chloride) 264 mls @ 528 mls/hr IV ONCE YOUSIF Stop: 05/08/21 23:59 Trastuzumab 588 mg/ Sodium (Chloride) 278.028 mls @ 556.056 mls/hr IV ONCE YOUSIF Stop: 05/08/21 23:59 Ondansetron HCl (Ondansetron Odt 8 Mg Tab.Rapdis) 8 mg TRANSLINGU ONCE YOUSIF Stop: 05/08/21 23:59 Home Medications Medication Instructions Recorded Confirmed Type melatonin 10 mg tablet 10 mg PO BEDTIME 04/21/21 04/21/21 History Allergies Allergy/AdvReac Type Severity Reaction Status Date / Time codeine [CODEINE] Allergy Unknown STOMACH Verified 04/21/21 12:57 UPSET Exam Vital signs: Vital Signs Temp 97.3 F 05/08/21 09:13 Pulse 57 05/08/21 09:13 Resp 20 05/08/21 09:13 BP 133/62 05/08/21 09:13 Pulse Ox 96 05/08/21 09:13 Intake & Output 05/07/21 05/08/21 05/08/21 18:59 06:59 18:59 Other: Weight 97.3 kg [place] Weight in Grams 21744 Weight 97.3 kg BMI result [place] 4d Body Mass Index 39.2 - Constitutional Present: moderate distress - Routine HEENT Exam Head: Present: normal inspection Eye: Present: normal appearance ENT: Present: mucous membranes moist - Routine Neck Exam Present: full ROM - Routine Respiratory Exam Present: CTAB - Routine Cardiovascular Exam Cardiovascular: Present: RRR, S1, S2 - Routine Abdominal Exam Present: soft, nontender - Routine Rectal Exam Patient deferred: digital exam - Routine Extremities Exam Present: nontender - Routine Back/Spine/Pelvis Exam Back/Spine: Absent: CVA tenderness - Routine Skin Exam Present: intact - Routine Neurological Exam Present: alert, oriented X3 - Detailed Neurological Exam: Coma Scale Eye Opening: Spontaneous (4) - Routine Psychiatric Exam Present: normal affect Data - Labs CBC & Chem 7: 05/07/21 08:34 05/07/21 08:34 Assessment and Plan Patient Active problem list reviewed?: Yes (1) Carcinoma of left breast Status: Acute Assessment and plan: Status: Acute This is a pleasant 65-year-old lady with a recent diagnosis of inflammatory breast carcinoma the left breast. It is ERPR negative and HER2 Stephy positive. On ultrasound the tumor appears to be about 6 cm in size. Ca 27.29:44. She would be a candidate for neoadjuvant chemotherapy, in view of the large size of the tumor and the inflammatory component. She is HER2 positive. I would recommend treating her with dose dense AC X4, followed by Taxol and Herceptin. And reassess for surgical resection, based upon her response. I proceeded with a baseline PET scan, for initial staging. This revealed: Intense activity in the medial left breast lesion assumed to be the primary tumor. There is also an enlarged left axillary node showing increased activity and metastatic disease needs to be suspected though this could be reactive. Otherwise, uptake in the region of the left thyroid gland, which is enlarged. This could represent uptake within a thyroid nodule and, therefore ultrasound would be recommended as malignancy cannot be excluded. Differential would be abnormal uptake in an enlarged node in the region. As described in the left axillary region, more proximally toward the region of the thoracic inlet, some mild uptake in nonpathologically enlarged nodes. These may be reactive but certainly early metastatic disease cannot be excluded. There is also uptake within the region of C1 anterior to the left of midline. There is lucency in the bone here. A metastatic deposit cannot be excluded. Consider MR. Harmon discussed with IR, neuro-radiology. They felt the biopsy would be risky to do. However since the lesion is apparent on 2 different imaging modalities, it is likely to be real. Hence the plan is to proceed with treatment. Since she has aggressive progressive disease, will treat her with an active marcy men, to expedite her response. She had an echocardiogram, prior to anthracycline. This came back normal with EF of 60-65%. She had genetic testing done. This came back negative. She had a Port-A-Cath placement. This was placed on 08/22. She started dose dense AC chemotherapy with Neulasta support. She completed that. She then received 12 weeks of Taxol. . Thyroid ultrasound revealed: Heterogeneous thyroid gland. The left lobe is enlarged. Bilateral thyroid nodules. Fine needle aspiration of the largest nodule in the left lobe recommended. l checked with Radiology, proceeded with the thyroid biopsy. (this revealed benign findings.) She completed 4 cycles of AC. She has now completed 12 weeks of Taxol treatment. She has tolerated it really well. She has had symptoms of neuropathy. This is likely residual from the Taxol. I started her on Neurontin for the neuropathic pain, 100 mg every 8 hours, to start out with. Encouraging thing is that her breast mass has disappeared. She complains of body aches joint pains. I proceeded with a bone scan. This revealed: No abnormal bone activity seen to suspect any metastatic bone disease. There is mild degenerative changes right T7 costovertebral junction and right T11 and T12 facet joints. She had an MRI of the breast on 02/18/21: Interval decrease in size of the incident mass in the 8 o'clock position which now measures 1.8 x 3.6 x 2.5 cm. There is no abnormal enhancement at this time which indicates a response to neoadjuvant chemotherapy. There is also a 0.7 cm satellite lesion in the 7 o'clock position, anterior to the primary tumor which also demonstrates no abnormal enhancement. No other findings suspicious of malignancy in either breast. . Status post mastectomy, 04/30, by Dr. Javed. Pathology: No residual cancer identified.(ypT0) consistent with complete response to pre- surgical therapy. Dense hyalinized stromal sclerosis with calcifications. Benign ducts with ductal ectasia. Six axillary lymph nodes negative for tumor. Skin and nipple with no evidence of tumor. This is very reassuring. PLAN: She is currently recuperating from the surgery. She is currently on maintenance, Herceptin and pertuzumab. She is here for that. She will complete 1 year in November. She will continue on denosumab for her bone Mets that disappeared on repeat imaging. Will follow her tumor marker: CA 27.29. All her questions were answered to her satisfaction. Thank you, CC: Dr. Javed. - Time Spent With Patient Time Spent with Patient (in minutes): 30
[2021-05-08] MEDS: Acetaminophen 325 MG TABLET 650 MG PO (11:31)
[2021-05-08] MEDS: Ondansetron ODT 8 MG TAB.RAPDIS TRANSLINGU (11:31)
[2021-05-08] MEDS: diphenhydrAMINE HCL 50 MG/ML VIAL 25 MG IVPUSH (11:31)
[2021-05-08] MEDS: oxyCODONE HCl Immed Release 5 MG TABLET PO (11:40)
[2021-05-08] MEDS: Alteplase Cath Clear 2 MG VIAL INTRACATH (14:08)
--- NOTE | 2021-05-08 16:32 | MHC.HEMONC ---
Here for C13 D1 Pertuzumab/Trastuzumab. Feeling pretty well after her recent left radical mastectomy. MALOU drains in place. Port accessed, no blood return noted. Flushes easily, with no pain or swelling. IV fluid infused, but still no blood return. Dr Peña made aware. IV started right hand for treatment. Sent for port study. Fibrin sheath noted at end of catheter. Cath-william injected, but still no blood return after [address] Peña aware. OK to de-access port. Treatment done and tolerated well. Dr Peña in to see pt in follow up. Surgical report reviewed with pt. Pt was medicated with oxycodone 5mg po for surgical pain with good results. Next treatment scheduled for 3 weeks.
[2021-05-28 08:48] LABS: MANUAL DIFF FLAG NO
[2021-05-28 08:50] LABS: Basophils Percent Auto 0.4 % (0-2); Eosinophils Absolute Auto 0.1 X10*3/uL (0.0-0.4); Hematocrit 46.5 % (37.0-47.0); Hemoglobin 15.2 g/dl (12.0-16.0); Imm Gran Abs Auto 0.01 X10*3/uL (0.00-0.03); Imm Gran Pct Auto 0.1 % (0.0-0.4); Lymphocytes Absolute Auto 1.7 X10*3/uL (1.2-4.9); Lymphocytes Percent Auto 21.8 % (20-40); Mean Corpuscular HGB Conc 32.7 g/dl (31.0-35.0); Mean Corpuscular Hemoglobin 31.1 pg (27.0-33.0); Mean Corpuscular Volume 95.1 fL (80.0-98.0); Mean Platelet Volume 9.7 fL (9.4-12.3); Monocytes Absolute Auto 0.6 X10*3/uL (0.1-1.2); Monocytes Percent Auto 7.9 % (2-11); Neutrophils Absolute Auto 5.3 x10*3/uL (2.0-8.3); Neutrophils Percent Auto 68.8 % (45-73); Platelet Count 204 X10*3/uL (160-400); Red Blood Count 4.89 X10*6/uL (4.20-5.50); Red Cell Distribution Width 12.5 % (11.0-16.0); White Blood Count 7.7 X10*3/uL (4.8-10.8)
[2021-05-28 09:17] LABS: Alanine Aminotransferase 14 U/L (0-31); Alkaline Phosphatase 77 U/L (39-117); Anion Gap 13 (12-20); Aspartate Amino Transferase 17 U/L (5-31); Blood Urea Nitrogen 15 mg/dL (9-16); Calcium 9.9 mg/dL (8.4-10.2); Carbon Dioxide 33 mmol/L (22-29); Chloride 100 mmol/L (96-108); Creatinine Clr Calc Pharmacy 70.9; Estimated Glomerular Filt Rate > 60; Glucose Random 127 mg/dL (60-115); Potassium 4.1 mmol/L (3.3-5.1); Sodium 142 mmol/L (135-145); Total Protein 6.9 g/dL (6.5-8.0)
[2021-05-28 09:49] LABS: Bilirubin Total 0.7 mg/dL (0.0-1.0)
--- NOTE | 2021-05-29 09:01 | HO.HEMONCPA ---
NO PA REQUIRED FOR DENOSUMAB. DRUG COVERED UNDER MEDICARE PART B BENEFITS
[2021-05-29 09:07] VITALS: BMI 38.7
[2021-05-29 09:12] VITALS: BP 132/65; PULSE 65; RESP 18; TEMP 36.4; O2SAT 97
[2021-05-29] MEDS: diphenhydrAMINE HCL 50 MG/ML VIAL 25 MG IVPUSH (10:11)
[2021-05-29] MEDS: Acetaminophen 325 MG TABLET 650 MG PO (10:12)
[2021-05-29] MEDS: Ondansetron ODT 8 MG TAB.RAPDIS TRANSLINGU (10:12)
[2021-05-29] MEDS: Heparin Sodium,Porcine Flush 500 UNIT/5 ML SYRINGE IVFLUSH (10:13)
--- NOTE | 2021-05-29 12:37 | MHC.HEMONCMA ---
Pt here for C14D1 Pertuzumab/Trastuzumab. Port accessed with no blood return noted. Flushes well with 0.9% NS. Pt repositioned several times with no blood return noted. 0.9% NS infusing without difficulty,pain or edema at site. DR Peña notified. Pt had port study in radiology within last 3 weeks with fibrin sheath noted. Pt received TPA at that time with continued no blood return noted. Dr Peña informed of port study 3 weeks ago and TPA administration 3 weeks ago with no blood return then and now. Plan to use port for chemotherapy per Dr Peña's order.Pt states she has continued numbness in fingers and toes. States she continues to take gabapentin 100mg tid with no relief. Dr Peña notified. Pre medicated with tylenol, zofran, benadryl. Pertuzumab/Trastuzumab given as ordered, port flushes well with 0.9% NS. Port flushed with heparin and de accessed. Denosumab SC given in right arm-c/o pain at site with medication administration. Discharge packet with follow up appointment scheduled.
--- NOTE | 2021-05-29 12:50 | MHC.HEMONC ---
Pt instructed to take gabapentin 100mg twice during day and 200mg at night per Dr Peña
--- NOTE | 2021-06-10 09:04 | MHC.HEMONCSW ---
LATE ENTRY...MET WITH PT WHO IS KNOWN TO ME FROM PREVIOUS ENCOUNTERS. REMAINS INDEPENDENT. REPORTS COPING FAIRLY WELL. BREAST CANCER, S/P MASTECTOMY, NOW WITH METASTASES. RECEIVING CHEMOTHERAPY,. HEALTH CARE PROXY PREVIOUSLY COMPLETED. EDUCATION AND SUPPORT PROVIDED.
[2021-06-18 09:00] LABS: MANUAL DIFF FLAG NO
[2021-06-18 09:03] LABS: Basophils Percent Auto 0.4 % (0-2); Eosinophils Absolute Auto 0.1 X10*3/uL (0.0-0.4); Hematocrit 48.5 % (37.0-47.0); Hemoglobin 15.8 g/dl (12.0-16.0); Imm Gran Abs Auto 0.06 X10*3/uL (0.00-0.03); Imm Gran Pct Auto 0.9 % (0.0-0.4); Lymphocytes Absolute Auto 1.7 X10*3/uL (1.2-4.9); Lymphocytes Percent Auto 24.5 % (20-40); Mean Corpuscular HGB Conc 32.6 g/dl (31.0-35.0); Mean Corpuscular Hemoglobin 31.3 pg (27.0-33.0); Mean Corpuscular Volume 96.2 fL (80.0-98.0); Mean Platelet Volume 9.7 fL (9.4-12.3); Monocytes Absolute Auto 0.6 X10*3/uL (0.1-1.2); Monocytes Percent Auto 8.6 % (2-11); Neutrophils Absolute Auto 4.4 x10*3/uL (2.0-8.3); Neutrophils Percent Auto 64.6 % (45-73); Platelet Count 171 X10*3/uL (160-400); Red Blood Count 5.04 X10*6/uL (4.20-5.50); White Blood Count 6.9 X10*3/uL (4.8-10.8)
[2021-06-18 09:29] LABS: Alanine Aminotransferase 16 U/L (0-31); Albumin Level 4.1 g/dL (3.5-5.0); Alkaline Phosphatase 76 U/L (39-117); Anion Gap 10 (12-20); Aspartate Amino Transferase 22 U/L (5-31); Bilirubin Total 1.2 mg/dL (0.0-1.0); Blood Urea Nitrogen 14 mg/dL (9-16); Calcium 9.5 mg/dL (8.4-10.2); Carbon Dioxide 34 mmol/L (22-29); Chloride 100 mmol/L (96-108); Estimated Glomerular Filt Rate > 60; Glucose Random 128 mg/dL (60-115); Potassium 4.3 mmol/L (3.3-5.1); Sodium 140 mmol/L (135-145)
[2021-06-19 09:04] VITALS: BP 137/60; PULSE 65; TEMP 36.3; O2SAT 96; BMI 38.0
[2021-06-19] MEDS: Acetaminophen 325 MG TABLET 650 MG PO (09:38)
[2021-06-19] MEDS: diphenhydrAMINE HCL 50 MG/ML VIAL 25 MG IVPUSH (09:38)
[2021-06-19] MEDS: Ondansetron ODT 8 MG TAB.RAPDIS TRANSLINGU (09:39)
--- NOTE | 2021-06-19 10:49 | MHC.HEMONCSW ---
MET WITH PT WHO IS KNOWN TO ME FROM PREVIOUS ENCOUNTERS. REPORTS COPING WELL BUT HAD A PERIOD OF DEPRESSION RECENTLY THAT LASTED FOR HALF A DAY....CRIED, FELT LOSS OF CONTROL..BUT, ADMITS SHE AND DAUGHTER JUST MOVED INTO A NEW HOUSE THAT COULD HAVE BEEN A PRECIPITANT. HASN'T HAPPENED AND DOES NOT WANT COUNSELING REFERRAL. DIAGNOSIS IS BREAST CANCER, RECEIVING CHEMOTHERAPY. PREVIOUSLY COMPLETED A HEALTH CARE PROXY. DISCUSSED EFFECT OF CANCER, CHEMO, AND SEASON CHANGES. MUCH EDUCATION, GUIDANCE AND SUPPORT PROVIDED. HER SISTER IN LAW IS INVOLVED AND SUPPORTIVE IS HER DAUGHTER. SHE IS AWARE OF MY AVAILABILITY.
[2021-06-19] MEDS: Heparin Sodium,Porcine Flush 500 UNIT/5 ML SYRINGE IVFLUSH (12:33)
--- NOTE | 2021-06-19 12:56 | PM.HEMONCPN ---
Medical Summary - Medical Summary Date of Service: 06/19/21 Chief complaint: follow-up for: Breast cancer. 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 CURRENT THERAPY: AC with Neulasta support, completed 4 cycles. Completed 12 weeks of Taxol. On pertuzumab and Herceptin maintenance. Here for a dose.Cycle # 13. Status post mastectomy, 04/30, by Dr. Javed. Pathology: No residual cancer identified.(ypT0) consistent with complete response to pre-surgical therapy. Dense hyalinized stromal sclerosis with calcifications. Benign ducts with ductal ectasia. Six axillary lymph nodes negative for tumor. Skin and nipple with no evidence of tumor. Interval History Interval history: Marcia Strong is a pleasant 66 year old lady, here for a follow-up visit. She has been doing well. She has recovered from her mastectomy. Her only complaint is the neuropathy has spread further up into her fingers. It is hard for her to lift up the pills with her fingertips. She feels somewhat tired. Denies fever nor chills. HEENT: No headache no dizziness. No chest pain nor trouble breathing. Denies any abdominal pain, she had some nausea this week. No vomiting heartburn indigestion. Her bowels are working without any gross blood in it. No more diarrhea. She had a colonoscopy in her 50s at [facility]. Appetite is good. She has gained weight. Denies any urinary complaints. Denies any focal weakness. She tells me she has had ongoing symptoms of neuropathy. She has numbness tingling and lack of sensation on her thumb and forefinger. It also involves her toes. Her tips hurt. Sometimes she can not even feel the blanket on her. She has had a chronic low back pain. She points to the lumbosacral area, as the site of pain. She denies any radiation down into the legs however her legs are other week. She is unable to stand for too long. She is doing her cooking on the stove sitting down. She complains of pain in her shoulder knee. It hurts to move. She also complains of neuropathy. Tips of her thumbs hurt. She is dropping things. She tolerated the chemotherapy reasonably well. She denies depression however she had history of anxiety. Recent imaging: MRI of the breast from 02/26: Interval decrease in size of the incident mass in the 8 o'clock position which now measures 1.8 x 3.6 x 2.5 cm. There is no abnormal enhancement at this time which indicates a response to neoadjuvant chemotherapy. There is also a 0.7 cm satellite lesion in the 7 o'clock position, anterior to the primary tumor which also demonstrates no abnormal enhancement. No other findings suspicious of malignancy in either breast. Previous history: She tells me that about 3 months ago she noted, what she felt was, a pimple underneath her left breast. It would occasionally get itchy and then dry. Then it became harder around the edges. It was fixed, not movable. Due to the pandemic she did not leave the home. About a month ago she woke up one morning and she felt her left breast was heavy and huge. It was quite red and warm to touch. 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 She decided to go to the emergency room. This was on 07/16. Ultrasound of the breast revealed: Large irregular mass with scattered internal color flow vascularity 8:00 position 7 cm from nipple measuring 5 x 4 cm. Several adjacent smaller satellite foci, largest 1.3 cm. Differential considerations include malignancy as well as abscess. ASSESSMENT: BI-RADS 4: Suspicious RECOMMENDATION: 1. Surgical Consult. 2. Diagnostic mammography. She underwent an ultrasound-guided biopsy at 08:00 o'clock position on 07/25. Pathology revealed: Invasive ductal carcinoma, MSBR grade 2. ER negative/MO negative/HER2 Stephy positive 3+. She was seen by Dr. Javed. She has been referred here for question if she should have neoadjuvant chemotherapy. 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 Menopause in her early 50s. No HRT. She is . She has 4 children. Family history: A paternal cousin had breast cancer in her mid 60s. 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 She is . Has 4 children. She smokes half a pack a day. She likes her wine. Review of Systems - Constitutional Reports no additional constitutional complaints - Eyes Reports no additional eye complaints - ENT Reports no additional ear, nose, mouth, and throat complaints - Cardiovascular Reports no additional cardiovascular complaints - Respiratory Reports no additional respiratory complaints - Gastrointestinal Reports no additional gastrointestinal complaints - Genitourinary Reports no additional female genitourinary complaints - Musculoskeletal Reports no additional musculoskeletal complaints - Integumentary/Breasts Skin/Breast: Reports no additional skin complaints - Neurologic Reports no additional neurologic complaints, Reports numbness, Reports paresthesias, Reports weakness - Psychiatric Reports no additional psychiatric complaints - Endocrine Reports no additional endocrine complaints - Hematologic/Lymphatic Reports no additional hematologic/lymphatic complaints - Allergic/Immunologic Reports no additional allergic/immunologic complaints PMFSH Medical History: Medical History (Last Reviewed 06/18/21 @ 13:12 by Rosales Javed MD) Arthritis Bone cancer Breast cancer Cerebral aneurysm Chronic back pain Morbid obesity Neuropathy Pneumonia Port-A-Cath in place Functional capacity: independent ambulation Patient : No Family History: Family History (Last Reviewed 06/18/21 @ 13:12 by Rosales Javed MD) Family/Other Breast cancer Brother Colon cancer Surgical History: Surgical History (Last Reviewed 06/18/21 @ 13:12 by Rosales Javed MD) H/O tubal ligation History of mastectomy Social History: Social History (Last Reviewed 06/18/21 @ 13:12 by Rosales Javed MD) Living Situation History: Housing: Apartment Are you a primary customer care specialist to a significant other at home: No Do you presently have visiting nurse or other home services: No Tobacco History: Patient Tobacco Use Status: Current everyday Tobacco Tobacco use type: Cigarette Years Smoked: 50 e-Cigarette/Vaping Use: Never Used Second Hand Smoke Exposure: Yes Second Hand Smoke Exposure comment: daughter Substance Use History: Use of substances other than those prescribed or required for medical reasons: No Advance Directives: Advance Directives Date on File: 08/22/20 Nutrition Assessment: Patient : No Occupation Assessmet: service: No Current occupational status: unemployed Oncology Screenings - ECOG Performance Status ECOG Performance Status: 0 Home Medications and Allergies Current Medications: Current Medications Acetaminophen (Acetaminophen 325 Mg Tablet) 650 mg PO ONCE YOUSIF Stop: 06/19/21 23:59 Last Admin: 06/19/21 09:38 Dose: 650 mg Documented by: Diphenhydramine HCl (Diphenhydramine Hcl 50 Mg/Ml Vial) 25 mg IVPUSH ONCE YOUSIF Stop: 06/19/21 23:59 Last Admin: 06/19/21 09:38 Dose: 25 mg Documented by: Heparin Sodium (Porcine) (Heparin Sodium,Porcine Flush 500 Unit/5 Ml Syringe) 500 unit IVFLUSH ONCE YOUSIF Stop: 06/19/21 23:59 Last Admin: 06/19/21 12:33 Dose: 500 unit Documented by: Pertuzumab 420 mg/ Sodium (Chloride) 264 mls @ 528 mls/hr IV ONCE YOUSIF Stop: 06/19/21 23:59 Last Infusion: 06/19/21 11:22 Dose: Infused Documented by: Trastuzumab 567 mg/ Sodium (Chloride) 277.027 mls @ 554.054 mls/hr IV ONCE YOUSIF Stop: 06/19/21 23:59 Last Infusion: 06/19/21 12:26 Dose: Infused Documented by: Ondansetron HCl (Ondansetron Odt 8 Mg Tab.Rapdis) 8 mg TRANSLINGU ONCE YOUSIF Stop: 06/19/21 23:59 Last Admin: 06/19/21 09:39 Dose: 8 mg Documented by: Home Medications Medication Instructions Recorded Confirmed Type melatonin 10 mg tablet 10 mg PO BEDTIME 04/21/21 06/18/21 History Allergies Allergy/AdvReac Type Severity Reaction Status Date / Time codeine [CODEINE] Allergy Unknown STOMACH Verified 06/17/21 15:47 UPSET Exam Vital signs: Vital Signs Temp 97.4 F 06/19/21 09:04 Pulse 65 06/19/21 09:04 Resp 18 05/29/21 09:12 BP 137/60 06/19/21 09:04 Pulse Ox 96 06/19/21 09:04 Intake & Output 06/18/21 06/19/21 06/19/21 18:59 06:59 18:59 Intake Total 541.027 / 541.027 Balance 541.027 / 541.027 Intake: Intake, IV Amount 541.027 / 541.027 Pertuzumab 420 mg In 0.9 % 264 / 264 Sodium Chloride 250 ml @ 528 mls/hr IV ONCE YOUSIF Rx#: [id number] Trastuzumab 567 mg In 0.9 % 277.027 / 277.027 Sodium Chloride 250 ml @ 554. 054 mls/hr IV ONCE YOUSIF Rx#: [id number] Other: Weight 94.5 kg Weight in Grams [id number] Weight 94.5 kg BMI result Body Mass Index 38.0 - Constitutional Present: moderate distress - Routine HEENT Exam Head: Present: normal inspection Eye: Present: normal appearance ENT: Present: mucous membranes moist - Routine Neck Exam Present: full ROM - Routine Respiratory Exam Present: CTAB - Routine Cardiovascular Exam Cardiovascular: Present: RRR, S1, S2 - Routine Abdominal Exam Present: soft, nontender - Routine Rectal Exam Patient deferred: digital exam - Routine Extremities Exam Present: nontender - Routine Back/Spine/Pelvis Exam Back/Spine: Absent: CVA tenderness - Routine Skin Exam Present: intact - Routine Neurological Exam Present: alert, oriented X3 - Detailed Neurological Exam: Coma Scale Eye Opening: Spontaneous (4) - Routine Psychiatric Exam Present: normal affect Data - Labs CBC & Chem 7: 06/18/21 08:58 06/18/21 08:58 Assessment and Plan Patient Active problem list reviewed?: Yes (1) Carcinoma of left breast Status: Acute Assessment and plan: Status: Acute This is a pleasant 65-year-old lady with a recent diagnosis of inflammatory breast carcinoma the left breast. It is ERPR negative and HER2 Stephy positive. On ultrasound the tumor appears to be about 6 cm in size. Ca 27.29:44. She would be a candidate for neoadjuvant chemotherapy, in view of the large size of the tumor and the inflammatory component. She is HER2 positive. I would recommend treating her with dose dense AC X4, followed by Taxol and Herceptin. And reassess for surgical resection, based upon her response. I proceeded with a baseline PET scan, for initial staging. This revealed: Intense activity in the medial left breast lesion assumed to be the primary tumor. There is also an enlarged left axillary node showing increased activity and metastatic disease needs to be suspected though this could be reactive. Otherwise, uptake in the region of the left thyroid gland, which is enlarged. This could represent uptake within a thyroid nodule and, therefore ultrasound would be recommended as malignancy cannot be excluded. Differential would be abnormal uptake in an enlarged node in the region. As described in the left axillary region, more proximally toward the region of the thoracic inlet, some mild uptake in nonpathologically enlarged nodes. These may be reactive but certainly early metastatic disease cannot be excluded. There is also uptake within the region of C1 anterior to the left of midline. There is lucency in the bone here. A metastatic deposit cannot be excluded. Consider MR. Harmon discussed with IR, neuro-radiology. They felt the biopsy would be risky to do. However since the lesion is apparent on 2 different imaging modalities, it is likely to be real. Hence the plan is to proceed with treatment. Since she has aggressive progressive disease, will treat her with an active regimen, to expedite her response. She had an echocardiogram, prior to anthracycline. This came back normal with EF of 60-65%. She had genetic testing done. This came back negative. She had a Port-A-Cath placement. This was placed on 08/22. She started dose dense AC chemotherapy with Neulasta support. She completed that. She then received 12 weeks of Taxol. . Thyroid ultrasound revealed: Heterogeneous thyroid gland. The left lobe is enlarged. Bilateral thyroid nodules. Fine needle aspiration of the largest nodule in the left lobe recommended. l checked with Radiology, proceeded with the thyroid biopsy. (this revealed benign findings.) She completed 4 cycles of AC. She has now completed 12 weeks of Taxol treatment. She has tolerated it really well. She has had symptoms of neuropathy. This is likely residual from the Taxol. I started her on Neurontin for the neuropathic pain, 100 mg every 8 hours, to start out with. Encouraging thing is that her breast mass has disappeared. She complains of body aches joint pains. I proceeded with a bone scan. This revealed: No abnormal bone activity seen to suspect any metastatic bone disease. There is mild degenerative changes right T7 costovertebral junction and right T11 and T12 facet joints. She had an MRI of the breast on 02/18/21: Interval decrease in size of the incident mass in the 8 o'clock position which now measures 1.8 x 3.6 x 2.5 cm. There is no abnormal enhancement at this time which indicates a response to neoadjuvant chemotherapy. There is also a 0.7 cm satellite lesion in the 7 o'clock position, anterior to the primary tumor which also demonstrates no abnormal enhancement. No other findings suspicious of malignancy in either breast. . Status post mastectomy, 04/30, by Dr. Javed. Pathology: No residual cancer identified.(ypT0) consistent with complete response to pre-surgical therapy. Dense hyalinized stromal sclerosis with calcifications. Benign ducts with ductal ectasia. Six axillary lymph nodes negative for tumor. Skin and nipple with no evidence of tumor. This is very reassuring. Her main complaint is her neuropathy worsening. She has been taking the gabapentin without much benefit. PLAN: I will switch her to Lyrica. We did get the prior Auth and she will get started on it in a dose of 25 mg q.h.s. Hopefully that will do the trick. I did offer to refer her to Neurology however she like to wait on that. She is currently on maintenance, Herceptin and pertuzumab. She is here for that. She will complete 1 year in November. She will continue on denosumab for her bone Mets that disappeared on repeat imaging. Will follow her tumor marker: CA 27.29. All her questions were answered to her satisfaction. Thank you, CC: Dr. Javed. - Time Spent With Patient Time Spent with Patient (in minutes): 30
--- NOTE | 2021-06-19 13:05 | PM.HEMONCPN ---
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 CURRENT THERAPY: AC with Neulasta support, completed 4 cycles. Completed 12 weeks of Taxol. On pertuzumab and Herceptin maintenance. Here for a dose.Cycle # 13. Status post mastectomy, 04/30, by Dr. Javed. Pathology: No residual cancer identified.(ypT0) consistent with complete response to pre-surgical therapy. Dense hyalinized stromal sclerosis with calcifications. Benign ducts with ductal ectasia. Six axillary lymph nodes negative for tumor. Skin and nipple with no evidence of tumor. Interval History Interval history: Marcia Strong is a pleasant 66 year old lady, here for a follow-up visit. She has been doing well. She is still recovering from her mastectomy. She was in house for 3 days. She required IV Dilaudid for pain. She still has the drains in. They are rather annoying and painful. Pain level is 7-8. She takes oxycodone. She has a follow-up appointment with Dr. Javed tomorrow. Hopefully the scooby and drains will come out and she will be more comfortable. She feels somewhat tired. Denies fever nor chills. HEENT: No headache no dizziness. No chest pain nor trouble breathing. Denies any abdominal pain, she had some nausea this week. No vomiting heartburn indigestion. Her bowels are working without any gross blood in it. No more diarrhea. She had a colonoscopy in her 50s at [facility]. Appetite is good. She has gained weight. Denies any urinary complaints. Denies any focal weakness. She tells me she has had ongoing symptoms of neuropathy. She has numbness tingling and lack of sensation on her thumb and forefinger. It also involves her toes. Her tips hurt. Sometimes she can not even feel the blanket on her. She has had a chronic low back pain. She points to the lumbosacral area, as the site of pain. She denies any radiation down into the legs however her legs are other week. She is unable to stand for too long. She is doing her cooking on the stove sitting down. She complains of pain in her shoulder knee. It hurts to move. She also complains of neuropathy. Tips of her thumbs hurt. She is dropping things. She tolerated the chemotherapy reasonably well. She denies depression however she had history of anxiety. Recent imaging: MRI of the breast from 02/26: Interval decrease in size of the incident mass in the 8 o'clock position which now measures 1.8 x 3.6 x 2.5 cm. There is no abnormal enhancement at this time which indicates a response to neoadjuvant chemotherapy. There is also a 0.7 cm satellite lesion in the 7 o'clock position, anterior to the primary tumor which also demonstrates no abnormal enhancement. No other findings suspicious of malignancy in either breast. Previous history: She tells me that about 3 months ago she noted, what she felt was, a pimple underneath her left breast. It would occasionally get itchy and then dry. Then it became harder around the edges. It was fixed, not movable. Due to the pandemic she did not leave the home. About a month ago she woke up one morning and she felt her left breast was heavy and huge. It was quite red and warm to touch. The nipple appeared microarray analyst. She decided to go to the emergency room. This was on 07/16. Ultrasound of the breast revealed: Large irregular mass with scattered internal color flow vascularity 8:00 position 7 cm from nipple measuring 5 x 4 cm. Several adjacent smaller satellite foci, largest 1.3 cm. Differential considerations include malignancy as well as abscess. ASSESSMENT: BI-RADS 4: Suspicious RECOMMENDATION: 1. Surgical Consult. 2. Diagnostic mammography. She underwent an ultrasound-guided biopsy at 08:00 o'clock position on 07/25. Pathology revealed: Invasive ductal carcinoma, MSBR grade 2. ER negative/OK negative/HER2 Stephy positive 3+. She was seen by Dr. Javed. She has been referred here for question if she should have neoadjuvant chemotherapy. 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 Menopause in her early 50s. No HRT. She is . She has 4 children. Family history: A paternal cousin had breast cancer in her mid 60s. 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 She is . Has 4 children. She smokes half a pack a day. She likes her wine. Review of Systems - Neurologic Reports system reviewed and no additional complaints, except as documented, Reports numbness, Reports paresthesias, Reports weakness PMFSH Medical History: Medical History (Last Reviewed 06/18/21 @ 13:12 by Rosales Javed MD) Arthritis Bone cancer Breast cancer Cerebral aneurysm Chronic back pain Morbid obesity Neuropathy Pneumonia Port-A-Cath in place Functional capacity: independent ambulation Family History: Family History (Last Reviewed 06/18/21 @ 13:12 by Rosales Javed MD) Family/Other Breast cancer Brother Colon cancer Surgical History: Surgical History (Last Reviewed 06/18/21 @ 13:12 by Rosales Javed MD) H/O tubal ligation History of mastectomy Social History: Social History (Last Reviewed 06/18/21 @ 13:12 by Rosales Javed MD) Living Situation History: Housing: Apartment Are you a primary clinical manager home care to a significant other at home: No Do you presently have visiting nurse or other home services: No Tobacco History: Patient Tobacco Use Status: Current everyday Tobacco Tobacco use type: Cigarette Years Smoked: 50 e-Cigarette/Vaping Use: Never Used Second Hand Smoke Exposure: Yes Second Hand Smoke Exposure comment: daughter Substance Use History: Use of substances other than those prescribed or required for medical reasons: No Advance Directives: Advance Directives Date on File: 08/22/20 Nutrition Assessment: Patient : No Occupation Assessmet: service: No Current occupational status: unemployed Home Medications and Allergies Current Medications: Current Medications Acetaminophen (Acetaminophen 325 Mg Tablet) 650 mg PO ONCE YOUSIF Stop: 06/19/21 23:59 Last Admin: 06/19/21 09:38 Dose: 650 mg Documented by: Diphenhydramine HCl (Diphenhydramine Hcl 50 Mg/Ml Vial) 25 mg IVPUSH ONCE YOUSIF Stop: 06/19/21 23:59 Last Admin: 06/19/21 09:38 Dose: 25 mg Documented by: Heparin Sodium (Porcine) (Heparin Sodium,Porcine Flush 500 Unit/5 Ml Syringe) 500 unit IVFLUSH ONCE YOUSIF Stop: 06/19/21 23:59 Last Admin: 06/19/21 12:33 Dose: 500 unit Documented by: Pertuzumab 420 mg/ Sodium (Chloride) 264 mls @ 528 mls/hr IV ONCE YOUSIF Stop: 06/19/21 23:59 Last Infusion: 06/19/21 11:22 Dose: Infused Documented by: Trastuzumab 567 mg/ Sodium (Chloride) 277.027 mls @ 554.054 mls/hr IV ONCE YOUSIF Stop: 06/19/21 23:59 Last Infusion: 06/19/21 12:26 Dose: Infused Documented by: Ondansetron HCl (Ondansetron Odt 8 Mg Tab.Rapdis) 8 mg TRANSLINGU ONCE YOUSIF Stop: 06/19/21 23:59 Last Admin: 06/19/21 09:39 Dose: 8 mg Documented by: Home Medications Medication Instructions Recorded Confirmed Type melatonin 10 mg tablet 10 mg PO BEDTIME 04/21/21 06/18/21 History Allergies Allergy/AdvReac Type Severity Reaction Status Date / Time codeine [CODEINE] Allergy Unknown STOMACH Verified 06/17/21 15:47 UPSET Exam Vital signs: Vital Signs Temp 97.4 F 06/19/21 09:04 Pulse 65 06/19/21 09:04 Resp 18 05/29/21 09:12 BP 137/60 06/19/21 09:04 Pulse Ox 96 06/19/21 09:04 Intake & Output 06/18/21 06/19/21 06/19/21 18:59 06:59 18:59 Intake Total 541.027 / 541.027 Balance 541.027 / 541.027 Intake: Intake, IV Amount 541.027 / 541.027 Pertuzumab 420 mg In 0.9 % 264 / 264 Sodium Chloride 250 ml @ 528 mls/hr IV ONCE YOUSIF Rx#: [id number] Trastuzumab 567 mg In 0.9 % 277.027 / 277.027 Sodium Chloride 250 ml @ 554. 054 mls/hr IV ONCE YOUSIF Rx#: [id number] Other: Weight 94.5 kg [place] Weight in Grams 8[address]30 Weight 94.5 kg BMI result Body Mass Index 38.0 - Constitutional Present: moderate distress - Routine HEENT Exam Head: Present: normal inspection - Routine Neck Exam Present: full ROM - Routine Respiratory Exam Present: CTAB - Routine Cardiovascular Exam Cardiovascular: Present: RRR, S1, S2 - Routine Abdominal Exam Present: soft, nontender - Routine Rectal Exam Patient deferred: digital exam - Routine Extremities Exam Present: nontender - Routine Back/Spine/Pelvis Exam Back/Spine: Absent: CVA tenderness - Routine Skin Exam Present: intact - Routine Neurological Exam Present: alert, oriented X3 - Detailed Neurological Exam: Coma Scale Eye Opening: Spontaneous (4) - Routine Psychiatric Exam Present: normal affect Data - Labs CBC & Chem 7: 06/18/21 08:58 06/18/21 08:58 Assessment and Plan Patient Active problem list reviewed?: Yes (1) Carcinoma of left breast Status: Acute Assessment and plan: Status: Acute This is a pleasant 65-year-old lady with a recent diagnosis of inflammatory breast carcinoma the left breast. It is ERPR negative and HER2 Stephy positive. On ultrasound the tumor appears to be about 6 cm in size. Ca 27.29:44. She would be a candidate for neoadjuvant chemotherapy, in view of the large size of the tumor and the inflammatory component. She is HER2 positive. I would recommend treating her with dose dense AC X4, followed by Taxol and Herceptin. And reassess for surgical resection, based upon her response. I proceeded with a baseline PET scan, for initial staging. This revealed: Intense activity in the medial left breast lesion assumed to be the primary tumor. There is also an enlarged left axillary node showing increased activity and metastatic disease needs to be suspected though this could be reactive. Otherwise, uptake in the region of the left thyroid gland, which is enlarged. This could represent uptake within a thyroid nodule and, therefore ultrasound would be recommended as malignancy cannot be excluded. Differential would be abnormal uptake in an enlarged node in the region. As described in the left axillary region, more proximally toward the region of the thoracic inlet, some mild uptake in nonpathologically enlarged nodes. These may be reactive but certainly early metastatic disease cannot be excluded. There is also uptake within the region of C1 anterior to the left of midline. There is lucency in the bone here. A metastatic deposit cannot be excluded. Consider MR. Harmon discussed with IR, neuro-radiology. They felt the biopsy would be risky to do. However since the lesion is apparent on 2 different imaging modalities, it is likely to be real. Hence the plan is to proceed with treatment. Since she has aggressive progressive disease, will treat her with an active regimen, to expedite her response. She had an echocardiogram, prior to anthracycline. This came back normal with EF of 60-65%. She had genetic testing done. This came back negative. She had a Port-A-Cath placement. This was placed on 08/22. She started dose dense AC chemotherapy with Neulasta support. She completed that. She then received 12 weeks of Taxol. . Thyroid ultrasound revealed: Heterogeneous thyroid gland. The left lobe is enlarged. Bilateral thyroid nodules. Fine needle aspiration of the largest nodule in the left lobe recommended. l checked with Radiology, proceeded with the thyroid biopsy. (this revealed benign findings.) She completed 4 cycles of AC. She has now completed 12 weeks of Taxol treatment. She has tolerated it really well. She has had symptoms of neuropathy. This is likely residual from the Taxol. I started her on Neurontin for the neuropathic pain, 100 mg every 8 hours, to start out with. Encouraging thing is that her breast mass has disappeared. She complains of body aches joint pains. I proceeded with a bone scan. This revealed: No abnormal bone activity seen to suspect any metastatic bone disease. There is mild degenerative changes right T7 costovertebral junction and right T11 and T12 facet joints. She had an MRI of the breast on 02/18/21: Interval decrease in size of the incident mass in the 8 o'clock position which now measures 1.8 x 3.6 x 2.5 cm. There is no abnormal enhancement at this time which indicates a response to neoadjuvant chemotherapy. There is also a 0.7 cm satellite lesion in the 7 o'clock position, anterior to the primary tumor which also demonstrates no abnormal enhancement. No other findings suspicious of malignancy in either breast. . Status post mastectomy, 04/30, by Dr. Javed. Pathology: No residual cancer identified.(ypT0) consistent with complete response to pre-surgical therapy. Dense hyalinized stromal sclerosis with calcifications. Benign ducts with ductal ectasia. Six axillary lymph nodes negative for tumor. Skin and nipple with no evidence of tumor. This is very reassuring. The neuropathy appears to be worsening. She has been on gabapentin without significant benefit. PLAN: I will give her Lyrica for that. She is currently on maintenance, Herceptin and pertuzumab. She is here for that. She will complete 1 year in November. She will continue on denosumab for her bone Mets that disappeared on repeat imaging. Will follow her tumor marker: CA 27.29. All her questions were answered to her satisfaction. Thank you, CC: Dr. Javed. - Time Spent With Patient Time Spent with Patient (in minutes): 30
--- NOTE | 2021-06-19 14:14 | MHC.HEMONC ---
Here for C15 D1 Perjeta/Herceptin. She states she is feeling well. Her only c/o is that her neuropathy in her fingers is feeling worse. She states it had only been in her thumb and first fingers, and now is in all her fingers. She says she has hard time picking things up. Dr Peña aware. Port accessed. Flushes well but no blood return noted. Did have port study done and showed fibrin sheath at tip of catheter. Ok to use port per Dr Peña. Labs done 06/18 reviewed. Premeds given as ordered. Treatment done and tolerated well. Port flushed with heparin and de-accessed. Scheduled to return for next treatment in [address] Peña in to see pt in follow up.
[2021-07-09 08:43] LABS: MANUAL DIFF FLAG NO
[2021-07-09 09:27] LABS: Basophils Percent Auto 0.4 % (0-2); Eosinophils Absolute Auto 0.1 X10*3/uL (0.0-0.4); Eosinophils Percent Auto 1.1 % (0-4); Hematocrit 48.3 % (37.0-47.0); Hemoglobin 16.2 g/dl (12.0-16.0); Imm Gran Abs Auto 0.02 X10*3/uL (0.00-0.03); Imm Gran Pct Auto 0.3 % (0.0-0.4); Lymphocytes Absolute Auto 1.9 X10*3/uL (1.2-4.9); Lymphocytes Percent Auto 25.6 % (20-40); Mean Corpuscular HGB Conc 33.5 g/dl (31.0-35.0); Mean Corpuscular Volume 95.5 fL (80.0-98.0); Mean Platelet Volume 10.4 fL (9.4-12.3); Monocytes Absolute Auto 0.7 X10*3/uL (0.1-1.2); Monocytes Percent Auto 9.8 % (2-11); Neutrophils Absolute Auto 4.7 x10*3/uL (2.0-8.3); Neutrophils Percent Auto 62.8 % (45-73); Platelet Count 191 X10*3/uL (160-400); Red Blood Count 5.06 X10*6/uL (4.20-5.50); Red Cell Distribution Width 13.6 % (11.0-16.0); White Blood Count 7.5 X10*3/uL (4.8-10.8)
[2021-07-09 09:44] LABS: Alanine Aminotransferase 15 U/L (0-31); Albumin Level 4.2 g/dL (3.5-5.0); Alkaline Phosphatase 77 U/L (39-117); Anion Gap 14 (12-20); Aspartate Amino Transferase 20 U/L (5-31); Blood Urea Nitrogen 11 mg/dL (9-16); Calcium 9.9 mg/dL (8.4-10.2); Carbon Dioxide 31 mmol/L (22-29); Chloride 99 mmol/L (96-108); Creatinine Clr Calc Pharmacy 73.2; Estimated Glomerular Filt Rate > 60; Glucose Random 117 mg/dL (60-115); Potassium 3.6 mmol/L (3.3-5.1); Sodium 140 mmol/L (135-145); Total Protein 7.3 g/dL (6.5-8.0)
[2021-07-10 08:59] VITALS: BP 136/71; PULSE 76; RESP 20; TEMP 36.6; O2SAT 96; BMI 38.0
[2021-07-10] MEDS: Ondansetron ODT 8 MG TAB.RAPDIS TRANSLINGU (09:26)
[2021-07-10] MEDS: Acetaminophen 325 MG TABLET 650 MG PO (09:26)
[2021-07-10] MEDS: diphenhydrAMINE HCL 50 MG/ML VIAL 25 MG IVPUSH (09:27)
[2021-07-10] MEDS: Heparin Sodium,Porcine Flush 500 UNIT/5 ML SYRINGE IVFLUSH (11:45)
--- NOTE | 2021-07-10 13:57 | MHC.HEMONC ---
Here for C16 D1 Pertuzumab/Trastuzumab. Port accessed with no blood return noted. Port study was done previously which showed fibrin sheath. Labs done 07/09 reviewed. Pt states she has felt ok since last treatment. Did have some nausea and dry heaves, but no vomiting. Premeds given as ordered. Treatment done and tolerated well. Port flushed with heparin and de-accessed. Scheduled for next treatment in 3 weeks.
[2021-07-30 08:40] LABS: MANUAL DIFF FLAG NO
[2021-07-30 08:54] LABS: Basophils Percent Auto 0.4 % (0-2); Eosinophils Absolute Auto 0.1 X10*3/uL (0.0-0.4); Hematocrit 45.5 % (37.0-47.0); Hemoglobin 15.1 g/dl (12.0-16.0); Imm Gran Abs Auto 0.02 X10*3/uL (0.00-0.03); Imm Gran Pct Auto 0.3 % (0.0-0.4); Lymphocytes Absolute Auto 1.6 X10*3/uL (1.2-4.9); Lymphocytes Percent Auto 24.2 % (20-40); Mean Corpuscular HGB Conc 33.2 g/dl (31.0-35.0); Mean Corpuscular Hemoglobin 31.6 pg (27.0-33.0); Mean Corpuscular Volume 95.2 fL (80.0-98.0); Monocytes Absolute Auto 0.7 X10*3/uL (0.1-1.2); Monocytes Percent Auto 9.7 % (2-11); Neutrophils Absolute Auto 4.4 x10*3/uL (2.0-8.3); Neutrophils Percent Auto 64.4 % (45-73); Platelet Count 191 X10*3/uL (160-400); Red Blood Count 4.78 X10*6/uL (4.20-5.50); Red Cell Distribution Width 13.1 % (11.0-16.0); White Blood Count 6.8 X10*3/uL (4.8-10.8)
[2021-07-30 09:18] LABS: Alanine Aminotransferase 12 U/L (0-31); Albumin Level 3.9 g/dL (3.5-5.0); Alkaline Phosphatase 74 U/L (39-117); Anion Gap 12 (12-20); Aspartate Amino Transferase 18 U/L (5-31); Bilirubin Total 0.6 mg/dL (0.0-1.0); Blood Urea Nitrogen 12 mg/dL (9-16); Calcium 9.8 mg/dL (8.4-10.2); Carbon Dioxide 32 mmol/L (22-29); Chloride 99 mmol/L (96-108); Creatinine Clr Calc Pharmacy 70.4; Estimated Glomerular Filt Rate > 60; Glucose Random 124 mg/dL (60-115); Sodium 139 mmol/L (135-145); Total Protein 6.7 g/dL (6.5-8.0)
--- NOTE | 2021-07-31 06:56 | HE.PHANOTE ---
ECHO - LAST ECHO 05/28/21, WILL NEED NEW ECHO IN AUGUST 2021
[2021-07-31 09:13] VITALS: BMI 38.0
[2021-07-31 09:14] VITALS: BP 136/82; PULSE 65; RESP 16; TEMP 36.1; O2SAT 97
[2021-07-31] MEDS: Acetaminophen 325 MG TABLET 650 MG PO (09:50)
[2021-07-31] MEDS: Ondansetron ODT 8 MG TAB.RAPDIS TRANSLINGU (09:50)
[2021-07-31] MEDS: diphenhydrAMINE HCL 50 MG/ML VIAL 25 MG IVPUSH (09:57)
--- NOTE | 2021-07-31 10:52 | PM.HEMONCPN ---
Medical Summary - Medical Summary Date of Service: 07/31/21 Chief complaint: follow-up for HER2 positive breast cancer. 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 CURRENT THERAPY: AC with Neulasta support, completed 4 cycles. Completed 12 weeks of Taxol. On pertuzumab and Herceptin maintenance. Here for a dose.Cycle # 17. Status post mastectomy, 04/30, by Dr. Javed. Pathology: No residual cancer identified.(ypT0) consistent with complete response to pre-surgical therapy. Dense hyalinized stromal sclerosis with calcifications. Benign ducts with ductal ectasia. Six axillary lymph nodes negative for tumor. Skin and nipple with no evidence of tumor. Interval History Interval history: Marcia Strong is a pleasant 66 year old lady, here for a follow-up visit. She has been doing well. She feels somewhat tired, but only if she over does it. She tells me she has had ongoing symptoms of neuropathy. She has numbness tingling and lack of sensation on her thumb and forefinger. It also involves her toes. Her tips hurt. Sometimes she can not even feel the blanket on her. She has had a chronic low back pain. She points to the lumbosacral area, as the site of pain. She denies any radiation down into the legs however her legs are other week. She is unable to stand for too long. She is doing her cooking on the stove sitting down. She complains of pain in her shoulder knee. It hurts to move. She also complains of neuropathy. Tips of her thumbs hurt. It does not involve her toes only the bottom of her feet are numb and it is hard for her to walk barefoot. The Lyrica or did not help Denies fever nor chills. HEENT: No headache no dizziness. She has thick stuff coming from her eyes. She does have eyedrops that she has not used. No chest pain nor trouble breathing. Couple of weeks ago she came down with the stomach virus. However it resolved as quickly as it came. She denies any abdominal pain, she had some nausea this week. No vomiting heartburn indigestion. Her bowels are working without any gross blood in it. No more diarrhea. She had a colonoscopy in her 50s at [facility]. Appetite is good. She has gained weight. Denies any urinary complaints. Denies any focal weakness. She tolerated the chemotherapy reasonably well. She denies depression however she had history of anxiety. Recent imaging: MRI of the breast from 02/26: Interval decrease in size of the incident mass in the 8 o'clock position which now measures 1.8 x 3.6 x 2.5 cm. There is no abnormal enhancement at this time which indicates a response to neoadjuvant chemotherapy. There is also a 0.7 cm satellite lesion in the 7 o'clock position, anterior to the primary tumor which also demonstrates no abnormal enhancement. No other findings suspicious of malignancy in either breast. Previous history: She tells me that about 3 months ago she noted, what she felt was, a pimple underneath her left breast. It would occasionally get itchy and then dry. Then it became harder around the edges. It was fixed, not movable. Due to the pandemic she did not leave the home. About a month ago she woke up one morning and she felt her left breast was heavy and huge. It was quite red and warm to touch. The nipple appeared test tube maker. She decided to go to the emergency room. This was on 07/16. Ultrasound of the breast revealed: Large irregular mass with scattered internal color flow vascularity 8:00 position 7 cm from nipple measuring 5 x 4 cm. Several adjacent smaller satellite foci, largest 1.3 cm. Differential considerations include malignancy as well as abscess. ASSESSMENT: BI-RADS 4: Suspicious RECOMMENDATION: 1. Surgical Consult. 2. Diagnostic mammography. She underwent an ultrasound-guided biopsy at 08:00 o'clock position on 07/25. Pathology revealed: Invasive ductal carcinoma, MSBR grade 2. ER negative/KS negative/HER2 Stephy positive 3+. She was seen by Dr. Javed. She has been referred here for question if she should have neoadjuvant chemotherapy. 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 Menopause in her early 50s. No HRT. She is . She has 4 children. Family history: A paternal cousin had breast cancer in her mid 60s. 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 She is . Has 4 children. She smokes half a pack a day. She likes her wine. Review of Systems - Neurologic Reports no additional neurologic complaints, Reports numbness, Reports paresthesias, Reports weakness PMFSH Medical History: Medical History (Last Reviewed 06/18/21 @ 13:12 by Rosales Javed MD) Arthritis Bone cancer Breast cancer Cerebral aneurysm Chronic back pain Morbid obesity Neuropathy Pneumonia Port-A-Cath in place Functional capacity: independent ambulation Patient : No Family History: Family History (Last Reviewed 06/18/21 @ 13:12 by Rosales Javed MD) Family/Other Breast cancer Brother Colon cancer Surgical History: Surgical History (Last Reviewed 06/18/21 @ 13:12 by Rosales Javed MD) H/O tubal ligation History of mastectomy Social History: Social History (Last Reviewed 06/18/21 @ 13:12 by Rosales Javed MD) Living Situation History: Housing: Apartment Are you a primary client care manager to a significant other at home: No Do you presently have visiting nurse or other home services: No Tobacco History: Patient Tobacco Use Status: Current everyday Tobacco Tobacco use type: Cigarette Years Smoked: 50 e-Cigarette/Vaping Use: Never Used Second Hand Smoke Exposure: Yes Second Hand Smoke Exposure comment: daughter Substance Use History: Use of substances other than those prescribed or required for medical reasons: No Advance Directives: Advance Directives Date on File: 08/22/20 Nutrition Assessment: Patient : No Occupation Assessmet: service: No Current occupational status: unemployed Oncology Screenings - ECOG Performance Status ECOG Performance Status: 0 Home Medications and Allergies Current Medications: Current Medications Acetaminophen (Acetaminophen 325 Mg Tablet) 650 mg PO ONCE YOUSIF Stop: 07/31/21 23:59 Last Admin: 07/31/21 09:50 Dose: 650 mg Documented by: Diphenhydramine HCl (Diphenhydramine Hcl 50 Mg/Ml Vial) 25 mg IVPUSH ONCE YOUSIF Stop: 07/31/21 23:59 Last Admin: 07/31/21 09:57 Dose: 25 mg Documented by: Heparin Sodium (Porcine) (Heparin Sodium,Porcine Flush 500 Unit/5 Ml Syringe) 500 unit IVFLUSH ONCE YOUSIF Stop: 07/31/21 23:59 Pertuzumab 420 mg/ Sodium (Chloride) 264 mls @ 528 mls/hr IV ONCE YOUSIF Stop: 07/31/21 23:59 Last Admin: 07/31/21 10:41 Dose: 528 mls/hr Documented by: Trastuzumab 567 mg/ Sodium (Chloride) 277.027 mls @ 554.054 mls/hr IV ONCE YOUSIF Stop: 07/31/21 23:59 Ondansetron HCl (Ondansetron Odt 8 Mg Tab.Rapdis) 8 mg TRANSLINGU ONCE YOUSIF Stop: 07/31/21 23:59 Last Admin: 07/31/21 09:50 Dose: 8 mg Documented by: Home Medications Medication Instructions Recorded Confirmed Type melatonin 10 mg tablet 10 mg PO BEDTIME 04/21/21 07/10/21 History Allergies Allergy/AdvReac Type Severity Reaction Status Date / Time codeine [CODEINE] Allergy Unknown STOMACH Verified 06/17/21 15:47 UPSET Exam Vital signs: Vital Signs Temp 97.0 F 07/31/21 09:14 Pulse 65 07/31/21 09:14 Resp 16 07/31/21 09:14 BP 136/82 07/31/21 09:14 Pulse Ox 97 07/31/21 09:14 Intake & Output 07/30/21 07/31/21 07/31/21 18:59 06:59 18:59 Other: Weight 94.5 kg Weight in Grams 32882 Weight 94.5 kg BMI result Body Mass Index 38.0 - Constitutional Present: moderate distress, obese - Routine HEENT Exam Head: Present: normal inspection Eye: Present: normal appearance ENT: Present: mucous membranes moist - Routine Neck Exam Present: full ROM - Routine Respiratory Exam Present: CTAB - Routine Cardiovascular Exam Cardiovascular: Present: RRR, S1, S2 - Routine Abdominal Exam Present: soft, nontender - Routine Rectal Exam Patient deferred: digital exam - Routine Extremities Exam Present: nontender - Routine Back/Spine/Pelvis Exam Back/Spine: Absent: CVA tenderness - Routine Skin Exam Present: intact - Routine Neurological Exam Present: alert, oriented X3 - Detailed Neurological Exam: Coma Scale Eye Opening: Spontaneous (4) - Routine Psychiatric Exam Present: normal affect Data - Labs CBC & Chem 7: 07/30/21 08:37 07/30/21 08:37 Assessment and Plan Patient Active problem list reviewed?: Yes (1) Carcinoma of left breast Status: Acute Assessment and plan: Status: Acute This is a pleasant 65-year-old lady with a recent diagnosis of inflammatory breast carcinoma the left breast. It is ERPR negative and HER2 Stephy positive. On ultrasound the tumor appears to be about 6 cm in size. Ca 27.29:44. She would be a candidate for neoadjuvant chemotherapy, in view of the large size of the tumor and the inflammatory component. She is HER2 positive. I would recommend treating her with dose dense AC X4, followed by Taxol and Herceptin. And reassess for surgical resection, based upon her response. I proceeded with a baseline PET scan, for initial staging. This revealed: Intense activity in the medial left breast lesion assumed to be the primary tumor. There is also an enlarged left axillary node showing increased activity and metastatic disease needs to be suspected though this could be reactive. Otherwise, uptake in the region of the left thyroid gland, which is enlarged. This could represent uptake within a thyroid nodule and, therefore ultrasound would be recommended as malignancy cannot be excluded. Differential would be abnormal uptake in an enlarged node in the region. As described in the left axillary region, more proximally toward the region of the thoracic inlet, some mild uptake in nonpathologically enlarged nodes. These may be reactive but certainly early metastatic disease cannot be excluded. There is also uptake within the region of C1 anterior to the left of midline. There is lucency in the bone here. A metastatic deposit cannot be excluded. Consider MR. Harmon discussed with IR, neuro-radiology. They felt the biopsy would be risky to do. However since the lesion is apparent on 2 different imaging modalities, it is likely to be real. Hence the plan is to proceed with treatment. Since she has aggressive progressive disease, will treat her with an active regimen, to expedite her response. She had an echocardiogram, prior to anthracycline. This came back normal with EF of 60-65%. She had genetic testing done. This came back negative. She had a Port-A-Cath placement. This was placed on 08/22. She started dose dense AC chemotherapy with Neulasta support. She completed that. She then received 12 weeks of Taxol. . Thyroid ultrasound revealed: Heterogeneous thyroid gland. The left lobe is enlarged. Bilateral thyroid nodules. Fine needle aspiration of the largest nodule in the left lobe recommended. l checked with Radiology, proceeded with the thyroid biopsy. (this revealed benign findings.) She completed 4 cycles of AC. She has now completed 12 weeks of Taxol treatment. She has tolerated it really well. She has had symptoms of neuropathy. This is likely residual from the Taxol. I started her on Neurontin for the neuropathic pain, 100 mg every 8 hours, to start out with. Encouraging thing is that her breast mass has disappeared. She complains of body aches joint pains. I proceeded with a bone scan. This revealed: No abnormal bone activity seen to suspect any metastatic bone disease. There is mild degenerative changes right T7 costovertebral junction and right T11 and T12 facet joints. She had an MRI of the breast on 02/18/21: Interval decrease in size of the incident mass in the 8 o'clock position which now measures 1.8 x 3.6 x 2.5 cm. There is no abnormal enhancement at this time which indicates a response to neoadjuvant chemotherapy. There is also a 0.7 cm satellite lesion in the 7 o'clock position, anterior to the primary tumor which also demonstrates no abnormal enhancement. No other findings suspicious of malignancy in either breast. . Status post mastectomy, 04/30/21, by Dr. Javed. Pathology: No residual cancer identified.(ypT0) consistent with complete response to pre-surgical therapy. Dense hyalinized stromal sclerosis with calcifications. Benign ducts with ductal ectasia. Six axillary lymph nodes negative for tumor. Skin and nipple with no evidence of tumor. This is very reassuring. The neuropathy appears to be persistent. She has been on gabapentin without significant benefit. I added Lyrica for that. She still has the symptoms. PLAN: Will refer her for further neurology consultation. In the meantime I advised her to increase the Lyrica dose to 25 b.i.d. She is currently on maintenance, Herceptin and pertuzumab. She will continue on it. She will complete 1 year in November. She will continue on denosumab for her bone Mets that disappeared on repeat imaging. Next dose is due in August. Will follow her tumor marker: CA 27.29. I gave her prescriptions for breast prosthesis and bras. All her questions were answered to her satisfaction. Thank you, CC: Dr. Javed. - Time Spent With Patient Time Spent with Patient (in minutes): 30
[2021-07-31] MEDS: Heparin Sodium,Porcine Flush 500 UNIT/5 ML SYRINGE IVFLUSH (12:21)
--- NOTE | 2021-07-31 15:20 | MHC.HEMONC ---
Here for C17 D1 Pertuzumab/trastuzumab. Port accessed with no blood return noted. Has documented fibrin sheath. Labs done 07/30 reviewed. States feeling well since last treatment. Does report having a stomach bug. Premedicated as ordered. Treatment done and tolerated well. Port flushed with heparin and de-accessed. Dr Peña in to see pt in follow up. Prescriptions given for breast cancer mastectomy bras and breast prosthesis to use at [facility]. Next treatment scheduled in 3 weeks.
--- NOTE | 2021-07-31 16:06 | MHC.HEMONCSW ---
patient received treatment today. does not feel well, has the flu. plans on getting breast prosthesis and bra at the [facility], has gone to [facility] in the past. denies depressive symptoms, states she is getting settled in the new house. provided her with this resources....[employer]. they provide a few free home cleanings as long as she is getting treated. supportive provided.
--- NOTE | 2021-08-01 11:36 | HO.HEMONCSCH ---
Referral sent to Dr. Briggs.
--- NOTE | 2021-08-07 16:19 | HO.HEMONCSCH ---
Pt is scheduled with Dr. Briggs for 08/15/21 @4320. Spoke with pt she is aware of appt.
--- NOTE | 2021-08-12 10:06 | MHC.HEMONC ---
Pt has echo scheduled for 08/19 at 1200. Pt called and notified.
--- NOTE | 2021-08-19 12:07 | MHC.HEMONC ---
Pt went for echo today at noon, but appointment was not on schedule. Cardiology called and pt rescheduled for today at 4pm
[2021-08-19 12:27] LABS: MANUAL DIFF FLAG NO
[2021-08-19 12:40] LABS: Basophils Percent Auto 0.4 % (0-2); Eosinophils Absolute Auto 0.1 X10*3/uL (0.0-0.4); Hematocrit 47.2 % (37.0-47.0); Hemoglobin 15.8 g/dl (12.0-16.0); Imm Gran Abs Auto 0.02 X10*3/uL (0.00-0.03); Imm Gran Pct Auto 0.2 % (0.0-0.4); Lymphocytes Absolute Auto 2.1 X10*3/uL (1.2-4.9); Lymphocytes Percent Auto 25.4 % (20-40); Mean Corpuscular HGB Conc 33.5 g/dl (31.0-35.0); Mean Corpuscular Hemoglobin 32.4 pg (27.0-33.0); Mean Corpuscular Volume 96.7 fL (80.0-98.0); Mean Platelet Volume 10.5 fL (9.4-12.3); Monocytes Absolute Auto 0.6 X10*3/uL (0.1-1.2); Monocytes Percent Auto 7.5 % (2-11); Neutrophils Absolute Auto 5.4 x10*3/uL (2.0-8.3); Neutrophils Percent Auto 65.5 % (45-73); Platelet Count 189 X10*3/uL (160-400); Red Blood Count 4.88 X10*6/uL (4.20-5.50); Red Cell Distribution Width 13.4 % (11.0-16.0); White Blood Count 8.2 X10*3/uL (4.8-10.8)
[2021-08-19 12:57] LABS: Alanine Aminotransferase 11 U/L (0-31); Albumin Level 3.9 g/dL (3.5-5.0); Alkaline Phosphatase 90 U/L (39-117); Anion Gap 12 (12-20); Aspartate Amino Transferase 16 U/L (5-31); Bilirubin Total 0.7 mg/dL (0.0-1.0); Blood Urea Nitrogen 10 mg/dL (9-16); Calcium 9.4 mg/dL (8.4-10.2); Carbon Dioxide 30 mmol/L (22-29); Chloride 103 mmol/L (96-108); Estimated Glomerular Filt Rate > 60; Glucose Random 137 mg/dL (60-115); Potassium 4.1 mmol/L (3.3-5.1); Sodium 141 mmol/L (135-145)
--- NOTE | 2021-08-21 06:47 | HE.PHANOTE ---
ECHO - LATEST ECHO DONE 08/19/21; DUE EARLY NOVEMBER FOR NEXT ECHO
[2021-08-21 08:55] VITALS: BP 129/60; PULSE 68; RESP 20; TEMP 36.3; O2SAT 96; BMI 38.7
[2021-08-21] MEDS: diphenhydrAMINE HCL 50 MG/ML VIAL 25 MG IVPUSH (09:56)
[2021-08-21] MEDS: Acetaminophen 325 MG TABLET 650 MG PO (09:57)
[2021-08-21] MEDS: Ondansetron ODT 8 MG TAB.RAPDIS TRANSLINGU (09:58)
[2021-08-21 10:13] LABS: MANUAL DIFF FLAG NO
[2021-08-21 10:38] LABS: Basophils Percent Auto 0.5 % (0-2); Eosinophils Absolute Auto 0.1 X10*3/uL (0.0-0.4); Eosinophils Percent Auto 0.9 % (0-4); Hematocrit 44.9 % (37.0-47.0); Hemoglobin 14.8 g/dl (12.0-16.0); Imm Gran Abs Auto 0.02 X10*3/uL (0.00-0.03); Imm Gran Pct Auto 0.3 % (0.0-0.4); Lymphocytes Absolute Auto 1.7 X10*3/uL (1.2-4.9); Lymphocytes Percent Auto 23.1 % (20-40); Mean Corpuscular Hemoglobin 31.7 pg (27.0-33.0); Mean Corpuscular Volume 96.1 fL (80.0-98.0); Mean Platelet Volume 10.1 fL (9.4-12.3); Monocytes Absolute Auto 0.6 X10*3/uL (0.1-1.2); Monocytes Percent Auto 7.5 % (2-11); Neutrophils Absolute Auto 5.1 x10*3/uL (2.0-8.3); Neutrophils Percent Auto 67.7 % (45-73); Platelet Count 165 X10*3/uL (160-400); Red Blood Count 4.67 X10*6/uL (4.20-5.50); Red Cell Distribution Width 13.6 % (11.0-16.0); White Blood Count 7.5 X10*3/uL (4.8-10.8)
[2021-08-21 10:45] LABS: Alanine Aminotransferase 12 U/L (0-31); Albumin Level 3.7 g/dL (3.5-5.0); Alkaline Phosphatase 73 U/L (39-117); Anion Gap 12 (12-20); Aspartate Amino Transferase 14 U/L (5-31); Bilirubin Total 0.8 mg/dL (0.0-1.0); Blood Urea Nitrogen 13 mg/dL (9-16); Calcium 9.7 mg/dL (8.4-10.2); Carbon Dioxide 32 mmol/L (22-29); Chloride 103 mmol/L (96-108); Creatinine Clr Calc Pharmacy 81.9; Estimated Glomerular Filt Rate > 60; Glucose Random 114 mg/dL (60-115); Potassium 4.5 mmol/L (3.3-5.1); Sodium 142 mmol/L (135-145); Total Protein 6.4 g/dL (6.5-8.0)
[2021-08-21] MEDS: Heparin Sodium,Porcine Flush 500 UNIT/5 ML SYRINGE IVFLUSH (12:14)
--- NOTE | 2021-08-21 15:53 | MHC.HEMONC ---
Here for C18 D1 Pertuzumab/Trastuzumab. Labs done 08/19 reviewed. Port accessed with no blood return noted. Had previous port study with documented fibrin sheath. States feeling good since last treatment. Did have appointment with Dr Briggs regarding neuropathy to feet. 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 Pre medicated with ondansetron and tylenol po, and benadryl IV. Pt also given Denosumab 120mg sc as ordered. Treatment done and tolerated well. Port flushed with heparin and de-accessed. Next treatment with MD follow up scheduled for 3 weeks.
[2021-09-10 08:48] LABS: MANUAL DIFF FLAG NO
[2021-09-10 09:05] LABS: Basophils Percent Auto 0.3 % (0-2); Eosinophils Absolute Auto 0.1 X10*3/uL (0.0-0.4); Eosinophils Percent Auto 1.1 % (0-4); Hematocrit 43.6 % (37.0-47.0); Hemoglobin 13.9 g/dl (12.0-16.0); Imm Gran Abs Auto 0.02 X10*3/uL (0.00-0.03); Imm Gran Pct Auto 0.3 % (0.0-0.4); Lymphocytes Absolute Auto 1.8 X10*3/uL (1.2-4.9); Lymphocytes Percent Auto 28.6 % (20-40); Mean Corpuscular HGB Conc 31.9 g/dl (31.0-35.0); Mean Corpuscular Hemoglobin 31.4 pg (27.0-33.0); Mean Corpuscular Volume 98.6 fL (80.0-98.0); Monocytes Absolute Auto 0.6 X10*3/uL (0.1-1.2); Monocytes Percent Auto 9.9 % (2-11); Neutrophils Absolute Auto 3.7 x10*3/uL (2.0-8.3); Neutrophils Percent Auto 59.8 % (45-73); Platelet Count 142 X10*3/uL (160-400); Red Blood Count 4.42 X10*6/uL (4.20-5.50); Red Cell Distribution Width 14.1 % (11.0-16.0); White Blood Count 6.2 X10*3/uL (4.8-10.8)
[2021-09-10 09:15] LABS: Alanine Aminotransferase 12 U/L (0-31); Albumin Level 3.6 g/dL (3.5-5.0); Alkaline Phosphatase 68 U/L (39-117); Anion Gap 12 (12-20); Aspartate Amino Transferase 15 U/L (5-31); Bilirubin Total 0.6 mg/dL (0.0-1.0); Blood Urea Nitrogen 10 mg/dL (9-16); Calcium 8.8 mg/dL (8.4-10.2); Carbon Dioxide 27 mmol/L (22-29); Chloride 108 mmol/L (96-108); Creatinine Clr Calc Pharmacy 75.7; Estimated Glomerular Filt Rate > 60; Glucose Random 129 mg/dL (60-115); Potassium 4.3 mmol/L (3.3-5.1); Sodium 143 mmol/L (135-145); Total Protein 6.1 g/dL (6.5-8.0)
[2021-09-11 09:15] VITALS: BMI 40.4
--- NOTE | 2021-09-11 09:28 | PM.HEMONCPN ---
Medical Summary - Medical Summary Date of Service: 09/11/21 Chief complaint: FOLLOW-UP for: Breast cancer. 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 CURRENT THERAPY: AC with Neulasta support, completed 4 cycles. Completed 12 weeks of Taxol. On pertuzumab and Herceptin maintenance. Here for a dose.Cycle #19. Status post mastectomy, 04/30, by Dr. Javed. Pathology: No residual cancer identified.(ypT0) consistent with complete response to pre-surgical therapy. Dense hyalinized stromal sclerosis with calcifications. Benign ducts with ductal ectasia. Six axillary lymph nodes negative for tumor. Skin and nipple with no evidence of tumor. Interval History Interval history: Marcia Strong is a pleasant 66 year old lady, here for a follow-up visit. She has been doing very well. She tells me her blood pressure had been running normal around 110 systolic. She saw her primary who took her off the hydrochlorothiazide a couple of weeks ago. Her blood pressure has gradually risen up. It went up to 130s then 160s and then 180s, today. She has also had some ankle edema and weight gain. She had a headache. She has a follow-up appointment with him tomorrow, will probably need to be restarted on hydrochlorothiazide. She tells me she has had ongoing symptoms of neuropathy. She has numbness tingling and lack of sensation on her thumb and forefinger. It also involves her toes. Her tips hurt. Sometimes she can not even feel the blanket on her. She also complains of neuropathy. Tips of her thumbs hurt. It does not involve her toes only the bottom of her feet are numb and it is hard for her to walk barefoot. She saw Dr. Briggs, who increased the Lyrica from 25-75 mg p.o. b.i.d. he did mention that it will resolve however will be a slow process. She has had a chronic low back pain at the lumbosacral area. She denies any radiation down into the legs however her legs feel weak. She is unable to stand for too long. She is doing her cooking on the stove sitting down. She complains of pain in her shoulder upon movement. Denies fever nor chills. HEENT: No headache no dizziness. She has thick stuff coming from her eyes. She does have eyedrops that she has not used. No chest pain nor trouble breathing. Couple of weeks ago she came down with the stomach virus. However it resolved as quickly as it came. She denies any abdominal pain, she had some nausea this week. No vomiting heartburn indigestion. Her bowels are working without any gross blood in it. No more diarrhea. She had a colonoscopy in her 50s at [facility]. Appetite is good. She has gained weight. Denies any urinary complaints. Denies any focal weakness. She tolerated the chemotherapy reasonably well. She denies depression however she had history of anxiety. Recent imaging: MRI of the breast from 02/26: Interval decrease in size of the incident mass in the 8 o'clock position which now measures 1.8 x 3.6 x 2.5 cm. There is no abnormal enhancement at this time which indicates a response to neoadjuvant chemotherapy. There is also a 0.7 cm satellite lesion in the 7 o'clock position, anterior to the primary tumor which also demonstrates no abnormal enhancement. No other findings suspicious of malignancy in either breast. Previous history: She tells me that about 3 months ago she noted, what she felt was, a pimple underneath her left breast. It would occasionally get itchy and then dry. Then it became harder around the edges. It was fixed, not movable. Due to the pandemic she did not leave the home. About a month ago she woke up one morning and she felt her left breast was heavy and huge. It was quite red and warm to touch. 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 She decided to go to the emergency room. This was on 07/16. Ultrasound of the breast revealed: Large irregular mass with scattered internal color flow vascularity 8:00 position 7 cm from nipple measuring 5 x 4 cm. Several adjacent smaller satellite foci, largest 1.3 cm. Differential considerations include malignancy as well as abscess. ASSESSMENT: BI-RADS 4: Suspicious RECOMMENDATION: 1. Surgical Consult. 2. Diagnostic mammography. She underwent an ultrasound-guided biopsy at 08:00 o'clock position on 07/25. Pathology revealed: Invasive ductal carcinoma, MSBR grade 2. ER negative/MD negative/HER2 Stephy positive 3+. She was seen by Dr. Javed. She has been referred here for question if she should have neoadjuvant chemotherapy. [employer] Border [employer] Officer history: Menarche: Age 12. Menopause in her early 50s. No HRT. She is . She has 4 children. Family history: A paternal cousin had breast cancer in her mid 60s. 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 She is . Has 4 children. She smokes half a pack a day. She likes her wine. Review of Systems - Constitutional Reports no additional constitutional complaints, Reports weakness, Reports weight gain Comments: Elevated blood pressure. - Eyes Reports no additional eye complaints - ENT Reports no additional ear, nose, mouth, and throat complaints - Cardiovascular Reports no additional cardiovascular complaints - Respiratory Reports no additional respiratory complaints - Gastrointestinal Reports no additional gastrointestinal complaints - Genitourinary Reports no additional female genitourinary complaints - Musculoskeletal Reports no additional musculoskeletal complaints - Integumentary/Breasts Skin/Breast: Reports no additional skin complaints - Neurologic Reports no additional neurologic complaints, Reports numbness, Reports paresthesias, Reports weakness - Psychiatric Reports no additional psychiatric complaints - Endocrine Reports no additional endocrine complaints - Hematologic/Lymphatic Reports no additional hematologic/lymphatic complaints - Allergic/Immunologic Reports no additional allergic/immunologic complaints [facility] Medical History: Medical History (Last Reviewed 06/18/21 @ 13:12 by Rosales Javed MD) Arthritis Bone cancer Breast cancer Cerebral aneurysm Chronic back pain Morbid obesity Neuropathy Pneumonia Port-A-Cath in place Functional capacity: independent ambulation Patient : No Family History: Family History (Last Reviewed 08/29/21 @ 11:13 by CINTHIA Huang) Family/Other Breast cancer Brother Colon cancer Surgical History: Surgical History (Last Reviewed 08/29/21 @ 11:13 by CINTHIA Huang) H/O tubal ligation History of mastectomy Social History: Social History (Last Updated 08/29/21 @ 11:19 by CINTHIA Huang) Living Situation History: Housing: Apartment Are you a primary healthcare project manager to a significant other at home: No Do you presently have visiting nurse or other home services: No Tobacco History: Patient Tobacco Use Status: Current everyday Tobacco Tobacco use type: Cigarette Years Smoked: 50 e-Cigarette/Vaping Use: Never Used Second Hand Smoke Exposure: Yes Second Hand Smoke Exposure comment: daughter Substance Use History: Use of substances other than those prescribed or required for medical reasons: No Advance Directives: Advance Directives Date on File: 08/22/20 Nutrition Assessment: Patient : No Occupation Assessmet: service: No Current occupational status: unemployed Oncology Screenings - ECOG Performance Status ECOG Performance Status: 1 Home Medications and Allergies Current Medications: Current Medications Acetaminophen (Acetaminophen 325 Mg Tablet) 650 mg PO ONCE YOUSIF Stop: 09/11/21 23:59 Diphenhydramine HCl (Diphenhydramine Hcl 50 Mg/Ml Vial) 25 mg IVPUSH ONCE YOUSIF Stop: 09/11/21 23:59 Heparin Sodium (Porcine) (Heparin Sodium,Porcine Flush 500 Unit/5 Ml Syringe) 500 unit IVFLUSH ONCE YOUSIF Stop: 09/11/21 23:59 Ondansetron HCl (Ondansetron Odt 8 Mg Tab.Rapdis) 8 mg TRANSLINGU ONCE YOUSIF Stop: 09/11/21 23:59 Home Medications Medication Instructions Recorded Confirmed Type pregabalin 75 mg capsule 75 mg PO BID 08/21/21 08/29/21 History vitamin B complex 1 cap PO DAILY 08/29/21 08/29/21 History Allergies Allergy/AdvReac Type Severity Reaction Status Date / Time codeine [CODEINE] Allergy Unknown STOMACH Verified 08/29/21 11:14 UPSET Exam Vital signs: Vital Signs Temp 97.4 F 08/21/21 08:55 Pulse 68 08/21/21 08:55 Resp 20 08/21/21 08:55 BP 129/60 08/21/21 08:55 Pulse Ox 96 08/21/21 08:55 Intake & Output 09/10/21 09/11/21 09/11/21 18:59 06:59 18:59 Other: Weight 100.3 kg [place] Weight in Grams [id number] Weight 100.3 kg BMI result Body Mass Index 40.4 - Constitutional Present: moderate distress, obese - Routine HEENT Exam Head: Present: normal inspection Eye: Present: normal appearance ENT: Present: mucous membranes moist - Routine Neck Exam Present: full ROM - Routine Respiratory Exam Present: CTAB - Routine Cardiovascular Exam Cardiovascular: Present: RRR, S1, S2 - Routine Abdominal Exam Present: soft, nontender - Routine Rectal Exam Patient deferred: digital exam - Routine Extremities Exam Present: nontender - Routine Back/Spine/Pelvis Exam Back/Spine: Absent: CVA tenderness - Routine Skin Exam Present: intact - Routine Neurological Exam Present: alert, oriented X3 - Detailed Neurological Exam: Coma Scale Eye Opening: Spontaneous (4) - Routine Psychiatric Exam Present: normal affect Data - Labs CBC & Chem 7: 09/10/21 08:48 09/10/21 08:48 Assessment and Plan Patient Active problem list reviewed?: Yes (1) Carcinoma of left breast Status: Acute Assessment and plan: Status: Acute This is a pleasant 65-year-old lady with a recent diagnosis of inflammatory breast carcinoma the left breast. It is ERPR negative and HER2 Stephy positive. On ultrasound the tumor appears to be about 6 cm in size. Ca 27.29:44. She was deemed a candidate for neoadjuvant chemotherapy, in view of the large size of the tumor and the inflammatory component. She is HER2 positive. I recommended treating her with dose dense AC X4, followed by Taxol and Herceptin. Then reassess for surgical resection, based upon her response. I proceeded with a baseline PET scan, for initial staging. This revealed: Intense activity in the medial left breast lesion assumed to be the primary tumor. There is also an enlarged left axillary node showing increased activity and metastatic disease needs to be suspected though this could be reactive. Otherwise, uptake in the region of the left thyroid gland, which is enlarged. This could represent uptake within a thyroid nodule and, therefore ultrasound would be recommended as malignancy cannot be excluded. Differential would be abnormal uptake in an enlarged node in the region. As described in the left axillary region, more proximally toward the region of the thoracic inlet, some mild uptake in nonpathologically enlarged nodes. These may be reactive but certainly early metastatic disease cannot be excluded. There is also uptake within the region of C1 anterior to the left of midline. There is lucency in the bone here. A metastatic deposit cannot be excluded. Consider MR. Harmon discussed with IR, neuro-radiology. They felt the biopsy would be risky to do. However since the lesion is apparent on 2 different imaging modalities, it is likely to be real. Hence the plan is to proceed with treatment. Since she has aggressive progressive disease, will treat her with an active regimen, to expedite her response. She had an echocardiogram, prior to anthracycline. This came back normal with EF of 60-65%. She had genetic testing done. This came back negative. She had a Port-A-Cath placement. This was placed on 08/22/20. She started dose dense AC chemotherapy with Neulasta support. She completed that. She then received 12 weeks of Taxol. Thyroid ultrasound revealed: Heterogeneous thyroid gland. The left lobe is enlarged. Bilateral thyroid nodules. Fine needle aspiration of the largest nodule in the left lobe recommended. l checked with Radiology, proceeded with the thyroid biopsy. (this revealed benign findings.) She completed 4 cycles of AC. She then completed 12 weeks of Taxol treatment. She has tolerated it really well. She has had symptoms of neuropathy. This is likely residual from the Taxol. I started her on Neurontin for the neuropathic pain, 100 mg every 8 hours, to start out with. Her breast mass has disappeared. She complained of body aches joint pains. I proceeded with a bone scan, 03/04/21. This revealed: No abnormal bone activity seen to suspect any metastatic bone disease. There is mild degenerative changes right T7 costovertebral junction and right T11 and T12 facet joints. She had an MRI of the breast on 02/18/21: Interval decrease in size of the incident mass in the 8 o'clock position which now measures 1.8 x 3.6 x 2.5 cm. There is no abnormal enhancement at this time which indicates a response to neoadjuvant chemotherapy. There is also a 0.7 cm satellite lesion in the 7 o'clock position, anterior to the primary tumor which also demonstrates no abnormal enhancement. No other findings suspicious of malignancy in either breast. . Status post mastectomy, 04/30/21, by Dr. Javed. Pathology: No residual cancer identified.(ypT0) consistent with complete response to pre-surgical therapy. Dense hyalinized stromal sclerosis with calcifications. Benign ducts with ductal ectasia. Six axillary lymph nodes negative for tumor. Skin and nipple with no evidence of tumor. This is very reassuring. The neuropathy is persistent. She was on gabapentin without significant benefit. I added Lyrica for that. She still had the symptoms. l referred her for further neurology consultation. She saw Dr. Briggs, who advised her to increase the Lyrica dose to 75 b.i.d. She is currently on maintenance, Herceptin and pertuzumab. She has a couple of months more to go. PLAN: She will continue on it. She will complete the course on November 13. She will continue on Denosumab for her bone Mets. These disappeared on repeat imaging. Next dose is due in November. She is not a candidate for anti-estrogen therapy since she is ER/MD negative. Will follow her tumor marker: CA 27.29. It is 35, today. She will be going for RT planning in the near future. She will return in a month for afollow up. All her questions were answered to her satisfaction. Thank you, CC: Dr. mathis. Dr. Javed. - Time Spent With Patient Time Spent with Patient (in minutes): 30
[2021-09-11] MEDS: diphenhydrAMINE HCL 50 MG/ML VIAL 25 MG IVPUSH (10:03)
[2021-09-11] MEDS: Acetaminophen 325 MG TABLET 650 MG PO (10:04)
[2021-09-11] MEDS: Ondansetron ODT 8 MG TAB.RAPDIS TRANSLINGU (10:06)
[2021-09-11 10:13] VITALS: BP 178/82; PULSE 68; RESP 18; TEMP 36.7; O2SAT 98
[2021-09-11] MEDS: Heparin Sodium,Porcine Flush 500 UNIT/5 ML SYRINGE IVFLUSH (12:19)
--- NOTE | 2021-09-11 14:15 | MHC.HEMONC ---
Here for C19 D1 Perjeta/Herceptin. States feeling well since last treatment except for being very tired. Port accessed, no blood return due to fibrin sheath. Flushes easily. Labs done 09/10 reviewed. Premedicated with tylenol and zofran po, benadryl iv as ordered. Treatment done and tolerated well. Dr Peña in to see pt for follow up. All pts questions answered. Scheduled for next treatment in 3 weeks.
[2021-09-12 10:02] LABS: CA 27.29 35 U/mL (<38)
--- NOTE | 2021-09-15 11:41 | MHC.HEMONCSW ---
MET WITH PATIENT WHILE SHE RECEIVED TREATMENT. REPORTS COPING WELL, OTHER THAN FATIGUE, GOOD SPIRITS, TALKATIVE. TO BEGIN RADIATION SOON. SHE IS ACCOMPANIED BY A FRIEND TODAY SHE HAS AN EXCELLENT SUPPORT SYSTEM. HAS NO QUESTIONS OR CONCERNS AT THIS TIME. SHE IS AWARE OF MY ROLE AND AVAILABILITY.
--- NOTE | 2021-09-30 11:34 | HE.ONCSEC ---
CALLED PATIENT TO REMIND THEM OF THEIR APPT DATE AND TIME , LEFT A VOICEMAIL INFORMING PATIENT OF THEIR APPT DATE AND TIME ( DUE TO PATIENT NOT ANSWERING THE PHONE CALL )
[2021-10-01 09:15] LABS: MANUAL DIFF FLAG NO
[2021-10-01 09:22] LABS: Basophils Percent Auto 0.5 % (0-2); Eosinophils Absolute Auto 0.1 X10*3/uL (0.0-0.4); Eosinophils Percent Auto 1.7 % (0-4); Hematocrit 44.9 % (37.0-47.0); Hemoglobin 14.7 g/dl (12.0-16.0); Imm Gran Abs Auto 0.03 X10*3/uL (0.00-0.03); Imm Gran Pct Auto 0.5 % (0.0-0.4); Lymphocytes Absolute Auto 1.9 X10*3/uL (1.2-4.9); Mean Corpuscular HGB Conc 32.7 g/dl (31.0-35.0); Mean Corpuscular Hemoglobin 31.6 pg (27.0-33.0); Mean Corpuscular Volume 96.6 fL (80.0-98.0); Mean Platelet Volume 10.1 fL (9.4-12.3); Monocytes Absolute Auto 0.6 X10*3/uL (0.1-1.2); Monocytes Percent Auto 8.6 % (2-11); Neutrophils Percent Auto 60.7 % (45-73); Platelet Count 200 X10*3/uL (160-400); Red Blood Count 4.65 X10*6/uL (4.20-5.50); Red Cell Distribution Width 12.9 % (11.0-16.0); White Blood Count 6.6 X10*3/uL (4.8-10.8)
[2021-10-01 09:35] LABS: Alanine Aminotransferase 13 U/L (0-31); Albumin Level 3.8 g/dL (3.5-5.0); Alkaline Phosphatase 83 U/L (39-117); Anion Gap 11 (12-20); Aspartate Amino Transferase 18 U/L (5-31); Bilirubin Total 0.6 mg/dL (0.0-1.0); Blood Urea Nitrogen 14 mg/dL (9-16); Calcium 9.1 mg/dL (8.4-10.2); Carbon Dioxide 33 mmol/L (22-29); Chloride 102 mmol/L (96-108); Creatinine Clr Calc Pharmacy 79.6; Estimated Glomerular Filt Rate > 60; Glucose Random 121 mg/dL (60-115); Potassium 4.3 mmol/L (3.3-5.1); Sodium 142 mmol/L (135-145); Total Protein 6.4 g/dL (6.5-8.0)
[2021-10-02 09:10] VITALS: BP 158/70; PULSE 73; TEMP 36.4; O2SAT 97; BMI 39.6
[2021-10-02] MEDS: Ondansetron ODT 8 MG TAB.RAPDIS TRANSLINGU (09:16)
[2021-10-02] MEDS: diphenhydrAMINE HCL 50 MG/ML VIAL 25 MG IVPUSH (09:16)
[2021-10-02] MEDS: Acetaminophen 325 MG TABLET 650 MG PO (09:16)
--- NOTE | 2021-10-02 11:17 | MHC.HEMONC ---
Here for c20 pertuzumab/traztuzumab. Labs drawn yesterday, ok to proceed. No blood return due to fibrin sheath. Per pharmacist, two more treatment after today so last treatment will be november 13. Premeds and chemo tolerated well. Pt aware of next appt.
[2021-10-02] MEDS: Heparin Sodium,Porcine Flush 500 UNIT/5 ML SYRINGE IVFLUSH (11:25)
[2021-10-22 08:52] LABS: MANUAL DIFF FLAG NO
[2021-10-22 08:55] LABS: Basophils Percent Auto 0.1 % (0-2); Eosinophils Absolute Auto 0.1 X10*3/uL (0.0-0.4); Eosinophils Percent Auto 1.2 % (0-4); Hematocrit 45.6 % (37.0-47.0); Hemoglobin 15.1 g/dl (12.0-16.0); Imm Gran Abs Auto 0.01 X10*3/uL (0.00-0.03); Imm Gran Pct Auto 0.1 % (0.0-0.4); Lymphocytes Absolute Auto 1.9 X10*3/uL (1.2-4.9); Lymphocytes Percent Auto 25.7 % (20-40); Mean Corpuscular HGB Conc 33.1 g/dl (31.0-35.0); Mean Corpuscular Volume 96.6 fL (80.0-98.0); Mean Platelet Volume 10.3 fL (9.4-12.3); Monocytes Absolute Auto 0.8 X10*3/uL (0.1-1.2); Monocytes Percent Auto 10.8 % (2-11); Neutrophils Absolute Auto 4.6 x10*3/uL (2.0-8.3); Neutrophils Percent Auto 62.1 % (45-73); Platelet Count 170 X10*3/uL (160-400); Red Blood Count 4.72 X10*6/uL (4.20-5.50); Red Cell Distribution Width 13.2 % (11.0-16.0); White Blood Count 7.3 X10*3/uL (4.8-10.8)
[2021-10-22 09:12] LABS: Alanine Aminotransferase 13 U/L (0-31); Albumin Level 4.2 g/dL (3.5-5.0); Alkaline Phosphatase 84 U/L (39-117); Anion Gap 11 (12-20); Aspartate Amino Transferase 18 U/L (5-31); Bilirubin Total 0.7 mg/dL (0.0-1.0); Blood Urea Nitrogen 15 mg/dL (9-16); Carbon Dioxide 33 mmol/L (22-29); Chloride 102 mmol/L (96-108); Creatinine Clr Calc Pharmacy 76.8; Estimated Glomerular Filt Rate > 60; Glucose Random 123 mg/dL (60-115); Sodium 142 mmol/L (135-145); Total Protein 6.9 g/dL (6.5-8.0)
--- NOTE | 2021-10-22 09:47 | HO.HEMONCSCH ---
Bone scan and MRI sent to [facility].
[2021-10-23 09:08] VITALS: BP 129/80; PULSE 78; RESP 18; TEMP 36.6; O2SAT 96; BMI 39.9
--- NOTE | 2021-10-23 09:14 | MHC.HEMONCSW ---
met with pt prior to treatment. reports coping, enjoying the company of her friend who came with her. continues radiation. does not want any services at this time. she is aware of my role and availability.
[2021-10-23] MEDS: Ondansetron ODT 8 MG TAB.RAPDIS TRANSLINGU (09:42)
[2021-10-23] MEDS: Acetaminophen 325 MG TABLET 650 MG PO (09:43)
[2021-10-23] MEDS: diphenhydrAMINE HCL 50 MG/ML VIAL 25 MG IVPUSH (09:50)
--- NOTE | 2021-10-23 10:45 | PM.HEMONCPN ---
Medical Summary - Medical Summary Date of Service: 10/23/21 Chief complaint: Follow-up for: HER2 positive ERPR negative breast cancer. 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 CURRENT THERAPY: AC with Neulasta support, completed 4 cycles. Completed 12 weeks of Taxol. On pertuzumab and Herceptin maintenance. Here for a dose. Cycle #21. Status post mastectomy, 04/30, by Dr. Javed. Pathology: No residual cancer identified.(ypT0) consistent with complete response to pre-surgical therapy. Dense hyalinized stromal sclerosis with calcifications. Benign ducts with ductal ectasia. Six axillary lymph nodes negative for tumor. Skin and nipple with no evidence of tumor. Interval History Interval history: Marcia Strong is a pleasant 66 year old lady, here for a follow-up visit. She has been doing very well. She has no major complaints. She tells me sometimes she gets tired and sleeps a lot. She does have history of neuropathy. She has numbness tingling and lack of sensation on her thumb and forefinger. It also involves her toes. Her tips hurt. Sometimes she can not even feel the blanket on her. She saw the neurologist on the 14 of October. He shared the NCV studies with her. These were reasonably normal. He had increase the Lyrica to 75 b.i.d. in the past. He now increased to 150 b.i.d. She says she can take the evening dose however if she takes the morning one as well she gets lethargic. She has had a chronic low back pain at the lumbosacral area. She denies any radiation down into the legs however her legs feel weak. She is unable to stand for too long. She is doing her cooking on the stove sitting down. She complains of pain in her shoulder upon movement. Denies fever nor chills. HEENT: No headache no dizziness. No chest pain nor trouble breathing. She denies any abdominal pain, she had some nausea this week. No vomiting heartburn indigestion. Her bowels are working without any gross blood in it. No more diarrhea. She had a colonoscopy in her 50s at [facility]. Appetite is good. She has gained weight. Denies any urinary complaints. Denies any focal weakness. She tolerated the chemotherapy reasonably well. She denies depression however she had history of anxiety. Recent imaging: MRI of the breast from 02/26: Interval decrease in size of the incident mass in the 8 o'clock position which now measures 1.8 x 3.6 x 2.5 cm. There is no abnormal enhancement at this time which indicates a response to neoadjuvant chemotherapy. There is also a 0.7 cm satellite lesion in the 7 o'clock position, anterior to the primary tumor which also demonstrates no abnormal enhancement. No other findings suspicious of malignancy in either breast. Previous history: She tells me that about 3 months ago she noted, what she felt was, a pimple underneath her left breast. It would occasionally get itchy and then dry. Then it became harder around the edges. It was fixed, not movable. Due to the pandemic she did not leave the home. About a month ago she woke up one morning and she felt her left breast was heavy and huge. It was quite red and warm to touch. The nipple appeared drug safety associate. She decided to go to the emergency room. This was on 07/16. Ultrasound of the breast revealed: Large irregular mass with scattered internal color flow vascularity 8:00 position 7 cm from nipple measuring 5 x 4 cm. Several adjacent smaller satellite foci, largest 1.3 cm. Differential considerations include malignancy as well as abscess. ASSESSMENT: BI-RADS 4: Suspicious RECOMMENDATION: 1. Surgical Consult. 2. Diagnostic mammography. She underwent an ultrasound-guided biopsy at 08:00 o'clock position on 07/25. Pathology revealed: Invasive ductal carcinoma, MSBR grade 2. ER negative/NY negative/HER2 Stephy positive 3+. She was seen by Dr. Javed. She has been referred here for question if she should have neoadjuvant chemotherapy. Sheet Metal Former history: Menarche: Age 12. Menopause in her early 50s. No HRT. She is . She has 4 children. Family history: A paternal cousin had breast cancer in her mid 60s. 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 She is . Has 4 children. She smokes half a pack a day. She likes her wine. Review of Systems - Constitutional Reports system reviewed and no additional complaints, except as documented - Eyes Reports system reviewed and no additional complaints, except as documented - ENT Reports system reviewed and no additional complaints, except as documented - Cardiovascular Reports system reviewed and no additional complaints, except as documented - Respiratory Reports no additional respiratory complaints - Gastrointestinal Reports system reviewed and no additional complaints, except as documented - Genitourinary Reports no additional female genitourinary complaints - Musculoskeletal Reports system reviewed and no additional complaints, except as documented - Integumentary/Breasts Skin/Breast: Reports no additional skin complaints - Neurologic Reports system reviewed and no additional complaints, except as documented, Reports numbness, Reports paresthesias, Reports weakness Comments: Neuropathy - Psychiatric Reports system reviewed and no additional complaints, except as documented - Endocrine Reports no additional endocrine complaints - Hematologic/Lymphatic Reports system reviewed and no additional complaints, except as documented - Allergic/Immunologic Reports system reviewed and no additional complaints, except as documented PMFSH Medical History: Medical History (Last Reviewed 09/19/21 @ 13:12 by Rosales Javed MD) Arthritis Bone cancer Breast cancer Cerebral aneurysm Chronic back pain Morbid obesity Neuropathy Pneumonia Port-A-Cath in place Functional capacity: independent ambulation Patient : No Family History: Family History (Last Reviewed 09/19/21 @ 13:12 by Rosales Javed MD) Family/Other Breast cancer Brother Colon cancer Surgical History: Surgical History (Last Reviewed 09/19/21 @ 13:12 by Rosales Javed MD) H/O tubal ligation History of mastectomy Social History: Social History (Last Reviewed 09/19/21 @ 13:12 by Rosales Javed MD) Living Situation History: Housing: Apartment Are you a primary intensive care medicine specialist to a significant other at home: No Do you presently have visiting nurse or other home services: No Tobacco History: Patient Tobacco Use Status: Current everyday Tobacco Tobacco use type: Cigarette Years Smoked: 50 e-Cigarette/Vaping Use: Never Used Second Hand Smoke Exposure: Yes Second Hand Smoke Exposure comment: daughter Substance Use History: Use of substances other than those prescribed or required for medical reasons: No Advance Directives: Advance Directives Date on File: 08/22/20 Nutrition Assessment: Patient : No Occupation Assessmet: service: No Current occupational status: unemployed Oncology Screenings - ECOG Performance Status ECOG Performance Status: 0 Home Medications and Allergies Current Medications: Current Medications Acetaminophen (Acetaminophen 325 Mg Tablet) 650 mg PO ONCE YOUSIF Stop: 10/23/21 23:59 Last Admin: 10/23/21 09:43 Dose: 650 mg Diphenhydramine HCl (Diphenhydramine Hcl 50 Mg/Ml Vial) 25 mg IVPUSH ONCE YOUSIF Stop: 10/23/21 23:59 Last Admin: 10/23/21 09:50 Dose: 25 mg Heparin Sodium (Porcine) (Heparin Sodium,Porcine Flush 500 Unit/5 Ml Syringe) 500 unit IVFLUSH ONCE YOUSIF Stop: 10/23/21 23:59 Pertuzumab 420 mg/ Sodium (Chloride) 264 mls @ 528 mls/hr IV ONCE YOUSIF Stop: 10/23/21 23:59 Last Admin: 10/23/21 10:36 Dose: 528 mls/hr Trastuzumab 588 mg/ Sodium (Chloride) 278.028 mls @ 556.056 mls/hr IV ONCE YOUSIF Stop: 10/23/21 23:59 Ondansetron HCl (Ondansetron Odt 8 Mg Tab.Rapdis) 8 mg TRANSLINGU ONCE YOUSIF Stop: 10/23/21 23:59 Last Admin: 10/23/21 09:42 Dose: 8 mg Home Medications Medication Instructions Recorded Confirmed Type pregabalin 75 mg capsule 75 mg PO BID 08/21/21 09/19/21 History vitamin B complex 1 cap PO DAILY 08/29/21 09/19/21 History hydrochlorothiazide 25 mg tablet 25 mg PO DAILY 09/19/21 09/19/21 History Allergies Allergy/AdvReac Type Severity Reaction Status Date / Time codeine [CODEINE] Allergy Unknown STOMACH Verified 09/19/21 10:03 UPSET Exam Vital signs: Vital Signs Temp 97.9 F 10/23/21 09:08 Pulse 78 10/23/21 09:08 Resp 18 10/23/21 09:08 BP 129/80 10/23/21 09:08 Pulse Ox 96 10/23/21 09:08 O2 Del Method 10/23/21 09:08 Intake & Output 10/22/21 10/23/21 10/23/21 18:59 06:59 18:59 Other: Weight 99 kg [place] Weight in Grams 64742 Weight 99 kg BMI result Body Mass Index 39.9 - Constitutional Present: moderate distress, obese - Routine HEENT Exam Head: Present: normal inspection Eye: Present: normal appearance ENT: Present: mucous membranes moist - Routine Neck Exam Present: full ROM - Routine Respiratory Exam Present: CTAB - Routine Cardiovascular Exam Cardiovascular: Present: RRR, S1, S2 - Routine Abdominal Exam Present: soft, nontender - Routine Rectal Exam Patient deferred: digital exam - Routine Extremities Exam Present: nontender - Routine Back/Spine/Pelvis Exam Back/Spine: Absent: CVA tenderness - Routine Skin Exam Present: intact - Routine Neurological Exam Present: alert, oriented X3 - Detailed Neurological Exam: Coma Scale Eye Opening: Spontaneous (4) - Routine Psychiatric Exam Present: normal affect Data - Labs CBC & Chem 7: 10/22/21 08:37 10/22/21 08:37 Assessment and Plan Patient Active problem list reviewed?: Yes (1) Carcinoma of left breast Status: Acute Assessment and plan: Status: Acute This is a pleasant 65-year-old lady with a recent diagnosis of inflammatory breast carcinoma the left breast. It is ERPR negative and HER2 Stephy positive. On ultrasound the tumor appears to be about 6 cm in size. Ca 27.29:44. She was deemed a candidate for neoadjuvant chemotherapy, in view of the large size of the tumor and the inflammatory component. She is HER2 positive. I recommended treating her with dose dense AC X4, followed by Taxol and Herceptin. Then reassess for surgical resection, based upon her response. I proceeded with a baseline PET scan, for initial staging. This revealed: Intense activity in the medial left breast lesion assumed to be the primary tumor. There is also an enlarged left axillary node showing increased activity and metastatic disease needs to be suspected though this could be reactive. Otherwise, uptake in the region of the left thyroid gland, which is enlarged. This could represent uptake within a thyroid nodule and, therefore ultrasound would be recommended as malignancy cannot be excluded. Differential would be abnormal uptake in an enlarged node in the region. As described in the left axillary region, more proximally toward the region of the thoracic inlet, some mild uptake in nonpathologically enlarged nodes. These may be reactive but certainly early metastatic disease cannot be excluded. There is also uptake within the region of C1 anterior to the left of midline. There is lucency in the bone here. A metastatic deposit cannot be excluded. Consider MR. Harmon discussed with IR, neuro-radiology. They felt the biopsy would be risky to do. However since the lesion is apparent on 2 different imaging modalities, it is likely to be real. Hence the plan is to proceed with treatment. Since she has aggressive progressive disease, will treat her with an active regimen, to expedite her response. She had an echocardiogram, prior to anthracycline. This came back normal with EF of 60-65%. She had genetic testing done. This came back negative. She had a Port-A-Cath placement. This was placed on 08/22/20. She started dose dense AC chemotherapy with Neulasta support. She completed that. She then received 12 weeks of Taxol. Thyroid ultrasound revealed: Heterogeneous thyroid gland. The left lobe is enlarged. Bilateral thyroid nodules. Fine needle aspiration of the largest nodule in the left lobe recommended. l checked with Radiology, proceeded with the thyroid biopsy. (this revealed benign findings.) She completed 4 cycles of AC. She then completed 12 weeks of Taxol treatment. She has tolerated it really well. She has had symptoms of neuropathy. This is likely residual from the Taxol. I started her on Neurontin for the neuropathic pain, 100 mg every 8 hours, to start out with. Her breast mass has disappeared. She complained of body aches joint pains. I proceeded with a bone scan, 03/04/21. This revealed: No abnormal bone activity seen to suspect any metastatic bone disease. There is mild degenerative changes right T7 costovertebral junction and right T11 and T12 facet joints. She had an MRI of the breast on 02/18/21: Interval decrease in size of the incident mass in the 8 o'clock position which now measures 1.8 x 3.6 x 2.5 cm. There is no abnormal enhancement at this time which indicates a response to neoadjuvant chemotherapy. There is also a 0.7 cm satellite lesion in the 7 o'clock position, anterior to the primary tumor which also demonstrates no abnormal enhancement. No other findings suspicious of malignancy in either breast. . Status post mastectomy, 04/30/21, by Dr. Javed. Pathology: No residual cancer identified.(ypT0) consistent with complete response to pre-surgical therapy. Dense hyalinized stromal sclerosis with calcifications. Benign ducts with ductal ectasia. Six axillary lymph nodes negative for tumor. Skin and nipple with no evidence of tumor. This is very reassuring. The neuropathy is persistent. She was on gabapentin without significant benefit. I had added Lyrica for that. She still had the symptoms. l referred her for further neurology consultation. She saw Dr. Briggs, who advised her to increase the Lyrica dose from 75 b.i.d to 150 mg BID. She tried that however the morning does made her rather lethargic. I advised her to take 75 in the morning and 150 before bed. She is currently on maintenance, Herceptin and pertuzumab. She has one month more to go. PLAN: She will complete the course on November 13. She will continue on Denosumab for her bone Mets. These disappeared on repeat imaging. Next dose is due in November. I will repeat MRI of the C-spine for restaging. If that is negative, will carefully monitor. She has been through prolonged course of chemotherapy, and would like a break. She is not a candidate for anti-estrogen therapy since she is ER/NY negative. Will follow her tumor marker: CA 27.29. It was 35, on 09/10. She will be going for RT planning in the near future. She will return in a month for a follow up. All her questions were answered to her satisfaction. Thank you, CC: Dr. mathis. Dr. Javed. - Time Spent With Patient Time Spent with Patient (in minutes): 30
[2021-10-23] MEDS: Heparin Sodium,Porcine Flush 500 UNIT/5 ML SYRINGE IVFLUSH (12:11)
--- NOTE | 2021-10-23 13:39 | MHC.HEMONC ---
Here for C21 D1 Perjeta/Herceptin. Labs done 10/23 reviewed. Port accessed, no blood return noted. Pt does have documented fibrin sheath. States is feeling well, offering no c/o. Premedicated with benadryl IV, tylenol and zofran po. Treatment done and tolerated well. Port flushed with heparin and de-accessed. Scheduled for next treatment in [address] Peña in to see pt for follow up.
[2021-11-12 09:02] LABS: MANUAL DIFF FLAG NO
[2021-11-12 09:07] LABS: Basophils Percent Auto 0.3 % (0-2); Eosinophils Absolute Auto 0.1 X10*3/uL (0.0-0.4); Eosinophils Percent Auto 1.2 % (0-4); Hematocrit 44.1 % (37.0-47.0); Hemoglobin 14.5 g/dl (12.0-16.0); Imm Gran Abs Auto 0.04 X10*3/uL (0.00-0.03); Imm Gran Pct Auto 0.6 % (0.0-0.4); Lymphocytes Absolute Auto 1.9 X10*3/uL (1.2-4.9); Lymphocytes Percent Auto 27.8 % (20-40); Mean Corpuscular HGB Conc 32.9 g/dl (31.0-35.0); Mean Corpuscular Hemoglobin 31.6 pg (27.0-33.0); Mean Corpuscular Volume 96.1 fL (80.0-98.0); Mean Platelet Volume 10.1 fL (9.4-12.3); Monocytes Absolute Auto 0.6 X10*3/uL (0.1-1.2); Monocytes Percent Auto 8.5 % (2-11); Neutrophils Absolute Auto 4.3 x10*3/uL (2.0-8.3); Neutrophils Percent Auto 61.6 % (45-73); Platelet Count 165 X10*3/uL (160-400); Red Blood Count 4.59 X10*6/uL (4.20-5.50); Red Cell Distribution Width 12.7 % (11.0-16.0)
[2021-11-12 09:31] LABS: Alanine Aminotransferase 9 U/L (0-31); Albumin Level 3.8 g/dL (3.5-5.0); Alkaline Phosphatase 74 U/L (39-117); Anion Gap 16 (12-20); Aspartate Amino Transferase 15 U/L (5-31); Bilirubin Total 0.7 mg/dL (0.0-1.0); Blood Urea Nitrogen 14 mg/dL (9-16); Calcium 9.3 mg/dL (8.4-10.2); Carbon Dioxide 30 mmol/L (22-29); Chloride 102 mmol/L (96-108); Creatinine Clr Calc Pharmacy 80.1; Estimated Glomerular Filt Rate > 60; Glucose Random 123 mg/dL (60-115); Potassium 4.7 mmol/L (3.3-5.1); Sodium 143 mmol/L (135-145); Total Protein 6.4 g/dL (6.5-8.0)
[2021-11-13 09:15] VITALS: BP 137/64; PULSE 63; RESP 20; TEMP 36.3; O2SAT 95; BMI 39.9
[2021-11-13] MEDS: diphenhydrAMINE HCL 50 MG/ML VIAL 25 MG IVPUSH (09:56)
[2021-11-13] MEDS: Acetaminophen 325 MG TABLET 650 MG PO (09:57)
[2021-11-13] MEDS: Ondansetron ODT 8 MG TAB.RAPDIS TRANSLINGU (09:57)
[2021-11-13] MEDS: Heparin Sodium,Porcine Flush 500 UNIT/5 ML SYRINGE IVFLUSH (12:31)
--- NOTE | 2021-11-13 15:04 | MHC.HEMONC ---
Here for C22 D1 Perjeta/Herceptin. This is pts last chemo treatment. Labs done 11/12 reviewed. Pt states feels good, except just a lot of fatigue after last treatment. Port accessed. No blood return noted, but has documented fibrin sheath. Premedicated with tylenol and zofran po, and benadryl IV. Treatment done and tolerated well. Port flushed with heparin 500units and de-accessed. Denosumab 120mg sc given right arm as ordered. Scheduled for bone scan on 11/20, and follow up with Dr Peña on 12/08. Discharge packet given and pt departed unit.
--- NOTE | 2021-11-27 11:31 | HO.HEMONCSCH ---
MRI sent to [facility].
--- NOTE | 2021-11-27 13:12 | HO.HEMONCSCH ---
CT scan sent to [facility].
[2021-12-08 09:08] VITALS: BP 147/65; PULSE 69; RESP 16; TEMP 36.1; O2SAT 95; BMI 40.2
[2021-12-08 09:12] LABS: MANUAL DIFF FLAG NO
[2021-12-08 09:17] LABS: Basophils Percent Auto 0.5 % (0-2); Eosinophils Absolute Auto 0.1 X10*3/uL (0.0-0.4); Eosinophils Percent Auto 0.9 % (0-4); Hematocrit 45.7 % (37.0-47.0); Hemoglobin 15.5 g/dl (12.0-16.0); Imm Gran Abs Auto 0.03 X10*3/uL (0.00-0.03); Imm Gran Pct Auto 0.3 % (0.0-0.4); Lymphocytes Absolute Auto 1.9 X10*3/uL (1.2-4.9); Lymphocytes Percent Auto 21.6 % (20-40); Mean Corpuscular HGB Conc 33.9 g/dl (31.0-35.0); Mean Corpuscular Volume 94.2 fL (80.0-98.0); Mean Platelet Volume 10.1 fL (9.4-12.3); Monocytes Absolute Auto 0.7 X10*3/uL (0.1-1.2); Neutrophils Percent Auto 68.7 % (45-73); Platelet Count 196 X10*3/uL (160-400); Red Blood Count 4.85 X10*6/uL (4.20-5.50); Red Cell Distribution Width 12.5 % (11.0-16.0); White Blood Count 8.8 X10*3/uL (4.8-10.8)
[2021-12-08 09:36] LABS: Alanine Aminotransferase 12 U/L (0-31); Alkaline Phosphatase 78 U/L (39-117); Anion Gap 14 (12-20); Aspartate Amino Transferase 15 U/L (5-31); Bilirubin Total 0.8 mg/dL (0.0-1.0); Blood Urea Nitrogen 14 mg/dL (9-16); Calcium 9.2 mg/dL (8.4-10.2); Carbon Dioxide 31 mmol/L (22-29); Chloride 101 mmol/L (96-108); Creatinine Clr Calc Pharmacy 71.9; Estimated Glomerular Filt Rate > 60; Glucose Random 120 mg/dL (60-115); Potassium 3.7 mmol/L (3.3-5.1); Sodium 142 mmol/L (135-145); Total Protein 6.8 g/dL (6.5-8.0)
--- NOTE | 2021-12-08 09:40 | PM.HEMONCPN ---
Medical Summary - Medical Summary Date of Service: 12/08/21 Chief complaint: Follow-up for: Metastatic breast cancer. 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 CURRENT THERAPY: AC with Neulasta support, completed 4 cycles. Completed 12 weeks of Taxol. On pertuzumab and Herceptin maintenance. Here for a dose. Cycle #21. Status post mastectomy, 04/30, by Dr. Javed. Pathology: No residual cancer identified.(ypT0) consistent with complete response to pre-surgical therapy. Dense hyalinized stromal sclerosis with calcifications. Benign ducts with ductal ectasia. Six axillary lymph nodes negative for tumor. Skin and nipple with no evidence of tumor. Interval History Interval history: Marcia Strong is a pleasant 66 year old lady, here for a follow-up visit. She has been doing very well. She still gets a bit tired. Other than that, she has no major complaints. She had a follow-up bone scan on 11/20 which revealed: 1. A nonspecific abnormality in the right side of the mandible has developed since the prior 03/04/2021 bone scan and this is nonspecific. While this may represent a focus of osteonecrosis, a solitary metastasis at this site cannot be entirely ruled out. Correlation with MRI performed without and with intravenous contrast is recommended to better characterize this abnormality, if clinically indicated. 2. A few additional stable mild nonspecific abnormalities are noted as described above and these are all likely arthritic or traumatic in etiology. None of these abnormalities is strongly suspicious for metastatic disease. MRI of C-spine from 818: 1. The previously demonstrated lesion within the left lateral mass of C1 no longer demonstrates significant T2 hyperintensity or enhancing characteristics. Findings are suggestive of posttreatment change. No demonstrated new suspicious osseous lesions. 2. Otherwise, moderate multilevel degenerative spondyloarthropathy of the cervical spine as described in detail above. Most notably, there is moderate to severe spinal canal stenosis at C5-C6. Mild spinal canal stenoses at C4-C5 and C6-C7. Moderate to severe neural foraminal stenoses from C3-C7. Stable mild myelomalacia within the dorsal columns at C5-C6. No new spinal cord signal abnormalities. Overall, degenerative changes appear similar to prior exam. She gets pain in her teeth, radiating to the ear. She has bad teeth. She says they are rotten. She has to see the dentist. She is waiting on her insurance card. She complains of pain in her left hand. It is very painful, over her thumb base and lateral wrist. She does have history of neuropathy. She has numbness tingling and lack of sensation on her thumb and forefinger. It also involves her toes. Her tips hurt. Sometimes she can not even feel the blanket on her. She saw the neurologist on the 14 of October. He shared the [facility] studies with her. These were reasonably normal. He had increase the Lyrica to 75 b.i.d. in the past. He now increased to 150 b.i.d. She says she can take the evening dose however if she takes the morning one as well she gets lethargic. She has had a chronic low back pain at the lumbosacral area. She denies any radiation down into the legs however her legs feel weak. She is unable to stand for too long. She is doing her cooking on the stove sitting down. She complains of pain in her shoulder upon movement. Denies fever nor chills. HEENT: No headache no dizziness. No chest pain nor trouble breathing. She denies any abdominal pain, she had some nausea this week. No vomiting heartburn indigestion. Her bowels are working without any gross blood in it. No more diarrhea. She had a colonoscopy in her 50s at [facility]. Appetite is good. She has gained weight. Denies any urinary complaints. Denies any focal weakness. She tolerated the chemotherapy reasonably well. She denies depression however she had history of anxiety. Recent imaging: MRI of the breast from 02/26: Interval decrease in size of the incident mass in the 8 o'clock position which now measures 1.8 x 3.6 x 2.5 cm. There is no abnormal enhancement at this time which indicates a response to neoadjuvant chemotherapy. There is also a 0.7 cm satellite lesion in the 7 o'clock position, anterior to the primary tumor which also demonstrates no abnormal enhancement. No other findings suspicious of malignancy in either breast. Previous history: She tells me that about 3 months ago she noted, what she felt was, a pimple underneath her left breast. It would occasionally get itchy and then dry. Then it became harder around the edges. It was fixed, not movable. Due to the pandemic she did not leave the home. About a month ago she woke up one morning and she felt her left breast was heavy and huge. It was quite red and warm to touch. The nipple appeared carbon plant grinder. She decided to go to the emergency room. This was on 07/16. Ultrasound of the breast revealed: Large irregular mass with scattered internal color flow vascularity 8:00 position 7 cm from nipple measuring 5 x 4 cm. Several adjacent smaller satellite foci, largest 1.3 cm. Differential considerations include malignancy as well as abscess. ASSESSMENT: BI-RADS 4: Suspicious RECOMMENDATION: 1. Surgical Consult. 2. Diagnostic mammography. She underwent an ultrasound-guided biopsy at 08:00 o'clock position on 07/25. Pathology revealed: Invasive ductal carcinoma, MSBR grade 2. ER negative/VT negative/HER2 Stephy positive 3+. She was seen by Dr. Javed. She has been referred here for question if she should have neoadjuvant chemotherapy. 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 Menopause in her early 50s. No HRT. She is . She has 4 children. Family history: A paternal cousin had breast cancer in her mid 60s. 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 She is . Has 4 children. She smokes half a pack a day. She likes her wine. Review of Systems - Constitutional Reports system reviewed and no additional complaints, except as documented, Reports weight gain, Denies fever(s), Denies weakness - Eyes Reports system reviewed and no additional complaints, except as documented - ENT Reports system reviewed and no additional complaints, except as documented - Cardiovascular Reports system reviewed and no additional complaints, except as documented - Respiratory Reports no additional respiratory complaints - Gastrointestinal Reports system reviewed and no additional complaints, except as documented - Genitourinary Reports no additional female genitourinary complaints - Musculoskeletal Reports system reviewed and no additional complaints, except as documented Comments: left hand pain. - Integumentary/Breasts Skin/Breast: Reports no additional skin complaints - Neurologic Reports system reviewed and no additional complaints, except as documented, Reports numbness, Reports paresthesias, Reports weakness - Psychiatric Reports system reviewed and no additional complaints, except as documented - Endocrine Reports no additional endocrine complaints - Hematologic/Lymphatic Reports system reviewed and no additional complaints, except as documented - Allergic/Immunologic Reports system reviewed and no additional complaints, except as documented PMF Medical History: Medical History (Last Reviewed 12/16/21 @ 10:40 by Rosales Javed MD) Arthritis Bone cancer Breast cancer Cerebral aneurysm Chronic back pain Morbid obesity Neuropathy Pneumonia Port-A-Cath in place Functional capacity: independent ambulation Patient : No Family History: Family History (Last Reviewed 12/16/21 @ 10:40 by Rosales Javed MD) Family/Other No problems noted. Brother Colon cancer Daughter Breast cancer Surgical History: Surgical History (Last Reviewed 12/16/21 @ 10:40 by Rosales Javed MD) H/O tubal ligation History of mastectomy Social History: Social History (Last Reviewed 12/16/21 @ 10:40 by Rosales Javed MD) Living Situation History: Household Members: Children Housing: Apartment Are you a primary complex care nurse to a significant other at home: No Do you presently have visiting nurse or other home services: No Tobacco History: Patient Tobacco Use Status: Current everyday Tobacco Tobacco use type: Cigarette Cigarettes Per Day: 5 Years Smoked: 50 e-Cigarette/Vaping Use: Never Used Second Hand Smoke Exposure: Yes Second Hand Smoke Exposure comment: daughter Advance Directives: Advance Directives Date on File: 08/22/20 Occupation Assessmet: service: No Current occupational status: unemployed Oncology Screenings - ECOG Performance Status ECOG Performance Status: 0 Home Medications and Allergies Home Medications Medication Instructions Recorded Confirmed Type pregabalin 75 mg capsule (Lyrica) 75 mg PO BID 08/21/21 12/16/21 History vitamin B complex 1 cap PO DAILY 08/29/21 12/16/21 History hydrochlorothiazide 25 mg tablet 25 mg PO DAILY 09/19/21 12/16/21 History Allergies Allergy/AdvReac Type Severity Reaction Status Date / Time codeine [CODEINE] Allergy Unknown STOMACH Verified 12/16/21 10:18 UPSET Exam Vital signs: Vital Signs Temp 96.9 F 12/08/21 09:08 Pulse 69 12/08/21 09:08 Resp 16 12/08/21 09:08 BP 147/65 H 12/08/21 09:08 Pulse Ox 95 12/08/21 09:08 O2 Del Method 12/08/21 09:08 Intake & Output 12/07/21 12/08/21 12/08/21 18:59 06:59 18:59 Other: Weight 99.9 kg Weight in Grams 28890 Weight 99.9 kg BMI result Body Mass Index 40.2 - Constitutional Present: moderate distress, obese - Routine HEENT Exam Head: Present: normal inspection Eye: Present: normal appearance ENT: Present: mucous membranes moist - Routine Neck Exam Present: full ROM - Routine Respiratory Exam Present: CTAB - Routine Cardiovascular Exam Cardiovascular: Present: RRR, S1, S2 - Routine Abdominal Exam Present: soft, nontender - Routine Rectal Exam Patient deferred: digital exam - Routine Extremities Exam Present: nontender - Routine Back/Spine/Pelvis Exam Back/Spine: Absent: CVA tenderness - Routine Skin Exam Present: intact - Routine Neurological Exam Present: alert, oriented X3 - Detailed Neurological Exam: Coma Scale Eye Opening: Spontaneous (4) - Routine Psychiatric Exam Present: normal affect Data - Labs CBC & Chem 7: 12/08/21 09:09 12/08/21 09:09 Assessment and Plan Patient Active problem list reviewed?: Yes (1) Carcinoma of left breast Status: Acute Assessment and plan: Status: Acute This is a pleasant 65-year-old lady with a recent diagnosis of inflammatory breast carcinoma the left breast. It is ERPR negative and HER2 Stephy positive. On ultrasound the tumor appears to be about 6 cm in size. Ca 27.29:44. She was deemed a candidate for neoadjuvant chemotherapy, in view of the large size of the tumor and the inflammatory component. She is HER2 positive. I recommended treating her with dose dense AC X4, followed by Taxol and Herceptin. Then reassess for surgical resection, based upon her response. I proceeded with a baseline PET scan, for initial staging. This revealed: Intense activity in the medial left breast lesion assumed to be the primary tumor. There is also an enlarged left axillary node showing increased activity and metastatic disease needs to be suspected though this could be reactive. Otherwise, uptake in the region of the left thyroid gland, which is enlarged. This could represent uptake within a thyroid nodule and, therefore ultrasound would be recommended as malignancy cannot be excluded. Differential would be abnormal uptake in an enlarged node in the region. As described in the left axillary region, more proximally toward the region of the thoracic inlet, some mild uptake in nonpathologically enlarged nodes. These may be reactive but certainly early metastatic disease cannot be excluded. There is also uptake within the region of C1 anterior to the left of midline. There is lucency in the bone here. A metastatic deposit cannot be excluded. Consider MR. Faustino discussed with IR, neuro-radiology. They felt the biopsy would be risky to do. However since the lesion is apparent on 2 different imaging modalities, it is likely to be real. Hence the plan is to proceed with treatment. Since she has aggressive progressive disease, will treat her with an active regimen, to expedite her response. She had an echocardiogram, prior to anthracycline. This came back normal with EF of 60-65%. She had genetic testing done. This came back negative. She had a Port-A-Cath placement. This was placed on 08/22/20. She started dose dense AC chemotherapy with Neulasta support. She completed that. She then received 12 weeks of Taxol. Thyroid ultrasound revealed: Heterogeneous thyroid gland. The left lobe is enlarged. Bilateral thyroid nodules. Fine needle aspiration of the largest nodule in the left lobe recommended. l checked with Radiology, proceeded with the thyroid biopsy. (this revealed benign findings.) She completed 4 cycles of AC. She then completed 12 weeks of Taxol treatment. She has tolerated it really well. She has had symptoms of neuropathy. This is likely residual from the Taxol. I started her on Neurontin for the neuropathic pain, 100 mg every 8 hours, to start out with. Her breast mass has disappeared. She complained of body aches joint pains. I proceeded with a bone scan, 03/04/21. This revealed: No abnormal bone activity seen to suspect any metastatic bone disease. There is mild degenerative changes right T7 costovertebral junction and right T11 and T12 facet joints. She had an MRI of the breast on 02/18/21: Interval decrease in size of the incident mass in the 8 o'clock position which now measures 1.8 x 3.6 x 2.5 cm. There is no abnormal enhancement at this time which indicates a response to neoadjuvant chemotherapy. There is also a 0.7 cm satellite lesion in the 7 o'clock position, anterior to the primary tumor which also demonstrates no abnormal enhancement. No other findings suspicious of malignancy in either breast. . Status post mastectomy, 04/30/21, by Dr. Javed. Pathology: No residual cancer identified.(ypT0) consistent with complete response to pre-surgical therapy. Dense hyalinized stromal sclerosis with calcifications. Benign ducts with ductal ectasia. Six axillary lymph nodes negative for tumor. Skin and nipple with no evidence of tumor. This is very reassuring. The neuropathy is persistent. She was on gabapentin without significant benefit. I had added Lyrica for that. She still had the symptoms. l referred her for further neurology consultation. She saw Dr. Briggs, who advised her to increase the Lyrica dose from 75 b.i.d to 150 mg BID. She tried that however the morning does made her rather lethargic. I advised her to take 75 in the morning and 150 before bed. She has completed maintenance, Herceptin and pertuzumab. She complete the course on November 13. She had a follow-up bone scan on 11/20 which revealed: 1. A nonspecific abnormality in the right side of the mandible has developed since the prior 03/04/2021 bone scan and this is nonspecific. While this may represent a focus of osteonecrosis, a solitary metastasis at this site cannot be entirely ruled out. Correlation with MRI performed without and with intravenous contrast is recommended to better characterize this abnormality, if clinically indicated. 2. A few additional stable mild nonspecific abnormalities are noted as described above and these are all likely arthritic or traumatic in etiology. None of these abnormalities is strongly suspicious for metastatic disease. MRI of C-spine from 818: 1. The previously demonstrated lesion within the left lateral mass of C1 no longer demonstrates significant T2 hyperintensity or enhancing characteristics. Findings are suggestive of posttreatment change. No demonstrated new suspicious osseous lesions. 2. Otherwise, moderate multilevel degenerative spondyloarthropathy of the cervical spine as described in detail above. Most notably, there is moderate to severe spinal canal stenosis at C5-C6. Mild spinal canal stenoses at C4-C5 and C6-C7. Moderate to severe neural foraminal stenoses from C3-C7. Stable mild myelomalacia within the dorsal columns at C5-C6. No new spinal cord signal abnormalities. Overall, degenerative changes appear similar to prior exam. I discussed the above findings with Dr. Feldman. He felt that the abnormality in the right mandible, is related to her teeth. She does agree that her teeth are rotten. He suggested to do an plain x-ray of the mandible: Non-specific abnormality in the right posterior mandibular body, the appearance is non specific: could be infectious, inflammatory, post treatment changes. CAT scan of the mandible: There is irregular change of a 2 cm segment of right alveolar process of the mandible, new compared to exam from 2020. No E/O soft tissue abnormality surrounding this region. PLAN: She will be following up with her dentist in the near future. She has been through prolonged course of chemotherapy, and would like a break. She is not a candidate for anti-estrogen therapy since she is ER/VT negative. She will continue on Denosumab for her bone Mets. These disappeared on repeat imaging. Next dose is due in December. She also has pain in her left hand. Will proceed with x-rays for that as well: This revealed DJD. Will follow her tumor marker: CA 27.29: 30, It was 35, on 09/10. She has had post lumpectomy radiation. She will return in a month for a follow up. All her questions were answered to her satisfaction. Thank you, CC: Dr. mathis. Dr. Javed. - Time Spent With Patient Time Spent with Patient (in minutes): 30
--- NOTE | 2021-12-08 09:41 | MHC.HEMONC ---
Pt here for onc f/u. Reports pain left wrist x [address] Peña offered dose of ibuprophen and xray.
[2021-12-08 09:56] LABS: Vitamin D 25-OH Total 8.3 ng/mL (>30)
[2021-12-08] MEDS: Ibuprofen 800 MG TABLET PO (10:09)
--- NOTE | 2021-12-08 14:41 | MHC.HEMONCMA ---
Pt was in for follow up. Clinical summary reviewed and updated, VSS. Labs were drawn.
[2021-12-10 09:02] LABS: CA 27.29 30 U/mL (<38)
--- NOTE | 2021-12-25 08:57 | MHC.HEMONC ---
Triage call: Patient reported continued pain to right jaw gum line. ?abscess. She reports worsening pain for 2 weeks. Patient is currently awaiting insurance callback to book an appt with a dentist. Dr. Peña updated- order for Amoxicillin sent to pharmacy. Patient instructed to call us with update- patient verbalizes understanding.
[2022-02-04 08:40] LABS: MANUAL DIFF FLAG NO
[2022-02-04 08:45] LABS: Basophils Percent Auto 0.5 % (0-2); Eosinophils Absolute Auto 0.1 X10*3/uL (0.0-0.4); Hematocrit 43.4 % (37.0-47.0); Hemoglobin 14.5 g/dl (12.0-16.0); Imm Gran Abs Auto 0.02 X10*3/uL (0.00-0.03); Imm Gran Pct Auto 0.3 % (0.0-0.4); Lymphocytes Absolute Auto 1.9 X10*3/uL (1.2-4.9); Lymphocytes Percent Auto 32.5 % (20-40); Mean Corpuscular HGB Conc 33.4 g/dl (31.0-35.0); Mean Corpuscular Hemoglobin 31.9 pg (27.0-33.0); Mean Corpuscular Volume 95.4 fL (80.0-98.0); Mean Platelet Volume 10.2 fL (9.4-12.3); Monocytes Absolute Auto 0.6 X10*3/uL (0.1-1.2); Monocytes Percent Auto 9.5 % (2-11); Neutrophils Absolute Auto 3.3 x10*3/uL (2.0-8.3); Neutrophils Percent Auto 55.2 % (45-73); Platelet Count 186 X10*3/uL (160-400); Red Blood Count 4.55 X10*6/uL (4.20-5.50); Red Cell Distribution Width 12.2 % (11.0-16.0); White Blood Count 5.9 X10*3/uL (4.8-10.8)
[2022-02-04 09:01] LABS: Alanine Aminotransferase 10 U/L (0-31); Alkaline Phosphatase 76 U/L (39-117); Anion Gap 16 (12-20); Aspartate Amino Transferase 16 U/L (5-31); Bilirubin Total 0.6 mg/dL (0.0-1.0); Blood Urea Nitrogen 20 mg/dL (9-16); Calcium 9.4 mg/dL (8.4-10.2); Carbon Dioxide 31 mmol/L (22-29); Chloride 103 mmol/L (96-108); Creatinine Clr Calc Pharmacy 63.7; Estimated Glomerular Filt Rate 58; Glucose Random 116 mg/dL (60-115); Potassium 5.1 mmol/L (3.3-5.1); Sodium 145 mmol/L (135-145); Total Protein 6.7 g/dL (6.5-8.0)
[2022-02-05 08:46] VITALS: BP 123/60; PULSE 66; RESP 14; TEMP 36.4; O2SAT 95; BMI 40.9
--- NOTE | 2022-02-05 09:01 | PM.HEMONCPN ---
Medical Summary - Medical Summary Date of Service: 02/05/22 Chief complaint: Follow-up for: Stage IV breast cancer. 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 CURRENT THERAPY: AC with Neulasta support, completed 4 cycles. Completed 12 weeks of Taxol. Completed pertuzumab and Herceptin maintenance. Cycle #21. Status post mastectomy, 04/30, by Dr. Javed. Pathology: No residual cancer identified.(ypT0) consistent with complete response to pre-surgical therapy. Dense hyalinized stromal sclerosis with calcifications. Benign ducts with ductal ectasia. Six axillary lymph nodes negative for tumor. Skin and nipple with no evidence of tumor. Interval History Interval history: Marcia Strong is a pleasant 66 year old lady, here for a follow-up visit. She has been doing quite well. She tells me nothing is new. Only thing is, he had her Lower teeth removed. She has an appointment with the oral surgeon tomorrow to consider dentures. She still has the neuropathy. She is on Lyrica 150 mg 2 at night. She tried to take 1 in the morning but that made her rather loopy. She still gets a bit tired. She cannot walk very far. She gets pain in her back and legs. She has had a chronic low back pain at the lumbosacral area. She denies any radiation down into the legs however her legs feel weak. She is unable to stand for too long. She is doing her cooking on the stove sitting down. She complains of pain in her shoulder upon movement. Denies fever nor chills. HEENT: No headache no dizziness. No chest pain nor trouble breathing. She denies any abdominal pain, she had some nausea this week. No vomiting heartburn indigestion. Her bowels are working without any gross blood in it. No more diarrhea. She had a colonoscopy in her 50s at [facility]. Appetite is good. She has gained weight. Denies any urinary complaints. Denies any focal weakness. She is depressed. Her mom is dying. She tolerated the chemotherapy reasonably well. She denies depression however she had history of anxiety. She had a follow-up bone scan on 11/20 which revealed: 1. A nonspecific abnormality in the right side of the mandible has developed since the prior 03/04/2021 bone scan and this is nonspecific. While this may represent a focus of osteonecrosis, a solitary metastasis at this site cannot be entirely ruled out. Correlation with MRI performed without and with intravenous contrast is recommended to better characterize this abnormality, if clinically indicated. 2. A few additional stable mild nonspecific abnormalities are noted as described above and these are all likely arthritic or traumatic in etiology. None of these abnormalities is strongly suspicious for metastatic disease. MRI of C-spine from 818: 1. The previously demonstrated lesion within the left lateral mass of C1 no longer demonstrates significant T2 hyperintensity or enhancing characteristics. Findings are suggestive of posttreatment change. No demonstrated new suspicious osseous lesions. 2. Otherwise, moderate multilevel degenerative spondyloarthropathy of the cervical spine as described in detail above. Most notably, there is moderate to severe spinal canal stenosis at C5-C6. Mild spinal canal stenoses at C4-C5 and C6-C7. Moderate to severe neural foraminal stenoses from C3-C7. Stable mild myelomalacia within the dorsal columns at C5-C6. No new spinal cord signal abnormalities. Overall, degenerative changes appear similar to prior exam. Previous history: She saw the neurologist on the 14 of October. He shared the NCV studies with her. These were reasonably normal. He had increase the Lyrica to 75 b.i.d. in the past. He now increased to 150 b.i.d. She says she can take the evening dose however if she takes the morning one as well she gets lethargic. Recent imaging: MRI of the breast from 02/26: Interval decrease in size of the incident mass in the 8 o'clock position which now measures 1.8 x 3.6 x 2.5 cm. There is no abnormal enhancement at this time which indicates a response to neoadjuvant chemotherapy. There is also a 0.7 cm satellite lesion in the 7 o'clock position, anterior to the primary tumor which also demonstrates no abnormal enhancement. No other findings suspicious of malignancy in either breast. Previous history: She tells me that about 3 months ago she noted, what she felt was, a pimple underneath her left breast. It would occasionally get itchy and then dry. Then it became harder around the edges. It was fixed, not movable. Due to the pandemic she did not leave the home. About a month ago she woke up one morning and she felt her left breast was heavy and huge. It was quite red and warm to touch. 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 She decided to go to the emergency room. This was on 07/16. Ultrasound of the breast revealed: Large irregular mass with scattered internal color flow vascularity 8:00 position 7 cm from nipple measuring 5 x 4 cm. Several adjacent smaller satellite foci, largest 1.3 cm. Differential considerations include malignancy as well as abscess. ASSESSMENT: BI-RADS 4: Suspicious RECOMMENDATION: 1. Surgical Consult. 2. Diagnostic mammography. She underwent an ultrasound-guided biopsy at 08:00 o'clock position on 07/25. Pathology revealed: Invasive ductal carcinoma, MSBR grade 2. ER negative/CO negative/HER2 Stephy positive 3+. She was seen by Dr. Javed. She has been referred here for question if she should have neoadjuvant chemotherapy. 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 Menopause in her early 50s. No HRT. She is . She has 4 children. Family history: A paternal cousin had breast cancer in her mid 60s. 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 She is . Has 4 children. She smokes half a pack a day. She likes her wine. Review of Systems - Constitutional Reports system reviewed and no additional complaints, except as documented - Eyes Reports system reviewed and no additional complaints, except as documented - ENT Reports system reviewed and no additional complaints, except as documented - Cardiovascular Reports system reviewed and no additional complaints, except as documented - Respiratory Reports no additional respiratory complaints - Gastrointestinal Reports system reviewed and no additional complaints, except as documented - Genitourinary Reports no additional female genitourinary complaints - Musculoskeletal Reports system reviewed and no additional complaints, except as documented - Integumentary/Breasts Skin/Breast: Reports no additional skin complaints - Neurologic Reports system reviewed and no additional complaints, except as documented, Reports numbness, Reports paresthesias, Denies weakness - Psychiatric Reports system reviewed and no additional complaints, except as documented - Endocrine Reports no additional endocrine complaints - Hematologic/Lymphatic Reports system reviewed and no additional complaints, except as documented - Allergic/Immunologic Reports system reviewed and no additional complaints, except as documented PMFSH Medical History: Medical History (Last Reviewed 02/05/22 @ 08:52 by Brianna Velez CMA) Arthritis Bone cancer Breast cancer Cerebral aneurysm Chronic back pain Morbid obesity Neuropathy Pneumonia Port-A-Cath in place Functional capacity: independent ambulation Patient : No Family History: Family History (Last Reviewed 02/05/22 @ 08:51 by Brianna Velez CMA) Family/Other No problems noted. Brother Colon cancer Daughter Breast cancer Surgical History: Surgical History (Last Updated 02/05/22 @ 08:52 by Brianna Velez CMA) H/O tooth extraction H/O tubal ligation History of mastectomy Social History: Social History (Last Reviewed 02/05/22 @ 08:51 by Brianna Velez CMA) Living Situation History: Household Members: Children Housing: Apartment Are you a primary care clinician to a significant other at home: No Do you presently have visiting nurse or other home services: No Alcohol History Details: 1. How often do you have a drink containing alcohol?: d. 2-3 times a week 2. How many drinks containing alcohol do you have on a typical day when you are drinking?: a. 1 or 2 Tobacco History: Patient Tobacco Use Status: Current everyday Tobacco Tobacco use type: Cigarette Years Smoked: 50 e-Cigarette/Vaping Use: Never Used Second Hand Smoke Exposure: Yes Second Hand Smoke Exposure comment: daughter Substance Use History: Use of substances other than those prescribed or required for medical reasons: No Domestic Abuse History: Have you been hit, kicked, punched, or otherwise hurt by someone within the past year? If so, by whom?: No Advance Directives: Advance Directives Date on File: 08/22/20 Homicidal Assessment: Do you have thoughts of harming others: None Do you have a plan to hurt others: No Plan Do you have the means to hurt others: No Nutrition Assessment: Recently lost weight without trying: No Eating poorly because of decreased appetite: No Patient : No Occupation Assessmet: service: No Current occupational status: unemployed Oncology Screenings - ECOG Performance Status ECOG Performance Status: 1 Home Medications and Allergies Current Medications: Current Medications Denosumab (Denosumab 120 Mg/1.7 Ml Vial) 120 mg SUBCUT ONCE YOUSIF Stop: 02/05/22 23:59 Home Medications Medication Instructions Recorded Confirmed Type pregabalin 75 mg capsule (Lyrica) 75 mg PO BID 08/21/21 02/05/22 History hydrochlorothiazide 25 mg tablet 25 mg PO DAILY 09/19/21 02/05/22 History Allergies Allergy/AdvReac Type Severity Reaction Status Date / Time codeine [CODEINE] Allergy Unknown STOMACH Verified 02/05/22 08:51 UPSET Exam Vital signs: Vital Signs Temp 97.5 F 02/05/22 08:46 Pulse 66 02/05/22 08:46 Resp 14 02/05/22 08:46 BP 123/60 02/05/22 08:46 Pulse Ox 95 02/05/22 08:46 O2 Del Method 02/05/22 08:46 Intake & Output 02/04/22 02/05/22 02/05/22 18:59 06:59 18:59 Other: Weight 101.6 kg [place] Weight in Grams 116145 Weight 101.6 kg BMI result Body Mass Index 40.9 - Constitutional Present: moderate distress, obese - Routine HEENT Exam Head: Present: normal inspection Eye: Present: normal appearance ENT: Present: mucous membranes moist - Routine Neck Exam Present: full ROM - Routine Respiratory Exam Present: CTAB - Routine Cardiovascular Exam Cardiovascular: Present: RRR, S1, S2 - Routine Abdominal Exam Present: soft, nontender - Routine Rectal Exam Patient deferred: digital exam - Routine Extremities Exam Present: nontender - Routine Back/Spine/Pelvis Exam Back/Spine: Absent: CVA tenderness - Routine Skin Exam Present: intact - Routine Neurological Exam Present: alert, oriented X3 - Detailed Neurological Exam: Coma Scale Eye Opening: Spontaneous (4) - Routine Psychiatric Exam Present: normal affect Data - Labs CBC & Chem 7: 02/04/22 08:35 02/04/22 08:35 Assessment and Plan Patient Active problem list reviewed?: Yes (1) Carcinoma of left breast Status: Acute Assessment and plan: Status: Acute This is a pleasant 65-year-old lady with a recent diagnosis of inflammatory breast carcinoma the left breast. It is ERPR negative and HER2 Stephy positive. On ultrasound the tumor appears to be about 6 cm in size. Ca 27.29:44. She was deemed a candidate for neoadjuvant chemotherapy, in view of the large size of the tumor and the inflammatory component. She is HER2 positive. I recommended treating her with dose dense AC X4, followed by Taxol and Herceptin. Then reassess for surgical resection, based upon her response. I proceeded with a baseline PET scan, for initial staging. This revealed: Intense activity in the medial left breast lesion assumed to be the primary tumor. There is also an enlarged left axillary node showing increased activity and metastatic disease needs to be suspected though this could be reactive. Otherwise, uptake in the region of the left thyroid gland, which is enlarged. This could represent uptake within a thyroid nodule and, therefore ultrasound would be recommended as malignancy cannot be excluded. Differential would be abnormal uptake in an enlarged node in the region. As described in the left axillary region, more proximally toward the region of the thoracic inlet, some mild uptake in nonpathologically enlarged nodes. These may be reactive but certainly early metastatic disease cannot be excluded. There is also uptake within the region of C1 anterior to the left of midline. There is lucency in the bone here. A metastatic deposit cannot be excluded. Consider MR. Harmon discussed with IR, neuro-radiology. They felt the biopsy would be risky to do. However since the lesion is apparent on 2 different imaging modalities, it is likely to be real. Hence the plan is to proceed with treatment. Since she has aggressive progressive disease, will treat her with an active regimen, to expedite her response. She had an echocardiogram, prior to anthracycline. This came back normal with EF of 60-65%. She had genetic testing done. This came back negative. She had a Port-A-Cath placement. This was placed on 08/22/20. She started dose dense AC chemotherapy with Neulasta support. She completed that. She then received 12 weeks of Taxol. Thyroid ultrasound revealed: Heterogeneous thyroid gland. The left lobe is enlarged. Bilateral thyroid nodules. Fine needle aspiration of the largest nodule in the left lobe recommended. l checked with Radiology, proceeded with the thyroid biopsy. (this revealed benign findings.) She completed 4 cycles of AC. She then completed 12 weeks of Taxol treatment. She has tolerated it really well. She has had symptoms of neuropathy. This is likely residual from the Taxol. I started her on Neurontin for the neuropathic pain, 100 mg every 8 hours, to start out with. Her breast mass has disappeared. She complained of body aches joint pains. I proceeded with a bone scan, 03/04/21. This revealed: No abnormal bone activity seen to suspect any metastatic bone disease. There is mild degenerative changes right T7 costovertebral junction and right T11 and T12 facet joints. She had an MRI of the breast on 02/18/21: Interval decrease in size of the incident mass in the 8 o'clock position which now measures 1.8 x 3.6 x 2.5 cm. There is no abnormal enhancement at this time which indicates a response to neoadjuvant chemotherapy. There is also a 0.7 cm satellite lesion in the 7 o'clock position, anterior to the primary tumor which also demonstrates no abnormal enhancement. No other findings suspicious of malignancy in either breast. . Status post mastectomy, 04/30/21, by Dr. Javed. Pathology: No residual cancer identified.(ypT0) consistent with complete response to pre-surgical therapy. Dense hyalinized stromal sclerosis with calcifications. Benign ducts with ductal ectasia. Six axillary lymph nodes negative for tumor. Skin and nipple with no evidence of tumor. This is very reassuring. The neuropathy is persistent. She was on gabapentin without significant benefit. I had added Lyrica for that. She still had the symptoms. l referred her for further neurology consultation. She saw Dr. Briggs, who advised her to increase the Lyrica dose from 75 b.i.d to 150 mg BID. She tried that however the morning does made her rather lethargic. I advised her to take 75 in the morning and 150 before bed. She has completed maintenance, Herceptin and pertuzumab. She complete the course on November 13. She had a follow-up bone scan on 11/20 which revealed: 1. A nonspecific abnormality in the right side of the mandible has developed since the prior 03/04/2021 bone scan and this is nonspecific. While this may represent a focus of osteonecrosis, a solitary metastasis at this site cannot be entirely ruled out. Correlation with MRI performed without and with intravenous contrast is recommended to better characterize this abnormality, if clinically indicated. 2. A few additional stable mild nonspecific abnormalities are noted as described above and these are all likely arthritic or traumatic in etiology. None of these abnormalities is strongly suspicious for metastatic disease. MRI of C-spine from 818: 1. The previously demonstrated lesion within the left lateral mass of C1 no longer demonstrates significant T2 hyperintensity or enhancing characteristics. Findings are suggestive of posttreatment change. No demonstrated new suspicious osseous lesions. 2. Otherwise, moderate multilevel degenerative spondyloarthropathy of the cervical spine as described in detail above. Most notably, there is moderate to severe spinal canal stenosis at C5-C6. Mild spinal canal stenoses at C4-C5 and C6-C7. Moderate to severe neural foraminal stenoses from C3-C7. Stable mild myelomalacia within the dorsal columns at C5-C6. No new spinal cord signal abnormalities. Overall, degenerative changes appear similar to prior exam. I discussed the above findings with Dr. Feldman. He felt that the abnormality in the right mandible, is related to her teeth. She does agree that her teeth are rotten. He suggested to do an plain x-ray of the mandible: Non-specific abnormality in the right posterior mandibular body, the appearance is non specific: could be infectious, inflammatory, post treatment changes. CAT scan of the mandible: There is irregular change of a 2 cm segment of right alveolar process of the mandible, new compared to exam from 2020. No E/O soft tissue abnormality surrounding this region. She had pain in her left hand. l proceeded with x-rays for that as well: This revealed DJD. She has been through prolonged course of chemotherapy, and wanted a break. She is not a candidate for anti-estrogen therapy since she is ER/CO negative. PLAN: She will be following up with the Oral surgeon tomorrow. Dr. Boyd Jacinto. She will get a dose of Denosumab today for her bone Mets. These disappeared on repeat imaging. Will follow her tumor marker: CA 27.29: 30, It was 35, on 09/10. She has had post lumpectomy radiation. She will return in a month for a follow up. All her questions were answered to her satisfaction. Thank you, CC: Dr. mathis. Dr. Javed. 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 That has been put on hold. She will take mouthwash and antibiotic. She will be following up with the oral surgeon in the near future. - Time Spent With Patient Time Spent with Patient (in minutes): 30
--- NOTE | 2022-02-05 10:11 | MHC.HEMONC ---
Pt here for denosumab injection. Labs done 02/04, calcium level 9.4. Injection given right upper arm and tolerated well. Scheduled for 02/12 for port flush, pt unable to stay today. Next denosumab scheduled for 1 month.
--- NOTE | 2022-02-05 13:06 | MHC.HEMONCMA ---
Pt was in for follow up. Clinical summary reviewed and updated, VSS. Pt to return in 1 month.
--- NOTE | 2022-02-06 10:41 | MHC.HEMONC ---
Triage call from pts friend Linda. 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 Dr Peña made aware, and plan is to hold denosumab.
[2022-02-12 09:01] VITALS: BP 130/71; PULSE 65; RESP 20
--- NOTE | 2022-02-12 09:11 | MHC.HEMONC ---
port flush only- no blood return r/t known sheath. pt report having bone in jaw from dentist dr quiroz aware will hold this month denosumab and have follow up instead to talk about plan
[2022-03-02 11:10] LABS: MANUAL DIFF FLAG NO
[2022-03-02 11:11] VITALS: BP 123/60; PULSE 67; RESP 14; TEMP 36.3; O2SAT 95; BMI 41.7
[2022-03-02 11:15] LABS: Basophils Absolute Auto 0.1 X10*3/uL (0.0-0.2); Basophils Percent Auto 0.6 % (0-2); Eosinophils Absolute Auto 0.1 X10*3/uL (0.0-0.4); Eosinophils Percent Auto 1.4 % (0-4); Hematocrit 44.2 % (37.0-47.0); Hemoglobin 14.8 g/dl (12.0-16.0); Imm Gran Abs Auto 0.02 X10*3/uL (0.00-0.03); Imm Gran Pct Auto 0.3 % (0.0-0.4); Lymphocytes Percent Auto 24.8 % (20-40); Mean Corpuscular HGB Conc 33.5 g/dl (31.0-35.0); Mean Corpuscular Volume 95.7 fL (80.0-98.0); Mean Platelet Volume 10.3 fL (9.4-12.3); Monocytes Absolute Auto 0.7 X10*3/uL (0.1-1.2); Neutrophils Absolute Auto 5.1 x10*3/uL (2.0-8.3); Neutrophils Percent Auto 63.9 % (45-73); Platelet Count 166 X10*3/uL (160-400); Red Blood Count 4.62 X10*6/uL (4.20-5.50); Red Cell Distribution Width 12.7 % (11.0-16.0)
--- NOTE | 2022-03-02 11:19 | P.PNHO-ONC_ITS ---
Medical Summary - Medical Summary Date of Service: 03/02/22 Chief complaint: Follow-up for breast cancer. 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 CURRENT THERAPY: AC with Neulasta support, completed 4 cycles. Completed 12 weeks of Taxol. Completed pertuzumab and Herceptin maintenance. Cycle #21. Status post mastectomy, 04/30, by Dr. Javed. Pathology: No residual cancer identified.(ypT0) consistent with complete response to pre- surgical therapy. Dense hyalinized stromal sclerosis with calcifications. Benign ducts with ductal ectasia. Six axillary lymph nodes negative for tumor. Skin and nipple with no evidence of tumor. Has been on denosumab. Was receiving it Q 3 monthly. Last dose was 02/05. Interval History Interval history: Marcia Strong is a pleasant 66 year old lady, here for a follow-up visit. She has been doing quite well. She had her Lower teeth removed. There are few shards left. The whole where she had extraction has not healed completely. She has an appointment with the oral surgeon next Wednesday to consider dent ures and see what can be done. She still gets a bit tired. She cannot walk too far, since she gets pain in her back and legs. She has had a chronic low back pain at the lumbosacral area. She denies any radiation down into the legs however her legs feel weak. She is unable to stand for too long. She cooks on the stove, sitting down. She complains of pain in her shoulder upon movement. Denies fever nor chills. HEENT: No headache no dizziness. No chest pain nor trouble breathing. She denies any abdominal pain, she had some nausea this week. No vomiting heartburn indigestion. Her bowels are working without any gross blood in it. No more diarrhea. She had a colonoscopy in her 50s at [facility]. Appetite is good. She has gained weight. Denies any urinary complaints. Denies any focal weakness. She still has the neuropathy. She is on Lyrica 150 mg 2 at night. She tried to take 1 in the morning but that made her rather loopy. She is in good spirits. The rest of the review of systems is unremarkable. Previous history: She tolerated the chemotherapy reasonably well. She denies depression however she had history of anxiety. She had a follow-up bone scan on 11/20 which revealed: 1. A nonspecific abnormality in the right side of the mandible has developed since the prior 03/04/2021 bone scan and this is nonspecific. While this may represent a focus of osteonecrosis, a solitary metastasis at this site cannot be entirely ruled out. Correlation with MRI performed without and with intravenous contrast is recommended to better characterize this abnormality, if clinically indicated. 2. A few additional stable mild nonspecific abnormalities are noted as described above and these are all likely arthritic or traumatic in etiology. None of these abnormalities is strongly suspicious for metastatic disease. MRI of C-spine from 818: 1. The previously demonstrated lesion within the left lateral mass of C1 no longer demonstrates significant T2 hyperintensity or enhancing characteristics. Findings are suggestive of posttreatment change. No demonstrated new suspicious osseous lesions. 2. Otherwise, moderate multilevel degenerative spondyloarthropathy of the cervical spine as described in detail above. Most notably, there is moderate to severe spinal canal stenosis at C5-C6. Mild spinal canal stenoses at C4-C5 and C6-C7. Moderate to severe neural foraminal stenoses from C3-C7. Stable mild myelomalacia within the dorsal columns at C5-C6. No new spinal cord signal abnormalities. Overall, degenerative changes appear similar to prior exam. She saw the neurologist on the 14 of October. He shared the NCV studies with her. These were reasonably normal. He had increase the Lyrica to 75 b.i.d. in the past. He now increased to 150 b.i.d. She says she can take the evening dose however if she takes the morning one as well she gets lethargic. Recent imaging: MRI of the breast from 02/26: Interval decrease in size of the incident mass in the 8 o'clock position which now measures 1.8 x 3.6 x 2.5 cm. There is no abnormal enhancement at this time which indicates a response to neoadjuvant chemotherapy. There is also a 0.7 cm satellite lesion in the 7 o'clock position, anterior to the primary tumor which also demonstrates no abnormal enhancement. No other findings suspicious of malignancy in either breast. Previous history: She tells me that about 3 months ago she noted, what she felt was, a pimple underneath her left breast. It would occasionally get itchy and then dry. Then it became harder around the edges. It was fixed, not movable. Due to the pandemic she did not leave the home. About a month ago she woke up one morning and she felt her left breast was heavy and huge. It was quite red and warm to touch. The nipple appeared security strategist. She decided to go to the emergency room. This was on 07/16. Ultrasound of the breast revealed: Large irregular mass with scattered internal color flow vascularity 8:00 position 7 cm from nipple measuring 5 x 4 cm. Several adjacent smaller satellite foci, largest 1.3 cm. Differential considerations include malignancy as well as abscess. ASSESSMENT: BI-RADS 4: Suspicious RECOMMENDATION: 1. Surgical Consult. 2. Diagnostic mammography. She underwent an ultrasound-guided biopsy at 08:00 o'clock position on 07/25. Pathology revealed: Invasive ductal carcinoma, MSBR grade 2. ER negative/CT negative/HER2 Stephy positive 3+. She was seen by Dr. Javed. She has been referred here for question if she should have neoadjuvant chemotherapy. 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 Menopause in her early 50s. No HRT. She is . She has 4 children. Family history: A paternal cousin had breast cancer in her mid 60s. 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 She is . Has 4 children. She smokes half a pack a day. She likes her wine. Review of Systems - Constitutional Reports system reviewed and no additional complaints, except as documented, Reports fatigue, Reports lack of energy, Reports weight gain - Eyes Reports system reviewed and no additional complaints, except as documented - ENT Reports system reviewed and no additional complaints, except as documented, Reports dental pain - Cardiovascular Reports system reviewed and no additional complaints, except as documented - Respiratory Reports no additional respiratory complaints - Gastrointestinal Reports system reviewed and no additional complaints, except as documented - Genitourinary Reports no additional female genitourinary complaints - Musculoskeletal Reports system reviewed and no additional complaints, except as documented - Integumentary/Breasts Skin/Breast: Reports no additional skin complaints - Neurologic Reports system reviewed and no additional complaints, except as documented, Reports numbness, Reports paresthesias, Denies weakness - Psychiatric Reports system reviewed and no additional complaints, except as documented - Endocrine Reports no additional endocrine complaints - Hematologic/Lymphatic Reports system reviewed and no additional complaints, except as documented - Allergic/Immunologic Reports system reviewed and no additional complaints, except as documented [facility] Medical History: Medical History (Last Reviewed 03/02/22 @ 11:15 by Brianna Velez CMA) Arthritis Bone cancer Breast cancer Cerebral aneurysm Chronic back pain Morbid obesity Neuropathy Pneumonia Port-A-Cath in place Functional capacity: independent ambulation Patient : No Family History: Family History (Last Reviewed 02/05/22 @ 08:51 by Brianna Velez CMA) Family/Other No problems noted. Brother Colon cancer Daughter Breast cancer Surgical History: Surgical History (Last Reviewed 03/02/22 @ 11:15 by Brianna Velez CMA) H/O tooth extraction H/O tubal ligation History of mastectomy Social History: Social History (Last Reviewed 03/02/22 @ 11:15 by Brianna Velez CMA) Living Situation History: Household Members: Children Housing: Apartment Are you a primary acute care registered nurse to a significant other at home: No Do you presently have visiting nurse or other home services: No Alcohol History Details: 1. How often do you have a drink containing alcohol?: d. 2-3 times a week 2. How many drinks containing alcohol do you have on a typical day when you are drinking?: a. 1 or 2 Tobacco History: Patient Tobacco Use Status: Current everyday Tobacco Tobacco use type: Cigarette Years Smoked: 50 e-Cigarette/Vaping Use: Never Used Second Hand Smoke Exposure: Yes Second Hand Smoke Exposure comment: daughter Substance Use History: Use of substances other than those prescribed or required for medical reasons : No Domestic Abuse History: Have you been hit, kicked, punched, or otherwise hurt by someone within the past year? If so, by whom?: No Advance Directives: Advance Directives Date on File: 08/22/20 Homicidal Assessment: Do you have thoughts of harming others: None Do you have a plan to hurt others: No Plan Do you have the means to hurt others: No Nutrition Assessment: Recently lost weight without trying: No Eating poorly because of decreased appetite: No Patient : No Occupation Assessmet: service: No Current occupational status: unemployed Oncology Screenings - ECOG Performance Status ECOG Performance Status: 0 Home Medications and Allergies Home Medications Medication Instructions Recorded Confirmed Type pregabalin 75 mg capsule (Lyrica) 75 mg PO BID 08/21/21 03/02/22 History hydrochlorothiazide 25 mg tablet 25 mg PO DAILY 09/19/21 03/02/22 History Allergies Allergy/AdvReac Type Severity Reaction Status Date / Time codeine [CODEINE] Allergy Unknown STOMACH Verified 03/02/22 11:15 UPSET Exam Vital signs: Vital Signs Temp 97.3 F 03/02/22 11:11 Pulse 67 03/02/22 11:11 Resp 14 03/02/22 11:11 BP 123/60 03/02/22 11:11 Pulse Ox 95 03/02/22 11:11 O2 Del Method 03/02/22 11:11 Intake & Output 03/01/22 03/02/22 03/02/22 18:59 06:59 18:59 Other: Weight 103.4 kg [place] Weight in Grams [id number] Weight 103.4 kg BMI result Body Mass Index 41.7 - Constitutional Present: moderate distress, obese - Routine HEENT Exam Head: Present: normal inspection Eye: Present: normal appearance ENT: Present: mucous membranes moist - Routine Neck Exam Present: full ROM - Routine Respiratory Exam Present: CTAB - Routine Cardiovascular Exam Cardiovascular: Present: RRR, S1, S2 - Routine Abdominal Exam Present: soft, nontender - Routine Rectal Exam Patient deferred: digital exam - Routine Extremities Exam Present: nontender - Routine Back/Spine/Pelvis Exam Back/Spine: Absent: CVA tenderness - Routine Skin Exam Present: intact - Routine Neurological Exam Present: alert, oriented X3 - Detailed Neurological Exam: Coma Scale Eye Opening: Spontaneous (4) - Routine Psychiatric Exam Present: normal affect Data - Labs CBC & Chem 7: 03/02/22 11:05 03/02/22 11:05 Assessment and Plan Patient Active problem list reviewed?: Yes (1) Carcinoma of left breast Status: Acute Assessment and plan: Status: Acute This is a pleasant 65-year-old lady with a recent diagnosis of inflammatory letty st carcinoma the left breast. It is ERPR negative and HER2 Stephy positive. On ultrasound the tumor appears to be about 6 cm in size. Ca 27.29:44. She was deemed a candidate for neoadjuvant chemotherapy, in view of the large size of the tumor and the inflammatory component. She is HER2 positive. I recommended treating her with dose dense AC X4, followed by Taxol and Herceptin. Then reassess for surgical resection, based upon her response. I proceeded with a baseline PET scan, for initial staging. This revealed: Intense activity in the medial left breast lesion assumed to be the primary tumor. There is also an enlarged left axillary node showing increased activity and me tastatic disease needs to be suspected though this could be reactive. Otherwise, uptake in the region of the left thyroid gland, which is enlarged. This could represent uptake within a thyroid nodule and, therefore ultrasound would be recommended as malignancy cannot be excluded. Differential would be abnormal uptake in an enlarged node in the region. As described in the left axillary region, more proximally toward the region of the thoracic inlet, some mild uptake in nonpathologically enlarged nodes. These may be reactive but certainly early metastatic disease cannot be excluded. There is also uptake within the region of C1 anterior to the left of midline. There is lucency in the bone here. A metastatic deposit cannot be excluded. Consider MR. Harmon discussed with IR, neuro-radiology. They felt the biopsy would be risky to do. However since the lesion is apparent on 2 different imaging modalities, it is likely to be real. Hence the plan is to proceed with treatment. Since she has aggressive progressive disease, will treat her with an active regimen, to expedite her response. She had an echocardiogram, prior to anthracycline. This came back normal with EF of 60-65%. She had genetic testing done. This came back negative. She had a Port-A-Cath placement. This was placed on 08/22/20. She started dose dense AC chemotherapy with Neulasta support. She completed that. She then received 12 weeks of Taxol. Thyroid ultrasound revealed: Heterogeneous thyroid gland. The left lobe is enlarged. Bilateral thyroid nodules. Fine needle aspiration of the largest nodule in the left lobe recommended. l checked with Radiology, proceeded with the thyroid biopsy. (this revealed benign findings.) She completed 4 cycles of AC. She then completed 12 weeks of Taxol treatment. She has tolerated it really well. She has had symptoms of neuropathy. This is likely residual from the Taxol. I started her on Neurontin for the neuropathic pain, 100 mg every 8 hours, to start out with. Her breast mass has disappeared. She complained of body aches joint pains. I proceeded with a bone scan, 03/04/21. This revealed: No abnormal bone activity seen to suspect any metastatic bone disease. There is mild degenerative changes right T7 costovertebral junction and right T11 and T12 facet joints. She had an MRI of the breast on 02/18/21: Interval decrease in size of the incident mass in the 8 o'clock position which now measures 1.8 x 3.6 x 2.5 cm. There is no abnormal enhancement at this time which indicates a response to neoadjuvant chemotherapy. There is also a 0.7 cm satellite lesion in the 7 o'clock position, anterior to the primary tumor which also demonstrates no abnormal enhancement. No other findings suspicious of malignancy in either breast. . Status post mastectomy, 04/30/21, by Dr. Javed. Pathology: No residual cancer identified.(ypT0) consistent with complete response to pre- surgical therapy. Dense hyalinized stromal sclerosis with calcifications. Benign ducts with ductal ectasia. Six axillary lymph nodes negative for tumor. Skin and nipple with no evidence of tumor. This is very reassuring. The neuropathy is persistent. She was on gabapentin without significant benefit. I had added Lyrica for that. She still had the symptoms. l referred her for further neurology consultation. She saw Dr. Briggs, who advised her to increase the Lyrica dose from 75 b.i.d to 150 mg BID. She tried that however the morning does made her rather lethargic. I advised her to take 75 in the morning and 150 before bed. She has completed maintenance, Herceptin and pertuzumab. She complete the course on November 13. She had a follow-up bone scan on 11/20 which revealed: 1. A nonspecific abnormality in the right side of the mandible has developed since the prior 03/04/2021 bone scan and this is nonspecific. While this may represent a focus of osteonecrosis, a solitary metastasis at this site cannot be entirely ruled out. Correlation with MRI performed without and with intravenous contrast is recommended to better characterize this abnormality, if clinically indicated. 2. A few additional stable mild nonspecific abnormalities are noted as described above and these are all likely arthritic or traumatic in etiology. None of these abnormalities is strongly suspicious for metastatic disease. MRI of C-spine from 818: 1. The previously demonstrated lesion within the left lateral mass of C1 no longer demonstrates significant T2 hyperintensity or enhancing characteristics. Findings are suggestive of posttreatment change. No demonstrated new suspicious osseous lesions. 2. Otherwise, moderate multilevel degenerative spondyloarthropathy of the cervical spine as described in detail above. Most notably, there is moderate to severe spinal canal stenosis at C5-C6. Mild spinal canal stenoses at C4-C5 and C6-C7. Moderate to severe neural foraminal stenoses from C3-C7. Stable mild myelomalacia within the dorsal columns at C5-C6. No new spinal cord signal abnormalities. Overall, degenerative changes appear similar to prior exam. I discussed the above findings with Dr. Feldman. He felt that the abnormality in the right mandible, is related to her teeth. She does agree that her teeth are rotten. He suggested to do an plain x-ray of the mandible: Non-specific abnormality in the right posterior mandibular body, the appearance is non specific: could be infectious, inflammatory, post treatment changes. CAT scan of the mandible: There is irregular change of a 2 cm segment of right alveolar process of the mandible, new compared to exam from 2020. No E/O soft tissue abnormality surrounding this region. She had pain in her left hand. l proceeded with x-rays for that as well: This revealed DJD. She has been through prolonged course of chemotherapy, and wanted a break. She is not a candidate for anti-estrogen therapy since she is ER/CT negative. She has some dental issues. She has had her lower teeth extracted. PLAN: She will take mouthwash and antibiotic. She will be following up with the Oral surgeon on Wednesday: Dr. Boyd Jacinto. I will touch base with him then. Will hold off on her Denosumab for now, due to concern for ONJ. Fortunately the bone metastases have disappeared on repeat imaging. Will follow her tumor marker: CA 27.29: 30, It was 35, on 09/10. She has had post lumpectomy radiation. She will return in a month for a follow up. All her questions were answered to her satisfaction. Thank you, CC: Dr. mathis. Dr. Javed. - Time Spent With Patient Time Spent with Patient (in minutes): 30
[2022-03-02 11:37] LABS: Alanine Aminotransferase 15 U/L (0-31); Albumin Level 4.1 g/dL (3.5-5.0); Alkaline Phosphatase 69 U/L (39-117); Aspartate Amino Transferase 16 U/L (5-31); Bilirubin Total 0.6 mg/dL (0.0-1.0); Total Protein 6.7 g/dL (6.5-8.0)
--- NOTE | 2022-03-02 12:10 | MHC.HEMONCMA ---
Patient was in for follow up. Clinical summary reviewed and updated, VSS. Labs were drawn. Pt to return in 1 month.
[2022-03-03 08:32] LABS: CA 27.29 35 U/mL (<38)
[2022-04-02 10:12] VITALS: BP 145/65; PULSE 67; RESP 14; TEMP 36.4; O2SAT 96; BMI 42.4
[2022-04-02 10:37] LABS: MANUAL DIFF FLAG NO
[2022-04-02 10:43] LABS: Basophils Percent Auto 0.4 % (0-2); Eosinophils Absolute Auto 0.1 X10*3/uL (0.0-0.4); Eosinophils Percent Auto 0.8 % (0-4); Imm Gran Abs Auto 0.02 X10*3/uL (0.00-0.03); Imm Gran Pct Auto 0.3 % (0.0-0.4); Lymphocytes Absolute Auto 1.7 X10*3/uL (1.2-4.9); Mean Corpuscular HGB Conc 33.3 g/dl (31.0-35.0); Mean Corpuscular Hemoglobin 31.7 pg (27.0-33.0); Mean Corpuscular Volume 95.1 fL (80.0-98.0); Mean Platelet Volume 10.5 fL (9.4-12.3); Monocytes Absolute Auto 0.6 X10*3/uL (0.1-1.2); Monocytes Percent Auto 7.6 % (2-11); Neutrophils Percent Auto 67.9 % (45-73); Platelet Count 168 X10*3/uL (160-400); Red Blood Count 4.73 X10*6/uL (4.20-5.50); Red Cell Distribution Width 12.2 % (11.0-16.0); White Blood Count 7.4 X10*3/uL (4.8-10.8)
[2022-04-02 11:10] LABS: Alanine Aminotransferase 20 U/L (0-31); Albumin Level 4.2 g/dL (3.5-5.0); Alkaline Phosphatase 73 U/L (39-117); Anion Gap 11 (12-20); Aspartate Amino Transferase 19 U/L (5-31); Blood Urea Nitrogen 20 mg/dL (9-16); Carbon Dioxide 31 mmol/L (22-29); Chloride 105 mmol/L (96-108); Creatinine Clr Calc Pharmacy 76.7; Estimated Glomerular Filt Rate > 60; Glucose Random 113 mg/dL (60-115); Potassium 4.6 mmol/L (3.3-5.1); Sodium 142 mmol/L (135-145); Total Protein 6.8 g/dL (6.5-8.0)
[2022-04-02 11:34] LABS: Bilirubin Total 0.6 mg/dL (0.0-1.0)
--- NOTE | 2022-04-02 13:28 | P.PNHO-ONC_ITS ---
Medical Summary - Medical Summary Date of Service: 04/02/22 Chief complaint: Follow-up for: Breast cancer with bone Mets. 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 CURRENT THERAPY: AC with Neulasta support, completed 4 cycles. Completed 12 weeks of Taxol. Completed pertuzumab and Herceptin maintenance. Cycle #21. Status post mastectomy, 04/30, by Dr. Javed. Pathology: No residual cancer identified.(ypT0) consistent with complete response to pre- surgical therapy. Dense hyalinized stromal sclerosis with calcifications. Benign ducts with ductal ectasia. Six axillary lymph nodes negative for tumor. Skin and nipple with no evidence of tumor. Has been on denosumab. Was receiving it Q 3 monthly. Last dose was 02/05. Interval History Interval history: Marcia Strong is a pleasant 67 year old lady, here for a follow-up visit. She has been doing reasonably well. She had her lower teeth removed. There are few shards left. The whole where she had extraction has not healed completely. She has to have further trimming by oral surgeon, to get ready for dentures. However she is having issues with insurance. The process has been delayed. She still gets a bit tired. She naps all day. Her feet are still numb, however she is not experiencing the throbbing pain any more. She cannot walk too far, since she gets pain in her back and legs. She has had a chronic low back pain at the lumbosacral area. She cooks on the stove, sitting down. She complains of pain in her shoulder upon movement. Denies fever nor chills. HEENT: No headache no dizziness. No chest pain nor trouble breathing. She denies any abdominal pain, she had some nausea this week. No vomiting heartburn indigestion. Her bowels are working without any gross blood in it. No more diarrhea. She had a colonoscopy in her 50s at [facility]. Appetite is good. She has gained weight. Denies any urinary complaints. Denies any focal weakness. She is on Lyrica 150 mg 2 at night. She is in good spirits. The rest of the review of systems is unremarkable. Previous history: She tolerated the chemotherapy reasonably well. She denies depression however she had history of anxiety. She had a follow-up bone scan on 11/20 which revealed: 1. A nonspecific abnormality in the right side of the mandible has developed since the prior 03/04/2021 bone scan and this is nonspecific. While this may represent a focus of osteonecrosis, a solitary metastasis at this site cannot be entirely ruled out. Correlation with MRI performed without and with intravenous contrast is recommended to better characterize this abnormality, if clinically indicated. 2. A few additional stable mild nonspecific abnormalities are noted as described above and these are all likely arthritic or traumatic in etiology. None of these abnormalities is strongly suspicious for metastatic disease. MRI of C-spine from 818: 1. The previously demonstrated lesion within the left lateral mass of C1 no longer demonstrates significant T2 hyperintensity or enhancing characteristics. Findings are suggestive of posttreatment change. No demonstrated new suspicious osseous lesions. 2. Otherwise, moderate multilevel degenerative spondyloarthropathy of the cervical spine as described in detail above. Most notably, there is moderate to severe spinal canal stenosis at C5-C6. Mild spinal canal stenoses at C4-C5 and C6-C7. Moderate to severe neural foraminal stenoses from C3-C7. Stable mild myelomalacia within the dorsal columns at C5-C6. No new spinal cord signal abnormalities. Overall, degenerative changes appear similar to prior exam. She saw the neurologist on the 14 of October. He shared the NCV studies with diego wick. These were reasonably normal. He had increase the Lyrica to 75 b.i.d. in the past. He now increased to 150 b.i.d. She says she can take the evening dose however if she takes the morning one as well she gets lethargic. Recent imaging: MRI of the breast from 02/26: Interval decrease in size of the incident mass in the 8 o'clock position which now measures 1.8 x 3.6 x 2.5 cm. There is no abnormal enhancement at this time which indicates a response to neoadjuvant chemotherapy. There is also a 0.7 cm satellite lesion in the 7 o'clock position, anterior to the primary tumor which also demonstrates no abnormal enhancement. No other findings suspicious of malignancy in either breast. Previous history: She tells me that about 3 months ago she noted, what she felt was, a pimple underneath her left breast. It would occasionally get itchy and then dry. Then it became harder around the edges. It was fixed, not movable. Due to the pandemic she did not leave the home. About a month ago she woke up one morning and she felt her left breast was heavy and huge. It was quite red and warm to touch. The nipple appeared sketcher. She decided to go to the emergency room. This was on 07/16. Ultrasound of the breast revealed: Large irregular mass with scattered internal color flow vascularity 8:00 position 7 cm from nipple measuring 5 x 4 cm. Several adjacent smaller satellite foci, largest 1.3 cm. Differential considerations include malignancy as well as abscess. ASSESSMENT: BI-RADS 4: Suspicious RECOMMENDATION: 1. Surgical Consult. 2. Diagnostic mammography. She underwent an ultrasound-guided biopsy at 08:00 o'clock position on 07/25. Pathology revealed: Invasive ductal carcinoma, MSBR grade 2. ER negative/ME negative/HER2 Stephy positive 3+. She was seen by Dr. Javed. She has been referred here for question if she should have neoadjuvant chemotherapy. 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 Menopause in her early 50s. No HRT. She is . She has 4 children. Family history: A paternal cousin had breast cancer in her mid 60s. 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 She is . Has 4 children. She smokes half a pack a day. She likes her wine. Review of Systems - Constitutional Reports system reviewed and no additional complaints, except as documented, Reports fatigue, Reports lack of energy, Reports weakness, Reports weight gain, Denies anorexia - Eyes Reports system reviewed and no additional complaints, except as documented - ENT Reports system reviewed and no additional complaints, except as documented - Cardiovascular Reports system reviewed and no additional complaints, except as documented - Respiratory Reports no additional respiratory complaints - Gastrointestinal Reports system reviewed and no additional complaints, except as documented - Genitourinary Reports no additional female genitourinary complaints - Musculoskeletal Reports system reviewed and no additional complaints, except as documented - Integumentary/Breasts Skin/Breast: Reports no additional skin complaints - Neurologic Reports system reviewed and no additional complaints, except as documented, Reports numbness, Reports paresthesias, Denies weakness - Psychiatric Reports system reviewed and no additional complaints, except as documented - Endocrine Reports no additional endocrine complaints - Hematologic/Lymphatic Reports system reviewed and no additional complaints, except as documented - Allergic/Immunologic Reports system reviewed and no additional complaints, except as documented [facility] Medical History: Medical History (Last Reviewed 04/21/22 @ 12:09 by Rosales Javed MD) Arthritis Bone cancer Breast cancer Cerebral aneurysm Chronic back pain Morbid obesity Neuropathy Pneumonia Port-A-Cath in place Functional capacity: independent ambulation Patient : No Family History: Family History (Last Reviewed 04/21/22 @ 12:09 by Rosales Javed MD) Family/Other No problems noted. Brother Colon cancer Daughter Breast cancer Surgical History: Surgical History (Last Reviewed 04/21/22 @ 12:09 by Rosales Javed MD) H/O tooth extraction H/O tubal ligation History of mastectomy Social History: Social History (Last Reviewed 04/21/22 @ 12:09 by Rosales Javed MD) Living Situation History: Household Members: Children Housing: Apartment Are you a primary client care coordinator to a significant other at home: No Do you presently have visiting nurse or other home services: No Tobacco History: Patient Tobacco Use Status: Current everyday Tobacco Tobacco use type: Cigarette Years Smoked: 50 e-Cigarette/Vaping Use: Never Used Second Hand Smoke Exposure: Yes Second Hand Smoke Exposure comment: daughter Advance Directives: Advance Directives Date on File: 08/22/20 Occupation Assessmet: service: No Current occupational status: unemployed Oncology Screenings - ECOG Performance Status ECOG Performance Status: 1 Home Medications and Allergies Home Medications Medication Instructions Recorded Confirmed Type pregabalin 75 mg capsule (Lyrica) 75 mg PO BID 08/21/21 04/21/22 History Allergies Allergy/AdvReac Type Severity Reaction Status Date / Time codeine [CODEINE] Allergy Unknown STOMACH Verified 04/21/22 10:26 UPSET Exam Vital signs: Vital Signs Temp 97.5 F 04/02/22 10:12 Pulse 67 04/02/22 10:12 Resp 14 04/02/22 10:12 BP 145/65 H 04/02/22 10:12 Pulse Ox 96 04/02/22 10:12 O2 Del Method 04/02/22 10:12 Intake & Output 04/01/22 04/02/22 04/02/22 18:59 06:59 18:59 Other: Weight 105.2 kg [place] Weight in Grams [id number] Weight 105.2 kg BMI result Body Mass Index 42.4 - Constitutional Present: moderate distress, obese - Routine HEENT Exam Head: Present: normal inspection Eye: Present: normal appearance ENT: Present: mucous membranes moist - Routine Neck Exam Present: full ROM - Routine Respiratory Exam Present: CTAB - Routine Cardiovascular Exam Cardiovascular: Present: RRR, S1, S2 - Routine Abdominal Exam Present: soft, nontender - Routine Rectal Exam Patient deferred: digital exam - Routine Extremities Exam Present: nontender - Routine Back/Spine/Pelvis Exam Back/Spine: Absent: CVA tenderness - Routine Skin Exam Present: intact - Routine Neurological Exam Present: alert, oriented X3 - Detailed Neurological Exam: Coma Scale Eye Opening: Spontaneous (4) - Routine Psychiatric Exam Present: normal affect Data - Labs CBC & Chem 7: 04/02/22 10:27 04/02/22 10:27 Assessment and Plan Patient Active problem list reviewed?: Yes (1) Carcinoma of left breast Status: Acute Assessment and plan: Status: Acute This is a pleasant 65-year-old lady with a recent diagnosis of inflammatory breast carcinoma the left breast. It is ERPR negative and HER2 Stephy positive. On ultrasound the tumor appears to be about 6 cm in size. Ca 27.29:44. She was deemed a candidate for neoadjuvant chemotherapy, in view of the large size of the tumor and the inflammatory component. She is HER2 positive. I recommended treating her with dose dense AC X4, followed by Taxol and Herceptin. Then reassess for surgical resection, based upon her response. I proceeded with a baseline PET scan, for initial staging. This revealed: Intense activity in the medial left breast lesion assumed to be the primary tumor. There is also an enlarged left axillary node showing increased activity and metastatic disease needs to be suspected though this could be reactive. Otherwise, uptake in the region of the left thyroid gland, which is enlarged. This could represent uptake within a thyroid nodule and, therefore ultrasound would be recommended as malignancy cannot be excluded. Differential would be abnormal uptake in an enlarged node in the region. As described in the left axillary region, more proximally toward the region of the thoracic inlet, some mild uptake in nonpathologically enlarged nodes. These may be reactive but certainly early metastatic disease cannot be excluded. There is also uptake within the region of C1 anterior to the left of midline. There is lucency in the bone here. A metastatic deposit cannot be excluded. Consider MR. Harmon discussed with IR, neuro-radiology. They felt the biopsy would be risky to do. However since the lesion is apparent on 2 different imaging modalities, it is likely to be real. Hence the plan is to proceed with treatment. Since she has aggressive progressive disease, will treat her with an active regimen, to expedite her response. She had an echocardiogram, prior to anthracycline. This came back normal with EF of 60-65%. She had genetic testing done. This came back negative. She had a Port-A-Cath placement. This was placed on 08/22/20. She started dose dense AC chemotherapy with Neulasta support. She completed that. She then received 12 weeks of Taxol. Thyroid ultrasound revealed: Heterogeneous thyroid gland. The left lobe is enlarged. Bilateral thyroid nodules. Fine needle aspiration of the largest nodule in the left lobe recommended. l checked with Radiology, proceeded with the thyroid biopsy. (this revealed benign findings.) She completed 4 cycles of AC. She then completed 12 weeks of Taxol treatment. She has tolerated it really well. She has had symptoms of neuropathy. This is likely residual from the Taxol. I started her on Neurontin for the neuropathic pain, 100 mg every 8 hours, to start out with. Her breast mass has disappeared. She complained of body aches joint pains. I proceeded with a bone scan, 03/04/21. This revealed: No abnormal bone activity seen to suspect any metastatic bone disease. There is mild degenerative changes right T7 costovertebral junction and right T 11 and T12 facet joints. She had an MRI of the breast on 02/18/21: Interval decrease in size of the incident mass in the 8 o'clock position which now measures 1.8 x 3.6 x 2.5 cm. There is no abnormal enhancement at this time which indicates a response to neoadjuvant chemotherapy. There is also a 0.7 cm satellite lesion in the 7 o'clock position, anterior to the primary tumor which also demonstrates no abnormal enhancement. No other findings suspicious of malignancy in either breast. . Status post mastectomy, 04/30/21, by Dr. Javed. Pathology: No residual cancer identified.(ypT0) consistent with complete response to pre- surgical therapy. Dense hyalinized stromal sclerosis with calcifications. Benign ducts with ductal ectasia. Six axillary lymph nodes negative for tumor. Skin and nipple with no evidence of tumor. This is very reassuring. The neuropathy is persistent. She was on gabapentin without significant benefit. I had added Lyrica for that. She still had the symptoms. l referred her for further neurology consultation. She saw Dr. Briggs, who advised her to increase the Lyrica dose from 75 b.i.d to 150 mg BID. She tried that however the morning does made her rather lethargic. I advised her to take 75 in the morning and 150 before bed. She has completed maintenance, Herceptin and pertuzumab. She complete the course on November 13. She had a follow-up bone scan on 11/20 which revealed: 1. A nonspecific abnormality in the right side of the mandible has developed since the prior 03/04/2021 bone scan and this is nonspecific. While this may represent a focus of osteonecrosis, a solitary metastasis at this site cannot be entirely ruled out. Correlation with MRI performed without and with intravenous contrast is recommended to better characterize this abnormality, if clinically indicated. 2. A few additional stable mild nonspecific abnormalities are noted as described above and these are all likely arthritic or traumatic in etiology. None of these abnormalities is strongly suspicious for metastatic disease. MRI of C-spine from 8: 1. The previously demonstrated lesion within the left lateral mass of C1 no longer demonstrates significant T2 hyperintensity or enhancing characteristics. Findings are suggestive of posttreatment change. No demonstrated new suspicious osseous lesions. 2. Otherwise, moderate multilevel degenerative spondyloarthropathy of the cervical spine as described in detail above. Most notably, there is moderate to severe spinal canal stenosis at C5-C6. Mild spinal canal stenoses at C4-C5 and C6-C7. Moderate to severe neural foraminal stenoses from C3-C7. Stable mild myelomalacia within the dorsal columns at C5-C6. No new spinal cord signal abnormalities. Overall, degenerative changes appear similar to prior exam. I discussed the above findings with Dr. Feldman. He felt that the abnormality in the right mandible, is related to her teeth. She does agree that her teeth are rotten. He suggested to do an plain x-ray of the mandible: Non-specific abnormality in the right posterior mandibular body, the appearance is non specific: could be infectious, inflammatory, post treatment changes. CAT scan of the mandible: There is irregular change of a 2 cm segment of right alveolar process of the mandible, new compared to exam from 2020. No E/O soft tissue abnormality surrounding this region. She had pain in her left hand. l proceeded with x-rays for that as well: This revealed DJD. She has been through prolonged course of chemotherapy, and wanted a break. She is not a candidate for anti-estrogen therapy since she is ER/ME negative. She has some dental issues. She has had her lower teeth extracted. PLAN: She will take mouthwash and antibiotic. She will be following up with the Oral surgeon on Wednesday: Dr. Boyd Jacinto. I will touch base with him then. Will hold off on her Denosumab for now, due to concern for ONJ. Fortunately the bone metastases have disappeared on repeat imaging. Will follow her tumor marker: CA 27.29: 30, It was 35, on 09/10. She has had post lumpectomy radiation. She will return in a month for a follow up. All her questions were answered to her satisfaction. Thank you, CC: Dr. mathis. Dr. Javed. - Time Spent With Patient Time Spent with Patient (in minutes): 26
--- NOTE | 2022-04-02 15:36 | MHC.HEMONC ---
Port accessed with no blood return noted. Pt has had port study in the past with documented fibrin sheath. Port flushes well. Flushed with heparin 500units and port de-accessed. Next port flush scheduled for 6 weeks.
--- NOTE | 2022-04-02 16:05 | MHC.HEMONCMA ---
Pt was in for follow up. Clinical summary reviewed and updated, VSS, Labs were drawn. Pt to return in 2 months.
[2022-04-04 09:23] LABS: CA 27.29 38 U/mL (<38)
[2022-05-14 09:10] VITALS: BP 116/77; PULSE 65; RESP 12; TEMP 36; O2SAT 96; BMI 42.3
--- NOTE | 2022-05-14 09:23 | P.PNHO-ONC_ITS ---
Medical Summary - Medical Summary Date of Service: 05/14/22 Chief complaint: Follow-up for: Breast cancer. 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 CURRENT THERAPY: AC with Neulasta support, completed 4 cycles. Completed 12 weeks of Taxol. Completed pertuzumab and Herceptin maintenance. Cycle #21. Status post mastectomy, 04/30, by Dr. Javed. Pathology: No residual cancer identified.(ypT0) consistent with complete response to pre- surgical therapy. Dense hyalinized stromal sclerosis with calcifications. Benign ducts with ductal ectasia. Six axillary lymph nodes negative for tumor. Skin and nipple with no evidence of tumor. Has been on denosumab. Was receiving it Q 3 monthly. Last dose was 02/05. Interval History Interval history: Marcia Strong is a pleasant 67 year old lady, here for a follow-up visit. She has been doing reasonably well. She had her lower teeth removed. There were few shards left. The oral surgeon needs to scrape and trim, to get ready for dentures. Unfortunately she lost her [facility], so was not able to get it scheduled. She just got the card yesterday, so she is now going to get that done. Recently she had flu symptoms for a couple of days. Energy level is up and down. She gets a bit tired. Denies fever nor chills. HEENT: No headache no dizziness. No chest pain nor trouble breathing. She denies any abdominal pain, she had some nausea this week. No vomiting heartburn indigestion. Her bowels are working without any gross blood in it. No more diarrhea. She had a colonoscopy in her 50s at [facility]. Appetite is good. She has gained weight. Denies any urinary complaints. Denies any focal weakness. Her feet are still numb, however she is not experiencing the throbbing pain any more. She cannot walk too far, since she gets pain in her back and legs. She has had a chronic low back pain at the lumbosacral area. She cooks on the stove, sitting down. She complains of pain in her shoulder upon movement. She is on Lyrica 150 mg 2 at night. She is in good spirits. The rest of the review of systems is unremarkable. Previous history: She tolerated the chemotherapy reasonably well. She denies depression however she had history of anxiety. She had a follow-up bone scan on 11/20 which revealed: 1. A nonspecific abnormality in the right side of the mandible has developed since the prior 03/04/2021 bone scan and this is nonspecific. While this may represent a focus of osteonecrosis, a solitary metastasis at this site cannot be entirely ruled out. Correlation with MRI performed without and with intravenous contrast is recommended to better characterize this abnormality, if clinically indicated. 2. A few additional stable mild nonspecific abnormalities are noted as described above and these are all likely arthritic or traumatic in etiology. None of these abnormalities is strongly suspicious for metastatic disease. MRI of C-spine from 818: 1. The previously demonstrated lesion within the left lateral mass of C1 no longer demonstrates significant T2 hyperintensity or enhancing characteristics. Findings are suggestive of posttreatment change. No demonstrated new suspicious osseous lesions. 2. Otherwise, moderate multilevel degenerative spondyloarthropathy of the cervical spine as described in detail above. Most notably, there is moderate to severe spinal canal stenosis at C5-C6. Mild spinal canal stenoses at C4-C5 and C6-C7. Moderate to severe neural foraminal stenoses from C3-C7. Stable mild myelomalacia within the dorsal columns at C5-C6. No new spinal cord signal abnormalities. Overall, degenerative changes appear similar to prior exam. She saw the neurologist on the 14 of October. He shared the NCV studies with her. These were reasonably normal. He had increase the Lyrica to 75 b.i.d. in the past. He now increased to 150 b.i.d. She says she can take the evening dose however if she takes the morning one as well she gets lethargic. Recent imaging: MRI of the breast from 02/26: Interval decrease in size of the incident mass in the 8 o'clock position which now measures 1.8 x 3.6 x 2.5 cm. There is no abnormal enhancement at this time which indicates a response to neoadjuvant chemotherapy. There is also a 0.7 cm satellite lesion in the 7 o'clock position, anterior to the primary tumor which also demonstrates no abnormal enhancement. No other findings suspicious of malignancy in either breast. Previous history: She tells me that about 3 months ago she noted, what she felt was, a pimple underneath her left breast. It would occasionally get itchy and then dry. Then it became harder around the edges. It was fixed, not movable. Due to the pandemic she did not leave the home. About a month ago she woke up one morning and she felt her left breast was heavy and huge. It was quite red and warm to touch. 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 She decided to go to the emergency room. This was on 07/16. Ultrasound of the breast revealed: Large irregular mass with scattered internal color flow vascularity 8:00 po sition 7 cm from nipple measuring 5 x 4 cm. Several adjacent smaller satellite foci, largest 1.3 cm. Differential considerations include malignancy as well as abscess. ASSESSMENT: BI-RADS 4: Suspicious RECOMMENDATION: 1. Surgical Consult. 2. Diagnostic mammography. She underwent an ultrasound-guided biopsy at 08:00 o'clock position on 07/25. Pathology revealed: Invasive ductal carcinoma, MSBR grade 2. ER negative/MT negative/HER2 Stephy positive 3+. She was seen by Dr. Javed. She has been referred here for question if she should have neoadjuvant chemotherapy. 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 Menopause in her early 50s. No HRT. She is . She has 4 children. Family history: A paternal cousin had breast cancer in her mid 60s. 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 She is . Has 4 children. She smokes half a pack a day. She likes her wine. Review of Systems - Constitutional Reports no additional constitutional complaints, Reports fatigue, Denies fever(s), Reports weakness, Reports weight gain - Eyes Reports no additional eye complaints - ENT Reports no additional ear, nose, mouth, and throat complaints - Cardiovascular Reports no additional cardiovascular complaints - Respiratory Reports no additional respiratory complaints - Gastrointestinal Reports no additional gastrointestinal complaints - Genitourinary Reports no additional female genitourinary complaints - Musculoskeletal Reports no additional musculoskeletal complaints - Integumentary/Breasts Skin/Breast: Reports no additional skin complaints - Neurologic Reports no additional neurologic complaints, Reports numbness, Reports paresthesias, Reports weakness - Psychiatric Reports no additional psychiatric complaints - Endocrine Reports no additional endocrine complaints - Hematologic/Lymphatic Reports no additional hematologic/lymphatic complaints - Allergic/Immunologic Reports no additional allergic/immunologic complaints [facility] Medical History: Medical History (Last Reviewed 05/14/22 @ 09:14 by Brianna Velez CMA) Arthritis Bone cancer Breast cancer Cerebral aneurysm Chronic back pain Morbid obesity Neuropathy Pneumonia Port-A-Cath in place Functional capacity: independent ambulation Patient : No Family History: Family History (Last Reviewed 05/14/22 @ 09:14 by Brianna Velez CMA) Family/Other No problems noted. Brother Colon cancer Daughter Breast cancer Surgical History: Surgical History (Last Reviewed 05/14/22 @ 09:14 by Brianna Velez CMA) H/O tooth extraction H/O tubal ligation History of mastectomy Social History: Social History (Last Reviewed 05/14/22 @ 09:14 by Brianna Velez CMA) Living Situation History: Household Members: Children Housing: Apartment Are you a primary critical care cns to a significant other at home: No Do you presently have visiting nurse or other home services: No Alcohol History Details: 1. How often do you have a drink containing alcohol?: d. 2-3 times a week 2. How many drinks containing alcohol do you have on a typical day when you are drinking?: a. 1 or 2 Tobacco History: Patient Tobacco Use Status: Current everyday Tobacco Tobacco use type: Cigarette Years Smoked: 50 e-Cigarette/Vaping Use: Never Used Second Hand Smoke Exposure: Yes Second Hand Smoke Exposure comment: daughter Substance Use History: Use of substances other than those prescribed or required for medical reasons : No Domestic Abuse History: Have you been hit, kicked, punched, or otherwise hurt by someone within the past year? If so, by whom?: No Advance Directives: Advance Directives Date on File: 08/22/20 Homicidal Assessment: Do you have thoughts of harming others: None Do you have a plan to hurt others: No Plan Do you have the means to hurt others: No Nutrition Assessment: Recently lost weight without trying: No Eating poorly because of decreased appetite: No Patient : No Occupation Assessmet: service: No Current occupational status: unemployed Oncology Screenings - ECOG Performance Status ECOG Performance Status: 1 Home Medications and Allergies Home Medications Medication Instructions Recorded Confirmed Type pregabalin 75 mg capsule (Lyrica) 75 mg PO BID 08/21/21 05/14/22 History Allergies Allergy/AdvReac Type Severity Reaction Status Date / Time codeine [CODEINE] Allergy Unknown STOMACH Verified 05/14/22 09:14 UPSET Exam Vital signs: Vital Signs Temp 96.8 F 05/14/22 09:10 Pulse 65 05/14/22 09:10 Resp 12 05/14/22 09:10 BP 116/77 05/14/22 09:10 Pulse Ox 96 05/14/22 09:10 O2 Del Method 05/14/22 09:10 Intake & Output 05/13/22 05/14/22 05/14/22 18:59 06:59 18:59 Other: Weight 104.8 kg Weight in Grams [id number] Weight 104.8 kg BMI result Body Mass Index 42.3 - Constitutional Present: moderate distress, obese - Routine HEENT Exam Head: Present: normal inspection Eye: Present: normal appearance ENT: Present: mucous membranes moist - Routine Neck Exam Present: full ROM - Routine Respiratory Exam Present: CTAB - Routine Cardiovascular Exam Cardiovascular: Present: RRR, S1, S2 - Routine Abdominal Exam Present: soft, nontender - Routine Rectal Exam Patient deferred: digital exam - Routine Extremities Exam Present: nontender - Routine Back/Spine/Pelvis Exam Back/Spine: Absent: CVA tenderness - Routine Skin Exam Present: intact - Routine Neurological Exam Present: alert, oriented X3 - Detailed Neurological Exam: Coma Scale Eye Opening: Spontaneous (4) - Routine Psychiatric Exam Present: normal affect Data - Labs CBC & Chem 7: 05/14/22 09:33 05/14/22 09:33 Assessment and Plan Patient Active problem list reviewed?: Yes (1) Carcinoma of left breast Status: Acute Assessment and plan: Status: Acute This is a pleasant 65-year-old lady with a recent diagnosis of inflammatory breast carcinoma the left breast. It is ERPR negative and HER2 Stephy positive. On ultrasound the tumor appears to be about 6 cm in size. Ca 27.29:44. She was deemed a candidate for neoadjuvant chemotherapy, in view of the large size of the tumor and the inflammatory component. She is HER2 positive. I recommended treating her with dose dense AC X4, followed by Taxol and Herceptin. Then reassess for surgical resection, based upon her response. I proceeded with a baseline PET scan, for initial staging. This revealed: Intense activity in the medial left breast lesion assumed to be the primary tumor. There is also an enlarged left axillary node showing increased activity and metastatic disease needs to be suspected though this could be reactive. Otherwise, uptake in the region of the left thyroid gland, which is enlarged. This could represent uptake within a thyroid nodule and, therefore ultrasound would be recommended as malignancy cannot be excluded. Differential would be abnormal uptake in an enlarged node in the region. As described in the left axillary region, more proximally toward the region of the thoracic inlet, some mild uptake in nonpathologically enlarged nodes. These may be reactive but certainly early metastatic disease cannot be excluded. There is also uptake within the region of C1 anterior to the left of midline. There is lucency in the bone here. A metastatic deposit cannot be excluded. Consider MR. Harmon discussed with IR, neuro-radiology. They felt the biopsy would be risky to do. However since the lesion is apparent on 2 different imaging modalities, it is likely to be real. Hence the plan is to proceed with treatment. Since she has aggressive progressive disease, will treat her with an active regimen, to expedite her response. She had an echocardiogram, prior to anthracycline. This came back normal with EF of 60-65%. She had genetic testing done. This came back negative. She had a Port-A-Cath placement. This was placed on 08/22/20. She started dose dense AC chemotherapy with Neulasta support. She completed that. She then received 12 weeks of Taxol. Thyroid ultrasound revealed: Heterogeneous thyroid gland. The left lobe is enlarged. Bilateral thyroid nodules. Fine needle aspiration of the largest nodule in the left lobe recomm ended. l checked with Radiology, proceeded with the thyroid biopsy. (this revealed benign findings.) She completed 4 cycles of AC. She then completed 12 weeks of Taxol treatment. She has tolerated it really well. She has had symptoms of neuropathy. This is likely residual from the Taxol. I started her on Neurontin for the neuropathic pain, 100 mg every 8 hours, to start out with. Her breast mass has disappeared. She complained of body aches joint pains. I proceeded with a bone scan, 03/04/21. This revealed: No abnormal bone activity seen to suspect any metastatic bone disease. There is mild degenerative changes right T7 costovertebral junction and right T11 and T12 facet joints. She had an MRI of the breast on 02/18/21: Interval decrease in size of the incident mass in the 8 o'clock position which now measures 1.8 x 3.6 x 2.5 cm. There is no abnormal enhancement at this time which indicates a response to neoadjuvant chemotherapy. There is also a 0.7 cm satellite lesion in the 7 o'clock position, anterior to the primary tumor which also demonstrates no abnormal enhancement. No other findings suspicious of malignancy in either breast. . Status post mastectomy, 04/30/21, by Dr. Javed. Pathology: No residual cancer identified.(ypT0) consistent with complete response to pre- surgical therapy. Dense hyalinized stromal sclerosis with calcifications. Benign ducts with ductal ectasia. Six axillary lymph nodes negative for tumor. Skin and nipple with no evidence of tumor. This is very reassuring. The neuropathy is persistent. She was on gabapentin without significant benefit. I had added Lyrica for that. She still had the symptoms. l referred her for further neurology consultation. She saw Dr. Briggs, who advised her to increase the Lyrica dose from 75 b.i.d to 150 mg BID. She tried that however the morning does made her rather lethargic. I advised her to take 75 in the morning and 150 before bed. She has completed maintenance, Herceptin and pertuzumab. She complete the course on November 13. She had a follow-up bone scan on 11/20 which revealed: 1. A nonspecific abnormality in the right side of the mandible has developed since the prior 03/04/2021 bone scan and this is nonspecific. While this may represent a focus of osteonecrosis, a solitary metastasis at this site cannot be entirely ruled out. Correlation with MRI performed without and with intravenous contrast is recommended to better characterize this abnormality, if clinically indicated. 2. A few additional stable mild nonspecific abnormalities are noted as described above and these are all likely arthritic or traumatic in etiology. None of these abnormalities is strongly suspicious for metastatic disease. MRI of C-spine from 818: 1. The previously demonstrated lesion within the left lateral mass of C1 no longer demonstrates significant T2 hyperintensity or enhancing characteristics. Findings are suggestive of posttreatment change. No demonstrated new suspicious osseous lesions. 2. Otherwise, moderate multilevel degenerative spondyloarthropathy of the cervical spine as described in detail above. Most notably, there is moderate to severe spinal canal stenosis at C5-C6. Mild spinal canal stenoses at C4-C5 and C6-C7. Moderate to severe neural foraminal stenoses from C3-C7. Stable mild myelomalacia within the dorsal columns at C5-C6. No new spinal cord signal abnormalities. Overall, degenerative changes appear similar to prior exam. I discussed the above findings with Dr. Feldman. He felt that the abnormality in the right mandible, is related to her teeth. She does agree that her teeth are rotten. He suggested to do an plain x-ray of the mandible: Non-specific abnormality in the right posterior mandibular body, the appearance is non specific: could be infectious, inflammatory, post treatment changes. CAT scan of the mandible: There is irregular change of a 2 cm segment of right alveolar process of the mandible, new compared to exam from 2020. No E/O soft tissue abnormality surrounding this region. She had pain in her left hand. l proceeded with x-rays for that as well: This revealed DJD. She has been through prolonged course of chemotherapy, and wanted a break. She is not a candidate for anti-estrogen therapy since she is ER/MT negative. CA 27.29: 38. It was 35, on 09/10. She has some dental issues. She has had her lower teeth extracted. She is in need for the oral surgeon to do trimming. After that heels she can have the lower dentures, placed. She will be following up with the Oral surgeon on Wednesday: Dr. Boyd Jacinto. PLAN: Will hold off on her Denosumab till then. Fortunately the bone metastases have disappeared on repeat imaging. Will recheck her bone scan, now. Will follow her tumor marker. She has had post lumpectomy radiation. She will return in a month for a follow up. All her questions were answered to her satisfaction. Thank you, CC: Dr. mathis. Dr. Javed. - Time Spent With Patient Time Spent with Patient (in minutes): 26
[2022-05-14 09:40] LABS: MANUAL DIFF FLAG NO
[2022-05-14 09:45] LABS: Basophils Percent Auto 0.6 % (0-2); Eosinophils Absolute Auto 0.1 X10*3/uL (0.0-0.4); Eosinophils Percent Auto 0.9 % (0-4); Hematocrit 42.3 % (37.0-47.0); Hemoglobin 14.3 g/dl (12.0-16.0); Imm Gran Abs Auto 0.03 X10*3/uL (0.00-0.03); Imm Gran Pct Auto 0.4 % (0.0-0.4); Lymphocytes Absolute Auto 1.6 X10*3/uL (1.2-4.9); Lymphocytes Percent Auto 24.4 % (20-40); Mean Corpuscular HGB Conc 33.8 g/dl (31.0-35.0); Mean Corpuscular Hemoglobin 32.5 pg (27.0-33.0); Mean Corpuscular Volume 96.1 fL (80.0-98.0); Mean Platelet Volume 10.3 fL (9.4-12.3); Monocytes Absolute Auto 0.6 X10*3/uL (0.1-1.2); Monocytes Percent Auto 9.4 % (2-11); Neutrophils Absolute Auto 4.3 x10*3/uL (2.0-8.3); Neutrophils Percent Auto 64.3 % (45-73); Platelet Count 170 X10*3/uL (160-400); Red Cell Distribution Width 12.2 % (11.0-16.0); White Blood Count 6.7 X10*3/uL (4.8-10.8)
[2022-05-14 10:01] LABS: Alanine Aminotransferase 14 U/L (0-31); Albumin Level 3.8 g/dL (3.5-5.0); Alkaline Phosphatase 74 U/L (39-117); Anion Gap 14 (12-20); Aspartate Amino Transferase 16 U/L (5-31); Bilirubin Total 0.9 mg/dL (0.0-1.0); Blood Urea Nitrogen 19 mg/dL (9-16); Calcium 9.3 mg/dL (8.4-10.2); Carbon Dioxide 30 mmol/L (22-29); Chloride 101 mmol/L (96-108); Creatinine Clr Calc Pharmacy 61.4; Estimated Glomerular Filt Rate 55; Glucose Random 111 mg/dL (60-115); Sodium 141 mmol/L (135-145); Total Protein 6.4 g/dL (6.5-8.0)
--- NOTE | 2022-05-14 11:59 | MHC.HEMONCMA ---
Pt was in for follow up. Clinical summary reviewed and updated, VSS. Labs were drawn. Pt to return in 1 month. Bone scan sent to [facility].
--- NOTE | 2022-05-14 13:24 | MHC.HEMONC ---
Port accessed with no blood return noted. Pt has had port study in the past with documented fibrin sheath. Port flushes well. Flushed with heparin 500units and port de-accessed. Next port flush scheduled for 6 weeks. Order for bone scan given to Brianna christy in order room service bellhop. Exam with Dr. Peña today.
[2022-05-16 09:03] LABS: CA 27.29 36 U/mL (<38)
[2022-06-04 05:48] LABS: Blood Urea Nitrogen 24 mg/dL (9-16); Calcium 9.6 mg/dL (8.4-10.2); Carbon Dioxide 23 mmol/L (22-29)
[2022-06-04 06:28] LABS: Sodium 144 mmol/L (135-145)
[2022-06-04 06:29] LABS: Anion Gap 14 (12-20); Chloride 103 mmol/L (96-108); Potassium 4.4 mmol/L (3.3-5.1)
[2022-06-04 06:30] LABS: Creatinine Clr Calc Pharmacy 66.6; Estimated Glomerular Filt Rate > 60
[2022-06-04 06:31] LABS: Glucose Random 109 mg/dL (60-115)
[2022-06-25 09:14] LABS: MANUAL DIFF FLAG NO
[2022-06-25 09:17] VITALS: BP 132/78; PULSE 71; RESP 18; TEMP 36.7; O2SAT 95
[2022-06-25 09:17] LABS: Basophils Absolute Auto 0.1 X10*3/uL (0.0-0.2); Basophils Percent Auto 0.9 % (0-2); Eosinophils Absolute Auto 0.1 X10*3/uL (0.0-0.4); Eosinophils Percent Auto 2.1 % (0-4); Imm Gran Abs Auto 0.01 X10*3/uL (0.00-0.03); Imm Gran Pct Auto 0.2 % (0.0-0.4); Lymphocytes Absolute Auto 1.7 X10*3/uL (1.2-4.9); Lymphocytes Percent Auto 31.5 % (20-40); Mean Corpuscular HGB Conc 34.1 g/dl (31.0-35.0); Mean Corpuscular Hemoglobin 31.3 pg (27.0-33.0); Mean Corpuscular Volume 91.7 fL (80.0-98.0); Mean Platelet Volume 9.9 fL (9.4-12.3); Monocytes Absolute Auto 0.5 X10*3/uL (0.1-1.2); Monocytes Percent Auto 9.5 % (2-11); Neutrophils Absolute Auto 2.9 x10*3/uL (2.0-8.3); Neutrophils Percent Auto 55.8 % (45-73); Platelet Count 192 X10*3/uL (160-400); Red Cell Distribution Width 12.3 % (11.0-16.0); White Blood Count 5.3 X10*3/uL (4.8-10.8)
--- NOTE | 2022-06-25 09:17 | P.PNHO-ONC_ITS ---
Medical Summary - Medical Summary Date of Service: 06/25/22 Chief complaint: Follow-up for: Metastatic breast cancer. 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 CURRENT THERAPY: AC with Neulasta support, completed 4 cycles. Completed 12 weeks of Taxol. Completed pertuzumab and Herceptin maintenance. Cycle #21, on 11/13/21. Status post mastectomy, 04/30, by Dr. Javed. Pathology: No residual cancer identified.(ypT0) consistent with complete response to pre- surgical therapy. Dense hyalinized stromal sclerosis with calcifications. Benign ducts with ductal ectasia. Six axillary lymph nodes negative for tumor. Skin and nipple with no evidence of tumor. Has been on Denosumab. Was receiving it Q 3 monthly. Last dose was 02/05/22. Interval History Interval history: Marcia Strong is a pleasant 67 year old lady, here for a follow-up visit. She has been doing reasonably well. She tells me that she has completed her treatment with the oral surgeon. She had her lower teeth removed. There were few shards left. She had those scraped and trimmed. She is no ready to to have the dentures, yet. She is eating soft diet including applesauce, ramen noodles and mashed potat oes. Energy level is still not great. She gets up between 5 and 06:00. She has to take a nap between 730 and 10 30 and again another one between 4 and 5. She then goes to bed at 10. She thinks it could be boredom. She is trying to be active. She tries to walk up and down her stairs and d riveway She denies fever nor chills. No headache no dizziness. No chest pain nor trouble breathing. She denies any abdominal pain, nausea, nor vomiting heartburn nor indigestion. Her bowels are working without any gross blood in it. No more diarrhea. She had a colonoscopy in her 50s at [facility]. Appetite is good. She has gained weight. Denies any urinary complaints. Denies any focal weakness. Her feet still feel numb, however she is not experiencing the throbbing pain any more. She cannot walk too far, since she gets pain in her back and legs. She has had a chronic low back pain at the lumbosacral area. She cooks on the stove, sitting down. She complains of pain in her shoulder upon movement. She is on Lyrica 150 mg 2 at night. She is in good spirits. The rest of the review of systems is unremarkable. Previous history: She tolerated the chemotherapy reasonably well. She denies depression however she had history of anxiety. She had a follow-up bone scan on 11/20 which revealed: 1. A nonspecific abnormality in the right side of the mandible has developed since the prior 03/04/2021 bone scan and this is nonspecific. While this may represent a focus of osteonecrosis, a solitary metastasis at this site cannot be entirely ruled out. Correlation with MRI performed without and with intravenous contrast is recommended to better characterize this abnormality, if clinically indicated. 2. A few additional stable mild nonspecific abnormalities are noted as described above and these are all likely arthritic or traumatic in etiology. None of these abnormalities is strongly suspicious for metastatic disease. MRI of C-spine from 818: 1. The previously demonstrated lesion within the left lateral mass of C1 no lo nger demonstrates significant T2 hyperintensity or enhancing characteristics. Findings are suggestive of posttreatment change. No demonstrated new suspicious osseous lesions. 2. Otherwise, moderate multilevel degenerative spondyloarthropathy of the cervical spine as described in detail above. Most notably, there is moderate to severe spinal canal stenosis at C5-C6. Mild spinal canal stenoses at C4-C5 and C6-C7. Moderate to severe neural foraminal stenoses from C3-C7. Stable mild myelomalacia within the dorsal columns at C5-C6. No new spinal cord signal abnormalities. Overall, degenerative changes appear similar to prior exam. She saw the neurologist on the 14 of October. He shared the NCV studies with her. These were reasonably normal. He had increase the Lyrica to 75 b.i.d. in the past. He now increased to 150 b.i.d. She says she can take the evening dose however if she takes the morning one as well she gets lethargic. Recent imaging: MRI of the breast from 02/26: Interval decrease in size of the incident mass in the 8 o'clock position which n ow measures 1.8 x 3.6 x 2.5 cm. There is no abnormal enhancement at this time which indicates a response to neoadjuvant chemotherapy. There is also a 0.7 cm satellite lesion in the 7 o'clock position, anterior to the primary tumor which also demonstrates no abnormal enhancement. No other findings suspicious of malignancy in either breast. Previous history: She tells me that about 3 months ago she noted, what she felt was, a pimple underneath her left breast. It would occasionally get itchy and then dry. Then it became harder around the edges. It was fixed, not movable. Due to the pandemic she did not leave the home. About a month ago she woke up one morning and she felt her left breast was heavy and huge. It was quite red and warm to touch. The nipple appeared lighte r. She decided to go to the emergency room. This was on 07/16. Ultrasound of the breast revealed: Large irregular mass with scattered internal color flow vascularity 8:00 position 7 cm from nipple measuring 5 x 4 cm. Several adjacent smaller satellite foci, largest 1.3 cm. Differential considerations include malignancy as well as abscess. ASSESSMENT: BI-RADS 4: Suspicious RECOMMENDATION: 1. Surgical Consult. 2. Diagnostic mammography. She underwent an ultrasound-guided biopsy at 08:00 o'clock position on 07/25. Pathology revealed: Invasive ductal carcinoma, MSBR grade 2. ER negative/AL negative/HER2 Stephy positive 3+. She was seen by Dr. Javed. She has been referred here for question if she should have neoadjuvant chemotherapy. Compounding Technician history: Menarche: Age 12. Menopause in her early 50s. No HRT. She is . She has 4 children. Family history: A paternal cousin had breast cancer in her mid 60s. 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 She is . Has 4 children. She smokes half a pack a day. She likes her wine. Review of Systems - Constitutional Reports system reviewed and no additional complaints, except as documented, Reports weakness, Reports weight gain, Reports weight loss - Eyes Reports system reviewed and no additional complaints, except as documented - ENT Reports system reviewed and no additional complaints, except as documented - Cardiovascular Reports system reviewed and no additional complaints, except as documented - Respiratory Reports no additional respiratory complaints - Gastrointestinal Reports system reviewed and no additional complaints, except as documented - Genitourinary Reports no additional female genitourinary complaints - Musculoskeletal Reports system reviewed and no additional complaints, except as documented - Integumentary/Breasts Skin/Breast: Reports no additional skin complaints - Neurologic Reports system reviewed and no additional complaints, except as documented, Reports numbness, Reports paresthesias, Reports weakness - Psychiatric Reports system reviewed and no additional complaints, except as documented - Endocrine Reports no additional endocrine complaints - Hematologic/Lymphatic Reports system reviewed and no additional complaints, except as documented - Allergic/Immunologic Reports system reviewed and no additional complaints, except as documented [facility] Medical History: Medical History (Last Reviewed 05/14/22 @ 09:14 by Brianna Velez CMA) Arthritis Bone cancer Breast cancer Cerebral aneurysm Chronic back pain Morbid obesity Neuropathy Pneumonia Port-A-Cath in place Functional capacity: independent ambulation Patient : No Family History: Family History (Last Reviewed 06/24/22 @ 09:30 by Mabel Hong) Family/Other No problems noted. Brother Colon cancer Daughter Breast cancer Surgical History: Surgical History (Last Reviewed 06/24/22 @ 09:30 by Mabel Hong) H/O tooth extraction H/O tubal ligation History of mastectomy Social History: Social History (Last Reviewed 05/14/22 @ 09:14 by Brianna Velez CMA) Living Situation History: Household Members: Children Housing: Apartment Are you a primary manager medicare marketing to a significant other at home: No Do you presently have visiting nurse or other home services: No Tobacco History: Patient Tobacco Use Status: Current everyday Tobacco Tobacco use type: Cigarette Cigarettes Per Day: 4 Years Smoked: 50 e-Cigarette/Vaping Use: Never Used Second Hand Smoke Exposure: Yes Second Hand Smoke Exposure comment: daughter Advance Directives: Advance Directives Date on File: 08/22/20 Occupation Assessmet: service: No Current occupational status: unemployed Oncology Screenings - ECOG Performance Status ECOG Performance Status: 1 Home Medications and Allergies Home Medications Medication Instructions Recorded Confirmed Type pregabalin 75 mg capsule (Lyrica) 75 mg PO BID 08/21/21 06/24/22 History Allergies Allergy/AdvReac Type Severity Reaction Status Date / Time codeine [CODEINE] Allergy Unknown STOMACH Verified 06/24/22 09:33 UPSET Exam Vital signs: Vital Signs Temp 96.8 F 05/14/22 09:10 Pulse 65 05/14/22 09:10 Resp 12 05/14/22 09:10 BP 116/77 05/14/22 09:10 Pulse Ox 96 05/14/22 09:10 O2 Del Method 05/14/22 09:10 Weight 104.8 kg BMI result Body Mass Index 42.3 - Constitutional Present: moderate distress, obese - Routine HEENT Exam Head: Present: normal inspection Eye: Present: normal appearance ENT: Present: mucous membranes moist - Routine Neck Exam Present: full ROM - Routine Respiratory Exam Present: CTAB - Routine Cardiovascular Exam Cardiovascular: Present: RRR, S1, S2 - Routine Abdominal Exam Present: soft, nontender - Routine Rectal Exam Patient deferred: digital exam - Routine Extremities Exam Present: nontender - Routine Back/Spine/Pelvis Exam Back/Spine: Absent: CVA tenderness - Routine Skin Exam Present: intact - Routine Neurological Exam Present: alert, oriented X3 - Detailed Neurological Exam: Coma Scale Eye Opening: Spontaneous (4) - Routine Psychiatric Exam Present: normal affect Data - Labs CBC & Chem 7: 06/25/22 09:11 06/25/22 09:11 Assessment and Plan Patient Active problem list reviewed?: Yes (1) Carcinoma of left breast Status: Acute Assessment and plan: Status: Acute This is a pleasant 65-year-old lady with a recent diagnosis of inflammatory breast carcinoma the left breast. It is ERPR negative and HER2 Stephy positive. On ultrasound the tumor appears to be about 6 cm in size. Ca 27.29:44. She was deemed a candidate for neoadjuvant chemotherapy, in view of the large size of the tumor and the inflammatory component. She is HER2 positive. I recommended treating her with dose dense AC X4, followed by Taxol and Herceptin. Then reassess for surgical resection, based upon her response. I proceeded with a baseline PET scan, for initial staging. This revealed: Intense activity in the medial left breast lesion assumed to be the primary tumor. There is also an enlarged left axillary node showing increased activity and metastatic disease needs to be suspected though this could be reactive. Otherwise, uptake in the region of the left thyroid gland, which is enlarged. This could represent uptake within a thyroid nodule and, therefore ultrasound would be recommended as malignancy cannot be excluded. Differential would be abnormal uptake in an enlarged node in the region. As described in the left axillary region, more proximally toward the region of the thoracic inlet, some mild uptake in nonpathologically enlarged nodes. These may be reactive but certainly early metastatic disease cannot be excluded. There is also uptake within the region of C1 anterior to the left of midline. There is lucency in the bone here. A metastatic deposit cannot be excluded. Consider MR. Faustino discussed with IR, neuro-radiology. They felt the biopsy would be risky to do. However since the lesion is apparent on 2 different imaging modalities, it is likely to be real. Hence the plan is to proceed with treatment. Since she has aggressive progressive disease, will treat her with an active regimen, to expedite her response. She had an echocardiogram, prior to anthracycline. This came back normal with EF of 60-65%. She had genetic testing done. This came back negative. She had a Port-A-Cath placement. This was placed on 08/22/20. She started dose dense AC chemotherapy with Neulasta support. She completed that. She then received 12 weeks of Taxol. Thyroid ultrasound revealed: Heterogeneous thyroid gland. The left lobe is enlarged. Bilateral thyroid nodules. Fine needle aspiration of the largest nodule in the left lobe recommended. l checked with Radiology, proceeded with the thyroid biopsy. (this revealed benign findings.) She completed 4 cycles of AC. She then completed 12 weeks of Taxol treatment. She has tolerated it really well. She has had symptoms of neuropathy. This is likely residual from the Taxol. I started her on Neurontin for the neuropathic pain, 100 mg every 8 hours, to start out with. Her breast mass has disappeared. She complained of body aches joint pains. I proceeded with a bone scan, 03/04/21. This revealed: No abnormal bone activity seen to suspect any metastatic bone disease. There is mild degenerative changes right T7 costovertebral junction and right T 11 and T12 facet joints. She had an MRI of the breast on 02/18/21: Interval decrease in size of the incident mass in the 8 o'clock position which now measures 1.8 x 3.6 x 2.5 cm. There is no abnormal enhancement at this time which indicates a response to neoadjuvant chemotherapy. There is also a 0.7 cm satellite lesion in the 7 o'clock position, anterior to the primary tumor which also demonstrates no abnormal enhancement. No other findings suspicious of malignancy in either breast. . Status post mastectomy, 04/30/21, by Dr. Javed. Pathology: No residual cancer identified.(ypT0) consistent with complete response to pre- surgical therapy. Dense hyalinized stromal sclerosis with calcifications. Benign ducts with ductal ectasia. Six axillary lymph nodes negative for tumor. Skin and nipple with no evidence of tumor. This is very reassuring. The neuropathy is persistent. She was on gabapentin without significant benefit. I had added Lyrica for that. She still had the symptoms. l referred her for further neurology consultation. She saw Dr. Briggs, who advised her to increase the Lyrica dose from 75 b.i.d to 150 mg BID. She tried that however the morning does made her rather lethargic. I advised her to take 75 in the morning and 150 before bed. She has completed maintenance, Herceptin and pertuzumab. She complete the course on November 13. She had a follow-up bone scan on 11/20 which revealed: 1. A nonspecific abnormality in the right side of the mandible has developed since the prior 03/04/2021 bone scan and this is nonspecific. While this may represent a focus of osteonecrosis, a solitary metastasis at this site cannot be entirely ruled out. Correlation with MRI performed without and with intravenous contrast is recommended to better characterize this abnormality, if clinically indicated. 2. A few additional stable mild nonspecific abnormalities are noted as described above and these are all likely arthritic or traumatic in etiology. None of these abnormalities is strongly suspicious for metastatic disease. MRI of C-spine from 818: 1. The previously demonstrated lesion within the left lateral mass of C1 no longer demonstrates significant T2 hyperintensity or enhancing characteristics. Findings are suggestive of posttreatment change. No demonstrated new suspicious osseous lesions. 2. Otherwise, moderate multilevel degenerative spondyloarthropathy of the cervical spine as described in detail above. Most notably, there is moderate to severe spinal canal stenosis at C5-C6. Mild spinal canal stenoses at C4-C5 and C6-C7. Moderate to severe neural foraminal stenoses from C3-C7. Stable mild myelomalacia within the dorsal columns at C5-C6. No new spinal cord signal abnormalities. Overall, degenerative changes appear similar to prior exam. I discussed the above findings with Dr. Feldman. He felt that the abnormality in the right mandible, is related to her teeth. She does agree that her teeth are rotten. He suggested to do an plain x-ray of the mandible: Non-specific abnormality in the right posterior mandibular body, the appearance is non specific: could be infectious, inflammatory, post treatment changes. CAT scan of the mandible: There is irregular change of a 2 cm segment of right alveolar process of the mandible, new compared to exam from 2020. No E/O soft tissue abnormality surrounding this region. She had pain in her left hand. l proceeded with x-rays for that as well: This revealed DJD. She has been through prolonged course of chemotherapy, and wanted a break. She is not a candidate for anti-estrogen therapy since she is ER/AL negative. She has had post lumpectomy radiation. CA 27.29, on 05/18: 36. 38 in 04/02. It was 35, on 09/10/21. Bone scan from 05/25/2022: 1. Persistent abnormalities strongly suspicious for a metastasis in the right anterior aspect of the mandible is noted and this does not appear significantly changed from the prior 11/20/2021 bone scan. 2. A few additional mild nonspecific abnormalities are noted as described above and these are all likely arthritic or traumatic in etiology. None of these abnormalities is strongly suspicious for metastatic disease. She has completed her dental treatment. She has had the trimming, done, by oral surgeon Dr. Boyd Jacinto. He feels it may be another month further healing to be complete. PLAN: Will hold off on her Denosumab till then. Will follow her tumor marker. Ca 27.29: 45. I will proceed with a PET scan, for restaging purposes. Will decide about proceeding with anti HER2 therapy with Enhertu. Initial Recommended dosage is 5.4 milligram/kilogram IV infusion over 90 minutes, once every 3 weeks until disease progression or unacceptable toxicity. Subsequent infusions over 30 minutes as tolerated. She will return in a month for a follow up. All her questions were answered to her satisfaction. Thank you, CC: Dr. mathis. Dr. Javed. - Time Spent With Patient Time Spent with Patient (in minutes): 26
[2022-06-25 09:35] LABS: Alanine Aminotransferase 20 U/L (0-31); Albumin Level 4.2 g/dL (3.5-5.0); Alkaline Phosphatase 71 U/L (39-117); Anion Gap 14 (12-20); Aspartate Amino Transferase 22 U/L (5-31); Blood Urea Nitrogen 12 mg/dL (9-16); Calcium 10.2 mg/dL (8.4-10.2); Carbon Dioxide 32 mmol/L (22-29); Chloride 102 mmol/L (96-108); Creatinine Clr Calc Pharmacy 61.4; Estimated Glomerular Filt Rate 55; Glucose Fasting 112 mg/dL (60-99); Potassium 4.5 mmol/L (3.3-5.1); Sodium 143 mmol/L (135-145)
--- NOTE | 2022-06-25 10:15 | MHC.HEMONCMA ---
Patient seen today for followup BCA, VSS, labs, port flush, 1 month follow up.
--- NOTE | 2022-06-25 10:59 | MHC.HEMONC ---
Port accessed with no blood return noted. Pt has documented fibrin sheath. Flushed with heparin 500units and de-accessed. Tolerated well. Next port flush scheduled with follow up.
[2022-06-27 08:49] LABS: CA 27.29 45 U/mL (<38)
--- NOTE | 2022-07-06 11:22 | HO.HEMONCPA ---
NO PA REQUIRED FOR PET SCA. APPT REQUEST FORM FAXED TO [facility]. AWAITING APPT DATE & TIME.
--- NOTE | 2022-07-14 09:17 | MHC.HEMONC ---
I spoke with pt. She is about to call [facility] to book PET.
--- NOTE | 2022-07-15 11:13 | HO.HEMONCSCH ---
[facility] - APPT SCHEDULED ON at 9:15am
--- NOTE | 2022-07-15 13:54 | MHC.HEMONC ---
Telephone call to Marcia to schedule new treatment to start. Message left. Awaiting call back
--- NOTE | 2022-07-15 14:04 | MHC.HEMONC ---
Pt to start new tx with Lauro per Dr Peña. Pharmacy notified and Susan given info for PA. Echo ordered and given to Dora to put into OF. I gave Shelby SILVER information to call pt and book c1d1.
--- NOTE | 2022-07-15 16:03 | HO.HEMONCPA ---
NO PA REQUIRED for ENHERTU (fam-trastuzumab [id number]-nxki). DRUG COVERED UNDER MEDICARE PART B BENEFITS.
--- NOTE | 2022-07-16 07:53 | MHC.HEMONCMA ---
entered in [facility] echo order.
--- NOTE | 2022-07-17 16:13 | MHC.HEMONC ---
Telephone call to Marcia to try to schedule her for chemo teach and start of new treatment. Message left
--- NOTE | 2022-07-21 09:04 | MHC.HEMONC ---
Triage call-pt scheduled for echo today (07/21/22) at 1100-pt notified of appointment and will attend echo appointment today
--- NOTE | 2022-07-24 14:58 | MHC.HEMONC ---
PET scan results reviewed by fe Adhikari at this time. Dr Martin has entered referrals for endocrinology (here) and ENT (at [facility]) for enlarged asymmetrical thyroid. Port to be flushed in 8 weeks. She will see Dr Martin again in 3 months.
--- NOTE | 2022-07-24 16:27 | P.PNHO-ONC_ITS ---
Medical Summary - Medical Summary Date of Service: 07/24/22 Chief complaint: Follow-up for HER2 positive breast cancer. 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 CURRENT THERAPY: AC with Neulasta support, completed 4 cycles. Completed 12 weeks of Taxol. Completed pertuzumab and Herceptin maintenance. Cycle #21, on 11/13/21. Status post mastectomy, 04/30, by Dr. Javed. Pathology: No residual cancer identified.(ypT0) consistent with complete response to pre- surgical therapy. Dense hyalinized stromal sclerosis with calcifications. Benign ducts with ductal ectasia. Six axillary lymph nodes negative for tumor. Skin and nipple with no evidence of tumor. Has been on Denosumab. Was receiving it Q 3 monthly. Last dose #7 was 02/05/22. Interval History Interval history: Marcia Strong is a pleasant 67 year old lady, here for a follow-up visit. She has been doing reasonably well. She has noted some trouble swallowing. She tells me that she has completed the course of clindamycin prescribed by oral surgeon. There is no infection nor pus formation. She has a follow-up appointment with him on 08/06. She is not ready to to have the dentures, yet. She is eating soft diet including applesauce, ramen noodles and mashed potatoes. Energy level is good. She is trying to be active. She tries to walk up and down her stairs and driveway. She takes naps during the day. She then goes to bed at 10. She thinks it could be boredom. She denies fever nor chills. No headache no dizziness. No chest pain nor trouble breathing. She denies any abdominal pain, nausea, nor vomiting heartburn nor indigestion. Her bowels are working without any gross blood in it. No more diarrhea. She had a colonoscopy in her 50s at [facility]. Appetite is good. She has gained weight. Denies any urinary complaints. Denies any focal weakness. Her feet still feel numb, however she is not experiencing the throbbing pain any more. She cannot walk too far, since she gets pain in her back and legs. She has had a chronic low back pain at the lumbosacral area. She is on Lyrica 150 mg 2 at night. She is in good spirits. The rest of the review of systems is unremarkable. Previous history: She tolerated the chemotherapy reasonably well. She denies depression however she had history of anxiety. She had a follow-up bone scan on 11/20 which revealed: 1. A nonspecific abnormality in the right side of the mandible has developed since the prior 03/04/2021 bone scan and this is nonspecific. While this may represent a focus of osteonecrosis, a solitary metastasis at this site cannot be entirely ruled out. Correlation with MRI performed without and with intravenous contrast is recommended to better characterize this abnormality, if clinically indicated. 2. A few additional stable mild nonspecific abnormalities are noted as described above and these are all likely arthritic or traumatic in etiology. None of these abnormalities is strongly suspicious for metastatic disease. MRI of C-spine from 818: 1. The previously demonstrated lesion within the left lateral mass of C1 no longer demonstrates significant T2 hyperintensity or enhancing characteristics. Findings are suggestive of posttreatment change. No demonstrated new suspicious osseous lesions. 2. Otherwise, moderate multilevel degenerative spondyloarthropathy of the cervical spine as described in detail above. Most notably, there is moderate to severe spinal canal stenosis at C5-C6. Mild spinal canal stenoses at C4-C5 and C6-C7. Moderate to severe neural foraminal stenoses from C3-C7. Stable mild myelomalacia within the dorsal columns at C5-C6. No new spinal cord signal abnormalities. Overall, degenerative changes appear similar to prior exam. She saw the neurologist on the 14 of October. He shared the NCV studies with her . These were reasonably normal. He had increase the Lyrica to 75 b.i.d. in the past. He now increased to 150 b.i.d. She says she can take the evening dose however if she takes the morning one as well she gets lethargic. Recent imaging: MRI of the breast from 02/26: Interval decrease in size of the incident mass in the 8 o'clock position which now measures 1.8 x 3.6 x 2.5 cm. There is no abnormal enhancement at this time which indicates a response to neoadjuvant chemotherapy. There is also a 0.7 cm satellite lesion in the 7 o'clock position, anterior to the primary tumor which also demonstrates no abnormal enhancement. No other findings suspicious of malignancy in either breast. Previous history: She tells me that about 3 months ago she noted, what she felt was, a pimple underneath her left breast. It would occasionally get itchy and then dry. Then it became harder around the edges. It was fixed, not movable. Due to the pandemic she did not leave the home. About a month ago she woke up one morning and she felt her left breast was heavy and huge. It was quite red and warm to touch. 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 She decided to go to the emergency room. This was on 07/16. Ultrasound of the breast revealed: Large irregular mass with scattered internal color flow vascularity 8:00 position 7 cm from nipple measuring 5 x 4 cm. Several adjacent smaller satellite foci, largest 1.3 cm. Differential considerations include malignancy as well as abscess. ASSESSMENT: BI-RADS 4: Suspicious RECOMMENDATION: 1. Surgical Consult. 2. Diagnostic mammography. She underwent an ultrasound-guided biopsy at 08:00 o'clock position on 07/25. Pathology revealed: Invasive ductal carcinoma, MSBR grade 2. ER negative/CT negative/HER2 Stephy positive 3+. She was seen by Dr. Javed. She has been referred here for question if she should have neoadjuvant chemotherapy. 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 Menopause in her early 50s. No HRT. She is . She has 4 children. Family history: A paternal cousin had breast cancer in her mid 60s. 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 She is . Has 4 children. She smokes half a pack a day. She likes her wine. Review of Systems - Constitutional Reports system reviewed and no additional complaints, except as documented, Reports weakness, Reports weight gain, Denies fever(s), Denies weight loss - Eyes Reports system reviewed and no additional complaints, except as documented - ENT Reports system reviewed and no additional complaints, except as documented - Cardiovascular Reports system reviewed and no additional complaints, except as documented - Respiratory Reports no additional respiratory complaints - Gastrointestinal Reports system reviewed and no additional complaints, except as documented Comments: Dysphagia. - Genitourinary Reports no additional female genitourinary complaints - Musculoskeletal Reports system reviewed and no additional complaints, except as documented - Integumentary/Breasts Skin/Breast: Reports no additional skin complaints - Neurologic Reports system reviewed and no additional complaints, except as documented, Reports numbness, Reports paresthesias, Reports weakness - Psychiatric Reports system reviewed and no additional complaints, except as documented - Endocrine Reports no additional endocrine complaints - Hematologic/Lymphatic Reports system reviewed and no additional complaints, except as documented - Allergic/Immunologic Reports system reviewed and no additional complaints, except as documented PMFSH Medical History: Medical History (Last Reviewed 07/17/22 @ 10:00 by Rosales Javde MD) Arthritis Bone cancer Breast cancer Cerebral aneurysm Chronic back pain Morbid obesity Neuropathy Pneumonia Port-A-Cath in place Functional capacity: independent ambulation Patient : No Family History: Family History (Last Reviewed 07/17/22 @ 10:00 by Rosales Javed MD) Family/Other No problems noted. Brother Colon cancer Daughter Breast cancer Surgical History: Surgical History (Last Reviewed 07/17/22 @ 10:00 by Rosales Javed MD) H/O tooth extraction H/O tubal ligation History of mastectomy Social History: Social History (Last Reviewed 07/17/22 @ 10:00 by Rosales Javed MD) Living Situation History: Household Members: Children Housing: Apartment Are you a primary technical healthcare consultant to a significant other at home: No Do you presently have visiting nurse or other home services: No Alcohol History Details: 1. How often do you have a drink containing alcohol?: d. 2-3 times a week 2. How many drinks containing alcohol do you have on a typical day when you are drinking?: a. 1 or 2 Tobacco History: Patient Tobacco Use Status: Current everyday Tobacco Tobacco use type: Cigarette Years Smoked: 50 e-Cigarette/Vaping Use: Never Used Second Hand Smoke Exposure: Yes Second Hand Smoke Exposure comment: daughter Substance Use History: Use of substances other than those prescribed or required for medical reasons : No Domestic Abuse History: Have you been hit, kicked, punched, or otherwise hurt by someone within the past year? If so, by whom?: No Advance Directives: Advance Directives Date on File: 08/22/20 Homicidal Assessment: Do you have thoughts of harming others: None Do you have a plan to hurt others: No Plan Do you have the means to hurt others: No Nutrition Assessment: Recently lost weight without trying: No Eating poorly because of decreased appetite: No Patient : No Occupation Assessmet: service: No Current occupational status: unemployed Oncology Screenings - ECOG Performance Status ECOG Performance Status: 1 Home Medications and Allergies Current Medications: Current Medications Acetaminophen (Acetaminophen 325 Mg Tablet) 650 mg PO ONCE YOUSIF Stop: 07/24/22 23:59 Diphenhydramine HCl (Diphenhydramine Hcl 50 Mg/Ml Vial) 25 mg IVPUSH ONCE YOUSIF Stop: 07/24/22 23:59 Heparin Sodium (Porcine) (Heparin Sodium,Porcine Flush 500 Unit/5 Ml Syringe) 500 unit IVFLUSH ONCE YOUSIF Stop: 07/24/22 23:59 Ondansetron HCl (Ondansetron Odt 8 Mg Tab.Rapdis) 8 mg TRANSLINGU ONCE YOUSIF Stop: 07/24/22 23:59 Home Medications Medication Instructions Recorded Confirmed Type pregabalin 75 mg capsule (Lyrica) 75 mg PO BID 08/21/21 07/17/22 History chlorhexidine gluconate 0.12 % ml PO 07/08/22 07/17/22 History mouthwash oxycodone-acetaminophen 5 mg-325 tab PO 07/08/22 07/17/22 History mg tablet Allergies Allergy/AdvReac Type Severity Reaction Status Date / Time codeine [CODEINE] Allergy Unknown STOMACH Verified 07/17/22 09:07 UPSET Exam Vital signs: Vital Signs Temp 98.0 F 06/25/22 09:17 Pulse 71 06/25/22 09:17 Resp 18 06/25/22 09:17 BP 132/78 06/25/22 09:17 Pulse Ox 95 06/25/22 09:17 O2 Del Method Room Air 06/25/22 09:17 Weight 104.8 kg BMI result Body Mass Index 42.3 - Constitutional Present: moderate distress, obese - Routine HEENT Exam Head: Present: normal inspection Eye: Present: normal appearance ENT: Present: mucous membranes moist - Routine Neck Exam Present: full ROM - Routine Respiratory Exam Present: CTAB - Routine Cardiovascular Exam Cardiovascular: Present: RRR, S1, S2 - Routine Abdominal Exam Present: soft, nontender - Routine Rectal Exam Patient deferred: digital exam - Routine Extremities Exam Present: nontender - Routine Back/Spine/Pelvis Exam Back/Spine: Absent: CVA tenderness - Routine Skin Exam Present: intact - Routine Neurological Exam Present: alert, oriented X3 - Detailed Neurological Exam: Coma Scale Eye Opening: Spontaneous (4) - Routine Psychiatric Exam Present: normal affect Data - Labs CBC & Chem 7: 06/25/22 09:11 06/25/22 09:11 Assessment and Plan Patient Active problem list reviewed?: Yes (1) Carcinoma of left breast Status: Acute Assessment and plan: Status: Acute This is a pleasant 65-year-old lady with a recent diagnosis of inflammatory breast carcinoma the left breast. It is ERPR negative and HER2 Stephy positive. On ultrasound the tumor appears to be about 6 cm in size. Ca 27.29:44. She was deemed a candidate for neoadjuvant chemotherapy, in view of the large size of the tumor and the inflammatory component. She is HER2 positive. I recommended treating her with dose dense AC X4, followed by Taxol and Herceptin. Then reassess for surgical resection, based upon her response. I proceeded with a baseline PET scan, for initial staging. This revealed: Intense activity in the medial left breast lesion assumed to be the primary tumor. There is also an enlarged left axillary node showing increased activity and metastatic disease needs to be suspected though this could be reactive. Otherwise, uptake in the region of the left thyroid gland, which is enlarged. This could represent uptake within a thyroid nodule and, therefore ultrasound would be recommended as malignancy cannot be excluded. Differential would be abnormal uptake in an enlarged node in the region. As described in the left axillary region, more proximally toward the region of the thoracic inlet, some mild uptake in nonpathologically enlarged nodes. These may be reactive but certainly early metastatic disease cannot be excluded. There is also uptake within the region of C1 anterior to the left of midline. There is lucency in the bone here. A metastatic deposit cannot be excluded. Consider MR. Harmon discussed with IR, neuro-radiology. They felt the biopsy would be risky to do. However since the lesion is apparent on 2 different imaging modalities, it is likely to be real. Hence the plan is to proceed with treatment. Since she has aggressive progressive disease, will treat her with an active regimen, to expedite her response. She had an echocardiogram, prior to anthracycline. This came back normal with EF of 60-65%. She had genetic testing done. This came back negative. She had a Port-A-Cath placement. This was placed on 08/22/20. She started dose dense AC chemotherapy with Neulasta support. She completed that. She then received 12 weeks of Taxol. Thyroid ultrasound revealed: Heterogeneous thyroid gland. The left lobe is enlarged. Bilateral thyroid nodul es. Fine needle aspiration of the largest nodule in the left lobe recommended. l checked with Radiology, proceeded with the thyroid biopsy. (this revealed benign findings.) She completed 4 cycles of AC. She then completed 12 weeks of Taxol treatment. She has tolerated it really well. She has had symptoms of neuropathy. This is likely residual from the Taxol. I started her on Neurontin for the neuropathic pain, 100 mg every 8 hours, to start out with. Her breast mass has disappeared. She complained of body aches joint pains. I proceeded with a bone scan, 03/04/21. This revealed: No abnormal bone activity seen to suspect any metastatic bone disease. There is mild degenerative changes right T7 costovertebral junction and right T11 and T12 facet joints. She had an MRI of the breast on 02/18/21: Interval decrease in size of the incident mass in the 8 o'clock position which now measures 1.8 x 3.6 x 2.5 cm. There is no abnormal enhancement at this time which indicates a response to neoadjuvant chemotherapy. There is also a 0.7 cm satellite lesion in the 7 o'clock position, anterior to the primary tumor which also demonstrates no abnormal enhancement. No other findings suspicious of malignancy in either breast. . Status post mastectomy, 04/30/21, by Dr. Javed. Pathology: No residual cancer identified.(ypT0) consistent with complete response to pre- surgical therapy. Dense hyalinized stromal sclerosis with calcifications. Benign ducts with ductal ectasia. Six axillary lymph nodes negative for tumor. Skin and nipple with no evidence of tumor. This is very reassuring. The neuropathy is persistent. She was on gabapentin without significant benefit. I had added Lyrica for that. She still had the symptoms. l referred her for further neurology consultation. She saw Dr. Briggs, who advised her to increase the Lyrica dose from 75 b.i.d to 150 mg BID. She tried that however the morning does made her rather lethargic. I advised her to take 75 in the morning and 150 before bed. She has completed maintenance, Herceptin and pertuzumab. She complete the course on November 13. She had a follow-up bone scan on 11/20 which revealed: 1. A nonspecific abnormality in the right side of the mandible has developed since the prior 03/04/2021 bone scan and this is nonspecific. While this may represent a focus of osteonecrosis, a solitary metastasis at this site cannot be entirely ruled out. Correlation with MRI performed without and with intravenous contrast is recommended to better characterize this abnormality, if clinically indicated. 2. A few additional stable mild nonspecific abnormalities are noted as described above and these are all likely arthritic or traumatic in etiology. None of these abnormalities is strongly suspicious for metastatic disease. MRI of C-spine from 818: 1. The previously demonstrated lesion within the left lateral mass of C1 no longer demonstrates significant T2 hyperintensity or enhancing characteristics. Findings are suggestive of posttreatment change. No demonstrated new suspicious osseous lesions. 2. Otherwise, moderate multilevel degenerative spondyloarthropathy of the cervical spine as described in detail above. Most notably, there is moderate to severe spinal canal stenosis at C5-C6. Mild spinal canal stenoses at C4-C5 and C6-C7. Moderate to severe neural foraminal stenoses from C3-C7. Stable mild myelomalacia within the dorsal columns at C5-C6. No new spinal cord signal abnormalities. Overall, degenerative changes appear similar to prior exam. I discussed the above findings with Dr. Feldman. He felt that the abnormality in the right mandible, is related to her teeth. She does agree that her teeth are rotten. He suggested to do an plain x-ray of the mandible: Non-specific abnormality in the right posterior mandibular body, the appearance is non specific: could be infectious, inflammatory, post treatment changes. CAT scan of the mandible: There is irregular change of a 2 cm segment of right alveolar process of the mandible, new compared to exam from 2020. No E/O soft tissue abnormality surrounding this region. She had pain in her left hand. l proceeded with x-rays for that as well: This revealed DJD. She has been through prolonged course of chemotherapy, and wanted a break. She is not a candidate for anti-estrogen therapy since she is ER/CT negative. She has had post lumpectomy radiation. CA 27.29, on 05/18: 36. 38 in 04/02. It was 35, on 09/10/21. Bone scan from 05/25/2022: 1. Persistent abnormalities strongly suspicious for a metastasis in the right anterior aspect of the mandible is noted and this does not appear significantly changed from the prior 11/20/2021 bone scan. 2. A few additional mild nonspecific abnormalities are noted as described above and these are all likely arthritic or traumatic in etiology. None of these abnormalities is strongly suspicious for metastatic disease. PET scan from 07/21: 1. The left lobe of the thyroid gland is asymmetrically enlarged, shows underlying heterogeneous nodule associated with moderate FDG avidity. 30-40% of PET positive lesions are found to be thyroid cancer. [place] thyroid Association guidelines recommend biopsy of all PET positive nodules greater than 1 cm that are not definitely benign on the diagnostic thyroid ultrasound. 2. Mild FDG avidity within the right-sided vocal cord, for which direct visualization may be considered, if clinically appropriate. 3. Mild FDG avidity is noted within the right-sided mid part of the base of the mandible may represent changes secondary to odontogenic disease 4. Interval left-sided mastectomy and nonvisualized previously documented FDG avid left-sided axillary lymph node. No evidence of any local disease recurrence. 5. No suspicious FDG avid disease to suspect metastasis. All this is very reassuring. My plan was to start Enhertu, if PET scan revealed disease progression. Initial Recommended dosage is 5.4 milligram/kilogram IV infusion over 90 minutes, once every 3 weeks until disease progression or unacceptable toxicity. Subsequent infusions over 30 minutes as tolerated. She was actually scheduled for chemotherapy teaching today. However will hold off for now. She has completed her dental treatment. She has had the trimming, done, by oral surgeon Dr. Boyd Jacinto. She has completed the antibiotic course. She has an appointment with him for next week. PLAN: Will hold off on her Denosumab till we get clearance from the oral surgeon. Will continue to monitor her carefully. Will follow her tumor marker. Ca 27.29: 45. She will return in a couple of months for a follow up. All her questions were answered to her satisfaction. Thank you, CC: Dr. mathis. Dr. Javed. - Time Spent With Patient Time Spent with Patient (in minutes): 30
[2022-09-18 08:44] LABS: MANUAL DIFF FLAG NO
[2022-09-18 08:49] VITALS: BP 138/62; PULSE 68; RESP 18; TEMP 36.4; O2SAT 96; BMI 42.0
[2022-09-18 08:51] LABS: Basophils Percent Auto 0.6 % (0-2); Eosinophils Absolute Auto 0.1 X10*3/uL (0.0-0.4); Eosinophils Percent Auto 1.9 % (0-4); Hematocrit 42.1 % (37.0-47.0); Imm Gran Abs Auto 0.03 X10*3/uL (0.00-0.03); Imm Gran Pct Auto 0.5 % (0.0-0.4); Lymphocytes Percent Auto 31.3 % (20-40); Mean Corpuscular HGB Conc 33.3 g/dl (31.0-35.0); Mean Corpuscular Hemoglobin 32.6 pg (27.0-33.0); Mean Corpuscular Volume 97.9 fL (80.0-98.0); Mean Platelet Volume 9.9 fL (9.4-12.3); Monocytes Absolute Auto 0.6 X10*3/uL (0.1-1.2); Monocytes Percent Auto 9.3 % (2-11); Neutrophils Absolute Auto 3.6 x10*3/uL (2.0-8.3); Neutrophils Percent Auto 56.4 % (45-73); Platelet Count 150 X10*3/uL (160-400); Red Cell Distribution Width 13.2 % (11.0-16.0); White Blood Count 6.5 X10*3/uL (4.8-10.8)
[2022-09-18 09:02] LABS: Alanine Aminotransferase 12 U/L (0-31); Albumin Level 3.9 g/dL (3.5-5.0); Alkaline Phosphatase 80 U/L (39-117); Anion Gap 16 (12-20); Aspartate Amino Transferase 17 U/L (5-31); Bilirubin Total 0.9 mg/dL (0.0-1.0); Blood Urea Nitrogen 26 mg/dL (9-16); Calcium 9.8 mg/dL (8.4-10.2); Carbon Dioxide 30 mmol/L (22-29); Chloride 101 mmol/L (96-108); Creatinine Clr Calc Pharmacy 54.7; Estimated Glomerular Filt Rate 48; Glucose Random 121 mg/dL (60-115); Potassium 4.5 mmol/L (3.3-5.1); Sodium 142 mmol/L (135-145); Total Protein 6.7 g/dL (6.5-8.0)
--- NOTE | 2022-09-18 10:44 | MHC.HEMONC ---
Here for port flush. States she is feeling good. Port accessed, no blood return noted. Does have previously documented fibrin sheath. Flushes well. Flushed with heparin 500units and port de-accessed. Marcia states that per her oral surgeon she can restart denosumab. Dr Peña aware and order placed. Denosumab 120mg sc given right upper arm and tolerated well. Next port flush scheduled with follow up. Denosumab scheduled for 3 months. Calendar given. Departed unit.
[2022-09-21 16:03] LABS: CA 27.29 27 U/mL (<38)
--- NOTE | 2022-10-09 14:36 | MHC.HEMONC ---
Faxed notes/reports to Dr Andre at [facility] for new dx brain mets per Dr Peña request. Pt may be going inpatient to [facility].
--- NOTE | 2022-10-12 08:41 | MHC.HEMONC ---
Pt is at [facility] for f/u and treatment for brain mets.
--- NOTE | 2022-10-23 14:28 | HE.ONCSEC ---
Called pt to confirm appt, lvm.
[2022-10-26 08:46] VITALS: BP 147/64; PULSE 51; O2SAT 98
--- NOTE | 2022-10-26 08:55 | P.PNHO-ONC_ITS ---
Medical Summary - Medical Summary Date of Service: 10/26/22 Chief complaint: FOLLOW-UP FOR: BREAST CANCER. 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 CURRENT THERAPY: AC with Neulasta support, completed 4 cycles. Completed 12 weeks of Taxol. Completed pertuzumab and Herceptin maintenance. Cycle #21, on 11/13/21. Status post mastectomy, 04/30, by Dr. Javed. Pathology: No residual cancer identified.(ypT0) consistent with complete response to pre- surgical therapy. Dense hyalinized stromal sclerosis with calcifications. Benign ducts with ductal ectasia. Six axillary lymph nodes negative for tumor. Skin and nipple with no evidence of tumor. Has been on Denosumab. Was receiving it Q 3 monthly. Last dose #7 was 02/05/22. Recent brain metastases. Currently on Decadron. To get SBRT on 11/04 at [facility]. Interval History Interval history: Marcia Strong is a pleasant 67 year old lady, here for a follow-up visit. She was seen by her PMD on 10/05 for left-sided leg weakness and arm discomfort. CT head from 10/08: New 1.7 cm hyperdense mass in the right centrum semiovale/flores radiata with extensive surrounding vasogenic edema and regional mass effect but no midline shift or downward herniation. Findings may reflect an intracranial metastasis given the provided clinical history versus other hypercellular mass and further characterization with contrast-enhan radha MRI is advised. This result was discussed with Shelby Baker RN at 2:00 PM on 10/08/2022 and it was ascertained that the content and urgency of the report was understood at the time of direct communication. 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 Progressive mild volume loss. She was referred to [facility] emergency room to be admitted. Discharge summary: MRI of the brain revealed: 18 mm enhancing lesion within the right frontal centrum ovarian and surrounding vasogenic edema. CT chest abdomen and pelvis were negative. Evaluated by Neurosurgery and Oncology. Neurosurgery indicate no plan for of a need it and signed of. Radiation oncology felt patient will benefit from stereotactic radiation. She was sent home on Decadron 4 mg q.6 hours. Famotidine b.i.d. for GI stress ulcer. Bactrim DS for PCP prophylaxis. She was then transferred to [facility] for rehab. She tells me she already Dr. Whipple from radiation. She got fitted with a mask. She will receive stereotactic radiation 11/04. She is doing quite well. She gets occasional headaches across the front of her head. She takes oxycodone as needed. She tries not to take it out in the morning as it makes her drowsy. She was on ibuprofen but it was discontinued on account of her kidney function. She is also off the hydrochlorothiazide and meloxicam. She has been participating with PT/OT. She has even tried stairs a couple of times. Energy level is good. She is trying to be active. She tries to walk up and down. She denies fever nor chills. No headache no dizziness. No chest pain nor trouble breathing. She denies any abdominal pain, nausea, nor vomiting heartburn nor indigestion. Her bowels are working without any gross blood in it. No more diarrhea. She had a colonoscopy in her 50s at [facility]. Appetite is good. She has gained weight. Denies any urinary complaints. Denies any focal weakness. Her feet still feel numb, however she is not experiencing the throbbing pain any more. She cannot walk too far, since she gets pain in her back and legs. She has had a chronic low back pain at the lumbosacral area. She is on Lyrica 150 mg 2 at night. She completed the course of clindamycin prescribed by oral surgeon. There is no infection nor pus formation. She has a follow-up appointment with him on 08/06. She is not ready to to have the dentures, yet. She is eating soft diet including applesauce, ramen noodles and mashed potatoes. She is in good spirits. The rest of the review of systems is unremarkable. Previous history: She tolerated the chemotherapy reasonably well. She denies depression however she had history of anxiety. She had a follow-up bone scan on 11/20 which revealed: 1. A nonspecific abnormality in the right side of the mandible has developed since the prior 03/04/2021 bone scan and this is nonspecific. While this may represent a focus of osteonecrosis, a solitary metastasis at this site cannot be entirely ruled out. Correlation with MRI performed without and with intravenous contrast is recommended to better characterize this abnormality, if clinically indicated. 2. A few additional stable mild nonspecific abnormalities are noted as described above and these are all likely arthritic or traumatic in etiology. None of these abnormalities is strongly suspicious for metastatic disease. MRI of C-spine from 818: 1. The previously demonstrated lesion within the left lateral mass of C1 no longer demonstrates significant T2 hyperintensity or enhancing characteristics. Findings are suggestive of posttreatment change. No demonstrated new suspicious osseous lesions. 2. Otherwise, moderate multilevel degenerative spondyloarthropathy of the cervical spine as described in detail above. Most notably, there is moderate to severe spinal canal stenosis at C5-C6. Mild spinal canal stenoses at C4-C5 and C6-C7. Moderate to severe neural foraminal stenoses from C3-C7. Stable mild myelomalacia within the dorsal columns at C5-C6. No new spinal cord signal abnormalities. Overall, degenerative changes appear similar to prior exam. She saw the neurologist on the 14 of October. He shared the NCV studies with her. These were reasonably normal. He had increase the Lyrica to 75 b.i.d. in the past. He now increased to 150 b.i.d. She says she can take the evening dose however if she takes the morning one as well she gets lethargic. Recent imaging: MRI of the breast from 02/26: Interval decrease in size of the incident mass in the 8 o'clock position which now measures 1.8 x 3.6 x 2.5 cm. There is no abnormal enhancement at this time which indicates a response to neoadjuvant chemotherapy. There is also a 0.7 cm satellite lesion in the 7 o'clock position, anterior to the primary tumor which also demonstrates no abnormal enhancement. No other findings suspicious of malignancy in either breast. Previous history: She tells me that about 3 months ago she noted, what she felt was, a pimple underneath her left breast. It would occasionally get itchy and then dry. Then it became harder around the edges. It was fixed, not movable. Due to the pandemic she did not leave the home. About a month ago she woke up one morning and she felt her left breast was heavy and huge. It was quite red and warm to touch. The nipple appeared outdoor guide. She decided to go to the emergency room. This was on 07/16. Ultrasound of the breast revealed: Large irregular mass with scattered internal color flow vascularity 8:00 position 7 cm from nipple measuring 5 x 4 cm. Several adjacent smaller satellite foci, largest 1.3 cm. Differential considerations include malignancy as well as abscess. ASSESSMENT: BI-RADS 4: Suspicious RECOMMENDATION: 1. Surgical Consult. 2. Diagnostic mammography. She underwent an ultrasound-guided biopsy at 08:00 o'clock position on 07/25. Pathology revealed: Invasive ductal carcinoma, MSBR grade 2. ER negative/HI negative/HER2 Stephy positive 3+. She was seen by Dr. Javed. She has been referred here for question if she should have neoadjuvant chemotherapy. 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 Menopause in her early 50s. No HRT. She is . She has 4 children. Family history: A paternal cousin had breast cancer in her mid 60s. 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 She is . Has 4 children. She smokes half a pack a day. She likes her wine. Review of Systems - Constitutional Reports no additional constitutional complaints, Denies anorexia, Denies body aches, Denies chills, Reports headache(s), Reports weakness, Denies weight gain, Reports weight loss - Eyes Reports no additional eye complaints - ENT Reports no additional ear, nose, mouth, and throat complaints - Cardiovascular Reports no additional cardiovascular complaints - Respiratory Reports no additional respiratory complaints - Gastrointestinal Reports no additional gastrointestinal complaints - Genitourinary Reports no additional female genitourinary complaints - Musculoskeletal Reports no additional musculoskeletal complaints - Integumentary/Breasts Skin/Breast: Reports no additional skin complaints - Neurologic Reports no additional neurologic complaints, Reports headache(s), Reports focal weakness, Reports numbness, Reports paresthesias, Reports weakness - Psychiatric Reports no additional psychiatric complaints - Endocrine Reports no additional endocrine complaints - Hematologic/Lymphatic Reports no additional hematologic/lymphatic complaints - Allergic/Immunologic Reports no additional allergic/immunologic complaints [facility] Medical History: Medical History (Last Reviewed 10/26/22 @ 08:48 by Christian Solano) Arthritis Bone cancer Breast cancer Cerebral aneurysm Chronic back pain Goiter Morbid obesity Multinodular thyroid Neuropathy Pneumonia Port-A-Cath in place Functional capacity: wheelchair bound Patient : No Family History: Family History (Last Reviewed 10/26/22 @ 08:48 by Christian Solano) Family/Other No problems noted. Brother Colon cancer Daughter Breast cancer Father Medical history unknown Mother Medical history unknown Surgical History: Surgical History (Last Reviewed 10/26/22 @ 08:48 by Christian Solano) H/O tooth extraction H/O tubal ligation History of mastectomy Social History: Social History (Last Reviewed 10/26/22 @ 08:48 by Christian Solano) Living Situation History: Household Members: Children Housing: Apartment Are you a primary healthcare advisory services manager to a significant other at home: No Do you presently have visiting nurse or other home services: No Tobacco History: Patient Tobacco Use Status: Current everyday Tobacco Tobacco use type: Cigarette Years Smoked: 50 e-Cigarette/Vaping Use: Never Used Second Hand Smoke Exposure: Yes Second Hand Smoke Exposure comment: daughter Advance Directives: Advance Directives Date on File: 08/22/20 Occupation Assessmet: service: No Current occupational status: unemployed Home Medications and Allergies Home Medications Medication Instructions Recorded Confirmed Type chlorhexidine gluconate 0.12 % 0.12 ml PO DAILY 07/08/22 10/26/22 History mouthwash cholecalciferol (vitamin D3) 50 50 mcg PO DAILY 08/10/22 10/26/22 History mcg (2,000 unit) capsule oxycodone-acetaminophen 5 mg-325 325 tab PO DAILY 10/26/22 10/26/22 History mg tablet Allergies Allergy/AdvReac Type Severity Reaction Status Date / Time codeine [CODEINE] Allergy Unknown STOMACH Verified 10/07/22 11:48 UPSET Exam Vital signs: Vital Signs Temp 97.5 F 09/18/22 08:49 Pulse 51 10/26/22 08:46 Resp 18 09/18/22 08:49 BP 147/64 H 10/26/22 08:46 Pulse Ox 98 10/26/22 08:46 O2 Del Method Room Air 10/26/22 08:46 Weight 104.1 kg BMI result Body Mass Index 42.0 - Constitutional Present: moderate distress, obese - Routine HEENT Exam Head: Present: normal inspection Eye: Present: normal appearance ENT: Present: mucous membranes moist - Routine Neck Exam Present: full ROM - Routine Respiratory Exam Present: CTAB - Routine Cardiovascular Exam Cardiovascular: Present: RRR, S1, S2 - Routine Abdominal Exam Present: soft, nontender - Routine Rectal Exam Patient deferred: digital exam - Routine Extremities Exam Present: nontender - Routine Back/Spine/Pelvis Exam Back/Spine: Absent: CVA tenderness - Routine Skin Exam Present: intact - Routine Neurological Exam Present: alert, oriented X3 - Detailed Neurological Exam: Coma Scale Eye Opening: Spontaneous (4) - Routine Psychiatric Exam Present: normal affect Data - Labs CBC & Chem 7: 09/18/22 08:42 09/18/22 08:42 Assessment and Plan Patient Active problem list reviewed?: Yes (1) Carcinoma of left breast Status: Acute Assessment and plan: Status: Acute This is a pleasant 65-year-old lady with a recent diagnosis of inflammatory breast carcinoma the left breast. It is ERPR negative and HER2 Stephy positive. On ultrasound the tumor appears to be about 6 cm in size. Ca 27.29:44. She was deemed a candidate for neoadjuvant chemotherapy, in view of the large size of the tumor and the inflammatory component. She is HER2 positive. I recommended treating her with dose dense AC X4, followed by Taxol and Herceptin. Then reassess for surgical resection, based upon her response. I proceeded with a baseline PET scan, for initial staging. This revealed: Intense activity in the medial left breast lesion assumed to be the primary tumor. There is also an enlarged left axillary node showing increased activity and metastatic disease needs to be suspected though this could be reactive. Otherwise, uptake in the region of the left thyroid gland, which is enlarged. This could represent uptake within a thyroid nodule and, therefore ultrasound would be recommended as malignancy cannot be excluded. Differential would be abnormal uptake in an enlarged node in the region. As described in the left axillary region, more proximally toward the region of the thoracic inlet, some mild uptake in nonpathologically enlarged nodes. These may be reactive but certainly early metastatic disease cannot be excluded. There is also uptake within the region of C1 anterior to the left of midline. There is lucency in the bone here. A metastatic deposit cannot be excluded. Consider MR. Harmon discussed with IR, neuro-radiology. They felt the biopsy would be risky to do. However since the lesion is apparent on 2 different imaging modalities, it is likely to be real. Hence the plan is to proceed with treatment. Since she has aggressive progressive disease, will treat her with an active regimen, to expedite her response. She had an echocardiogram, prior to anthracycline. This came back normal with EF of 60-65%. She had genetic testing done. This came back negative. She had a Port-A-Cath placement. This was placed on 08/22/20. She started dose dense AC chemotherapy with Neulasta support. She completed that. She then received 12 weeks of Taxol. Thyroid ultrasound revealed: Heterogeneous thyroid gland. The left lobe is enlarged. Bilateral thyroid nodules. Fine needle aspiration of the largest nodule in the left lobe recommended. l checked with Radiology, proceeded with the thyroid biopsy. (this revealed benign findings.) She completed 4 cycles of AC. She then completed 12 weeks of Taxol treatment. She has tolerated it really well. She has had symptoms of neuropathy. This is likely residual from the Taxol. I started her on Neurontin for the neuropathic pain, 100 mg every 8 hours, to start out with. Her breast mass has disappeared. She complained of body aches joint pains. I proceeded with a bone scan, 03/04/21. This revealed: No abnormal bone activity seen to suspect any metastatic bone disease. There is mild degenerative changes right T7 costovertebral junction and right T11 and T12 facet joints. She had an MRI of the breast on 02/18/21: Interval decrease in size of the incident mass in the 8 o'clock position which now measures 1.8 x 3.6 x 2.5 cm. There is no abnormal enhancement at this time which indicates a response to neoadjuvant chemotherapy. There is also a 0.7 cm satellite lesion in the 7 o'clock position, anterior to the primary tumor which also demonstrates no abnormal enhancement. No other findings suspicious of malignancy in either breast. . Status post mastectomy, 04/30/21, by Dr. Javed. Pathology: No residual cancer identified.(ypT0) consistent with complete response to pre- surgical therapy. Dense hyalinized stromal sclerosis with calcifications. Benign ducts with ductal ectasia. Six axillary lymph nodes negative for tumor. Skin and nipple with no evidence of tumor. This is very reassuring. The neuropathy is persistent. She was on gabapentin without significant benefit. I had added Lyrica for that. She still had the symptoms. l referred her for further neurology consultation. She saw Dr. Briggs, who advised her to increase the Lyrica dose from 75 b.i.d to 150 mg BID. She tried that however the morning does made her rather lethargic. I advised her to take 75 in the morning and 150 before bed. She has completed maintenance, Herceptin and pertuzumab. She complete the course on November 13. She had a follow-up bone scan on 11/20 which revealed: 1. A nonspecific abnormality in the right side of the mandible has developed since the prior 03/04/2021 bone scan and this is nonspecific. While this may represent a focus of osteonecrosis, a solitary metastasis at this site cannot be entirely ruled out. Correlation with MRI performed without and with intravenous contrast is recommended to better characterize this abnormalit y, if clinically indicated. 2. A few additional stable mild nonspecific abnormalities are noted as described above and these are all likely arthritic or traumatic in etiology. None of these abnormalities is strongly suspicious for metastatic disease. MRI of C-spine from 818: 1. The previously demonstrated lesion within the left lateral mass of C1 no longer demonstrates significant T2 hyperintensity or enhancing characteristics. Findings are suggestive of posttreatment change. No demonstrated new suspicious osseous lesions. 2. Otherwise, moderate multilevel degenerative spondyloarthropathy of the cervical spine as described in detail above. Most notably, there is moderate to severe spinal canal stenosis at C5-C6. Mild spinal canal stenoses at C4-C5 and C6-C7. Moderate to severe neural foraminal stenoses from C3-C7. Stable mild myelomalacia within the dorsal columns at C5-C6. No new spinal cord signal abnormalities. Overall, degenerative changes appear similar to prior exam. I discussed the above findings with Dr. Feldman. He felt that the abnormality in the right mandible, is related to her teeth. She does agree that her teeth are rotten. He suggested to do an plain x-ray of the mandible: Non-specific abnormality in the right posterior mandibular body, the appearance is non specific: could be infectious, inflammatory, post treatment changes. CAT scan of the mandible: There is irregular change of a 2 cm segment of right alveolar process of the mandible, new compared to exam from 2020. No E/O soft tissue abnormality surrounding this region. She had pain in her left hand. l proceeded with x-rays for that as well: This revealed DJD. She has been through prolonged course of chemotherapy, and wanted a break. She is not a candidate for anti-estrogen therapy since she is ER/HI negative. She has had post lumpectomy radiation. CA 27.29, on 05/18: 36. 38 in 04/02. It was 35, on 09/10/21. Bone scan from 05/25/2022: 1. Persistent abnormalities strongly suspicious for a metastasis in the right anterior aspect of the mandible is noted and this does not appear significantly changed from the prior 11/20/2021 bone scan. 2. A few additional mild nonspecific abnormalities are noted as described above and these are all likely arthritic or traumatic in etiology. None of these abnormalities is strongly suspicious for metastatic disease. PET scan from 07/21: 1. The left lobe of the thyroid gland is asymmetrically enlarged, shows underlying heterogeneous nodule associated with moderate FDG avidity. 30-40% of PET positive lesions are found to be thyroid cancer. [place] thyroid Association guidelines recommend biopsy of all PET positive nodules greater than 1 cm that are not definitely benign on the diagnostic thyroid ultrasound. 2. Mild FDG avidity within the right-sided vocal cord, for which direct visualization may be considered, if clinically appropriate. 3. Mild FDG avidity is noted within the right-sided mid part of the base of the mandible may represent changes secondary to odontogenic disease 4. Interval left-sided mastectomy and nonvisualized previously documented FDG avid left-sided axillary lymph node. No evidence of any local disease recurrence. 5. No suspicious FDG avid disease to suspect metastasis. All this was reassuring. However over the past month she has been diagnosed with brain metastases. Database: CBC from today: WBC 9.7, HGB 14.4, HCT 44.3, PLT 141. CMP: Lytes WNL, glucose 127, BUN 25, PILOT CONTROL OPERATOR HELPER 0.83. Nain 8.8, alb 3.5. LFTs: 0.3/74/13/20. Ca 27.29: 27. PLAN: She will be receiving SBRT on 11/04 at [facility] under the care of Dr. Whipple. My plan is to start Enhertu. Initial Recommended dosage is 5.4 milligram/kilogram IV infusion over 90 minutes, once every 3 weeks until disease progression or unacceptable toxicity. Subsequent infusions over 30 minutes as tolerated. She underwent chemotherapy teaching. Will hold off on her Denosumab, for now. Will continue to monitor her carefully. Will follow her tumor marker. Ca 27.29: 27. She will return in 3 weeks for a follow up. All her, her friend's and daughter's questions were answered to her satisfaction. Thank you, CC: Dr. Granados. Dr. Javed. - Time Spent With Patient Time Spent with Patient (in minutes): 30
--- NOTE | 2022-10-26 08:56 | MHC.HEMONCMA ---
patient seen today for polycythemia, vss, following up with provider in 1 month
--- NOTE | 2022-10-26 10:15 | MHC.HEMONCMA ---
patient seen today for breast cancer, vss, following up with provider kevin
--- NOTE | 2022-10-26 11:15 | MHC.HEMONC ---
PA rony Restrepo left for Susan as it is not urgent. Pt to start after SBRT next week. I printed information on drug for her and her daughter to review. I highlighted the side effects that are common.
--- NOTE | 2022-10-26 12:35 | HO.HEMONCPA ---
NO PA REQUIRED FOR EMEND OR ENHERTU DRUGS COVERED UNDER MEDICARE PART B BENEFITS.
--- NOTE | 2022-10-26 15:27 | MHC.HEMONC ---
Here for port flush. Port accessed, no blood return noted but flushes well. Flushed with heparin and de-accessed. Dr Peña in to see pt and to discuss new treatment. Will be scheduled to start once PA obtained.
--- NOTE | 2022-10-28 13:10 | MHC.HEMONC ---
Nurse called pt to book her 1st tx of C1D1 Enhertu (Fam-trastuzumab deruxtecan-nxki), confirmed no PA req'd for this tx, pt already had labs drawn this week. Pt is ok to start her tx on , 11/05, the day after her palliative Rad Tx on 11/04, but she is still a resident of [facility], could not say for sure how transportation would work. Nurse called [facility], spoke w/ nurse Kennedy, who was able to book pt transportation from [facility] to arrive on 11/05 at 9am. Chemo pharmacists have been notified via email.
--- NOTE | 2022-10-30 15:13 | MHC.HEMONC ---
Pt's friend/CG Gillian called, said pt is being d/c'd home from [facility], scheduled to go home this 11/03, is still planning to go for Rad tx on 11/04, then plans to come here for Enhertu tx on 11/05, just confirmed that 1st tx could take 3-4 hrs. Pt confirmed that her dtr will be bringing her to this tx. Dr. Peña was updated.
--- NOTE | 2022-11-04 09:21 | HE.ONCSEC ---
LVM reminding pt of chemo on 11/05/22
[2022-11-05 09:24] LABS: MANUAL DIFF FLAG NO
[2022-11-05 09:30] VITALS: BP 176/77; PULSE 58; RESP 18; TEMP 36.4; O2SAT 96; BMI 43.2
[2022-11-05 09:36] LABS: Hematocrit 42.2 % (37.0-47.0); Hemoglobin 13.4 g/dl (12.0-16.0); Imm Gran Abs Auto 0.05 X10*3/uL (0.00-0.03); Lymphocytes Absolute Auto 0.5 X10*3/uL (1.2-4.9); Lymphocytes Percent Auto 10.4 % (20-40); Mean Corpuscular HGB Conc 31.8 g/dl (31.0-35.0); Mean Corpuscular Hemoglobin 32.1 pg (27.0-33.0); Mean Corpuscular Volume 101.2 fL (80.0-98.0); Mean Platelet Volume 10.2 fL (9.4-12.3); Monocytes Absolute Auto 0.2 X10*3/uL (0.1-1.2); Monocytes Percent Auto 3.4 % (2-11); Neutrophils Absolute Auto 4.2 x10*3/uL (2.0-8.3); Neutrophils Percent Auto 85.2 % (45-73); Platelet Count 109 X10*3/uL (160-400); Red Blood Count 4.17 X10*6/uL (4.20-5.50); Red Cell Distribution Width 13.3 % (11.0-16.0)
[2022-11-05 09:58] LABS: Alanine Aminotransferase 21 U/L (0-31); Albumin Level 3.6 g/dL (3.5-5.0); Alkaline Phosphatase 68 U/L (39-117); Anion Gap 16 (12-20); Aspartate Amino Transferase 10 U/L (5-31); Bilirubin Total 0.5 mg/dL (0.0-1.0); Blood Urea Nitrogen 22 mg/dL (9-16); Calcium 9.1 mg/dL (8.4-10.2); Carbon Dioxide 24 mmol/L (22-29); Chloride 103 mmol/L (96-108); Estimated Glomerular Filt Rate > 60; Glucose Random 194 mg/dL (60-115); Potassium 4.4 mmol/L (3.3-5.1); Sodium 139 mmol/L (135-145); Total Protein 6.3 g/dL (6.5-8.0)
[2022-11-05 10:14] LABS: HBS Num1 0.12 mIU/mL (0-7.99); HBc Num1 0.04 S/CO (0.00-0.79); HBsAGNum1 0.34 S/CO (0.00-0.99); Hepatitis B Core Antibody Nonreactive (Nonreactive); Hepatitis B Surface Antigen Negative (Negative); Thyroid Stimulating Hormone 0.43 uIU/mL (0.32-4.0); ~Hepatitis B Surface Antibody NONREACTIVE (Nonreactive)
[2022-11-05] MEDS: diphenhydrAMINE HCL 50 MG/ML VIAL 25 MG IVPUSH (11:09)
[2022-11-05] MEDS: Heparin Sodium,Porcine Flush 500 UNIT/5 ML SYRINGE IVFLUSH (11:11)
[2022-11-05] MEDS: dexAMETHasone sod phosphate/NS 12 MG/50 ML PIGGYBACK 200 MG IV (11:11)
[2022-11-05] MEDS: Acetaminophen 325 MG TABLET 650 MG PO (11:11)
[2022-11-05] MEDS: Ondansetron ODT 8 MG TAB.RAPDIS TRANSLINGU (11:11)
--- NOTE | 2022-11-05 14:34 | MHC.HEMONC ---
Here for C1 Enhertu. She states she is feeling good. Labs drawn. Port accessed, no blood return noted. She does have a documented fibrin sheath. Flushes well. She states that her steroids were not given at [facility], [place] for 4 days and her symptoms of weakness on left side came back. She has been restarted on the steroids, and is feeling better. She continues with PT, using walker for ambulating. She states she will be going home tomorrow. Lab results reviewed and ok for treatment. Premeds given as ordered. Treatment done and tolerated well. Port flushed with heparin and de-accessed. [facility] called to pick pt up. Departure packet given and pt departed unit. Next treatment scheduled in 3 weeks with follow up.
[2022-11-07 09:03] LABS: CA 27.29 29 U/mL (<38)
--- NOTE | 2022-11-23 09:04 | MHC.HEMONC ---
Pt currently in ICU in [facility]. Appt here canceled for now. Shelby her primary RN aware.
== END 2022-12-31 | disposition home or self-care (01) ==
LOC: HO.ONC 09:00
PROVIDERS: PCP Internal Medicine; Referring Provider Surgery; Visit Provider Internal Medicine Medical Oncology
DX: Z51.11 Encounter for antineoplastic chemotherapy (principal); C50.312 Malignant neoplasm of lower-inner quadrant of left female breast; Z17.1 Estrogen receptor negative status [ER-]; G62.9 Polyneuropathy, unspecified; R93.7 Abnormal findings on diagnostic imaging of other parts of musculoskeletal system; Z79.899 Other long term (current) drug therapy; Z92.21 Personal history of antineoplastic chemotherapy; Z92.3 Personal history of irradiation; Z90.12 Acquired absence of left breast and nipple; Z11.59 Encounter for screening for other viral diseases; Z72.89 Other problems related to lifestyle
CPT/HCPCS: 36415; 36593; 80053; 81003; 82306; 84443; 85025; 86300; 86704; 86706; 87340; 96360; 96361; 96366; 96367; 96372; 96375; 96377; 96409; 96413; 96415; 96417; 96523; 99204; 99213; 99214; J0897; J1100; J1200; J1453; J1642; J2405; J2505; J2997; J9000; J9070; J9267; J9306; J9355; J9358; Q0163

== ENCOUNTER 2022-11-17 14:28 | Outpatient (AMB) | payer MEDICARE, MEDICAID, SELFPAY ==
[2022-11-17 14:30] VITALS: BP 100/64; PULSE 77; O2SAT 98; BMI 41.5
--- NOTE | 2022-11-17 14:30 | MHC.PC.OV ---
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 Accompanied by: Self / Same As Patient Allergies codeine [CODEINE] Allergy (Unknown, Verified 11/17/22 14:35) STOMACH UPSET Medication List - Last Reconciled 11/17/22 by Stanley Granados MD atenolol 50 mg PO BID chlorhexidine gluconate 0.12% 0.12 mL PO DAILY cholecalciferol (vitamin D3) 50 mcg PO DAILY dexamethasone 4 mg PO TID dexamethasone 4 mg PO QID 30 days docusate sodium (Colace) 100 mg PO BID furosemide (Lasix) 20 mg PO DAILY lorazepam 0.5 mg PO BID PRN nifedipine ER 30 mg PO DAILY nifedipine ER 30 mg PO DAILY omeprazole 20 mg PO DAILY oxycodone 5 mg PO Q6H PRN oxycodone-acetaminophen 5-325 mg 325 tabs PO DAILY sulfamethoxazole-trimethoprim 400-80 mg (Bactrim) 1 tab PO DAILY sulfamethoxazole-trimethoprim 400-80 mg (Bactrim) 1 tab PO DAILY Tobacco use date assessed: 11/17/22 Fall risk assessment: No Falls in past year Last assessed Fall Risk: 11/17/22 Dental Screening Dental Screen Date: 11/17/22 HPI Wilmar Canales, [birth year] HPI Details 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 Brother Colon cancer Daughter Breast cancer Father Medical history unknown Mother Medical history unknown Social History Household Members: Children Housing: Apartment Are you a primary patient care technician to a significant other at home: No Do you presently have visiting nurse or other home services: No Alcohol intake: current Alcohol intake frequency: a few times a month Alcohol type: wine Patient Tobacco Use Status: Current everyday Tobacco user Tobacco use type: Cigarette Cigarettes Per Day: 4 Years Smoked: 50 Packs per year/per ci.00 e-Cigarette/Vaping Use: Never Used Second Hand Smoke Exposure: Yes (daughter) Advance Directives Date on File: 08/22/20 service: No Current occupational status: unemployed Cognitive needs: No Hearing needs: No Vision needs: Yes (glasses) Questionnaire Thrive Questionnaire Date Thrive assessed: 07/08/22 AUDIT C Alcohol Use Questionnaire (AUDIT-C) 1. How often do you have a drink containing alcohol?: Never Total Score: 0 Score Reviewed/Action Taken: Yes JACQUELINE-7 AMB Questionnaire JACQUELINE-7 Date JACQUELINE - 7 assessed: 07/08/22 Source: Developed by Drs. Benson Valdez, Alicia Cardenas, Joe Benjamin and colleagues, with an educational maribel from [employer]. Review of Systems Const Denies chills, Denies fatigue, Denies headache(s) and Denies weight loss Eyes Denies change in vision, Denies diplopia and Denies eye pain ENT Denies vertigo, Denies dizziness, Denies headache(s) and Denies nasal discharge Card Denies chest pain, Denies rapid heart rate and Denies dyspnea on exertion Resp Denies chest congestion, Denies cough, Denies pain with cough and Denies dyspnea on exertion GI Denies abdominal pain, Denies hematochezia and Denies change in bowel habits Musc Denies myalgias, Denies arthralgias and Denies joint swelling Skin/Breast Denies lesions and Denies unusual bruising Neuro Denies vertigo, Denies dizziness, Denies headache(s) and Denies focal weakness Endo Denies fatigue Physical exam (Primary Care) Vital Signs: Last Vital Signs Pulse 77 11/17/22 14:30 BP 100/64 11/17/22 14:30 Pulse Ox 98 11/17/22 14:30 Oxygen Delivery Method Room Air 11/17/22 14:30 BMI result Body Mass Index 41.5 Tobacco/Smoking Status: Tobacco use Status Tobacco use date assessed 11/17/22 11/17/22 14:31 Patient Tobacco Use Status Current everyday Tobacco 11/17/22 14:31 Tobacco use type Cigarette 11/17/22 14:31 e-Cigarette/Vaping Use Never Used 11/17/22 14:31 Thrive Assessment: Date of Thrive Assessment Date Thrive assessed 07/08/22 11/17/22 14:31 Const General: cooperative, healthy appearing and no acute distress Orientation/consciousness: oriented to person, oriented to place and oriented to time HENMT Head: Yes normal to inspection, Yes normocephalic and Yes atraumatic Mouth: Normal oral and palatal mucosa present and tongue normal Throat: Yes posterior oropharynx normal and Yes uvula midline Eyes General: appearance normal, both eyes and all related structures Neck Neck: Yes normal visual inspection, Yes full ROM and Yes no lymphadenopathy Thyroid: Thyroid normal Carotids: normal carotid upstroke Chest Chest palpation & inspection: normal inspection of the chest Resp Effort & Inspection: normal respiratory effort and able to speak in complete sentences Auscultation: clear to auscultation bilaterally Cardio Jugular venous distension: no JVD Palpation: normal PMI Rate: regular rate Rhythm: regular rhythm Heart sounds: S1 normal heart sound present and S2 normal heart sound present GI Inspection: Yes normal to inspection Palpation (GI): Soft to palpation and No hepatosplenomegaly present Auscultation: normal bowel sounds General: Yes no CVA tenderness Back/Spine/Pelvis Back: no CVA tenderness Skin General skin exam: no rashes or lesions noted Neuro General: oriented to person, oriented to place and oriented to time Extrem General: Yes normal to inspection and Yes full ROM Assessment and Plan Assessment & Plan (1) Carcinoma of left breast: Code(s): C50.912 - Malignant neoplasm of unspecified site of left female breast Plan: as per onc Medications: Discontinued lorazepam 0.5 mg PO BID PRN 60 tabs 5RF Anxiety C50.919 - Malignant neoplasm of unspecified site of unspecified female breast Coding Level of Care Code Est Pt Level 4 (32870) Diagnoses Carcinoma of left breast C50.912
== END 2022-11-17 15:06 | disposition home or self-care (01) ==
PROVIDERS: PCP Internal Medicine; Visit Provider Internal Medicine
DX: C50.912 Malignant neoplasm of unspecified site of left female breast (principal)
CPT/HCPCS: 99214

== ENCOUNTER 2022-11-21 00:32 | Emergency (ER) | payer MEDICARE, MEDICAID, SELFPAY ==
[2022-11-21] VITALS (33 sets, daily range): BP systolic 65–121; BP diastolic 29–90; PULSE 44–109; RESP 20–40; TEMP 37.4–38.3; O2SAT 87–100; BMI 39.9
--- NOTE | 2022-11-21 | ECG_ITS ---
Test Reason : SOB Blood Pressure : / mmHG Vent. Rate : 097 BPM Atrial Rate : 097 BPM P-R Int : 124 ms QRS Dur : 068 ms QT Int : 322 ms P-R-T Axes : 052 -11 047 degrees QTc Int : 408 ms Normal sinus rhythm Normal ECG When compared with ECG of 21-APR-2021 13:49, Vent. rate has increased BY 32 BPM Referred By: Generic ED Physician Electronically Signed By:Johnnie Gonzalez
--- NOTE | ~2022-11-21 | CT_ITS ---
EXAMINATION: CT CHEST WITHOUT CONTRAST CLINICAL INFORMATION: Hypoxic. COMPARISON: None available. TECHNIQUE: Multidetector volumetric CT imaging of the chest was done. Axial MIP volume rendering provided. Sagittal and coronal reformatted images were obtained. This CT examination was performed using dose optimization techniques as appropriate, variously including the following: *Automated exposure control *Adjustment of mA and/or kV according to patient size (this includes techniques or standardized protocols for targeted exams where dose is matched to indication/reason for exam; i.e. extremities or head) *Use of iterative reconstruction technique DLP: 475.96 mGy-cm FINDINGS: CATERING BARISTA: Unremarkable LUNGS: The large left lower lobe infiltrate and a smaller posterior lingular infiltrate. There is mild atelectatic change at the right lung base. MEDIASTINUM: The mediastinum is normal. CORONARY ARTERY CALCIFICATION: Mild to moderate. PLEURA: There is no pleural effusion. No pleural mass or thickening. AXILLA: No lymphadenopathy. UPPER ABDOMEN: Unremarkable. OSSEOUS STRUCTURES: Unremarkable. CT/CT chest wo IV con IMPRESSION: Large left lower lobe infiltrate and small lingular infiltrate. Findings are consistent with pneumonia. Fleischner guidelines were followed.
--- NOTE | ~2022-11-21 | CT_ITS ---
EXAMINATION: CT HEAD WITHOUT CONTRAST (STROKE PROTOCOL) CLINICAL INFORMATION: Stroke protocol. COMPARISON: 10/05/2022. TECHNIQUE: Contiguous axial imaging was performed from the skull base to vertex without intravenous administration of contrast. This CT examination was performed using dose optimization techniques as appropriate, variously including the following: *Automated exposure control *Adjustment of mA and/or kV according to patient size (this includes techniques or standardized protocols for targeted exams where dose is matched to indication/reason for exam; i.e. extremities or head) *Use of iterative reconstruction technique DLP: 717.44 mGy-cm FINDINGS: There is again seen a 1.5 cm hyperdense lesion right periventricular white matter/centrum semiovale with significant surrounding diminished attenuation consistent with edema resulting in mild local mass effect. The lateral, third and fourth ventricles are normally outlined. The left cortical sulci are normally outlined as well. There is an old small right occipital infarct. There is no hemorrhage or midline shift. The extra-axial spaces are unremarkable. Calvarium: Intact. Maxillofacial sinuses and mastoids: Clear as visualized. CT/CT head for stroke IMPRESSION: Persistent hyperdense lesion right centrum semiovale with surrounding edema probably metastatic disease. A similar finding was seen previously with some apparent increase in edema. No midline shift. Old right occipital infarct. No acute intracranial abnormality. No significant change. This critical result was discussed with Dr Stone at 12:24 am hours on 11/21/2022. It was ascertained that the content and urgency of the report was understood at the time of direct communication.
--- NOTE | ~2022-11-21 | XR_ITS ---
EXAMINATION: XR CHEST CLINICAL INFORMATION: Central line placement. COMPARISON: 06/15/2017. TECHNIQUE: Frontal view of the chest was obtained. FINDINGS: The lung volumes are low. The cardiomediastinal silhouette is within normal limits. There is mild lower lung field increased markings. There are no significant pleural effusions. A right central line tip extends to the lower SVC. There is no pneumothorax. A Mediport is also noted at the level of lower SVC. The bony structures and soft tissues are unremarkable. XR/XR chest 1V IMPRESSION: Lower lung field increased markings may be chronic and/or technical. Right central line in place. No pneumothorax.
--- NOTE | ~2022-11-21 | CT_ITS ---
EXAMINATION: CTA NECK WITH CONTRAST (STROKE) CTA BRAIN WITH CONTRAST (STROKE) CLINICAL INFORMATION: Suspect acute stroke. Assess for major vessel occlusion. Please call report. COMPARISON: CT performed the same day. TECHNIQUE: CTA of the head and neck was performed in the axial plane from the mediastinum to the skull vertex using mL Omnipaque 350 intravenous contrast. Additional reformatted multiplanar images including maximum intensity projection MIP images are generated on the CT workstation. This CT examination was performed using dose optimization techniques as appropriate, variously including the following: *Automated exposure control *Adjustment of mA and/or kV according to patient size (this includes techniques or standardized protocols for targeted exams where dose is matched to indication/reason for exam; i.e. extremities or head) *Use of iterative reconstruction technique DLP: 2073 mGy-cm FINDINGS: The degree of stenosis determined by criteria similar to NASCET. Brain: There is an enhancing lesion right centrum semiovale measuring 1.5 cm with surrounding diminished attenuation consistent with edema with local mass effect. The lateral, third and fourth ventricles are otherwise normally outlined. There is an old right occipital infarct. There is no hemorrhage or midline shift. There are bilateral mastoid sinus opacities. Chest CTA: There is atherosclerotic plaque of the aortic arch. The aortic branch vessels are patent showing only mild atherosclerotic plaque. Neck CTA: There is calcific plaque of the carotid bifurcation bilaterally with apparent mild to moderate narrowing of the proximal internal carotid arteries greater on the right. Internal carotid arteries are otherwise patent. The vertebral arteries are codominant and bilaterally patent. Brain CTA: The this plaque of the intracranial internal carotid artery with mild narrowing. The right middle cerebral, anterior cerebral, as well as posterior cerebral arteries are patent. There is no evidence for aneurysm. There is a large left lower lung field infiltrate. CT/CT angio head neck stroke IMPRESSION: Enhancing 1.5 cm lesion right centrum semiovale with surrounding edema possibly metastatic disease. Atherosclerotic plaque of the carotid artery bifurcation with narrowing greater on the right. Consider carotid artery ultrasound correlation. Atherosclerotic plaque of the intracranial internal carotid artery. No definitive significant stenosis. No evidence for aneurysm. This critical test result is communicated to: Dr. Stone at 3:35 AM 11/21/2022
[2022-11-21 01:03] LABS: Venous Blood Gas Refer to POC result
[2022-11-21 01:05] LABS: VBG Base Excess -1.3 mmol/L; VBG HCO3 20 mmol/L (22-26); VBG pCO2 25 mmHg; VBG pO2 144 mmHg
[2022-11-21 01:13] LABS: Prothrombin Time Whole Bld POC 11.2 sec (11.1-13.5); ~PT, ~INR - Anti Coag Clinic 0.9 (0.9-1.1)
[2022-11-21 01:13] LABS: Anion Gap 15 (12-20)
--- NOTE | 2022-11-21 01:13 | MHC.EDTECH ---
STROKE PT/INR DONE AND MD GONZALEZ AWARE OF RESULT .
[2022-11-21 01:24] LABS: Alanine Aminotransferase 24 U/L (0-31); Albumin Level 3.1 g/dL (3.5-5.0); Alkaline Phosphatase 51 U/L (39-117); Aspartate Amino Transferase 16 U/L (5-31); Bilirubin Total 0.8 mg/dL (0.0-1.0); Blood Urea Nitrogen 23 mg/dL (9-16); Calcium 7.3 mg/dL (8.4-10.2); Carbon Dioxide 19 mmol/L (22-29); Chloride 107 mmol/L (96-108); Estimated Glomerular Filt Rate 51; Glucose Random 115 mg/dL (60-115); Potassium 3.5 mmol/L (3.3-5.1); Sodium 137 mmol/L (135-145); Total Protein 5.4 g/dL (6.5-8.0)
[2022-11-21 01:28] LABS: Ethanol < 10 mg/dL; Magnesium 1.5 mg/dL (1.6-2.6)
[2022-11-21 01:40] LABS: Troponin-I High Sensitivity 314.5 ng/L (<3.5-17.0)
[2022-11-21 01:46] LABS: INTERNATIONAL NORM RATIO 0.9 (0.9-1.1); Prothrombin Time 11.5 SEC (11.1-13.3)
[2022-11-21 01:50] LABS: COVID-19 Test Negative (Negative); IDNOW Serial# 6674DD1D
[2022-11-21 01:57] LABS: Partial Thromboplastin Time 20.3 SEC (26.0-36.4)
[2022-11-21] MEDS: dexAMETHasone sod phosphate 10 MG/ML VIAL IVPUSH (02:00)
[2022-11-21] MEDS: Piperacillin Sodium/Tazobactam 3.375 GM in 0.9 % Sodium Chloride 50 ML IV (02:00)
[2022-11-21] MEDS: 0.9 % Sodium Chloride 2,000 ML 999 ML IVCONT (02:04)
[2022-11-21 02:34] LABS: Hematocrit 36.2 % (37.0-47.0); Hemoglobin 12.1 g/dl (12.0-16.0); Mean Corpuscular HGB Conc 33.4 g/dl (31.0-35.0); Mean Corpuscular Hemoglobin 31.9 pg (27.0-33.0); Mean Corpuscular Volume 95.5 fL (80.0-98.0); Red Blood Count 3.79 X10*6/uL (4.20-5.50); Red Cell Distribution Width 13.2 % (11.0-16.0)
[2022-11-21 02:35] LABS: NRBC Pct Auto 16.5 /100WBC (0.0-0.2); Platelet Count 87 X10*3/uL (160-400); White Blood Count 2.4 X10*3/uL (4.8-10.8)
[2022-11-21] MEDS: Norepinephrine Bitartrate/D5W 8 MG/250 ML PLAST..BAG 10.21 MG IV (02:39)
--- NOTE | 2022-11-21 02:42 | ED_ITS ---
HPI - General Adult General Chief complaint: Stroke Stated complaint: Altered mental/ facial droop Time Seen by Provider: 11/21/22 00:40 Source: family and EMS Mode of arrival: EMS Limitations: altered mental status History of Present Illness HPI narrative: Patient comes to the emergency room via ambulance from home. According to EMS, the patient was found barely responsive, covered in stool, mumbling, altered m ental status around 20:00. The family is unclear at what time the patient was seen well last. According to the daughter, the actual last time the patient was seen normal was in the morning. Around 20:00, patient started being confused, altered, still was moving all extremities. When patient arrived to the emergency room, it was noted the patient's oxygen saturation was in the low 80s on a non-rebreather. It was confirmed with the patient's healthcare proxy who is her daughter over the phone, patient is full code. 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 Related Data Home Medications Medication Instructions Recorded Confirmed chlorhexidine gluconate 0.12 % 0.12 ml PO DAILY 07/08/22 11/17/22 mouthwash cholecalciferol (vitamin D3) 50 50 mcg PO DAILY 08/10/22 11/17/22 mcg (2,000 unit) capsule Previous Rx's Medication Instructions Recorded omeprazole 20 mg tablet,delayed 20 mg PO DAILY #90 tabs 03/27/22 release docusate sodium 100 mg capsule 100 mg PO BID #60 caps 06/24/22 (Colace) atenolol 50 mg tablet 50 mg PO BID #60 tabs 07/14/22 lorazepam 0.5 mg tablet 0.5 mg PO BID PRN Anxiety #60 tabs 09/07/22 dexamethasone 4 mg tablet 4 mg PO QID 30 days #120 tabs 11/10/22 dexamethasone 4 mg tablet 4 mg PO TID #60 tabs 11/10/22 furosemide 20 mg tablet (Lasix) 20 mg PO DAILY #90 tabs 11/10/22 nifedipine 30 mg tablet,extended 30 mg PO DAILY #90 tabs 11/10/22 release nifedipine 30 mg tablet,extended 30 mg PO DAILY #90 tabs 11/10/22 release sulfamethoxazole 400 1 tab PO DAILY #30 tabs 11/10/22 mg-trimethoprim 80 mg tablet (Bactrim) sulfamethoxazole 400 1 tab PO DAILY #90 tabs 11/10/22 mg-trimethoprim 80 mg tablet (Bactrim) oxycodone 5 mg tablet 5 mg PO QID PRN pain #30 tabs 11/19/22 Allergies Allergy/AdvReac Type Severity Reaction Status Date / Time codeine [CODEINE] Allergy Unknown STOMACH Verified 11/17/22 14:35 UPSET Review of Systems Review of Systems: Yes Unobtainable due to mental condition PMFSH Past Medical History Medical History Arthritis Bone cancer Breast cancer Cerebral aneurysm Chronic back pain Goiter Morbid obesity Multinodular thyroid Neuropathy Pneumonia Port-A-Cath in place Surgical History H/O tooth extraction H/O tubal ligation History of mastectomy Family History Family History Family/Other No problems noted. Brother Colon cancer Daughter Breast cancer Father Medical history unknown Mother Medical history unknown Social History Social History Household Members: Children Housing: Apartment Are you a primary resident care provider to a significant other at home: No Do you presently have visiting nurse or other home services: No Alcohol intake: current Alcohol intake frequency: a few times a month Alcohol type: wine Patient Tobacco Use Status: Current everyday Tobacco user Tobacco use type: Cigarette Cigarettes Per Day: 4 Years Smoked: 50 e-Cigarette/Vaping Use: Never Used Second Hand Smoke Exposure: Yes (daughter) Advance Directives: Yes Advance Directives on File: Yes Advance Directives Date on File: 08/22/20 service: No Current occupational status: unemployed Cognitive needs: No Hearing needs: No Vision needs: Yes (glasses) Physical Exam ED Vital Signs: Vital Signs - 24 hr 11/21/22 01:22 11/21/22 01:26 11/21/22 01:28 Temperature 100.1 F 100.1 F 100.1 F Pulse Rate 99 99 96 Respiratory Rate 31 H 37 H 29 H Blood Pressure 74/43 L 65/35 L Pulse Oximetry 92 92 91 L Oxygen Delivery Method Nasal Cannula Room Air Nasal Cannula Oxygen Flow Rate 4 4 11/21/22 01:30 11/21/22 01:35 11/21/22 01:38 Temperature 100.1 F 100.1 F 100.1 F Pulse Rate 101 H 102 H 104 H Respiratory Rate 35 H 30 H 28 H Blood Pressure 75/35 L 94/30 L 119/76 Pulse Oximetry 90 L 94 Oxygen Delivery Method Non-Rebreather Mask Non-Rebreather Mask Oxymask Oxygen Flow Rate 15 15 12 11/21/22 01:52 11/21/22 02:01 11/21/22 02:03 Temperature Pulse Rate 104 H Respiratory Rate 35 H Blood Pressure 74/37 L 77/29 L 79/35 L Pulse Oximetry 93 Oxygen Delivery Method Non-Rebreather Mask Oxygen Flow Rate 12 11/21/22 02:09 11/21/22 02:38 11/21/22 02:39 Temperature Pulse Rate 44 L 105 H 107 H Respiratory Rate 40 H 25 H Blood Pressure 121/90 H 80/31 L 80/31 L Pulse Oximetry 100 Oxygen Delivery Method Oxymask Non-Rebreather Mask Oxygen Flow Rate 12 15 11/21/22 02:46 11/21/22 02:48 11/21/22 02:53 Temperature Pulse Rate 102 H 105 H 102 H Respiratory Rate Blood Pressure 101/38 L 84/42 L 91/36 L Pulse Oximetry Oxygen Delivery Method Oxygen Flow Rate 11/21/22 02:58 11/21/22 03:27 11/21/22 03:38 Temperature Pulse Rate 100 106 H 104 H Respiratory Rate Blood Pressure 87/31 L 91/55 L 88/45 L Pulse Oximetry Oxygen Delivery Method Oxygen Flow Rate 11/21/22 02:29 11/21/22 02:24 11/21/22 02:42 Temperature Pulse Rate Respiratory Rate Blood Pressure 92/39 L 84/36 L 88/34 L Pulse Oximetry Oxygen Delivery Method Oxygen Flow Rate 11/21/22 02:46 11/21/22 02:47 11/21/22 02:49 Temperature Pulse Rate Respiratory Rate Blood Pressure 101/38 L 84/42 L 87/45 L Pulse Oximetry Oxygen Delivery Method Oxygen Flow Rate 11/21/22 02:57 11/21/22 03:02 11/21/22 03:38 Temperature 100.6 F H Pulse Rate 99 Respiratory Rate 23 H Blood Pressure 87/31 L 98/42 L 88/45 L Pulse Oximetry 100 Oxygen Delivery Method Non-Rebreather Mask Oxygen Flow Rate 15 11/21/22 05:13 11/21/22 04:05 11/21/22 04:40 Temperature 99.4 F 100.0 F Pulse Rate 106 H 103 H 98 Respiratory Rate 26 H 33 H Blood Pressure 99/58 L 113/59 L 94/61 Pulse Oximetry 95 96 Oxygen Delivery Method Non-Rebreather Mask High Flow Nasal Cannula Oxygen Flow Rate 15 11/21/22 05:00 11/21/22 04:59 11/21/22 05:14 Temperature 100.9 F H Pulse Rate 106 H Respiratory Rate 30 H 20 Blood Pressure 99/58 L 114/61 Pulse Oximetry 97 Oxygen Delivery Method High Flow Nasal Cannula Oxygen Flow Rate 15 BMI result Body Mass Index 39.9 Const Other: Appearance: Minimally responsive Eyes: Pupils equal, round and reactive to light. ENT: Pharynx normal. Neck: Normal inspection. Neck supple. No lymph nodes noted. No crepitus CVS: Normal heart rate and rhythm. Pulses normal. Normal S1 and S2 Respiratory: No wheezing, oxygen saturation in the mid 80s on 6 L on arrival, improved to 95% on a non-rebreather, eventually weaned down to an OxyMask Abdomen: Soft and nontender. No rigidity. No distention. Skin: Skin warm and dry. Normal skin color. Normal skin turgor. Extremities: No lower extremity edema. No Lacerations. No Rash Neuro: Too weak, patient waking up, patient is unable to move her left hand or left arm at all Psych: Too weak, nearly unresponsive NIH Stroke Scale Level of Consciousness: Not Alert; requires repeated stimulation, or strong of painful stim. Level of Consciousness Questions: Answers one question correctly Level of Consciousness Commands: Performs both tasks correctly Best Gaze: Normal Visual: No visual loss Facial Palsy: Normal Motor Arm (Right): No drift Motor Arm (Left): No movement Motor Leg (Right): No drift Motor Leg (Left): No movement Limb Ataxia: Absent Sensory: Normal Best Language: Mild to moderate aphasia Dysarthia: Mild to moderate dysarthria Extinction and Inattention: No abnormality Score: 13 Course Course Course Narrative: -patient is receiving IV fluids based on ideal weight of 55 kg. Empirically patient received Zosyn Medications Administered Generic Name Dose Route Start Last Admin Trade Name Freq PRN Reason Stop Dose Admin Norepinephrine Bitartrate 8 mg in 250 mls @ 0 mls/hr 11/21/22 02:30 11/21/22 05:13 Levophed IV 0.2 mcg/kg/min .Q0M YOUSIF 40.84 mls/hr Titration Protocol Per Protocol Discontinued Medications Generic Name Dose Route Start Last Admin Trade Name Manuela PRN Reason Stop Dose Admin Dexamethasone Sodium Phosphate 10 mg 11/21/22 01:45 11/21/22 02:00 Dexamethasone Sod Phosphate 10 Mg/Ml Vial IVPUSH 11/21/22 01:46 10 mg ONCE ONE Administration Piperacillin Sod/Tazobactam 50 mls @ 100 mls/hr 11/21/22 01:45 11/21/22 02:50 Sod 3.375 gm/ Sodium Chloride IV 11/21/22 02:14 Infused ONCE ONE Infusion Sodium Chloride 2,000 mls @ 999 mls/hr 11/21/22 01:46 11/21/22 04:15 Ns IVCONT 11/21/22 03:46 Infused .Q2H1M ONE Infusion Lorazepam 1 mg 11/21/22 05:20 11/21/22 05:21 Lorazepam 2 Mg/Ml Vial IVPUSH 11/21/22 05:21 1 mg STAT STA Administration Procedures Central Line Placement Right IJ: Time Out Performed: Yes Patient Placed on Monitor/Pulse Ox: Yes MD Prep: mask, gown and gloves Central Line Prep: Chlorhexidine scrub Local Anesthetic: lidocaine 1% Amount of anesthesia used (mL): 5 Ultrasound Used for Placement: Yes Central Line Lumen Inserted: triple Post Procedure: sutured in place, good blood return, all ports aspirated, flushed, capped and sterile dressing applied Post Procedure X-Ray: tip of catheter in good position and no pneumothorax seen Patient Tolerated Procedure: well and no complications Complications: none Medical Decision Making Medical Decision Making MDM Narrative: -it is unclear when the patient was seen last well. Seems the last time the patient was seen moving both arms and both legs was around 20:00. However, patient has brain metastasis to the brain, and absolute contraindication for tPA -when patient arrived, intubation was considered. However, patient was switched to a non-rebreather 15 L, patient stay waking up and answering questions. Patient was able to participate in cranial nerve assessment. Patient cannot mov e her left leg or left arm -unclear why patient's oxygen saturation is low. It is possible the patient may have thrown a pulmonary embolism, patient has extensive history of cancer. Or it is possible that when patient was found unresponsive on the floor, patient aspirated. Patient was given empirically IV fluids and antibiotics -patient was saying to head CT, my interpretation: No intracranial bleed, there seems to be a large old stroke. There is also a mass in the brain. Patient was given 10 mg of dexamethasone IV -CTA we have not been able to due to lack of access. Patient has a port from previous chemotherapy. However, the nurses were unable to access the ports. A central line was placed, patient has a right IJ. patient is also now on Levophed for low blood pressure. We are waiting for the patient to become more stable and for the blood pressure to be at least above 90 so we can take the patient to the CT scan. -patient remains oxygenating 100% on 15 L. -patient's daughter is at bedside, patient will likely need to be intubated within the next few minutes to protect the airway. -discussed with the patient's daughter that the prognosis is poor, she still wants her mother to be full code. -03:00: Patient's blood pressure 91/36, this is the highest blood pressure that we have gotten, she will be going on to CT scan -we attempted to wean down the patient from 15 L on a non-rebreather to an OxyMask, oxygen saturation dropped to the low 80s. Patient was switched to high-flow, 80% 50 L, oxygen saturation 94%. Patient is more awake, answering questions appropriately. -patient is still on pressors, Levophed, 0.18 mcg per kg per minute -discussed the patient with Radiology, unfortunately, they will be unable to do the CT scan to rule out pulmonary embolism since the patient already had a significant amount of contrast. I discussed the patient with Dr. Monterroso from our ICU, given that the patient has a brain mass, platelets of 87, possible stroke, will only do prophylactic dose of Lovenox, we will not do the full dose of 1 mg per kg -we tried calling all the local hospitals in [place] for transfer for an ICU bed since we do not have 1. All hospital is close to transfer. We were able to get in touch with [facility], patient being accepted by Dr. Thomason at [facility], ED to ED -on arrival of EMS, patient is somnolent , easily arousable, able to answer questions, GCS 14. Patient cannot be transported with high-flow, patient will be switched for transferred to non-rebreather 15 L Differential Diagnosis Differential Diagnoses: The differential diagnosis associated with the presentation includes (Encephalopathy, UTI, pneumonia, pulmonary embolism, intracranial mass, intracranial bleed) Admission/Observation Consideration of admission/observation: Escalation of care including admission/observation considered Lab Data 11/21/22 02:24 11/21/22 00:54 Labs: Lab Results 11/21/22 11/21/22 11/21/22 Range/Units 00:40 00:54 00:54 WBC (4.8-10.8) X10*3/uL RBC (4.20-5.50) X10*6/uL Hgb (12.0-16.0) g/dl Hct (37.0-47.0) % MCV (80.0-98.0) fL MCH (27.0-33.0) pg MCHC (31.0-35.0) g/dl RDW (11.0-16.0) % Plt Count (160-400) X10*3/uL MPV (9.4-12.3) fL Absolute Nucleated RBC (0.0-0.012) X10*3/uL Nucleated RBC % (auto) (0.0-0.2) /100WBC PT (11.1-13.3) SEC Whole Blood PT (11.1-13.5) sec INR (0.9-1.1) Whole Blood INR (0.9-1.1) APTT (26.0-36.4) SEC VBG pH 7.50 H (7.32-7.43) VBG pCO2 25 mmHg VBG pO2 144 mmHg VBG HCO3 20 L (22-26) mmol/L VBG O2 Saturation 97.0 % VBG Base Excess -1.3 mmol/L Sodium 137 (135-145) mmol/L Potassium 3.5 D (3.3-5.1) mmol/L Chloride 107 (96-108) mmol/L Carbon Dioxide 19 L (22-29) mmol/L Anion Gap 15 (12-20) BUN 23 H (9-16) mg/dL Creatinine 1.08 (0.5-1.4) mg/dL Estim Creat Clear Calc TNP Estimated GFR 51 POC Glucose 124 H (60-115) mg/dL Random Glucose 115 (60-115) mg/dL Lactic Acid (0.5-2.0) mmol/L Lactic Acid F/U @ 2Hr (0.5-2.0) mmol/L Calcium 7.3 L D (8.4-10.2) mg/dL Magnesium 1.5 L (1.6-2.6) mg/dL Total Bilirubin 0.8 (0.0-1.0) mg/dL AST 16 (5-31) U/L ALT 24 (0-31) U/L Alkaline Phosphatase 51 (39-117) U/L Troponin I High Sens (<3.5-17.0) ng/L B-Natriuretic Peptide (<100) pg/mL Total Protein 5.4 L (6.5-8.0) g/dL Albumin 3.1 L (3.5-5.0) g/dL Urine Color Urine Appearance Urine pH (5.0-9.0) Ur Specific [place] (1.005-1.025) Urine Protein (Neg-Trace) mg/dL Urine Glucose (UA) (Negative) mg/dL Urine Ketones (Negative) mg/dL Urine Blood (Negative) Urine Nitrite (Negative) Ur Leukocyte Esterase (Negative) Urine RBC (0-2) /HPF Urine WBC (0-5) /HPF Ur Squamous Epith Cells (0-2) /HPF Urine Bacteria (None Seen) Hyaline Casts (0-2) /LPF Urine Opiates Screen (Not Detect) Urine Fentanyl Screen (Not Detect) Ur Barbiturates Screen (Not Detect) Ur Phencyclidine Scrn (Not Detect) Ur Amphetamines Screen (Not Detect) U Benzodiazepines Scrn (Not Detect) Urine Cocaine Screen (Not Detect) U Marijuana (THC) Screen (Not Detect) Ethyl Alcohol < 10 mg/dL COVID-19 (MICHAEL) (Negative) COVID-19 Clin Com 11/21/22 11/21/22 11/21/22 Range/Units 00:54 01:09 01:27 WBC (4.8-10.8) X10*3/uL RBC (4.20-5.50) X10*6/uL Hgb (12.0-16.0) g/dl Hct (37.0-47.0) % MCV (80.0-98.0) fL MCH (27.0-33.0) pg MCHC (31.0-35.0) g/dl RDW (11.0-16.0) % Plt Count (160-400) X10*3/uL MPV (9.4-12.3) fL Absolute Nucleated RBC (0.0-0.012) X10*3/uL Nucleated RBC % (auto) (0.0-0.2) /100WBC PT 11.5 (11.1-13.3) SEC Whole Blood PT 11.2 (11.1-13.5) sec INR 0.9 (0.9-1.1) Whole Blood INR 0.9 (0.9-1.1) APTT 20.3 L (26.0-36.4) SEC VBG pH (7.32-7.43) VBG pCO2 mmHg VBG pO2 mmHg VBG HCO3 (22-26) mmol/L VBG O2 Saturation % VBG Base Excess mmol/L Sodium (135-145) mmol/L Potassium (3.3-5.1) mmol/L Chloride (96-108) mmol/L Carbon Dioxide (22-29) mmol/L Anion Gap (12-20) BUN (9-16) mg/dL Creatinine (0.5-1.4) mg/dL Estim Creat Clear Calc Estimated GFR POC Glucose (60-115) mg/dL Random Glucose (60-115) mg/dL Lactic Acid (0.5-2.0) mmol/L Lactic Acid F/U @ 2Hr (0.5-2.0) mmol/L Calcium (8.4-10.2) mg/dL Magnesium (1.6-2.6) mg/dL Total Bilirubin (0.0-1.0) mg/dL AST (5-31) U/L ALT (0-31) U/L Alkaline Phosphatase (39-117) U/L Troponin I High Sens 314.5 H* (<3.5-17.0) ng/L B-Natriuretic Peptide (<100) pg/mL Total Protein (6.5-8.0) g/dL Albumin (3.5-5.0) g/dL Urine Color Urine Appearance Urine pH (5.0-9.0) Ur Specific [place] (1.005-1.025) Urine Protein (Neg-Trace) mg/dL Urine Glucose (UA) (Negative) mg/dL Urine Ketones (Negative) mg/dL Urine Blood (Negative) Urine Nitrite (Negative) Ur Leukocyte Esterase (Negative) Urine RBC (0-2) /HPF Urine WBC (0-5) /HPF Ur Squamous Epith Cells (0-2) /HPF Urine Bacteria (None Seen) Hyaline Casts (0-2) /LPF Urine Opiates Screen (Not Detect) Urine Fentanyl Screen (Not Detect) Ur Barbiturates Screen (Not Detect) Ur Phencyclidine Scrn (Not Detect) Ur Amphetamines Screen (Not Detect) U Benzodiazepines Scrn (Not Detect) Urine Cocaine Screen (Not Detect) U Marijuana (THC) Screen (Not Detect) Ethyl Alcohol mg/dL COVID-19 (MICHAEL) (Negative) COVID-19 Clin Com 11/21/22 11/21/22 11/21/22 Range/Units 01:28 02:24 02:24 WBC 2.4 L (4.8-10.8) X10*3/uL RBC 3.79 L (4.20-5.50) X10*6/uL Hgb 12.1 (12.0-16.0) g/dl Hct 36.2 L (37.0-47.0) % MCV 95.5 (80.0-98.0) fL MCH 31.9 (27.0-33.0) pg MCHC 33.4 (31.0-35.0) g/dl RDW 13.2 (11.0-16.0) % Plt Count 87 L (160-400) X10*3/uL MPV 10.0 (9.4-12.3) fL Absolute Nucleated RBC 0.400 H (0.0-0.012) X10*3/uL Nucleated RBC % (auto) 16.5 H (0.0-0.2) /100WBC PT (11.1-13.3) SEC Whole Blood PT (11.1-13.5) sec INR (0.9-1.1) Whole Blood INR (0.9-1.1) APTT (26.0-36.4) SEC VBG pH (7.32-7.43) VBG pCO2 mmHg VBG pO2 mmHg VBG HCO3 (22-26) mmol/L VBG O2 Saturation % VBG Base Excess mmol/L Sodium (135-145) mmol/L Potassium (3.3-5.1) mmol/L Chloride (96-108) mmol/L Carbon Dioxide (22-29) mmol/L Anion Gap (12-20) BUN (9-16) mg/dL Creatinine (0.5-1.4) mg/dL Estim Creat Clear Calc Estimated GFR POC Glucose (60-115) mg/dL Random Glucose (60-115) mg/dL Lactic Acid 2.4 H* (0.5-2.0) mmol/L Lactic Acid F/U @ 2Hr (0.5-2.0) mmol/L Calcium (8.4-10.2) mg/dL Magnesium (1.6-2.6) mg/dL Total Bilirubin (0.0-1.0) mg/dL AST (5-31) U/L ALT (0-31) U/L Alkaline Phosphatase (39-117) U/L Troponin I High Sens (<3.5-17.0) ng/L B-Natriuretic Peptide (<100) pg/mL Total Protein (6.5-8.0) g/dL Albumin (3.5-5.0) g/dL Urine Color Urine Appearance Urine pH (5.0-9.0) Ur Specific [place] (1.005-1.025) Urine Protein (Neg-Trace) mg/dL Urine Glucose (UA) (Negative) mg/dL Urine Ketones (Negative) mg/dL Urine Blood (Negative) Urine Nitrite (Negative) Ur Leukocyte Esterase (Negative) Urine RBC (0-2) /HPF Urine WBC (0-5) /HPF Ur Squamous Epith Cells (0-2) /HPF Urine Bacteria (None Seen) Hyaline Casts (0-2) /LPF Urine Opiates Screen (Not Detect) Urine Fentanyl Screen (Not Detect) Ur Barbiturates Screen (Not Detect) Ur Phencyclidine Scrn (Not Detect) Ur Amphetamines Screen (Not Detect) U Benzodiazepines Scrn (Not Detect) Urine Cocaine Screen (Not Detect) U Marijuana (THC) Screen (Not Detect) Ethyl Alcohol mg/dL COVID-19 (MICHAEL) Negative (Negative) COVID-19 Clin Com See Note 11/21/22 11/21/22 11/21/22 Range/Units 02:24 04:21 04:21 WBC (4.8-10.8) X10*3/uL RBC (4.20-5.50) X10*6/uL Hgb (12.0-16.0) g/dl Hct (37.0-47.0) % MCV (80.0-98.0) fL MCH (27.0-33.0) pg MCHC (31.0-35.0) g/dl RDW (11.0-16.0) % Plt Count (160-400) X10*3/uL MPV (9.4-12.3) fL Absolute Nucleated RBC (0.0-0.012) X10*3/uL Nucleated RBC % (auto) (0.0-0.2) /100WBC PT (11.1-13.3) SEC Whole Blood PT (11.1-13.5) sec INR (0.9-1.1) Whole Blood INR (0.9-1.1) APTT (26.0-36.4) SEC VBG pH (7.32-7.43) VBG pCO2 mmHg VBG pO2 mmHg VBG HCO3 (22-26) mmol/L VBG O2 Saturation % VBG Base Excess mmol/L Sodium (135-145) mmol/L Potassium (3.3-5.1) mmol/L Chloride (96-108) mmol/L Carbon Dioxide (22-29) mmol/L Anion Gap (12-20) BUN (9-16) mg/dL Creatinine (0.5-1.4) mg/dL Estim Creat Clear Calc Estimated GFR POC Glucose (60-115) mg/dL Random Glucose (60-115) mg/dL Lactic Acid (0.5-2.0) mmol/L Lactic Acid F/U @ 2Hr (0.5-2.0) mmol/L Calcium (8.4-10.2) mg/dL Magnesium (1.6-2.6) mg/dL Total Bilirubin (0.0-1.0) mg/dL AST (5-31) U/L ALT (0-31) U/L Alkaline Phosphatase (39-117) U/L Troponin I High Sens (<3.5-17.0) ng/L B-Natriuretic Peptide 118 H (<100) pg/mL Total Protein (6.5-8.0) g/dL Albumin (3.5-5.0) g/dL Urine Color Yellow Urine Appearance Clear Urine pH 5.5 (5.0-9.0) Ur Specific [place] >= 1.030 H (1.005-1.025) Urine Protein 30 (1+) H (Neg-Trace) mg/dL Urine Glucose (UA) Negative (Negative) mg/dL Urine Ketones Negative (Negative) mg/dL Urine Blood Negative (Negative) Urine Nitrite Negative (Negative) Ur Leukocyte Esterase Negative (Negative) Urine RBC 0-2 (0-2) /HPF Urine WBC 0-5 (0-5) /HPF Ur Squamous Epith Cells 6-10 (0-2) /HPF Urine Bacteria None Seen (None Seen) Hyaline Casts 3-5 (0-2) /LPF Urine Opiates Screen Not Detected (Not Detect) Urine Fentanyl Screen Not Detected (Not Detect) Ur Barbiturates Screen Not Detected (Not Detect) Ur Phencyclidine Scrn Not Detected (Not Detect) Ur Amphetamines Screen Not Detected (Not Detect) U Benzodiazepines Scrn Not Detected (Not Detect) Urine Cocaine Screen Not Detected (Not Detect) U Marijuana (THC) Screen Not Detected (Not Detect) Ethyl Alcohol mg/dL COVID-19 (MICHAEL) (Negative) COVID-19 Clin Com 11/21/22 Range/Units 04:50 WBC (4.8-10.8) X10*3/uL RBC (4.20-5.50) X10*6/uL Hgb (12.0-16.0) g/dl Hct (37.0-47.0) % MCV (80.0-98.0) fL MCH (27.0-33.0) pg MCHC (31.0-35.0) g/dl RDW (11.0-16.0) % Plt Count (160-400) X10*3/uL MPV (9.4-12.3) fL Absolute Nucleated RBC (0.0-0.012) X10*3/uL Nucleated RBC % (auto) (0.0-0.2) /100WBC PT (11.1-13.3) SEC Whole Blood PT (11.1-13.5) sec INR (0.9-1.1) Whole Blood INR (0.9-1.1) APTT (26.0-36.4) SEC VBG pH (7.32-7.43) VBG pCO2 mmHg VBG pO2 mmHg VBG HCO3 (22-26) mmol/L VBG O2 Saturation % VBG Base Excess mmol/L Sodium (135-145) mmol/L Potassium (3.3-5.1) mmol/L Chloride (96-108) mmol/L Carbon Dioxide (22-29) mmol/L Anion Gap (12-20) BUN (9-16) mg/dL Creatinine (0.5-1.4) mg/dL Estim Creat Clear Calc Estimated GFR POC Glucose (60-115) mg/dL Random Glucose (60-115) mg/dL Lactic Acid (0.5-2.0) mmol/L Lactic Acid F/U @ 2Hr 2.0 (0.5-2.0) mmol/L Calcium (8.4-10.2) mg/dL Magnesium (1.6-2.6) mg/dL Total Bilirubin (0.0-1.0) mg/dL AST (5-31) U/L ALT (0-31) U/L Alkaline Phosphatase (39-117) U/L Troponin I High Sens (<3.5-17.0) ng/L B-Natriuretic Peptide (<100) pg/mL Total Protein (6.5-8.0) g/dL Albumin (3.5-5.0) g/dL Urine Color Urine Appearance Urine pH (5.0-9.0) Ur Specific [place] (1.005-1.025) Urine Protein (Neg-Trace) mg/dL Urine Glucose (UA) (Negative) mg/dL Urine Ketones (Negative) mg/dL Urine Blood (Negative) Urine Nitrite (Negative) Ur Leukocyte Esterase (Negative) Urine RBC (0-2) /HPF Urine WBC (0-5) /HPF Ur Squamous Epith Cells (0-2) /HPF Urine Bacteria (None Seen) Hyaline Casts (0-2) /LPF Urine Opiates Screen (Not Detect) Urine Fentanyl Screen (Not Detect) Ur Barbiturates Screen (Not Detect) Ur Phencyclidine Scrn (Not Detect) Ur Amphetamines Screen (Not Detect) U Benzodiazepines Scrn (Not Detect) Urine Cocaine Screen (Not Detect) U Marijuana (THC) Screen (Not Detect) Ethyl Alcohol mg/dL COVID-19 (MICHAEL) (Negative) COVID-19 Clin Com Critical Care Time Critical Care Time Critical Care Time: Yes Total Critical Care Time: 120 Attestation: I have personally provided critical care time. Time includes review of lab data, radiology results, discussion with consultants, and monitoring for potential decompensation. Intervention performed as documented. Discharge Plan Discharge Clinical Impression: Sepsis, Brain TIA, Pneumonia, Hypotension Patient Disposition: [facility] Transfer Details: [facility] ED to ED, accepted by Dr. Thomason Prescriptions: No Action atenolol 50 mg tablet 50 mg PO BID Qty: 60 8RF lorazepam 0.5 mg tablet 0.5 mg PO BID PRN (Reason: Anxiety) Qty: 60 5RF dexamethasone 4 mg tablet 4 mg PO QID 30 Days Qty: 120 4RF furosemide [Lasix] 20 mg tablet 20 mg PO DAILY Qty: 90 3RF nifedipine 30 mg tablet extended release 30 mg PO DAILY Qty: 90 3RF sulfamethoxazole-trimethoprim [Bactrim] 400-80 mg tablet 1 tab PO DAILY Qty: 30 0RF oxycodone 5 mg tablet 5 mg PO QID PRN (Reason: pain) Qty: 30 0RF Rx Instructions: Partial Fill upon patient request. omeprazole 20 mg Tablet,Delayed Release (Dr/Ec) 20 mg PO DAILY Qty: 90 3RF nifedipine 30 mg Tablet Extended Release 30 mg PO DAILY Qty: 90 3RF sulfamethoxazole-trimethoprim [Bactrim] 400-80 mg Tablet 1 tab PO DAILY Qty: 90 4RF dexamethasone 4 mg Tablet 4 mg PO TID Qty: 60 3RF docusate sodium [Colace] 100 mg capsule 100 mg PO BID Qty: 60 4RF chlorhexidine gluconate 0.12 % mouthwash 0.12 ml PO DAILY cholecalciferol (vitamin D3) 50 mcg (2,000 unit) capsule 50 mcg PO DAILY
[2022-11-21 02:48] LABS: Lactic Acid 2.4 mmol/L (0.5-2.0)
--- NOTE | 2022-11-21 02:49 | PC.NURSE ---
lacitc acid 2.4, notified NADEEM ortiz and Dr. Stone
[2022-11-21 02:54] LABS: Glucose, Whole Blood 124 mg/dL (60-115)
[2022-11-21 03:09] LABS: B Type Natriuretic Peptide 118 pg/mL (<100)
--- NOTE | 2022-11-21 04:24 | MHC.EDTECH ---
0100 PATIENT CAME IN VIA EMS ,BLOOD SUGAR CHECK ,EKG TAKEN AND WAS READ BY PROVIDER ,BLOOD DRAWN ,COVID SWAB COLLECTED AND SENT TO LAB ,PATIENT WAS INCONTINENT OF LARGE AMOUNT OF DRY STOOL CARE GIVEN ,BEDDING CHANGE ,PT DAUGHTER AT BEDSIDE .
[2022-11-21 04:29] LABS: Appearance Urine Clear; Color Urine Yellow; Glucose Urine UA Negative (Negative); Leukocyte Esterase Urine Negative (Negative); Nitrite Urine Negative (Negative); PH 5.5 (5.0-9.0); Specific Gravity - Urine >= 1.030 (1.005-1.025); UMIC TRIGGER UACC YES; Urine Blood Negative (Negative); Urine Ketones Negative (Negative); Urine Protein 30 (1+) mg/dL (Neg-Trace)
[2022-11-21 04:30] LABS: Reflex Lactate? Lactic Acid Added
[2022-11-21 04:34] LABS: Bacteria Urine None Seen (None Seen); RBC Urine 0-2 /HPF (0-2); WBC Urine 0-5 /HPF (0-5)
[2022-11-21 04:38] LABS: Amphetamine Screen Urine Not Detected (Not Detect); Barbiturates, Urine Not Detected (Not Detect); Benzodiazepines Screen Urine Not Detected (Not Detect); Cannabinoid Screen Urine Not Detected (Not Detect); Cocaine Screen Urine Not Detected (Not Detect); Fentanyl, urine Not Detected (Not Detect); Opiate Screen Urine Not Detected (Not Detect); Phencyclidine Screen Urine Not Detected (Not Detect)
--- NOTE | 2022-11-21 04:57 | MHC.EDTECH ---
[facility] line called at [phone],spoke with Nura gave patient info then he asked to speak with 's, she took call right away.
--- NOTE | 2022-11-21 05:02 | PC.NURSE ---
Addendum entered by Melany Nino 11/21/22 06:23: DR JOHNSON AT BEDSIDE AWARE OF LOW BP AND MAPS. Original Note: this rn assumed care of pt from ems. pt found to be 87% on 5lpm nc. pt incontinent stool. ems unable to obtain line. dr johnson at bedside. ekg obtained. dr pena attempted to place IO access. unable to gain access. 22g placed in R and L hands. unable to get blood work from line unable to do CT with IV contrast. dr johnson made aware. pt has chemo port. this rn and additional rn attempted to access port. unable to get draw back. unable to use for CT per truck service technician. dr johnson made aware unable to obtain stable iv line and all of blood work pt medicated according to estela. iv antibiotics initiated after first set of BC okay per dr elizabeth johnson placed central line remaining bloodwork collected pt medicated according to estela
--- NOTE | 2022-11-21 05:10 | PC.NURSE ---
THIS RN AND ADDITIONAL ED TECHS CHANGED PT BEDLINENS DUE TO INCONTINENCE OF STOOL. PT RESPONSIVE TO COMMANDS AND VERBAL STIMULI ARBOLEDA CATHETER PLACED. 16 AZERBAIJANI TEMP SENSING. 300ML IMMEDIATE OUTPUT
--- NOTE | 2022-11-21 05:17 | MHC.EDTECH ---
call out to eleni at [phone] to book ALS transport for Pt to [facility] ED, estimated eta given was [phone]
[2022-11-21] MEDS: LORazepam 2 MG/ML VIAL 1 MG IVPUSH (05:21)
[2022-11-21] MEDS: Enoxaparin Sodium 40 MG/0.4 ML SYRINGE SUBCUT (05:32)
[2022-11-21] MEDS: Acetaminophen Supp 650 MG SUPP.RECT PR (05:33)
--- NOTE | 2022-11-21 06:21 | PC.NURSE ---
THIS RN GAVE REPORT TO EMS. LMFT NOTIFIED PT FAMILY OF TRANSPORT THIS RN GAVE RN TO RN REPORT TO SUZI SILVER AT [facility].
--- NOTE | 2022-11-21 15:49 | PC.NURSE ---
critical labs faxed to [facility]- 11th floor ICU
== END 2022-11-21 06:24 | disposition short-term general hospital (02) ==
PROVIDERS: Physician Assistant Medical; Emergency Provider Emergency Medicine
DX: A41.9 Sepsis, unspecified organism (principal); G45.9 Transient cerebral ischemic attack, unspecified; J18.9 Pneumonia, unspecified organism; I95.9 Hypotension, unspecified; R41.82 Altered mental status, unspecified; Z20.822 Contact with and (suspected) exposure to COVID-19; Z79.899 Other long term (current) drug therapy; Z92.21 Personal history of antineoplastic chemotherapy; Z85.3 Personal history of malignant neoplasm of breast; Z85.830 Personal history of malignant neoplasm of bone
CPT/HCPCS: 36415; 36556; 70450; 70496; 70498; 71045; 71250; 80053; 80307; 81001; 82803; 82947; 83605; 83735; 83880; 84484; 85027; 85610; 85730; 87040; 87077; 87186; 87205; 87635; 93005; 96365; 96366; 96368; 96372; 96375; 99284; 99285; J1100; J1650; J2060; J2543

== ENCOUNTER → 2022-11-21 00:44 | Outpatient (BNV) | payer MEDICARE, MEDICAID, SELFPAY | PROVIDERS: Emergency Provider Emergency Medicine; Visit Provider Internal Medicine Cardiovascular Disease | DX: R06.02 Shortness of breath (principal) | CPT/HCPCS: 93010 ==